=== PATIENT | female | born 1960 | race Caucasian/White ===

== ENCOUNTER 2021-06-12 16:25 | Inpatient (IN) | payer BC, SELFPAY ==
[2021-06-12] VITALS (9 sets, daily range): BP systolic 134–226; BP diastolic 99–148; PULSE 78–143; RESP 15–23; TEMP 36.1–37; O2SAT 95–98; BMI 38.7; BMI 35.1
--- NOTE | 2021-06-12 17:12 | CT_ITS ---
We are attempting to reach an attending provider to discuss findings. An addendum with communication details will be sent when the communication is complete. EXAM: CT HEAD WITHOUT INTRAVENOUS CONTRAST CLINICAL INDICATION: Neuro deficit, acute, stroke suspected TECHNIQUE: Multiple axial images were obtained of the head without intravenous contrast. This CT exam was performed using one or more of the following dose reduction techniques: automated exposure control, adjustment of the mA and/or kV according to patient size, and/or use of iterative reconstruction technique. This report was created using [employer] technology. COMPARISON: None. FINDINGS: BRAIN AND EXTRA-AXIAL SPACES: Old right basal ganglia infarct. Old right frontal parietal lobe infarct. No intra- or extra-axial hemorrhage. No intracranial mass or mass effect. Posterior fossa structures are unremarkable. Ventricles are appropriate for age. No hydrocephalus. Basal cisterns are patent. BONES/JOINTS: Unremarkable. No discrete lytic or blastic abnormalities. SINUSES: Sinus disease. MASTOID AIR CELLS: Unremarkable. Clear. ORBITS: Visualized globes, extraocular muscles, optic nerves and retrobulbar fat appear unremarkable. CT/STROKE Brain/Head without Cont IMPRESSION: No acute findings in the head/brain. Electronically Signed: Harjeet Benítez MD at 18:13 EDT ,
--- NOTE | 2021-06-12 17:12 | EKG12_ITS ---
Test Reason : DYSRHYTHMIA Blood Pressure : / mmHG Vent. Rate : 093 BPM Atrial Rate : 093 BPM P-R Int : 144 ms QRS Dur : 078 ms QT Int : 370 ms P-R-T Axes : 054 070 059 degrees QTc Int : 460 ms Normal sinus rhythm Normal ECG Confirmed by SHERYL CHIRINOS, SHANTI ([id number]), associate entertainment editor SEBASTIÁN DE LEON ([id number]) on 06/14/2021 10:54:18 AM Referred By: ALLYSON Confirmed By:SHANTI SAUCEDO MD
--- NOTE | 2021-06-12 17:13 | ED.VIS.STROK ---
HPI History of Present Illness Chief Complaint: General Illness Informant: patient Onset/Context/Timing Onset: Weeks (1) Context: - (Cannot remember onset) Timing: Continuous Quality and Location: Positive for Right Face Paresthesia, Right Arm Parasthesia, Right Arm Weakness and Slurred Speech; Negative for Difficulty with Ambulation Current Severity: Moderate Maximum Severity: Moderate Worsened by: Nothing Relieved by: Nothing Associated Symptoms Associated Symptoms: Positive for Headache (Off-and-on not present now) and Nausea (Off-and-on not present now); Negative for Vomiting and Chest Pain Narrative Narrative: Patient does not see a doctor, cannot remember the last time she did. She presents with concern for stroke since she is having trouble speaking, numbness in her right face, numbness weakness in her right arm. She states she has history of chronic neuropathy in her right lower extremity that is unchanged and she has been able to walk okay. She is feeling malaise, has occasional headaches, occasional nausea, no chest pain or shortness of breath. No recent injuries or falls. She is having some mild vague changes in her vision but does not sound like any focal or bruce loss of visual field. She has noticed some facial flushing off and on but is not present right now. PFSH PFSH Medical History no medical history no medical history Allergy/AdvReac Type Severity Reaction Status Date / Time No Known Allergies Allergy Verified 06/12/21 16:26 Family History (Updated 06/12/21 @ 19:06 by Tawana Pierson NP-C) Mother Hypertension Son Hypertension Surgical History (Updated 06/12/21 @ 19:06 by DELFINO Mederos) Hx of tonsillectomy Social History (Updated 06/12/21 @ 19:06 by Tawana Pierson NP-C) Smoking Status: Current every day smoker tobacco type: cigarettes alcohol intake: never substance use type: does not use ROS ROS ED Constitutional Constitutional ED: Reports fatigue; Denies chills or fever(s) Eyes Eyes: Reports change in vision bilateral (not as sharp); Denies diplopia ENT ENT ED: Denies rhinorrhea or sore throat Cardiovascular Cardiovascular: Denies chest pain or palpitations Respiratory/Chest Respiratory/Chest: Denies cough or dyspnea Gastrointestinal Gastrointestinal: Reports nausea; Denies abdominal pain, diarrhea or vomiting Genitourinary Genitourinary ED: Denies dysuria or hematuria Musculoskeletal Musculoskeletal: Denies back pain or neck pain Integumentary Denies abscess or rash Neurologic Neurologic: Reports as per HPI, headache(s), paresthesias and weakness Psychiatric Psychiatric: Denies anxiety or suicidal thoughts EXAM Physical Exam Const Vital Signs: 06/12/21 16:26 06/12/21 16:45 06/12/21 17:36 Temperature 96.9 F L Temperature Source Temporal Pulse Rate 143 H 114 H Respiratory Rate 15 23 H Respiratory Effort Normal Respiratory Pattern Normal Blood Pressure 196/148 H Blood Pressure Mean 164 Pulse Ox 98 Oxygen Delivery Method Room Air Room Air 06/12/21 17:50 06/12/21 18:43 06/12/21 18:54 Temperature 98.4 F Temperature Source Temporal Pulse Rate 113 H 92 99 Respiratory Rate 20 H 18 21 H Respiratory Effort Respiratory Pattern Blood Pressure 226/117 H 205/118 H 194/116 H Blood Pressure Mean 153 147 142 Pulse Ox Oxygen Delivery Method Room Air Positive well nourished and well developed General Appearance ED: well developed and NAD HEENT Reports moist mucous membranes normocephalic and atraumatic Eyes PERRL and EOMs intact bilaterally Neck full ROM and supple Resp normal respiratory effort and clear to auscultation bilaterally Cardio regular rate, regular rhythm and no murmurs GI non-tender and non-distended Auscultation: normoactive bowel sounds Palpation: soft Back/Spine no CVA tenderness General Back: other FROM Extremity normal to inspection General Extremety ED: Negative for edema, pulses abnormal or tenderness General Extremity: Negative for edema or pulses abnormal Neuro oriented x3 Sensorium / Orientation: awake and alert Skin no rashes or lesions noted and no wounds STROKE Vital Signs/Narrative: Vital Signs Temp Pulse Resp BP Pulse Ox 06/12/21 18:54 98.4 F 99 21 H 194/116 H 06/12/21 18:43 92 18 205/118 H 06/12/21 17:50 113 H 20 H 226/117 H 06/12/21 17:36 114 H 23 H 06/12/21 16:26 96.9 F L 143 H 15 196/148 H 98 NIHSS Initial: 1a Level of Consciousness: 0 1b LOC Questions (Score 2 if aphasic/stupor): 0 1c LOC Commands (Only score 1st attempt): 0 2 Best Gaze (If aphasic, use reflexive mvmts.): 0 3 Visual: 0 4 Facial Palsy: 0 5 Motor Arm Right (UN = amputation/fusion): 1 5 Motor Arm Left: 0 6 Motor Leg Right: 1 6 Motor Leg Left: 0 7 Limb ataxia (Only + if out of proportion): 0 8 Sensory (Aphasia/stupor=0 or 1, coma=2): 1 9 Best Language: 1 10 Dysarthria (mute, coma=2, intubated=UN): 0 11 Extinction and Inattention (only scored if +): 0 Total Score: 4 MDM MDM MDM Narrative Medical decision making narrative: Patient has a negative plain head CT, strokelike symptoms and a very high blood pressure. She received labetalol when the pressure went up to 226/117. At this time the rest of her work-up is unremarkable except for having a high hemoglobin at 18.5. Plan will be for admission for further work-up. After the labetalol, her blood pressure is still 205/118, so after discussing with hospitalist will order her Catapres and aspirin and request that nurses perform a swallow eval at the bedside prior to giving. Lab Data Attestation: I reviewed the patient's lab results. Labs: Laboratory Results - last 24 hr 06/12/21 06/12/21 06/12/21 17:40 17:40 17:40 WBC 11.9 H RBC 5.95 H Hgb 18.5 H* Hct 51.8 H MCV 87.1 MCH 31.1 MCHC 35.7 RDW Std Deviation 38.8 RDW Coeff of Erin 12.1 Plt Count 379 MPV 9.0 Immature Gran % (Auto) 0.400 Neut % (Auto) 68.2 Lymph % (Auto) 20.5 [place] % (Auto) 7.8 Eos % (Auto) 2.2 Baso % (Auto) 0.9 Absolute Neuts (auto) 8.1 H Absolute Lymphs (auto) 2.44 Nucleated RBC % 0 Differential Comment SCANNED Diff Path Review June foll PT 12.5 INR 1.0 APTT 27.7 Sodium 139 Potassium 3.6 Chloride 107 Carbon Dioxide 25.0 Anion Gap 7 BUN 9 Creatinine 0.96 Estim Creat Clear Calc 49.90 Est GFR (MDRD) Af Amer 77 Est GFR (MDRD) Non-Af 63 BUN/Creatinine Ratio 9.4 L Glucose 89 Calcium 9.4 Troponin I High Sens 10 POC Glucose 06/12/21 18:49 WBC RBC Hgb Hct MCV MCH MCHC RDW Std Deviation RDW Coeff of Erin Plt Count MPV Immature Gran % (Auto) Neut % (Auto) Lymph % (Auto) [place] % (Auto) Eos % (Auto) Baso % (Auto) Absolute Neuts (auto) Absolute Lymphs (auto) Nucleated RBC % Differential Comment Diff Path Review PT INR APTT Sodium Potassium Chloride Carbon Dioxide Anion Gap BUN Creatinine Estim Creat Clear Calc Est GFR (MDRD) Af Amer Est GFR (MDRD) Non-Af BUN/Creatinine Ratio Glucose Calcium Troponin I High Sens POC Glucose 113 H Radiography Diagnostic Testing: Clinical Impression(s) from Imaging Studies Brain CT 06/12/21 17:12 IMPRESSION: No acute findings in the head/brain. Electronically Signed: Harjeet Benítez MD at 18:13 EDT , ADDENDUM: 06/12/21 1823 IMPRESSION: No acute findings in the head/brain. N.B. : The above Results were Read Back by Harjeet Benítez MD to Abhijit Guido MD, and understanding confirmed on 06/12/2021 18:16:05 (ET). Electronically Signed: Harjeet Benítez MD at 18:13 EDT , Chest X-Ray 06/12/21 18:00 IMPRESSION: There are no acute findings. Electronically Signed: Harjeet Benítez MD at 18:13 EDT , Rhythm Strip Rhythm Strip: Sinus Rhythm Rate: 90 Ectopy: None EKG Initial EKG: Attestation: I personally reviewed and interpreted this EKG as follows: Interpretation: Sinus Rhythm (93) and No Acute Injury Pattern Comments: Normal EKG Stroke Documentation Questions Stroke Team Activated: No (Due to timing) Was Patient considered for Endovascular Intervention?: No-CTA not indicated IV Alteplase (t-PA) Administered: No (Due to timing) Discharge Plan Dx/Rx/DC Orders Clinical Impression: Acute ischemic stroke, Hypertensive emergency Disposition Disposition: Acute Care Hospital [facility]
[2021-06-12 17:51] LABS: Absolute Lymphocyte Count 2.44 X10^3/uL (0.83-4.51); Absolute Neutrophil Count 8.1 X10^3/uL (2.0-7.7); Basophil# 0.11 X10^3/uL; Basophil% 0.9 % (0-1); Eosinophil# 0.26 X10^3/uL; Eosinophils% 2.2 % (0-5); Hematocrit 51.8 % (37-47); Lymphocyte # 2.44 X10^3/ul (0.83-4.51); Lymphocyte % 20.5 % (19-41); Mean Corp Hgb Conc 35.7 g/dL (32-36); Mean Corpuscular Hgb 31.1 pg (27.0-32.0); Mean Corpuscular Volume 87.1 fL (81-99); Monocyte# 0.93 X10^3/uL; Monocyte% 7.8 % (0-10); NRBC Flagged by Analyzer 0 % (0-5); Neutrophil # 8.14 X10^3/uL (2.7-7.7); Neutrophil % 68.2 % (47-70); Platelet Count 379 K/mm3 (150-450); RBC Distribution Width CV 12.1 % (11.6-14.6); RBC Distribution Width SD 38.8 fl (35.1-43.9); Red Blood Count 5.95 M/mm3 (4.2-5.4); White Blood Count 11.9 K/mm3 (4.4-11.0)
[2021-06-12] MEDS: Labetalol (Prefilled) 20 MG/4 ML IV (17:55)
--- NOTE | 2021-06-12 18:00 | RAD_ITS ---
STUDY: X-RAY CHEST REASON FOR EXAM: Female, 61 years old. CHEST PAIN Neuro deficit, acute, stroke suspected TECHNIQUE: XR Chest 1 View COMPARISON: None FINDINGS: There is no demonstrated pleural abnormality. Normal size heart. Normal mediastinum and luisa. Normal visualized pulmonary arteries. Normal visualized aortic arch and descending thoracic aorta. Normal visualized thoracic spine. Normal visualized ribs, clavicles, and shoulders. There is no demonstrated abnormality of the visualized soft tissue structures of the upper abdomen. RAD/Chest 1 View IMPRESSION: There are no acute findings. Electronically Signed: Harjeet Benítez MD at 18:13 EDT ,
[2021-06-12 18:06] LABS: Prothrombin Time (Protime)PT. 12.5 SECONDS (11.7-14.9)
[2021-06-12 18:07] LABS: Partial Thromboplast Time 27.7 Seconds (24.1-36.2)
[2021-06-12 18:09] LABS: Anion Gap 7 (5-15); BUN 9 mg/dL (7-18); BUN/Creat Ratio 9.4 RATIO (10-20); Calcium,Total 9.4 mg/dL (8.5-10.1); Chloride 107 mmol/L (98-107); Creatinine, Serum 0.96 mg/dL (0.55-1.02); EST Glomerular Filtration Rate 63 mL/min (>60); Est Glom Filt Rate - Afr Amer 77 mL/min (>60); Glucose 89 mg/dL (74-106); Potassium 3.6 mmol/L (3.5-5.1); Sodium Level 139 mmol/L (136-145); Troponin-I HS 10 pg/mL (3.0-54.0)
[2021-06-12 18:16] LABS: Hemoglobin 18.5 g/dL (12.0-15.0)
[2021-06-12 18:17] LABS: Differential Indicated SCAN CRITERIA MET
[2021-06-12 18:45] LABS: Differential Comment SCANNED
[2021-06-12] MEDS: Aspirin 81 MG TAB.CHEW 324 MG PO (18:53)
[2021-06-12 18:56] LABS: Bedside Glucose 113 mg/dL (74-106)
--- NOTE | 2021-06-12 19:02 | ECHOD_ITS ---
Reason For Study: TIA/CVA Procedure This was a 2D Doppler, Color Flow transthoracic echocardiogram. The exam was of adequate technical quality. Exam performed in department. Left Ventricle Normal LV size. Left ventricular systolic function is normal. The estimated ejection fraction is 65 %. Diastolic function is indeterminate. No regional wall motion abnormalities noted. Right Ventricle Normal RV size. Normal systolic function. Atria Normal left atrium. Normal right atrium. No doppler evidence for ASD. Bubble contrast study negative for right to left interatrial shunt. Mitral Valve There is no mitral annular calcification. Normal mitral valve. Trivial mitral valve insufficiency. Tricuspid Valve Normal tricuspid valve. Trivial tricuspid valve insufficiency. Unable to estimate RV systolic pressure due to insufficient tricuspid regurgitant envelope. Aortic Valve Trisinus/trileaflet aortic valve. Normal aortic valve. Pulmonic Valve The pulmonic valve is not well visualized. Trivial pulmonic valve insufficiency. Great Vessels Normal sized aortic root. Pericardium/Pleural No pericardial effusion. Epicardial fat. Medication Performed a rapid injection of agitated mix of 9 cc saline and 1cc air to assess for atrial septal defect. MMode/2D Measurements & Calculations LVIDd: 3.7 cm IVSd: 1.1 cm Ao root diam: 2.6 cm LVIDs: 2.7 cm LVPWd: 0.78 cm RVDd: 3.1 cm FS: 26.9 % LAV(MOD-sp4): 54.1 ml LVAd ap4: 21.7 cm2 LVAd ap2: 18.2 cm2 LVLd ap4: 7.4 cm LVLd ap2: 5.6 cm EDV(MOD-sp4): 54.8 ml EDV(MOD-sp2): 49.1 ml EDV(sp4-el): 53.8 ml EDV(sp2-el): 50.4 ml LVAs ap4: 12.5 cm2 LVLs ap4: 6.0 cm ESV(MOD-sp4): 23.7 ml ESV(sp4-el): 21.8 ml EF(MOD-sp4): 56.8 % EF(sp4-el): 59.4 % SV(MOD-sp4): 31.2 ml SV(sp4-el): 32.0 ml LA A4 area: 19.2 cm2 LA dimension(2D): 3.5 cm RA A4 area: 14.8 cm2 Doppler Measurements & Calculations MV E max lm: 50.8 cm/sec Lat Peak E' Lm: 6.1 cm/sec Med Peak E' Lm: 5.1 cm/sec MV A max lm: 71.8 cm/sec E/E' lat: 8.4 E/E' med: 10.0 MV E/A: 0.71 Ao V2 max: 114.6 cm/sec LV V1 max: 105.1 cm/sec PA V2 max: 98.0 cm/sec Ao max P.3 mmHg LV V1 max P.4 mmHg ECHO/Echo Complete Interpretation Summary Left ventricular systolic function is normal. The estimated ejection fraction is 65 %. Trivial mitral valve insufficiency. Trivial tricuspid valve insufficiency. Trivial pulmonic valve insufficiency. Epicardial fat. Unable to estimate RV systolic pressure due to insufficient tricuspid regurgita nt envelope. Diastolic function is indeterminate. Bubble contrast study negative for right to left interatrial shunt. Ordering Physician: Tawana Pierson Referring Physician: NO PCP NOTED Performed By: Vidhya Kim RCS
--- NOTE | 2021-06-12 19:04 | HP.PCM_ITS ---
Documented by User: DELFINO Mederos 06/12/21 19:14 HPI - General General Date of Admission: 06/12/21 Date of Service: 06/12/21 Chief Complaint: Numbness and tingling HPI Narrative JERMAIN RHODES, is a 61 F who presents with complaints of right facial and arm paresthesias and right arm weakness along with slurred speech which began today.. Patient states that she has not been to see a physician and probably decades. Upon initial evaluation patient is significantly hypertensive at 227/119. Patient states that she has no known medical history however as stated before she has not seen a physician in some time. Patient received clonidine and labetalol in the ER along with aspirin. Patient states that her only surgical history is a tonsillectomy when she was a child. PFS Medical History no medical history Allergy/AdvReac Type Severity Reaction Status Date / Time No Known Allergies Allergy Verified 06/12/21 16:26 Family History (Updated 06/12/21 @ 19:06 by DELFINO Mederos) Mother Hypertension Son Hypertension Surgical History (Updated 06/12/21 @ 19:06 by DELFINO Mederos) Hx of tonsillectomy Social History (Updated 06/12/21 @ 19:06 by DELFINO Mederos) Smoking Status: Current every day smoker tobacco type: cigarettes alcohol intake: never substance use type: does not use ROS Constitutional Constitutional: Denies anorexia, chills, fatigue, fever(s) or weakness Cardiovascular Cardiovascular: Denies chest pain, edema, palpitations or syncope Respiratory/Chest Respiratory/Chest: Denies cough, shortness of breath at rest, shortness of breath with exertion or wheezing Gastrointestinal Gastrointestinal: Denies abdominal pain, constipation, diarrhea, nausea or vomiting Genitourinary Genitourinary: Denies dysuria Musculoskeletal Musculoskeletal: Denies back pain, extremity pain, joint pain, joint stiffness or joint swelling Integumentary Integumentary: Denies dry skin Neurologic Neurologic: Reports abnormal speech, focal weakness, numbness and tingling; Denies abnormal gait, confusion or dizziness Psychiatric Psychiatric: Denies anxiety or depression Endocrine Endocrinology: Denies change in body appearance Hematologic/Lymphatic Hematologic/Lymphatic: Denies anemia Vital Signs Vital Signs Vital Signs: 06/12/21 16:26 06/12/21 16:45 06/12/21 17:36 Temperature 96.9 F L Temperature Source Temporal Pulse Rate 143 H 114 H Respiratory Rate 15 23 H Respiratory Effort Normal Respiratory Pattern Normal Blood Pressure 196/148 H Blood Pressure Mean 164 Pulse Ox 98 Oxygen Delivery Method Room Air Room Air 06/12/21 17:50 06/12/21 18:43 06/12/21 18:54 Temperature 98.4 F Temperature Source Temporal Pulse Rate 113 H 92 99 Respiratory Rate 20 H 18 21 H Respiratory Effort Respiratory Pattern Blood Pressure 226/117 H 205/118 H 194/116 H Blood Pressure Mean 153 147 142 Pulse Ox Oxygen Delivery Method Room Air Weight Weight: 211 lb 10.3 oz Body Mass Index (BMI) 38.7 Physical Exam Const alert, oriented x3 and no apparent distress General Appearance: cooperative HEENT normocephalic and head/scalp atraumatic Eyes conjunctivae normal and no scleral icterus Neck supple General: trachea midline Lymph Lymphatic: no lymphadenopathy noted Resp normal respiratory effort, normal air movement and clear to auscultation bilaterally Cardio regular rate, regular rhythm, S1 normal heart sound, S2 normal heart sound and peripheral pulses 2+ throughout GI normal to inspection, nondistended, normoactive bowel sounds, soft to palpation and non-tender Extremity normal capillary refill and no clubbing, cyanosis or edema General Extremity: no tenderness to palpation of joints or extremities Skin General Skin Exam: no breakdown and turgor normal Lesions: no lesions Rashes: no rashes Neuro oriented x3 and moves all extremities Speech: speech abnormal Details: Positive for slurred Sensory Exam: extremities light-touch: decreased (Right arm and right side face) Psych thought process normal, cooperative and affect normal Appearance: appropriate Results Lab / Micro Data Result Diagrams: 06/12/21 17:40 06/12/21 17:40 Labs: Laboratory Results - last 24 hr 06/12/21 17:40: WBC 11.9 H, RBC 5.95 H, Hgb 18.5 H*, Hct 51.8 H, MCV 87.1, MCH 31.1, MCHC 35.7, RDW Std Deviation 38.8, RDW Coeff of Erin 12.1, Plt Count 379, MPV 9.0, Immature Gran % (Auto) 0.400, Neut % (Auto) 68.2, Lymph % (Auto) 20.5, [place] % (Auto) 7.8, Eos % (Auto) 2.2, Baso % (Auto) 0.9, Absolute Neuts (auto) 8.1 H, Absolute Lymphs (auto) 2.44, Nucleated RBC % 0, Differential Comment SCANNED, Diff Path Review June06/12/21 17:40: PT 12.5, INR 1.0, APTT 27.7 06/12/21 17:40: Sodium 139, Potassium 3.6, Chloride 107, Carbon Dioxide 25.0, Anion Gap 7, BUN 9, Creatinine 0.96, Estim Creat Clear Calc 49.90, Est GFR (MDRD) Af Amer 77, Est GFR (MDRD) Non-Af 63, BUN/Creatinine Ratio 9.4 L, Glucose 89, Calcium 9.4, Troponin I High Sens 10 06/12/21 18:49: POC Glucose 113 H Rhythm Strip Rhythm Strip: Sinus Rhythm Rate: 90 Ectopy: None Radiology Impression Brain CT 06/12/21 17:12 IMPRESSION: No acute findings in the head/brain. Electronically Signed: Harjeet Benítez MD at 18:13 EDT , ADDENDUM: 06/12/21 1823 IMPRESSION: No acute findings in the head/brain. N.B. : The above Results were Read Back by Harjeet Benítez MD to Abhijit Guido MD, and understanding confirmed on 06/12/2021 18:16:05 (ET). Electronically Signed: Harjeet Benítez MD at 18:13 EDT , Chest X-Ray 06/12/21 18:00 IMPRESSION: There are no acute findings. Electronically Signed: Harjeet Benítez MD at 18:13 EDT , Assessment & Plan Assessment/Plan (1) Acute ischemic stroke: (2) Hypertensive emergency: PLAN: 1. Hypertensive emergency with suspicion for acute ischemic stroke -Admit to PCU -PT OT and ST to eval and treat -Patient received labetalol and clonidine x1 in ER, as needed labetalol and hydralazine ordered per protocol -Trend cardiac enzymes -Echocardiogram ordered for a.m. -N.p.o. pending dysphagia screening, if patient passes then cardiac diet ordered -NIH and vital sign monitoring per protocol -CBC, BMP, lipid profile ordered for a.m. -Brain MRI and head and neck MRA ordered -CT brain negative for acute findings however of note patient has a old right basal ganglia infarct and an old right frontal parietal lobe infarct. 2. Tobacco abuse -Inpatient smoking cessation ordered -Patient reports she smokes about three quarters of a pack of cigarettes per day 3. Elevated hemoglobin -Likely secondary to smoking as patient has no her entire adult life -Daily CBC ordered 4. Elevated white blood cell count -Likely reactive as patient has no signs or symptoms of infection -CBC ordered daily -Chest x-ray demonstrated no acute findings DVT prophylaxis-subcu Lovenox This patient was seen by DELFINO Mederos under the supervision of Dr. Amado. 29 minutes spent in clinical coordination of patient's plan of care. Documented by User: Dr. Brian Amado DO 06/12/21 19:31 HPI - General General Date of Admission: 06/12/21 PFSH Medical History no medical history Allergy/AdvReac Type Severity Reaction Status Date / Time No Known Allergies Allergy Verified 06/12/21 16:26 Family History (Updated 06/12/21 @ 19:06 by Tawana Pierson NP-Cata) Mother Hypertension Son Hypertension Surgical History (Updated 06/12/21 @ 19:06 by DELFINO Mederos) Hx of tonsillectomy Social History (Updated 06/12/21 @ 19:06 by Tawana Pierson NP-C) Smoking Status: Current every day smoker tobacco type: cigarettes alcohol intake: never substance use type: does not use Results Lab / Micro Data Result Diagrams: 06/12/21 17:40 06/12/21 17:40 Charges/Coding Addendum Addendum: Patient was seen and examined today independently of Christi Pierson, she came to the ER today from work with complaints of tingling in her right hand and fingers and some tingling on the right side of her mouth. Patient has not seen a physician in many years-she states that in the past she was told she had borderline hypertension but was told that she did not need to be placed on medication at that time and that it could be controlled with lifestyle changes. Patient takes no medications at the present time. On examination she appeared in good health and spirits, she does not appear to be in any distress. Vital signs as documented. Skin warm and dry and without overt rashes. Neck without JVD, thyroid appears normal, trachea is midline, neck is supple. Lungs clear, normal air movement was noted. Heart exam notable for regular rhythm, normal sounds and absence of murmurs, rubs or gallops. Abdomen unremarkable and without evidence of organomegaly, masses, or abdominal aortic enlargement, bowel sounds are present in all 4 quadrants, no abdominal tender ness was noted. Extremities nonedematous, no cyanosis was noted, no clubbing was noted. Neuro: Cranial nerves II through XII are grossly intact, no focal motor deficits were noted, sensation to light touch and pinprick is intact, motor exam 5/5 throughout. Psych: Patient is alert and oriented x3, she does not appear anxious or depressed, she does not appear agitated. Patient's NIH stroke score was 4, she had a highly elevated blood pressure in the emergency room-as high as 226/117-she was given IV labetalol in the emergency room. Patient's speech was appropriate during the time of my visit, her stated that she had slurred speech at one time but this was not in evidence during the time of my examination. Work-up in the emergency room included a CT of the head which showed no acute findings, there was however noted to be an old right basal ganglia infarct and an old right frontal parietal lobe infarct. Patient's lab was remarkable for hemoglobin of 18.5, white blood cell count was slightly elevated at 11.9, and patient's chemistry profile was unremarkable. Impression #1 hypertensive emergency-patient will be admitted to PCU, additional medications may be needed to lower the patient's blood pressure acutely, patient will be started on program medication for control of her high blood pressure, she will need to follow-up as an outpatient regarding her blood pressure. #2 paresthesias of the right hand and right facial area-etiology unclear, possibly secondary to undiagnosed acute CVA-patient will be monitored on PCU, PT and OT will see the patient, she will undergo an MRI to exclude an acute stroke. Patient will also undergo an MRA of the head and neck. Patient will be placed on 81 mg aspirin daily #3 reactive polycythemia-patient smokes approximately 15 cigarettes daily, she will be placed on a nicotine patch. I have reviewed Christi Pierson's history and physical including her medical assessment and plan of care and with the above additions endorse it. Total clinical time spent by myself addressing the patient's issues, reviewing the patient's medical record, and coordinating care the patient's care team: 45 minutes
[2021-06-12] MEDS: cloNIDine HCl 0.2 MG Tablet PO (19:08)
[2021-06-12 20:57] LABS: Troponin-I HS 14 pg/mL (3.0-54.0)
[2021-06-12 23:56] LABS: Troponin-I HS 14 pg/mL (3.0-54.0)
[2021-06-13] VITALS (11 sets, daily range): BP systolic 127–149; BP diastolic 91–111; PULSE 72–91; RESP 18; TEMP 36.3–36.6; O2SAT 94–99; BMI 35.1
[2021-06-13 06:00] LABS: Absolute Neutrophil Count 5.4 X10^3/uL (2.0-7.7); Basophil# 0.11 X10^3/uL; Basophil% 1.1 % (0-1); Eosinophil# 0.43 X10^3/uL; Eosinophils% 4.2 % (0-5); Hematocrit 46.8 % (37-47); Hemoglobin 15.9 g/dL (12.0-15.0); Mean Corpuscular Hgb 30.2 pg (27.0-32.0); Monocyte# 0.91 X10^3/uL; Monocyte% 8.8 % (0-10); NRBC Flagged by Analyzer 0 % (0-5); Neutrophil % 52.5 % (47-70); Platelet Count 343 K/mm3 (150-450); RBC Distribution Width CV 12.5 % (11.6-14.6); RBC Distribution Width SD 40.8 fl (35.1-43.9); Red Blood Count 5.26 M/mm3 (4.2-5.4); White Blood Count 10.3 K/mm3 (4.4-11.0)
[2021-06-13 06:47] LABS: Anion Gap 8 (5-15); BUN 9 mg/dL (7-18); BUN/Creat Ratio 9.7 RATIO (10-20); Calcium,Total 8.2 mg/dL (8.5-10.1); Chloride 104 mmol/L (98-107); Cholesterol 211 mg/dL (200); Creatinine, Serum 0.93 mg/dL (0.55-1.02); EST Glomerular Filtration Rate 66 mL/min (>60); Est Glom Filt Rate - Afr Amer 79 mL/min (>60); Estimated Creatinine Clearance 51.51 ml/min; Glucose 102 mg/dL (74-106); High Density Lipoprotein 37 mg/dL; Potassium 3.6 mmol/L (3.5-5.1); Sodium Level 138 mmol/L (136-145); Triglycerides 141 mg/dL; Very Low Density Lipoprotein 28 mg/dL (5-40)
--- NOTE | 2021-06-13 08:10 | MRI_ITS ---
EXAM: MR ANGIOGRAPHY HEAD WITHOUT INTRAVENOUS CONTRAST CLINICAL INDICATION: STROKE TECHNIQUE: Routine [place]/brain 3D time of flight MR angiogram protocol was performed without intravenous contrast. This report was created using [employer] report [employer] technology. COMPARISON: None. FINDINGS: RIGHT INTERNAL CAROTID ARTERY: Cavernous and supraclinoid portion of the right internal carotid artery appears stenotic. No aneurysm. RIGHT ANTERIOR CEREBRAL ARTERY: Bilateral A1 segments are patent. Anterior communicating artery is patent. No significant stenosis at the visualized segments. No aneurysm. RIGHT MIDDLE CEREBRAL ARTERY: There is absence of the right middle cerebral artery and branches. No significant stenosis at the visualized segments. No aneurysm. RIGHT POSTERIOR CEREBRAL ARTERY: Unremarkable. No significant stenosis at the visualized segments. No aneurysm. RIGHT VERTEBRAL ARTERY: Unremarkable as visualized. No significant stenosis at the intradural/visualized segments. No aneurysm. LEFT INTERNAL CAROTID ARTERY: No acute findings. No significant stenosis at the intracranial/visualized segments. No aneurysm. LEFT ANTERIOR CEREBRAL ARTERY: Left anterior cerebral artery is larger in size than right. LEFT MIDDLE CEREBRAL ARTERY: M1 segment of the left MCA is diffusely narrowed. No aneurysm. LEFT POSTERIOR CEREBRAL ARTERY: Left P-comm arteries present. No significant stenosis at the visualized segments. No aneurysm. LEFT VERTEBRAL ARTERY: Unremarkable as visualized. No significant stenosis at the intradural/visualized segments. No aneurysm. BASILAR ARTERY: Unremarkable. No significant stenosis. No aneurysm. OTHER VASCULATURE: See below. BRAIN AND EXTRA-AXIAL SPACES: Both cerebral arteries are patent. MRI/MRA Head ONLY without Contrast IMPRESSION: 1. Stenosis of the right internal carotid artery. 2. Occlusion of the right MCA. 3. Diffuse stenosis of the left MCA. Electronically Signed: Krunal Townsend MD at 11:22 EDT ,
--- NOTE | 2021-06-13 09:00 | MRI_ITS ---
We are attempting to reach an attending provider to discuss findings. An addendum with communication details will be sent when the communication is complete. EXAM: MR HEAD WITHOUT INTRAVENOUS CONTRAST CLINICAL INDICATION: stroke TECHNIQUE: Multiplanar and multisequence MR images of the brain were obtained without intravenous contrast. This report was created using [employer] report generation technology. COMPARISON: CT brain June 12, 2021 FINDINGS: BRAIN AND EXTRA-AXIAL SPACES: A 16 mm focus of restricted diffusion noted along the left frontoparietal junction consistent with acute ischemia. Old lacunar infarct noted within the right basal ganglia as well as old subcortical posterior right frontal infarct. No intra- or extra-axial hemorrhage. No intracranial mass or mass effect. Posterior fossa structures are unremarkable. Ventricles are appropriate for age. No hydrocephalus. Basal cisterns are patent. SELLA: Unremarkable. Normal sella turcica, pituitary gland, infundibular stalk, optic chiasm and hypothalamus. AUDITORY SYSTEM: Unremarkable. The internal auditory canals are patent. BONES/JOINTS: Unremarkable. No discrete lytic or blastic abnormalities. SINUSES: Unremarkable as visualized. Clear. MASTOID AIR CELLS: Unremarkable as visualized. Clear. ORBITS: Unremarkable as visualized. Both globes, extraocular muscles, optic nerves and retrobulbar fat appear unremarkable. VASCULATURE: Unremarkable as visualized. Normal flow voids in the major intracranial circulation. MRI/Brain without Contrast IMPRESSION: 1. Small focus of acute ischemia involving the left frontoparietal junction. 2. Chronic ischemic changes on the right. Electronically Signed: Krunal Townsend MD at 11:50 EDT ,
--- NOTE | 2021-06-13 09:00 | MRI_ITS ---
EXAM: MR ANGIOGRAPHY NECK WITHOUT INTRAVENOUS CONTRAST CLINICAL INDICATION: stroke TECHNIQUE: Routine carotid MR angiogram protocol was performed without intravenous contrast. 3D reconstructions were reviewed. Nascet criteria using the distal ICAs for comparison were used for evaluation of stenoses. This report was created using [employer] report [employer] technology. COMPARISON: MRA brain June 13, 2021 FINDINGS: ARTIFACTS: Motion artifacts degrade the overall quality of the exam. RIGHT COMMON CAROTID ARTERY: Unremarkable. No occlusion or significant stenosis. No dissection. RIGHT INTERNAL CAROTID ARTERY: There appears to be long segment stenosis of the proximal 2 to 3 cm of the right internal carotid artery. No dissection. RIGHT EXTERNAL CAROTID ARTERY: Unremarkable. No occlusion. RIGHT VERTEBRAL ARTERY: Both vertebral arteries are patent with the right vertebral artery the dominant vessel. No occlusion or significant stenosis. No dissection. LEFT COMMON CAROTID ARTERY: Unremarkable. No occlusion or significant stenosis. No dissection. LEFT INTERNAL CAROTID ARTERY: Unremarkable. Extracranial segment is patent with no occlusion or significant stenosis. No dissection. LEFT EXTERNAL CAROTID ARTERY: Unremarkable. No occlusion. LEFT VERTEBRAL ARTERY: Unremarkable. No occlusion or significant stenosis. No dissection. GREAT VESSELS OF AORTIC ARCH: Unremarkable. No significant stenosis. CAROTID STENOSIS REFERENCE USING NASCET CRITERIA: % ICA stenosis = (1 - narrowest ICA diameter/diameter of distal cervical ICA) x 100. Mild - <50% stenosis. Moderate - 50-69% stenosis. Severe - 70-94% stenosis. Near occlusion - 95-99% stenosis. Occluded - 100% stenosis. MRI/MRA Neck without Contrast IMPRESSION: 1. Motion degraded exam. 2. Suspect significant stenosis of the proximal right internal carotid artery. 3. CTA of head and neck may be of further value. Electronically Signed: Krunal Townsend MD at 11:28 EDT ,
[2021-06-13] MEDS: Enoxaparin 40 MG/0.4 ML Syringe SC (11:53)
--- NOTE | 2021-06-13 12:00 | CASEMGMT ---
BARBER MONSIVAIS assessment: Face to Face with patient for initial transition planning/care coordination assessment. BARBER MONSIVAIS introduced self and role at [facility], pt voices understanding and consents to assessment. Pt's and son are at bedside during assessment. Pt is sitting up in bed in no distress on room air. Pt is A/Ox4 and answers all questions appropriately. Care providers, pharmacy, and demographics verified. Presentation: Pt arrives to ED w/ intermittent numbness/tingling right arm and feeling unwell. Admitting dx: Hypertensive emergency, Stroke-like sx's PCP: Pt states no PCP but list provided Specialists: None [facility]erred [facility]acy: [facility] Insurance: [place] Prescription Benefit: [place] Living Will/HPOA: Pt states no LW/HPOA and declines AD info. LNOK: Ramy Weiner, Living Arrangements: Pt lives with in 1 story home and states no concerns at home. Pt is independent with ADL's. Transportation: Pt drives self and states no transportation concerns. DME/HHC: Pt states has a cane and states no need for any further DME. Pt states no hx of HHC or SNF. Pt states no concerns with going home at time of discharge. Pt works part time receptionist. Pt states smokes 15 cigarettes daily and does not drink ETOH. Pt states no further concerns/needs. CM to follow for any further discharge planning/needs. Advised pt to ask for CM if any further questions/concerns/needs arise, voices understanding. Pt Goal: Home Plan: Home, pending neuro c/s and therapy evals. SStquique BLANDON CM
--- NOTE | 2021-06-13 12:04 | TELEMED_ITS ---
[facility] Telemed has confirmed receipt of a request for visit. This document confirms receipt of the order initiating the consult. To find the results of the consultation, please view the patient's reports for the scanned Telemed Consult.
--- NOTE | 2021-06-13 12:07 | CASEMGMT ---
According to the [place] website, the following are in-network tertiary facilities: [facility], [facility], [facility], [facility], [facility], [facility], [facility], and . eNlia BLANDON CM
--- NOTE | 2021-06-13 13:07 | CT_ITS ---
EXAM: CT ANGIOGRAPHY HEAD AND NECK WITH INTRAVENOUS CONTRAST CLINICAL INDICATION: carotid stenosis TECHNIQUE: [place] [facility] [place]/head and neck CT angiography protocol performed with intravenous contrast. This CT exam was performed using one or more of the following dose reduction techniques: automated exposure control, adjustment of the mA and/or kV according to patient size, and/or use of iterative reconstruction technique. This report was created using [employer] report generation technology. MIP reconstructed images were created and reviewed. CONTRAST: IV 100mL [id number] COMPARISON: MRA head and neck June 13, 2021 FINDINGS: HEAD: RIGHT ANTERIOR CEREBRAL ARTERY: Unremarkable. No significant stenosis at the visualized segments. Anterior communicating artery is present. No aneurysm. RIGHT MIDDLE CEREBRAL ARTERY: M1 segment of the right MCA is occluded. Right M2 and M3 branches fill via collateral vessels. No aneurysm. RIGHT POSTERIOR CEREBRAL ARTERY: Unremarkable. No occlusion or significant stenosis. No aneurysm. RIGHT INTRACRANIAL INTERNAL CAROTID ARTERY: Diffuse smooth stenosis of the proximal 2.5 cm of the right internal carotid artery with lumen narrowed to approximately 70% or greater. More distal portion of the right internal carotid artery appears to be attenuated in caliber. The cavernous and supraclinoid portion of the right internal carotid artery is reduced in size. RIGHT INTRACRANIAL VERTEBRAL ARTERY: Unremarkable. No significant stenosis. No dissection or occlusion. LEFT ANTERIOR CEREBRAL ARTERY: Left anterior cerebral artery is larger in size in the right. No significant stenosis at the visualized segments. No aneurysm. LEFT MIDDLE CEREBRAL ARTERY: On the moderate diffuse narrowing and irregularity of the M1 segment of the left MCA. No aneurysm. LEFT POSTERIOR CEREBRAL ARTERY: Left posterior cerebral artery fills via the left P-comm. No occlusion or significant stenosis. No aneurysm. LEFT INTRACRANIAL INTERNAL CAROTID ARTERY: Unremarkable. No significant stenosis. No dissection or occlusion. LEFT INTRACRANIAL VERTEBRAL ARTERY: Unremarkable. No significant stenosis. No dissection or occlusion. BASILAR ARTERY: Unremarkable. No significant stenosis. No aneurysm. GREAT VESSELS OF AORTIC ARCH: Unremarkable. Normal anatomy, patent. OTHER VASCULATURE: See above. NECK: RIGHT COMMON CAROTID ARTERY: Unremarkable. No significant stenosis. No dissection or occlusion. RIGHT EXTRACRANIAL INTERNAL CAROTID ARTERY: See above. RIGHT EXTERNAL CAROTID ARTERY: Unremarkable. No occlusion. RIGHT EXTRACRANIAL VERTEBRAL ARTERY: Unremarkable. No significant stenosis. No dissection or occlusion. LEFT COMMON CAROTID ARTERY: Unremarkable. No significant stenosis. No dissection or occlusion. LEFT EXTRACRANIAL INTERNAL CAROTID ARTERY: Unremarkable. No significant stenosis. No dissection or occlusion. LEFT EXTERNAL CAROTID ARTERY: Unremarkable. No occlusion. LEFT EXTRACRANIAL VERTEBRAL ARTERY: Unremarkable. No significant stenosis. No dissection or occlusion. LUNG APICES: Unremarkable as visualized. HEAD and NECK: BONES/JOINTS: Unremarkable. No discrete lytic or blastic abnormalities. SOFT TISSUES: Unremarkable. CAROTID STENOSIS REFERENCE USING NASCET CRITERIA: % ICA stenosis = (1 - narrowest ICA diameter/diameter of distal cervical ICA) x 100. Mild - <50% stenosis. Moderate - 50-69% stenosis. Severe - 70-94% stenosis. Near occlusion - 95-99% stenosis. Occluded - 100% stenosis. CT/CTA Head AND Neck W/ Contrast IMPRESSION: 1. Significant narrowing of the proximal cervical portion of the right internal carotid artery suggesting vasculitis. 2. Occlusion of the M1 segment of the right MCA. 3. Narrowing and irregularity of the M1 segment of the left MCA. Electronically Signed: Krunal Townsend MD at 14:19 EDT ,
--- NOTE | 2021-06-13 13:30 | PN.HOSP_ITS ---
Subjective Subjective Patient seen and examined. She had no active complaints and felt well. She was admitted with a complaint of right-sided weakness which she says was lingering a bit but had improved. Review of systems otherwise negative. Objective Data Objective Data Vital Signs: Vital Signs Temp Pulse Resp BP Pulse Ox 97.4 F L 91 18 148/100 H 98 06/13/21 09:25 06/13/21 11:00 06/13/21 09:25 06/13/21 09:25 06/13/21 09:25 Oxygen Delivery Method Room Air Weight: 196 lb 10.437 oz Body Mass Index (BMI) 35.1 Intake & Output: Intake and Output for Last 24 Hours 06/11/21 06/12/21 06/13/21 23:59 23:59 23:59 Intake Total 880 / 880 Balance 880 / 880 Lab / Micro Data Result Diagrams: 06/13/21 05:35 06/13/21 05:35 Labs: Laboratory Results - last 24 hr 06/12/21 17:40: WBC 11.9 H, RBC 5.95 H, Hgb 18.5 H*, Hct 51.8 H, MCV 87.1, MCH 31.1, MCHC 35.7, RDW Std Deviation 38.8, RDW Coeff of Erin 12.1, Plt Count 379, MPV 9.0, Immature Gran % (Auto) 0.400, Neut % (Auto) 68.2, Lymph % (Auto) 20.5, Calvert % (Auto) 7.8, Eos % (Auto) 2.2, Baso % (Auto) 0.9, Absolute Neuts (auto) 8.1 H, Absolute Lymphs (auto) 2.44, Nucleated RBC % 0, Differential Comment SCANNED, Diff Path Review June foll 06/12/21 17:40: PT 12.5, INR 1.0, APTT 27.7 06/12/21 17:40: Sodium 139, Potassium 3.6, Chloride 107, Carbon Dioxide 25.0, Anion Gap 7, BUN 9, Creatinine 0.96, Estim Creat Clear Calc 49.90, Est GFR (MDRD) Af Amer 77, Est GFR (MDRD) Non-Af 63, BUN/Creatinine Ratio 9.4 L, Glucose 89, Calcium 9.4, Troponin I High Sens 10 06/12/21 18:49: POC Glucose 113 H 06/12/21 20:12: Troponin I High Sens 14 06/12/21 23:20: Troponin I High Sens 14 06/13/21 05:35: WBC 10.3, RBC 5.26, Hgb 15.9 H, Hct 46.8, MCV 89.0, MCH 30.2, MCHC 34.0, RDW Std Deviation 40.8, RDW Coeff of Erin 12.5, Plt Count 343, MPV 9.0, Immature Gran % (Auto) 0.400, Neut % (Auto) 52.5, Lymph % (Auto) 33.0, Calvert % (Auto) 8.8, Eos % (Auto) 4.2, Baso % (Auto) 1.1 H, Absolute Neuts (auto) 5.4, Absolute Lymphs (auto) 3.40, Nucleated RBC % 0 06/13/21 05:35: Sodium 138, Potassium 3.6, Chloride 104, Carbon Dioxide 26.0, Anion Gap 8, BUN 9, Creatinine 0.93, Estim Creat Clear Calc 51.51, Est GFR (MDRD) Af Amer 79, Est GFR (MDRD) Non-Af 66, BUN/Creatinine Ratio 9.7 L, Glucose 102, Calcium 8.2 L, Triglycerides 141, Cholesterol 211 H, LDL Cholesterol 146 H, VLDL Cholesterol 28, HDL Cholesterol 37 L Radiography Diagnostic Testing: Radiology Impression Brain CT 06/12/21 17:12 IMPRESSION: No acute findings in the head/brain. Electronically Signed: Harjeet Benítez MD at 18:13 EDT , ADDENDUM: 06/12/21 1823 IMPRESSION: No acute findings in the head/brain. N.B. : The above Results were Read Back by Harjeet Benítez MD to Abhijit Guido MD, and understanding confirmed on 06/12/2021 18:16:05 (ET). Electronically Signed: Harjeet Benítez MD at 18:13 EDT , Chest X-Ray 06/12/21 18:00 IMPRESSION: There are no acute findings. Electronically Signed: Harjeet Benítez MD at 18:13 EDT , Head MRA 06/13/21 08:10 IMPRESSION: 1. Stenosis of the right internal carotid artery. 2. Occlusion of the right MCA. 3. Diffuse stenosis of the left MCA. Electronically Signed: Krunal Townsend MD at 11:22 EDT , Brain MRI 06/13/21 09:00 IMPRESSION: 1. Small focus of acute ischemia involving the left frontoparietal junction. 2. Chronic ischemic changes on the right. Electronically Signed: Krunal Townsend MD at 11:50 EDT , ADDENDUM: 06/13/21 1213 IMPRESSION: 1. Small focus of acute ischemia involving the left frontoparietal junction. 2. Chronic ischemic changes on the right. N.B. : The above Results were Read Back by Krunal Townsend MD to Dr. Kyle MD, and understanding confirmed on 06/13/2021 12:06:12 (ET). Electronically Signed: Krunal Twonsend MD at 11:50 EDT , Neck MRA 06/13/21 09:00 IMPRESSION: 1. Motion degraded exam. 2. Suspect significant stenosis of the proximal right internal carotid artery. 3. CTA of head and neck may be of further value. Electronically Signed: Krunal Townsend MD at 11:28 EDT , Rhythm Strip Rhythm Strip: Sinus Rhythm Rate: 90 Ectopy: None Physical Exam Const alert, oriented x3 and no apparent distress Exam Limitations: no limitations HEENT head/scalp atraumatic and moist oral mucous membranes Head and Scalp: normocephalic Eyes PERRL, EOMs intact bilaterally and conjunctivae normal Neck no lymphadenopathy Resp normal respiratory effort, no retractions, no use of accessory muscles and clear to auscultation bilaterally Cardio regular rate, regular rhythm, S1 normal heart sound, S2 normal heart sound and no murmurs GI normal to inspection, nondistended, normoactive bowel sounds, soft to palpation, non-tender and non-distended Extremity normal to inspection and full ROM Peripheral Pulses: Yes pulses 2+ throughout Skin no rashes or lesions noted Neuro oriented x3, CN's II-XII intact bilaterally and moves all extremities Sensorium / Orientation: awake and alert Psych affect normal Assessment & Plan Assessment/Plan (1) Acute ischemic stroke: (2) Hypertensive emergency: PLAN: #Acute CVA * admitted with right sided numbness and tingling. BP was markedly elevated, so there was concern for hypertensive urgency * MRI of brain showed a small focus of acute ischemia involving the left frotoparietal junction, and chronic ischemic changes on right side * start aspirin 81mg daily. Received a loading dose of aspirin 324 mg x 1 ye * start high intensity statin. 2D echo ordered and is pending * PT/OT on board. Fall precautions * Neurology reviewed patient. Will need event monitor on discharge. 2D echo pending and per neurology, if aortic arch, atrial appendage and atrial size cannot be evaluated on the 2D echo, would recommend TTE. Await 2D echo reading. * A1c pending. Lipid panel showed elevated LDL. Started on high intensity statin as above * Counseled to quit smoking. * MRA of the head and neck showed a motion degraded exam and suspected significant stenosis of the proximal right internal carotid artery. CT of the head and neck ordered for further evaluation. * per discussion with neurology, there is concern for previous embolic strokes from MRI. To get event monitor to assess for atrial fibrillation. * #Hypertensive emergency * Resolved. Noted known hypertensive. Blood pressure is now 148/100. * Will start on p.o. metoprolol 25 mg twice daily starting from tomorrow. This is to allow for permissive hypertension in light of patient having a stroke. * IV hydralazine prn * #Elevated hemoglobin * hb is down from 18.5 to 15.9 * likely related to her history of smoking and possible secondary polycythemia from smoking. Will continue monitoring * #Hyperlipidemia: total cholesterol is 211 with LDL of 146. HDL is 37. Started on high intensity statin #History of nicotine dependence: Counseled to quit. DVT prophylaxis: lovenox Charges/Coding Visit Charges Inpatient E&M: 52003 Subs Hosp L2
[2021-06-13 13:48] LABS: Hemoglobin A1c 5.5 % (3.8-5.6)
[2021-06-13 13:51] LABS: Pathologist Review Reviewed
--- NOTE | 2021-06-13 14:10 | CASEMGMT ---
Addendum entered by Lynda Conti 06/13/21 14:32: SW gave patient a list of counselors from her insurance website. Lynda COOK Original Note: SW completed a PHQ 9 with patient as she had a Stroke. Patient scored a 6 which indicates mild depression. Patient did become tearful during the assessment. SW provided emotional support. SW spoke with patient about [facility] Stroke support group and the mailing list. Patient was open to both. SW provided patient with a pamphlet on the Stroke Support group. SW also gave patient a PCP list. SW asked patient if she would like SW to print out a list of counselors that take her insurance. SW said she would like a list. SW will work on this. Lynda COOK
[2021-06-13] MEDS: Atorvastatin Calcium 40 MG Tablet PO (14:41)
[2021-06-13] MEDS: Aspirin 81 MG TAB.CHEW PO (14:41)
[2021-06-14] VITALS (12 sets, daily range): BP systolic 124–195; BP diastolic 78–108; PULSE 70–110; RESP 18; TEMP 36.5–36.9; O2SAT 95–99; BMI 35.1
[2021-06-14 06:10] LABS: Absolute Lymphocyte Count 2.82 X10^3/uL (0.83-4.51); Absolute Neutrophil Count 4.5 X10^3/uL (2.0-7.7); Basophil# 0.11 X10^3/uL; Basophil% 1.2 % (0-1); Eosinophil# 0.46 X10^3/uL; Eosinophils% 5.2 % (0-5); Hematocrit 48.5 % (37-47); Hemoglobin 16.2 g/dL (12.0-15.0); Lymphocyte # 2.82 X10^3/ul (0.83-4.51); Mean Corp Hgb Conc 33.4 g/dL (32-36); Mean Corpuscular Hgb 30.6 pg (27.0-32.0); Mean Corpuscular Volume 91.5 fL (81-99); Mean Platelet Vol. 9.3 fl (6.2-12.0); Monocyte# 0.93 X10^3/uL; Monocyte% 10.5 % (0-10); NRBC Flagged by Analyzer 0 % (0-5); Neutrophil # 4.47 X10^3/uL (2.7-7.7); Neutrophil % 50.8 % (47-70); Platelet Count 321 K/mm3 (150-450); RBC Distribution Width CV 12.3 % (11.6-14.6); RBC Distribution Width SD 41.5 fl (35.1-43.9); White Blood Count 8.8 K/mm3 (4.4-11.0)
[2021-06-14 06:36] LABS: Anion Gap 4 (5-15); BUN 12 mg/dL (7-18); BUN/Creat Ratio 13.5 RATIO (10-20); Calcium,Total 8.1 mg/dL (8.5-10.1); Chloride 107 mmol/L (98-107); Creatinine, Serum 0.89 mg/dL (0.55-1.02); EST Glomerular Filtration Rate 69 mL/min (>60); Est Glom Filt Rate - Afr Amer 83 mL/min (>60); Estimated Creatinine Clearance 53.83 ml/min; Glucose 108 mg/dL (74-106); Sodium Level 138 mmol/L (136-145)
[2021-06-14] MEDS: Aspirin 81 MG TAB.CHEW PO (08:18)
[2021-06-14] MEDS: Enoxaparin 40 MG/0.4 ML Syringe SC (08:19)
--- NOTE | 2021-06-14 11:35 | PCM.DC.SUM ---
Providers Date of Admission: 06/12/21 Primary Care Physician: No Primary Care Phys Reason For Visit: HYPERTENSIVE EMERGENCY Diagnosis Discharge Diagnosis (1) Acute ischemic stroke: Status: Acute Code(s): I63.9 - Cerebral infarction, unspecified (2) Hypertensive emergency: Status: Acute Code(s): I16.1 - Hypertensive emergency Hospital Course Operations None Procedures 2-D Echocardiogram Summary of Care Provided Minutes Spent on Discharge: 45 Hospital Course: Patient is a 61-year-old female with a PMH as outlined who was admitted with a complaint of numbness and tingling of her right face, right arm and slurred speech. Patient had not seen a physician in a very long time. On admission her blood pressure was markedly elevated at 227/119. She was admitted and managed for hypertensive emergency. She was given clonidine and labetalol in the ER and also given aspirin. CT of the brain was negative for any evidence of a stroke and MRI done of the brain did show a small focus of acute ischemia involving the left frontoparietal junction and chronic ischemic changes on the right side. She was therefore managed for CVA. She was started on aspirin and high intensity statin. Neurology reviewed patient and was concerned about possible embolic strokes. Lipid panel also showed elevated cholesterol levels. 2D echo done showed normal left ventricular systolic function with EF of 65% and unable to estimate RVSP. Bubble contrast study was negative for egorc-hg-ebov shunt. Neurology thought patient will benefit from a LUCILLE. Of note CT of the head and neck also show significant narrowing of the proximal cervical portion of the right internal carotid artery suggestive of vasculitis with occlusion of the M1 segment of the right MCA and narrowing and irregularity of the M1 segment of the left MCA. She was started on p.o. amlodipine and p.o. lisinopril. She had LUCILLE which was negative for any evidence of afib or left atrial appendage clot. She remained stable and was discharged home on 06/15/2021/ She was discharged with a 48 hour holter monitor, and a 30 day event monitor was also ordered. She is to follow up with her PCP and cardiology as well as neurology. SHe was also counseled to quit smoking. Patient was seen and examined prior to discharge. He had no active complaints and felt well. Review of systems otherwise negative. Labs and vitals reviewed. Home medication reviewed and reconciled. Physical Exam Const alert, oriented x3 and no apparent distress General Appearance: cooperative, comfortable and well kempt Exam Limitations: no limitations HEENT normocephalic, head/scalp atraumatic and moist oral mucous membranes Eyes PERRL, EOMs intact bilaterally, conjunctivae normal and no scleral icterus Neck no lymphadenopathy and supple General: trachea midline Lymph Lymphatic: no lymphadenopathy noted Resp normal respiratory effort, normal air movement, no retractions, no use of accessory muscles and clear to auscultation bilaterally Cardio regular rate, regular rhythm, S1 normal heart sound, S2 normal heart sound, no murmurs and peripheral pulses 2+ throughout GI normal to inspection, nondistended, normoactive bowel sounds, soft to palpation, non-tender and non-distended Extremity normal to inspection, full ROM, normal capillary refill and no clubbing, cyanosis or edema General Extremity: no tenderness to palpation of joints or extremities Skin no rashes or lesions noted General Skin Exam: no breakdown and turgor normal Lesions: no lesions Rashes: no rashes Neuro oriented x3, CN's II-XII intact bilaterally and moves all extremities Sensorium / Orientation: awake and alert Speech: speech abnormal Details: Positive for slurred Sensory Exam: extremities light-touch: decreased (Right arm and right side face) Psych thought process normal, cooperative and affect normal Appearance: appropriate Weight / BMI Weight Weight: 204 lb 2.369 oz Body Mass Index (BMI) 35.1 ABG / Lab / Microbiology Data Result Diagrams: 06/14/21 05:30 06/14/21 05:30 Laboratory: Laboratory Results - last 24 hr 06/12/21 17:40: Diff Path Review Reviewed 06/13/21 05:35: Hemoglobin A1c 5.5 06/14/21 05:30: WBC 8.8, RBC 5.30, Hgb 16.2 H, Hct 48.5 H, MCV 91.5, MCH 30.6, MCHC 33.4, RDW Std Deviation 41.5, RDW Coeff of [place] 12.3, Plt Count 321, MPV 9.3, Immature Gran % (Auto) 0.300, Neut % (Auto) 50.8, Lymph % (Auto) 32.0, [place] % (Auto) 10.5 H, Eos % (Auto) 5.2 H, Baso % (Auto) 1.2 H, Absolute Neuts (auto) 4.5, Absolute Lymphs (auto) 2.82, Nucleated RBC % 0 06/14/21 05:30: Sodium 138, Potassium 4.0, Chloride 107, Carbon Dioxide 27.0, Anion Gap 4 L, BUN 12, Creatinine 0.89, Estim Creat Clear Calc 53.83, Est GFR (MDRD) Af Amer 83, Est GFR (MDRD) Non-Af 69, BUN/Creatinine Ratio 13.5, Glucose 108 H, Calcium 8.1 L Radiography Diagnostic Testing: Radiology Impression Echocardiogram 06/12/21 19:02 Interpretation Summary Left ventricular systolic function is normal. The estimated ejection fraction is 65 %. Trivial mitral valve insufficiency. Trivial tricuspid valve insufficiency. Trivial pulmonic valve insufficiency. Epicardial fat. Unable to estimate RV systolic pressure due to insufficient tricuspid regurgitant envelope. Diastolic function is indeterminate. Bubble contrast study negative for right to left interatrial shunt. Ordering Physician: Tawana Pierson Referring Physician: NO PCP NOTED Performed By: Vidhya Kim RCS Brain MRI 06/13/21 09:00 IMPRESSION: 1. Small focus of acute ischemia involving the left frontoparietal junction. 2. Chronic ischemic changes on the right. Electronically Signed: Krunal Townsend MD at 11:50 EDT , ADDENDUM: 06/13/21 1210 IMPRESSION: 1. Small focus of acute ischemia involving the left frontoparietal junction. 2. Chronic ischemic changes on the right. N.B. : The above Results were Read Back by Krunal Townsend MD to Dr. Kyle MD, and understanding confirmed on 06/13/2021 12:06:12 (ET). Electronically Signed: Krunal Townsend MD at 11:50 EDT , Head/Neck CTA 06/13/21 13:07 IMPRESSION: 1. Significant narrowing of the proximal cervical portion of the right internal carotid artery suggesting vasculitis. 2. Occlusion of the M1 segment of the right MCA. 3. Narrowing and irregularity of the M1 segment of the left MCA. Electronically Signed: Krunal Townsend MD at 14:19 EDT , D/C Instructions Discharge Diet: Low fat / Low cholesterol Discharge Activity: Return to Normal Activity Weight Bearing Status: Weight bearing as tolerated Call your doctor if you observe: Shortness of breath, Dizziness, Swelling in the ankles, Chest pain and Increased palpitations (irregular heartbeat) Meaningful Use Info Meaningful Use Diagnoses (Choose all that apply): Ischemic CVA CVA Therapy Assessed for PT,OT and/or ST?: Yes Ischemic Stroke Antithrombotic order at d/c?: Yes Dx of Atrial fib/flutter?: No Anticoagulant at discharge?: No Reason anticoagulant not ordered: Treatment not Indicated Statins at discharge?: Yes Primary Dx Acute Ischemic CVA?: Yes IV tPA ordered during stay?: No Reason IV t-PA not ordered: Procedure not Indicated Discharge Plan Admission Admit Date/Time: 06/12/21 18:54 Primary Reason for Your Visit: CVA Attending Provider: Teodora Perez Primary Care Provider: Care Physician,No Primary Instructions Patient Instructions: Carotid Artery Problems: Stroke, Carotid Artery Disease, Booklet - Understanding Stroke Discharge Orders/Prescriptions Other Ambulatory Orders: 30-Day Event Recorder (Routine) Location: None Selected Ordered By: Dr. Teodora Perez Referrals / Follow Up: Sharan Lux MD [STAFF PHYSICIAN] - See Referral Note (Please call to make appointment) Rosemary Mehta MD [STAFF PHYSICIAN] - Within 1 Month (to establish PCP care) Tristin Eden MD [STAFF PHYSICIAN] - Within 2 Weeks (follow up for stroke) Care Physician,No Primary [Primary Care Provider] - Disposition Disposition (needs filled in before D/C Order can be placed): Home, Self Care Charges/Coding Visit Charges Inpatient E&M: 97622 Disch Hosp
[2021-06-14] MEDS: Lisinopril 20 MG Tablet PO (12:06)
[2021-06-14] MEDS: cloNIDine HCl 0.2 MG Tablet PO (12:06)
[2021-06-14] MEDS: amLODIPine 10 MG Tablet PO (12:06)
--- NOTE | 2021-06-14 12:52 | CASEMGMT ---
This RN CM to room and pt/ state no concerns with pt going home at time of discharge. Pt is up ad jamie in room. Pt/ voice no further questions/concerns/needs. SStaten BARBER CM
--- NOTE | 2021-06-14 14:20 | PN.HOSP_ITS ---
Subjective Subjective Patient seen and examined. She felt well and had no active complaints. Review of systems was otherwise negative. Objective Data Objective Data Vital Signs: Vital Signs Temp Pulse Resp BP Pulse Ox 98.2 F 92 18 143/85 H 96 06/14/21 13:05 06/14/21 13:05 06/14/21 13:05 06/14/21 13:05 06/14/21 13:05 Oxygen Delivery Method Room Air Weight: 204 lb 2.369 oz Body Mass Index (BMI) 35.1 Intake & Output: Intake and Output for Last 24 Hours 06/12/21 06/13/21 06/14/21 23:59 23:59 23:59 Intake Total 1120 / 1520 640 / 640 Balance 1120 / 1520 640 / 640 Lab / Micro Data Result Diagrams: 06/14/21 05:30 06/14/21 05:30 Labs: Laboratory Results - last 24 hr 06/14/21 05:30: WBC 8.8, RBC 5.30, Hgb 16.2 H, Hct 48.5 H, MCV 91.5, MCH 30.6, MCHC 33.4, RDW Std Deviation 41.5, RDW Coeff of [place] 12.3, Plt Count 321, MPV 9.3, Immature Gran % (Auto) 0.300, Neut % (Auto) 50.8, Lymph % (Auto) 32.0, [place] % (Auto) 10.5 H, Eos % (Auto) 5.2 H, Baso % (Auto) 1.2 H, Absolute Neuts (auto) 4.5, Absolute Lymphs (auto) 2.82, Nucleated RBC % 0 06/14/21 05:30: Sodium 138, Potassium 4.0, Chloride 107, Carbon Dioxide 27.0, Anion Gap 4 L, BUN 12, Creatinine 0.89, Estim Creat Clear Calc 53.83, Est GFR (MDRD) Af Amer 83, Est GFR (MDRD) Non-Af 69, BUN/Creatinine Ratio 13.5, Glucose 108 H, Calcium 8.1 L Radiography Diagnostic Testing: Radiology Impression Echocardiogram 06/12/21 19:02 Interpretation Summary Left ventricular systolic function is normal. The estimated ejection fraction is 65 %. Trivial mitral valve insufficiency. Trivial tricuspid valve insufficiency. Trivial pulmonic valve insufficiency. Epicardial fat. Unable to estimate RV systolic pressure due to insufficient tricuspid regurgitant envelope. Diastolic function is indeterminate. Bubble contrast study negative for right to left interatrial shunt. Ordering Physician: Tawana Pierson Referring Physician: NO PCP NOTED Performed By: Vidhya Kim RCS Head/Neck CTA 06/13/21 13:07 IMPRESSION: 1. Significant narrowing of the proximal cervical portion of the right internal carotid artery suggesting vasculitis. 2. Occlusion of the M1 segment of the right MCA. 3. Narrowing and irregularity of the M1 segment of the left MCA. Electronically Signed: Krunal Townsend MD at 14:19 EDT , Rhythm Strip Rhythm Strip: Sinus Rhythm Rate: 90 Ectopy: None Physical Exam Const alert, oriented x3 and no apparent distress General Appearance: cooperative Exam Limitations: no limitations HEENT normocephalic, head/scalp atraumatic and moist oral mucous membranes Eyes PERRL, EOMs intact bilaterally, conjunctivae normal and no scleral icterus Neck no lymphadenopathy and supple General: trachea midline Lymph Lymphatic: no lymphadenopathy noted Resp normal respiratory effort, normal air movement, no retractions, no use of accessory muscles and clear to auscultation bilaterally Cardio regular rate, regular rhythm, S1 normal heart sound, S2 normal heart sound, no murmurs and peripheral pulses 2+ throughout GI normal to inspection, nondistended, normoactive bowel sounds, soft to palpation, non-tender and non-distended Extremity normal to inspection, full ROM, normal capillary refill and no clubbing, cyanosis or edema General Extremity: no tenderness to palpation of joints or extremities Skin no rashes or lesions noted General Skin Exam: no breakdown and turgor normal Lesions: no lesions Rashes: no rashes Neuro oriented x3, CN's II-XII intact bilaterally and moves all extremities Sensorium / Orientation: awake and alert Speech: speech abnormal Details: Positive for slurred Sensory Exam: extremities light-touch: decreased (Right arm and right side face) Psych thought process normal, cooperative and affect normal Appearance: appropriate Assessment & Plan Assessment/Plan (1) Acute ischemic stroke: (2) Hypertensive emergency: PLAN: #Acute CVA * admitted with right sided numbness and tingling. BP was markedly elevated, so there was concern for hypertensive urgency * MRI of brain showed a small focus of acute ischemia involving the left frotopa rietal junction, and chronic ischemic changes on right side * start aspirin 81mg daily. * on high intensity statin * PT/OT on board. Fall precautions * A1C as 5.5. * Counseled to quit smoking. * MRA of the head and neck showed a motion degraded exam and suspected significant stenosis of the proximal right internal carotid artery. * CTA of the brain showed significant narrowing of the proximal cervical portion of the right internal carotid artery suggesting vasculitis, occlusion of the M1 segment of the right MCA and narrowing and irregularity of the M1 segment of the left MCA. * 2D echo showed normal left ventricular systolic function with EF of 65% and unable to estimate RVSP due to insufficient tricuspid regurgitant envelope and indeterminate diastolic function. Bubble contrast study negative for tmpop-ri-enta interatrial shunt. * Discussed LUCILLE with cardiology; per cardiology this is an appropriate indication for LUCILLE and so patient have LUCILLE tomorrow. * check ESR and CRP due to concern for vasculitis per CTA * #Hypertensive emergency * Resolved. Noted known hypertensive. Blood pressure is now 148/100. * started on PO amlodipine 10mg daily and PO lisinopril 20mg daily * IV hydralazine prn * #Elevated hemoglobin * hb is down from 18.5 to 15.9 * likely related to her history of smoking and possible secondary polycythemia from smoking. Will continue monitoring * #Hyperlipidemia: total cholesterol is 211 with LDL of 146. HDL is 37. Started on high intensity statin #History of nicotine dependence: Counseled to quit. DVT prophylaxis: lovenox Disposition: to [place] home likely tomorrow Charges/Coding Visit Charges Inpatient E&M: 20480 Subs Hosp L2
[2021-06-14 14:56] LABS: Erythrocyte Sedimentation Rate 7 mm/hr (0-30)
[2021-06-14 14:58] LABS: CRP 4.19 mg/L (0.0-3.0)
[2021-06-14] MEDS: Atorvastatin Calcium 40 MG Tablet PO (21:28)
[2021-06-15] VITALS (8 sets, daily range): BP systolic 119–146; BP diastolic 83–85; PULSE 69–87; RESP 14–19; TEMP 36.4–36.9; O2SAT 95–97; BMI 35.1
[2021-06-15] MEDS: Lisinopril 20 MG Tablet PO ×2 (12:04→12:05)
[2021-06-15] MEDS: amLODIPine 10 MG Tablet PO (12:04)
[2021-06-15] MEDS: Aspirin 81 MG TAB.CHEW PO (12:04)
--- NOTE | 2021-06-15 13:51 | CASEMGMT ---
LOI Zuniga with [employer] notified this RN CM that she is available to assist with DC needs if identified. She can be reached at [phone]. Jayy Cline RN CM
== END 2021-06-15 17:07 | disposition home or self-care (01) | DRG 65 ==
LOC: ED 18:31 → PCU 19:38
PROVIDERS: Nurse Practitioner Family; Admitting Provider Internal Medicine; Emergency Provider Emergency Medicine; Visit Provider Student in an Organized Health Care Education/Training Program
DX: I63.511 Cerebral infarction due to unspecified occlusion or stenosis of right middle cerebral artery (principal); I16.1 Hypertensive emergency; I67.7 Cerebral arteritis, not elsewhere classified; D75.1 Secondary polycythemia; F17.210 Nicotine dependence, cigarettes, uncomplicated; G62.9 Polyneuropathy, unspecified; I10 Essential (primary) hypertension; E78.5 Hyperlipidemia, unspecified; R29.704 NIHSS score 4; Z71.6 Tobacco abuse counseling
CPT/HCPCS: 36415; 70450; 70496; 70498; 70544; 70547; 70551; 71045; 80048; 80061; 82962; 83036; 84484; 85025; 85610; 85652; 85730; 86140; 87426; 92610; 93005; 93306; 93312; 93320; 93325; 94762; 97161; 97166; 97802; 99285; 99406; J7040; Q9967; A4216

== ENCOUNTER → 2021-06-15 | Outpatient (CLI) | payer BC, SELFPAY | END | disposition home or self-care (01) | LOC: CVS 16:34 | PROVIDERS: Referring Provider Student in an Organized Health Care Education/Training Program; Visit Provider Student in an Organized Health Care Education/Training Program ==

== ENCOUNTER → 2021-06-15 | Outpatient (CLI) | payer BC, SELFPAY | END | disposition home or self-care (01) | LOC: PSN 16:32 | PROVIDERS: Visit Provider Student in an Organized Health Care Education/Training Program | DX: I16.1 Hypertensive emergency (principal) | CPT/HCPCS: 93225; 93226 ==

== ENCOUNTER 2021-08-22 16:00 | Outpatient (RCR) | payer BC, SELFPAY ==
--- NOTE | 2021-07-30 17:18 | HP.PTEVAL_ITS ---
Patient's Visit Information JERMAIN RHODES is a 61 year old F referred to Physical Therapy by Dr. Jocelyne Augustin MD with a diagnosis of INTERVERTEBRAL DISC DISORDER WITH RADICULOPATHY ,LUMBAR REGION. Date of Evaluation: 07/30/21 Physical Therapist: Alexey Valladares, PT, Cert MDT, OCS - Visit Plan Frequency: 2x /Week Duration: 4 Weeks Plan: PT INTERVETIONS MCKENIZIE FOR LUMBAR,PROGRESS TO DLS ,POSTURAL EX'S ,LE FLEXABILITY AND MODALTIES - Subjective This 61 y/o female presents to physical therapy with lumbar radicular symptoms. Patient has had lumbar pain noticed June 12 from stroke (TIA) with weakness on right side. Patient has LS pain described ache and leg symptoms lateral leg feels like pulling. Patient had x-rays showed multiple level DDD. Aggravating factors walking/standing ,bending and lifting. Patient uses cane for gait due to leg gives way. Alleviating factors rest and sitting. C/O paresthesia/tingling right foot ,but had that prior to stroke and leg pain. Bowel/bladder -. Coughing sneezing -. Patient is off from work due to CVA. Patient symptoms affects QOL and function gait/standing. Patient was doing some stretches and had chiropractor treatment. SOCIAL: . VOCATION not working - Pain Bilateral Back Pain Intensity (Out of 10): 5 Pain Intensity Range: 10 Right Lower Extremity Pain Intensity (Out of 10): 6 Pain Intensity Range: 10 Comment: lateral leg - Objective POSTURE: mild forward posture. GAIT: reciprocal pattern slow ewa 2 point gait. NEURO: c/o paresthesia bottom of foot , reflexes L3-4,L4-5,L5-S-1 2/3. SYMMTRIES: align. PALPATION: unremarkable. MMT( peak force) : right quads 28.7,hamstrings 25,3,hip flexion 18.6 ankle DF 32.3. LUMBAR ROM: flexion mod loss, extension min loss, side glides min loss - Special Tests L/S Slump test left side: Negative L/S Slump test right side: Negative L/S Left Straight Leg Raise: Negative L/S Right Straight Leg Raise: Negative Lumbar Standing: Flexion - Mechanical Response: No effect Lumbar Standing: Flexion - Symptoms During Testing: Increases Lumbar Standing: Flexion - Symptoms After Testing: No worse Lumbar Standing: Extension - Mechanical Response: No effect Lumbar Standing: Extension - Symptoms During Testing: Increases Lumbar Standing: Extension - Symptoms After Testing: No worse Lumbar Standing: Right Side Glides - Mechanical Response: No effect Lumbar Standing: Right Side [place] - Symptoms During Testing: No effect Lumbar Standing: Right Side [place] - Symptoms After Testing: No effect Lumbar Standing: Left Side [place] - Mechanical Response: No effect Lumbar Standing: Left Side [place] - Symptoms During Testing: No effect Lumbar Standing: Left Side [place] - Symptoms After Testing: No effect Lumbar Lying: Flexion - Mechanical Response: No effect Lumbar Lying: Flexion - Symptoms During Testing: Increases Lumbar Lying: Flexion - Symptoms After Testing: Worse Lumbar Lying: Extension - Mechanical Response: No effect Lumbar Lying: Extension - Symptoms During Testing: Decreases Lumbar Lying: Extension - Symptoms After Testing: Better Comments:: leg and back - Balance/Special Test Scores Oswestry Low Back Score: 27 - Goals Goal 1:: Patient to be I with HEP for back Goal Time Frame: 4-6 Weeks Goal 2:: Patient to normalize gait with less pain Goal Time Frame: 4-6 Weeks Goal 3:: Patient to demonstrate 50% improvement with improved function with decrease pain Goal Time Frame: 4-6 Weeks Goal 4:: Patient to improve lumbar ROM for function of recovery to play with grandchildren Goal Time Frame: 4-6 Weeks Goal 5:: Patient to improve back oswestry score by 5 points to improve QOL Goal Time Frame: 4-6 Weeks Goal 6:: Patient to improve strength of quads/hams/hip by 5-10 peak force to improve gait - Rehabilitation Potential Physical Therapy Diagnosis: This patient has possible lumbar derangement with possible disc with radiculopathy with symptoms with symptoms worse with flexion better with extension along with stroke affecting symptosm and function Rehabilitation Potential: Good - Anticipated Interventions Patient/Client Instruction: Educate patient on: Condition, Plan of Care For the Purpose of:: To decrease pain, To increase ROM, To improve muscle performance and motor function, To increase tolerance to activity/condition/position, To improve ability of physical actions for home/community/work/leisure, To improve gait and locomotor functions, To improve health of tissue, To decrease soft tissue restriction, To increase flexibility/ROM, To reduce risk of recurrence, To prevent re-injury Therapeutic Exercise to Include: Strength training, Endurance training, Balance training, Postural training, Flexibilty training, Dynamic Lumbar Stabilization, Raman Exercises For the Purpose of:: To decrease pain, To increase ROM, To improve muscle performance and motor function, To improve ability to perform ADL's, To increase tolerance to activity/condition/position, To improve ability of physical actions for home/community/work/leisure, To improve health of tissue, To decrease soft tissue restriction, To increase flexibility/ROM, To prevent re-injury TENS: Yes IF ES: Yes Cryotherapy (ice pack, ice massage): Yes Thermo therapy (hot pack): Yes Ultrasound (thermal/non thermal): Yes For the Purpose of:: To decrease pain, To improve nutrient delivery to tissue, To increase oxygenation perfusion, To improve health of tissue, To decrease soft tissue restriction Thank you for the opportunity to evaluate your patient. For Medicare and Medicare HMO plans, please review the plan of care and approve it. It will need to be FAXED BACK to us at [phone] for Medicare purposes. For Medicare only, by signing this I certify the plan of care. Please let me know if there are questions or concerns regarding this plan of care. Physician Emmanuelle light: Date:
--- NOTE | 2022-01-30 08:55 | HP.PT.NRP ---
JERMAIN RHODES was seen in my office for initial evaluation on 07/30/21. The following Plan of Care was established for this patient: Initial Frequency: 2x /Week Initial Duration: 4 Weeks Patient/Client Instruction: Educate patient on: Condition, Plan of Care For the Purpose of:: To decrease pain, To increase ROM, To improve muscle performance and motor function, To increase tolerance to activity/condition/position, To improve ability of physical actions for home/community/work/leisure, To improve gait and locomotor functions, To improve health of tissue, To decrease soft tissue restriction, To increase flexibility/ROM, To reduce risk of recurrence, To prevent re-injury Therapeutic Exercise to Include: Strength training, Endurance training, Balance training, Postural training, Flexibilty training, Dynamic Lumbar Stabilization, Raman Exercises For the Purpose of:: To decrease pain, To increase ROM, To improve muscle performance and motor function, To improve ability to perform ADL's, To increase tolerance to activity/condition/position, To improve ability of physical actions for home/community/work/leisure, To improve health of tissue, To decrease soft tissue restriction, To increase flexibility/ROM, To prevent re-injury TENS: Yes IF ES: Yes Cryotherapy (ice pack, ice massage): Yes Thermo therapy (hot pack): Yes Ultrasound (thermal/non thermal): Yes For the Purpose of:: To decrease pain, To improve nutrient delivery to tissue, To increase oxygenation perfusion, To improve health of tissue, To decrease soft tissue restriction This patient was last seen in our office . Pertinent comments regarding their Physical therapy will appear below: Patient seen for PT for lumbar pain with Raman ex's a ,modalities and progression of DLS At this point I will be discontinuing this patient from physical therapy. I would be happy to see this patient again in the future if found appropriate by the physician. Thank you! Alexey Valladares, PT, Cert MDT, OCS Balance/Gait/Functional tests - Balance/Special Test Scores Oswestry Low Back Score: 27
== END 2021-08-22 19:00 | disposition home or self-care (01) ==
LOC: PT 16:00
PROVIDERS: PCP Internal Medicine; Visit Provider Internal Medicine
DX: M51.16 Intervertebral disc disorders with radiculopathy, lumbar region (principal)
CPT/HCPCS: 97110; 97162

== ENCOUNTER 2021-09-19 16:21 | Inpatient (IN) | payer BC, SELFPAY ==
[2021-09-19] VITALS (11 sets, daily range): BP systolic 78–127; BP diastolic 53–94; PULSE 94–165; RESP 16–22; TEMP 36–37.9; O2SAT 97–100; BMI 35.1; BMI 36.9
--- NOTE | 2021-09-19 16:40 | EX.ED.DYSGE1 ---
HPI History of Present Illness Chief Complaint: General Illness Informant: patient and family Narrative Narrative: 61-year-old female history of stroke and hypertension presenting to the emergency room with vomiting and diarrhea. Patient states that on August 25 she started with nausea and vomiting. Then 3 days later she developed diarrhea. She states that this is been persistent since that time. She will note that she will have 3 or so days of diarrhea and then that will resolve followed by 3 or so days of nausea and vomiting back again. She notes some mild left lower quadrant pain. She never had a colonoscopy. Today she went to see her primary care physician Dr. Macdonald. She noted to be tachycardic in the 120s. She denies any black or bloody stools. She notes difficulty ambulating around the house. She notes some near syncopal episodes. She reports that after she had a stroke she wore a Holter monitor for 30 days and her no dysrhythmias present. She notes that she has had fever from 99-101. She reports that her urine is darker than normal. [facility] Medical History (Updated 09/19/21 @ 20:[address] Priti Grey MD) History of CVA (cerebrovascular accident) Hyperlipidemia Hypertension Lumbar disc disease with radiculopathy Home Medications aspirin 81 mg tablet,delayed release 81 mg PO DAILY #30 tabs 06/15/21 [Rx Last Taken Unknown] amlodipine 10 mg tablet 10 mg PO DAILY #90 tabs 09/13/21 [Rx Last Taken Unknown] atorvastatin 40 mg tablet 40 mg PO QHS #90 tabs 09/13/21 [Rx Last Taken Unknown] lisinopril 20 mg tablet 20 mg PO DAILY #90 tabs 09/13/21 [Rx Last Taken Unknown] Allergy/AdvReac Type Severity Reaction Status Date / Time No Known Allergies Allergy Verified 09/19/21 16:26 Family History Mother Hypertension Thyroid disorder Kidney disease Son Hypertension Sister Thyroid disorder Father CVA (cerebral vascular accident) Prostate cancer Skin cancer Other Rheumatoid arthritis Uterine cancer Surgical History Hx of tonsillectomy Social History (Updated 09/19/21 @ 20:[address] Priti Grey MD) household members: spouse Smoking Status: Former smoker alcohol intake: current alcohol intake frequency: holidays/special occasions only Alcohol type: wine substance use type: does not use what type of physical activity do you participate in: none ROS ROS ED Constitutional Constitutional ED: Reports fever(s); Denies chills or weight loss Eyes Eyes: Denies change in vision or diplopia ENT ENT ED: Denies ear pain, rhinorrhea or sore throat Cardiovascular Cardiovascular: Reports racing heartbeat; Denies chest pain, orthopnea or palpitations Respiratory/Chest Respiratory/Chest: Denies cough, dyspnea or orthopnea Gastrointestinal Gastrointestinal: Reports abdominal pain, diarrhea, nausea and vomiting; Denies melena Genitourinary Genitourinary ED: Denies dysuria, hematuria or urinary frequency Musculoskeletal Musculoskeletal: Denies arthralgias or myalgias Integumentary Denies abscess or rash Neurologic Neurologic: Denies headache(s) or weakness Psychiatric Psychiatric: Denies anxiety, depression, suicidal ideation or suicidal thoughts Endocrine Endocrinology: Denies polydipsia, polyphagia or polyuria Allergic/Immunologic Allergic/Immunologic ED: Denies mouth swelling, tongue swelling or urticaria EXAM Physical Exam Const Vital Signs: 09/19/21 16:22 09/19/21 16:46 09/19/21 17:02 Temperature 96.8 F L 96.8 F L Temperature Source Temporal Temporal Pulse Rate 165 H 134 H Pulse Rate [Lying] Pulse Rate [Sitting (for 1 minute prior to obtaining)] Pulse Rate [Standing (for 1 minute prior to obtaining)] Respiratory Rate 16 18 Respiratory Effort Normal Non-Labored Blood Pressure 78/53 L 99/54 L Blood Pressure [Lying] Blood Pressure [Sitting (for 1 minute prior to obtaining)] Blood Pressure [Standing (for 1 minute prior to obtaining)] Blood Pressure Mean 61 69 Blood Pressure Mean [Lying] Blood Pressure Mean [Sitting (for 1 minute prior to obtaining)] Blood Pressure Mean [Standing (for 1 minute prior to obtaining)] Pulse Ox 100 97 Oxygen Delivery Method Room Air Room Air 09/19/21 18:21 09/19/21 18:22 Temperature 98.2 F Temperature Source Temporal Pulse Rate 114 H Pulse Rate [Lying] 113 H Pulse Rate [Sitting (for 1 minute prior to obtaining)] 114 H Pulse Rate [Standing (for 1 minute prior to obtaining)] 120 H Respiratory Rate 22 H Respiratory Effort Blood Pressure 96/83 H Blood Pressure [Lying] 104/81 H Blood Pressure [Sitting (for 1 minute prior to obtaining)] 120/94 H Blood Pressure [Standing (for 1 minute prior to obtaining)] 127/87 H Blood Pressure Mean 87 Blood Pressure Mean [Lying] 88 Blood Pressure Mean [Sitting (for 1 minute prior to obtaining)] 102 Blood Pressure Mean [Standing (for 1 minute prior to obtaining)] 100 Pulse Ox 98 Oxygen Delivery Method Room Air Positive well nourished and well developed General Appearance ED: well developed HEENT Reports normocephalic, head/scalp atraumatic and moist mucous membranes Eyes PERRL and EOMs intact bilaterally Neck no lymphadenopathy, supple and no JVD Resp normal respiratory effort and clear to auscultation bilaterally Cardio regular rhythm and no murmurs Rate: tachycardic GI non-distended; Negative for hepatosplenomegaly Inspection: Negative for abdominal distention Auscultation: normoactive bowel sounds Palpation: soft and tender LLQ; Negative for guarding or rebound tenderness present Back/Spine no CVA tenderness and normal ROM Extremity normal to inspection General Extremety ED: Negative for edema General Extremity: Negative for edema Neuro oriented x3 and CN's II-XII intact bilaterally Sensorium / Orientation: alert Motor Exam: strength 5/5 throughout Psych mental status grossly normal Mood & Affect: Negative for depressed or tearful Skin no wounds Skin Narrative: Noted slight mottling of the bilateral thighs. MDM MDM MDM Narrative Medical decision making narrative: Patient's white count is elevated 15.2. Creatinine is 2.26. Lactic acid is elevated at 3.4. Urinalysis is grossly infected with greater than 100 white cells 4+ bacteria. Blood cultures and urine cultures were obtained. Patient received 2 L of IV fluids and her heart rate is down to 100 with a blood pressure 127/87. Mottling has been improved. Patient received Rocephin. My interpretation of the chest x-ray is no acute process. CT of the abdomen pelvis demonstrates a 6 mm distal stone with significant hydronephroureter. Case was discussed with Dr. Rivera from urology and Dr. Grey from medicine. Plan is admission and surgery. Lab Data Attestation: I reviewed the patient's lab results. Labs: Laboratory Results - last 24 hr 09/19/21 09/19/21 09/19/21 16:36 16:36 16:36 WBC 15.2 H RBC 4.68 Hgb 14.1 Hct 42.9 MCV 91.7 MCH 30.1 MCHC 32.9 RDW Std Deviation 43.3 RDW Coeff of Erin 12.9 Plt Count 663 H MPV 9.4 Immature Gran % (Auto) 0.400 Neut % (Auto) 69.2 Lymph % (Auto) 18.9 L [place] % (Auto) 9.7 Eos % (Auto) 1.1 Baso % (Auto) 0.7 Absolute Neuts (auto) 10.5 H Absolute Lymphs (auto) 2.87 Nucleated RBC % 0 PT 13.0 INR 1.0 APTT 33.6 Sodium 134 L Potassium 4.6 Chloride 101 Carbon Dioxide 22.0 Anion Gap 11 BUN 37 H Creatinine 2.26 H Estim Creat Clear Calc 21.20 Est GFR (MDRD) Af Amer 28 L Est GFR (MDRD) Non-Af 24 L BUN/Creatinine Ratio 16.4 Glucose 146 H Lactic Acid Calcium 9.5 Magnesium 2.3 Total Bilirubin 0.50 Direct Bilirubin 0.12 AST 13 L ALT 20 Alkaline Phosphatase 85 Troponin I High Sens 4 Total Protein 8.3 H Albumin 3.7 Globulin 4.6 H Lipase 166 Urine Color Urine Clarity Urine pH Ur Specific [place] Urine Protein Urine Glucose (UA) Urine Ketones Urine Occult Blood Urine Nitrite Urine Bilirubin Urine Urobilinogen Ur Leukocyte Esterase Urine RBC Urine WBC Ur Squamous Epith Cells Urine Bacteria Urine Mucus 09/19/21 09/19/21 16:36 18:30 WBC RBC Hgb Hct MCV MCH MCHC RDW Std Deviation RDW Coeff of Erin Plt Count MPV Immature Gran % (Auto) Neut % (Auto) Lymph % (Auto) [place] % (Auto) Eos % (Auto) Baso % (Auto) Absolute Neuts (auto) Absolute Lymphs (auto) Nucleated RBC % PT INR APTT Sodium Potassium Chloride Carbon Dioxide Anion Gap BUN Creatinine Estim Creat Clear Calc Est GFR (MDRD) Af Amer Est GFR (MDRD) Non-Af BUN/Creatinine Ratio Glucose Lactic Acid 3.2 H* Calcium Magnesium Total Bilirubin Direct Bilirubin AST ALT Alkaline Phosphatase Troponin I High Sens Total Protein Albumin Globulin Lipase Urine Color Yellow Urine Clarity Sl. Cloudy Urine pH 6.0 Ur Specific [place] 1.020 Urine Protein 500 H Urine Glucose (UA) Normal Urine Ketones Negative Urine Occult Blood 250 H Urine Nitrite Negative Urine Bilirubin Negative Urine Urobilinogen Normal Ur Leukocyte Esterase 500 H Urine RBC 25-50 SEEN Urine WBC >100 SEEN Ur Squamous Epith Cells 5-10 SEEN Urine Bacteria 4+ Urine Mucus 0 SEEN Radiography Diagnostic Testing: Clinical Impression(s) from Imaging Studies Chest X-Ray 09/19/21 16:50 IMPRESSION: No acute radiographic abnormalities. Electronically Signed: Von Sanchez MD at 18:04 EDT Reading Location ID and State: [id number] / [employer] Tel , Service support , Abdomen/Pelvis CT 09/19/21 18:10 IMPRESSION: Severe left hydroureteronephrosis with obstructing 6 cm stone in the distal left ureter. Gallbladder sludge. Electronically Signed: Von Sanchez MD at 19:33 EDT Reading Location ID and State: [id number] / [employer] Tel , Service support , EKG Initial EKG: Attestation: I personally reviewed and interpreted this EKG as follows: Comments: Sinus tachycardia with a ventricular rate of 137 bpm and associated frequent PVCs. Critical Care Time Critical Care Time: Yes Critical care time (excluding procedures): 30-74 minutes (32), Including time spent:, Discussing w/Patient &/or Family/Order Picker/Assembler, Discussing w/Consultants, Arranging Admission or Transfer and Performing Direct Patient Care at Bedside Discharge Plan Dx/Rx/DC Orders Clinical Impression: Ureterolithiasis, Sepsis, UTI (urinary tract infection), Nausea, vomiting, and diarrhea, Acute dehydration, Acute renal failure, Acute hypotension Disposition Disposition: Acute Care [facility]
--- NOTE | 2021-09-19 16:41 | EKG12_ITS ---
Test Reason : general illness Blood Pressure : / mmHG Vent. Rate : 137 BPM Atrial Rate : 137 BPM P-R Int : 134 ms QRS Dur : 072 ms QT Int : 282 ms P-R-T Axes : 045 068 037 degrees QTc Int : 425 ms Sinus tachycardia with frequent Premature ventricular complexes Otherwise normal ECG Confirmed by DON CHIRINOS, DWIGHT ([id number]), photographic editor SEBASTIÁN DE LEON ([id number]) on 09/24/2021 11:02:27 AM Referred By: Ryann Confirmed By:BAO OCHOA MD
[2021-09-19] MEDS: 0.9% Normal Saline 1,000 ML 1000 ML IV ×2 (16:49→17:53)
--- NOTE | 2021-09-19 16:50 | RAD_ITS ---
INDICATION: hypertension EXAMINATION/TECHNIQUE: X-RAY - XR Chest 1 View COMPARISON: 06/12/2021. FINDINGS: The lungs are clear. The cardiomediastinal silhouette is unremarkable. No pleural effusion or pneumothorax. No acute osseous abnormalities. RAD/Chest 1 View (Portable) IMPRESSION: No acute radiographic abnormalities. Electronically Signed: Von Sanchez MD at 18:04 EDT ,
[2021-09-19 16:51] LABS: Absolute Lymphocyte Count 2.87 X10^3/uL (0.83-4.51); Absolute Neutrophil Count 10.5 X10^3/uL (2.0-7.7); Basophil# 0.11 X10^3/uL; Basophil% 0.7 % (0-1); Eosinophil# 0.17 X10^3/uL; Eosinophils% 1.1 % (0-5); Hematocrit 42.9 % (37-47); Hemoglobin 14.1 g/dL (12.0-15.0); Lymphocyte # 2.87 X10^3/ul (0.83-4.51); Lymphocyte % 18.9 % (19-41); Mean Corp Hgb Conc 32.9 g/dL (32-36); Mean Corpuscular Hgb 30.1 pg (27.0-32.0); Mean Corpuscular Volume 91.7 fL (81-99); Mean Platelet Vol. 9.4 fl (6.2-12.0); Monocyte# 1.47 X10^3/uL; Monocyte% 9.7 % (0-10); NRBC Flagged by Analyzer 0 % (0-5); Neutrophil # 10.51 X10^3/uL (2.7-7.7); Neutrophil % 69.2 % (47-70); Platelet Count 663 K/mm3 (150-450); RBC Distribution Width CV 12.9 % (11.6-14.6); RBC Distribution Width SD 43.3 fl (35.1-43.9); Red Blood Count 4.68 M/mm3 (4.2-5.4); White Blood Count 15.2 K/mm3 (4.4-11.0)
[2021-09-19 17:03] LABS: Partial Thromboplast Time 33.6 Seconds (24.1-36.2)
[2021-09-19 17:14] LABS: AST(SGOT) 13 U/L (15-37); Alanine Aminotransfer ALT/SGPT 20 U/L (13-56); Albumin, Serum 3.7 g/dL (3.2-5.0); Alkaline Phosphatase 85 U/L (45-117); Anion Gap 11 (5-15); BUN 37 mg/dL (7-18); BUN/Creat Ratio 16.4 RATIO (10-20); Bilirubin, Direct 0.12 mg/dL (0.00-0.30); Calcium,Total 9.5 mg/dL (8.5-10.1); Chloride 101 mmol/L (98-107); Creatinine, Serum 2.26 mg/dL (0.55-1.02); EST Glomerular Filtration Rate 24 mL/min (>60); Est Glom Filt Rate - Afr Amer 28 mL/min (>60); Globulin 4.6 g/dL (2.2-4.2); Glucose 146 mg/dL (74-106); Lipase 166 U/L (73-393); Magnesium 2.3 mg/dL (1.6-2.6); Potassium 4.6 mmol/L (3.5-5.1); Protein, Total 8.3 g/dL (6.4-8.2); Sodium Level 134 mmol/L (136-145); Troponin-I HS 4 pg/mL (3.0-54.0)
--- NOTE | 2021-09-19 17:20 | ED.RN ---
dr conroy notified of lactic 3.2
[2021-09-19 17:21] LABS: Lactic Acid 3.2 mmol/L (0.4-1.9)
--- NOTE | 2021-09-19 18:10 | CT_ITS ---
INDICATION: abdominal pain EXAMINATION: CT Abdomen And Pelvis W/O Contrast Injection TECHNIQUE: Helically acquired images were obtained of the abdomen and pelvis without the use of IV contrast. A radiation dose optimization technique was used for this scan. Oral contrast: None. COMPARISON: None FINDINGS: Evaluation of the solid organs and vascular structures is limited without intravenous contrast. Visualized lung bases: Unremarkable Liver: Unremarkable Gallbladder: There is sludge within the gallbladder. Spleen: Unremarkable Pancreas: Unremarkable Adrenal Glands: Severe left hydroureteronephrosis with obstructing 6 cm stone in the distal left ureter. Kidneys: Unremarkable Vasculature: Unremarkable GI Tract: Scattered diverticula throughout the colon without evidence of inflammation. Lymphadenopathy: None Peritoneum: No ascites. Bladder: Unremarkable Reproductive organs: Unremarkable Bones/Soft tissues: No suspicious osseous or soft tissue lesions CT/Abdomen/Pelvis without Cont IMPRESSION: Severe left hydroureteronephrosis with obstructing 6 cm stone in the distal left ureter. Gallbladder sludge. Electronically Signed: Von Sanchez MD at 19:33 EDT ,
[2021-09-19 18:41] LABS: Mucous, Urine 0 SEEN /hpf (<or=2+)
[2021-09-19 18:42] LABS: Color, Urine Yellow (Yellow); Glucose, Dipstick Normal (Normal); Ketone-Dipstick Negative (Negative); Leukocyte Esterase-Dipstick 500 /ul (Negative); Nitrite-Dipstick Negative (Negative); Occult Blood-Urine 250 /ul (Negative); Protein-Dipstick 500 mg/dl (Negative); Urine Bilirubin Dipstick Negative (Negative); Urine Clarity Sl. Cloudy (Clear); Urine Urobilinogen Normal (Normal)
[2021-09-19 18:50] LABS: Bacteria 4+ /hpf (None Seen); Red Blood Cells-Urine 25-50 SEEN /hpf (0-5); Squamous Epithelial Cells - UA 5-10 SEEN /hpf (5-10); White Blood Cells >100 SEEN /hpf (0-5)
[2021-09-19] MEDS: Ceftriaxone 1 GM/50 ML BAG IV (19:08)
--- NOTE | 2021-09-19 20:07 | PCM.HP.STD ---
HPI - General General Date of Admission: 09/19/21 Date of Service: 09/19/21 Chief Complaint: Tachycardia, low BP, N/V/D since 08/25/21 intermittently, Dizziness, Lightheadedness, Weakness. HPI Narrative The patient is a 61 y/o F w/ PMHx: Obesity, HTN, HLD, Hx CVA, Former tobacco use who presents to the [facility] ED on 09/19/21 with history of onset persistent ongoing intermittent nausea, emesis and loose stool starting 08/25/2021 as well as now onset mild left lower quadrant discomfort with evaluation on day of presentation by her primary care physician with evaluation at that time notable for significant tachycardia as well as low blood pressure with significant reported fatigue, malaise, near syncopal episodes while in her home with concurrent reported fever ranging from T 99-101 and reported urine darker than normal prompting ED evaluation referral by PCP office. Patient reports left-sided flank discomfort as well as left upper and lower quadrant discomfort but primarily with palpitation, dull aching and sharp, with palpation 4-5 out of 10 in severity. Work-up in the ED included T98.3, heart rate 125, BP 142/80, respiratory rate 18, and a percent on room air T96.8, heart rate up to 165, BP initially 142/80 however decreased transiently to 78/53 with most recent 104/81, respiratory rate 18, 95% on room air, positive orthostatic vital signs, CBC with WC 15.2, hemoglobin 14.1, platelets 663 with left shift, unremarkable coags, CMP with sodium 134, BUN/creat 37/2.26, glucose 146, lactate 3.2, unremarkable hepatic profile, magnesium 2.3, troponin 4, lipase 166, urinalysis with elevated specific IV 1.020, protein 500, occult blood 250, negative nitrite, leukocyte esterase 500, urine RBC 25-50, urine WBCs greater than 100, 4+ urine bacteria, urine culture pending per ED, blood culture x2 pending per ED, chest x-ray with no acute cardiopulmonary findings, CT abdomen and pelvis with severe left hydroureteronephrosis with an obstructing 6 mm stone in the distal left ureter in addition to gallbladder sludge. In the ED patient ministered Rocephin therapy and 2L NS. [facility] Medical History History of CVA (cerebrovascular accident) Hyperlipidemia Hypertension Lumbar disc disease with radiculopathy Home Medications aspirin 81 mg tablet,delayed release 81 mg PO DAILY #30 tabs 06/15/21 [Rx Last Taken Unknown] amlodipine 10 mg tablet 10 mg PO DAILY #90 tabs 09/13/21 [Rx Last Taken Unknown] atorvastatin 40 mg tablet 40 mg PO QHS #90 tabs 09/13/21 [Rx Last Taken Unknown] lisinopril 20 mg tablet 20 mg PO DAILY #90 tabs 09/13/21 [Rx Last Taken Unknown] Allergy/AdvReac Type Severity Reaction Status Date / Time No Known Allergies Allergy Verified 09/19/21 16:26 Family History Mother Hypertension Thyroid disorder Kidney disease Son Hypertension Sister Thyroid disorder Father CVA (cerebral vascular accident) Prostate cancer Skin cancer Other Rheumatoid arthritis Uterine cancer Surgical History Hx of tonsillectomy Social History household members: spouse Smoking Status: Former smoker alcohol intake: current alcohol intake frequency: holidays/special occasions only Alcohol type: wine substance use type: does not use what type of physical activity do you participate in: none ROS ROS Narrative Admission Review of Systems: CONSTITUTIONAL: No weight loss, + fever, chills, weakness or fatigue. HEENT: Eyes: No visual loss, blurred vision, double vision or yellow sclerae. Ears, Nose, Throat: No hearing loss, sneezing, congestion, runny nose or sore throat. SKIN: No rash or itching, lesions, wounds. CARDIOVASCULAR: + LH/dizziness, No chest pain, chest pressure or chest discomfort, palpitations, edema, orthopnea. RESPIRATORY: No shortness of breath, cough or sputum, wheezing, hemoptysis. GASTROINTESTINAL: + anorexia, nausea, vomiting, diarrhea, abdominal pain, No melena, BRBPR. GENITOURINARY: + Flank pain, frequency, strong smelling/dark appearing urine. NEUROLOGICAL: + LH/Dizziness, No paralysis, ataxia, numbness or tingling in the extremities, focal weakness, change in bowel or bladder control, seizure. MUSCULOSKELETAL: + muscle, back pain, joint pain or stiffness. HEMATOLOGIC: No anemia, bleeding or bruising. LYMPHATICS: No enlarged nodes. No history of splenectomy. PSYCHIATRIC: No history of depression or anxiety. ENDOCRINOLOGIC: + reports of sweating, cold or heat intolerance. No polyuria or polydipsia. ALLERGIES: No history of asthma, hives, eczema or rhinitis. Vital Signs Vital Signs Vital Signs: 09/19/21 16:22 09/19/21 16:46 09/19/21 17:02 Temperature 96.8 F L 96.8 F L Temperature Source Temporal Temporal Pulse Rate 165 H 134 H Pulse Rate [Lying] Pulse Rate [Sitting (for 1 minute prior to obtaining)] Pulse Rate [Standing (for 1 minute prior to obtaining)] Respiratory Rate 16 18 Respiratory Effort Normal Non-Labored Blood Pressure 78/53 L 99/54 L Blood Pressure [Lying] Blood Pressure [Sitting (for 1 minute prior to obtaining)] Blood Pressure [Standing (for 1 minute prior to obtaining)] Blood Pressure Mean 61 69 Blood Pressure Mean [Lying] Blood Pressure Mean [Sitting (for 1 minute prior to obtaining)] Blood Pressure Mean [Standing (for 1 minute prior to obtaining)] Pulse Ox 100 97 Oxygen Delivery Method Room Air Room Air 09/19/21 18:21 09/19/21 18:22 Temperature 98.2 F Temperature Source Temporal Pulse Rate 114 H Pulse Rate [Lying] 113 H Pulse Rate [Sitting (for 1 minute prior to obtaining)] 114 H Pulse Rate [Standing (for 1 minute prior to obtaining)] 120 H Respiratory Rate 22 H Respiratory Effort Blood Pressure 96/83 H Blood Pressure [Lying] 104/81 H Blood Pressure [Sitting (for 1 minute prior to obtaining)] 120/94 H Blood Pressure [Standing (for 1 minute prior to obtaining)] 127/87 H Blood Pressure Mean 87 Blood Pressure Mean [Lying] 88 Blood Pressure Mean [Sitting (for 1 minute prior to obtaining)] 102 Blood Pressure Mean [Standing (for 1 minute prior to obtaining)] 100 Pulse Ox 98 Oxygen Delivery Method Room Air Weight Weight: 192 lb Body Mass Index (BMI) 35.1 Physical Exam Narrative Physical Examination: General: Awake, alert, oriented x 3 and cooperative, seated upright in the ED bed, fatigued, ill-appearing, less tachycardic than previously. Skin: Normal color, normal turgor, no icterus, no cyanosis. HEENT: AT/NC, EOMI, PERRLA, dry MM, no carotid bruits or JVD noted. Lungs: Diminished, greater bases, appropriate effort, no rales, ronchi or wheezing. Heart: Tachycardic with regular rhythm; no gallop, rub audible. Abdomen: Soft, discomfort to palpation left upper and lower quadrant as well as with flank palpation, ND, distant mildly hyperactive BS, no HSM. Extremities: No cyanosis, clubbing, or edema. Neurological: Patient awake, alert, oriented as noted, cognitive function intact; pupils equally reactive to light and accommodation, cranial nerves II-XII grossly normal, moving all 4 extremities, no focal deficits, strength moderately to severely global decrease secondary to acute presentation. Psychiatric: Affect appears fatigued, ill-appearing, anxious. Results Lab / Micro Data Result Diagrams: 09/19/21 16:36 09/19/21 16:36 Labs: Laboratory Results - last 24 hr 09/19/21 16:36: WBC 15.2 H, RBC 4.68, Hgb 14.1, Hct 42.9, MCV 91.7, MCH 30.1, MCHC 32.9, RDW Std Deviation 43.3, RDW Coeff of Erin 12.9, Plt Count 663 H, MPV 9.4, Immature Gran % (Auto) 0.400, Neut % (Auto) 69.2, Lymph % (Auto) 18.9 L, [place] % (Auto) 9.7, Eos % (Auto) 1.1, Baso % (Auto) 0.7, Absolute Neuts (auto) 10.5 H, Absolute Lymphs (auto) 2.87, Nucleated RBC % 0 09/19/21 16:36: PT 13.0, INR 1.0, APTT 33.6 09/19/21 16:36: Sodium 134 L, Potassium 4.6, Chloride 101, Carbon Dioxide 22.0, Anion Gap 11, BUN 37 H, Creatinine 2.26 H, Estim Creat Clear Calc 21.20, Est GFR (MDRD) Af Amer 28 L, Est GFR (MDRD) Non-Af 24 L, BUN/Creatinine Ratio 16.4, Glucose 146 H, Calcium 9.5, Magnesium 2.3, Total Bilirubin 0.50, Direct Bilirubin 0.12, AST 13 L, ALT 20, Alkaline Phosphatase 85, Troponin I High Sens 4, Total Protein 8.3 H, Albumin 3.7, Globulin 4.6 H, Lipase 166 09/19/21 16:36: Lactic Acid 3.2 H* 09/19/21 18:30: Urine Color Yellow, Urine Clarity Sl. Cloudy, Urine pH 6.0, Ur Specific [place] 1.020, Urine Protein 500 H, Urine Glucose (UA) Normal, Urine Ketones Negative, Urine Occult Blood 250 H, Urine Nitrite Negative, Urine Bilirubin Negative, Urine Urobilinogen Normal, Ur Leukocyte Esterase 500 H, Urine RBC 25-50 SEEN, Urine WBC >100 SEEN, Ur Squamous Epith Cells 5-10 SEEN, Urine Bacteria 4+, Urine Mucus 0 SEEN Radiology Impression Chest X-Ray 09/19/21 16:50 IMPRESSION: No acute radiographic abnormalities. Electronically Signed: Von Sanchez MD at 18:04 EDT Reading Location ID and State: [facility] / [place] Tel , Service support , Abdomen/Pelvis CT 09/19/21 18:10 IMPRESSION: Severe left hydroureteronephrosis with obstructing 6 cm stone in the distal left ureter. Gallbladder sludge. Electronically Signed: Von Sanchez MD at 19:33 EDT Reading Location ID and State: [id number] / ANT Tel , Service support , Assessment & Plan Assessment/Plan (1) Sepsis: PLAN: Plan The patient is a 61 y/o F w/ PMHx: Obesity, HTN, HLD, Hx CVA, Former tobacco use who presents to the [facility] ED on 09/19/21 with history of onset persistent ongoing intermittent nausea, emesis and loose stool starting 08/25/2021 as well as now onset mild left lower quadrant discomfort with evaluation on day of presentation by her primary care physician with evaluation at that time notable for significant tachycardia as well as low blood pressure with significant reported fatigue, malaise, near syncopal episodes while in her home with concurrent reported fever ranging from T 99-101 and reported urine darker than normal prompting ED evaluation referral by PCP office. #1. Acute Sepsis secondary to Acute Complicated Urinary Tract Infection complicated by severe left hydroureteronephrosis with an obstructing 6 mm stone in the distal left ureter (febrile, tachycardic, hypotensive, elevated lactic acid with organ dysfunction with acute kidney injury): Will admit to PCU, UA upon ED evaluation remarkable, pending UCx, continue IVFs, monitor I/Os, continue IV Rocephin w/ transition as able pending sensitivities and speciation. Bld cx x 2 obtained in the ED. Maintain on fall precautions. Urology consulted and pending. N.p.o. after midnight for operative intervention considerations. #2. Acute kidney injury: Secondary to acute presentation #1. Admission BUN/Cr 37/2.26, prior baseline creatinine noted to be 0.8-0.9. Will hydrate, hold nephrotoxic medications and repeat chemistry in AM. If no improvement would plan FeNa assessment. Given obstructing stone suspect likely will necessitate intervention prior to significant improvement of renal function to normal levels. #3. Hypertension: Given presentation with hypotension with #1, holding oral regimen, resume once appropriate. #4. Hyperlipidemia: Continue home statin regimen. #5. History CVA: Given planned intervention with stents we will temporarily hold aspirin, resume once cleared per urology, holding hypertensive regimen given AMBREEN and hypotension, add back once appropriate, continue statin therapy. #6. Obesity: Weight loss and lifestyle changes encouraged. #7. Former tobacco use: Encourage continued tobacco cessation. #8. DVT prophylaxis: SCDs, hold chemoprophylaxis for planned intervention as noted. Charges/Coding Visit Charges Inpatient E&M: 41696 Init Hosp L3
--- NOTE | 2021-09-19 20:31 | CON.PCM.UR_ITS ---
Assessment & Plan Assessment/Plan (1) Ureterolithiasis: PLAN: Plan for cystoscopy stent placement tonight and emergency basis for obstruction and elevated white blood count lactic acid also elevated she came in tachycardic with fevers and low blood pressure blood pressures been improved now with hydration and will plan for intervention she will be transferred to progressive care unit for close monitoring afterwards. We will plan to treat the stone later once her infection is cleared. (2) Sepsis: (3) UTI (urinary tract infection): (4) Nausea, vomiting, and diarrhea: HPI Consult Data Date of Consult: 09/19/21 HPI Narrative Reason for Consultation: Infected kidney stone left side HPI Narrative: JERMAIN RHODES, is a 61 F who presents to the emergency room with fevers chills elevated white blood count has an of large obstructing stone in the distal left ureter she denied fevers and chills not feeling well she is brought into the hospital today plan to just place a stent to relieve the obstruction and then hospitalist service will assist with resuscitation of the patient and then when she is clinically stable we will have to treat the stone at a separate setting. [facility]LY [facility] Medical History History of CVA (cerebrovascular accident) Hyperlipidemia Hypertension Lumbar disc disease with radiculopathy Home Medications aspirin 81 mg tablet,delayed release 81 mg PO DAILY #30 tabs 06/15/21 [Rx Last Taken Unknown] amlodipine 10 mg tablet 10 mg PO DAILY #90 tabs 09/13/21 [Rx Last Taken Unknown] atorvastatin 40 mg tablet 40 mg PO QHS #90 tabs 09/13/21 [Rx Last Taken Unknown] lisinopril 20 mg tablet 20 mg PO DAILY #90 tabs 09/13/21 [Rx Last Taken Unknown] Allergy/AdvReac Type Severity Reaction Status Date / Time No Known Allergies Allergy Verified 09/19/21 16:26 Family History Mother Hypertension Thyroid disorder Kidney disease Son Hypertension Sister Thyroid disorder Father CVA (cerebral vascular accident) Prostate cancer Skin cancer Other Rheumatoid arthritis Uterine cancer Surgical History Hx of tonsillectomy Social History household members: spouse Smoking Status: Former smoker alcohol intake: current alcohol intake frequency: holidays/special occasions only Alcohol type: wine substance use type: does not use what type of physical activity do you participate in: none ROS Constitutional Constitutional: Denies anorexia, chills, fatigue, fever(s) or weakness Cardiovascular Cardiovascular: Denies chest pain, edema, palpitations or syncope Respiratory/Chest Respiratory/Chest: Denies cough, shortness of breath at rest, shortness of breath with exertion or wheezing Gastrointestinal Gastrointestinal: Denies abdominal pain, constipation, diarrhea, nausea or vomiting Genitourinary Genitourinary: Denies dysuria Musculoskeletal Musculoskeletal: Denies back pain, extremity pain, joint pain, joint stiffness or joint swelling Integumentary Integumentary: Denies dry skin Neurologic Neurologic: Reports abnormal speech, focal weakness, numbness and tingling; Denies abnormal gait, confusion or dizziness Psychiatric Psychiatric: Denies anxiety or depression Endocrine Endocrinology: Denies change in body appearance Hematologic/Lymphatic Hematologic/Lymphatic: Denies anemia Physical Exam Const alert and oriented x3 General Appearance: cooperative HEENT normocephalic and head/scalp atraumatic Eyes PERRL and EOMs intact bilaterally Neck supple, no JVD and no carotid bruits Resp normal respiratory effort, normal air movement and clear to auscultation bilaterally Cardio regular rate and no murmurs GI normal to inspection, nondistended, normoactive bowel sounds and soft to palpation Extremity normal capillary refill General Extremity: no tenderness to palpation of joints or extremities; Negative for edema Skin no rashes or lesions noted and no wounds General Skin Exam: no breakdown Neuro CN's II-XII intact bilaterally Psych affect normal Appearance: appropriate Lab / Micro Data Result Diagrams: 09/19/21 16:36 09/19/21 16:36 Labs: Laboratory Results - last 24 hr 09/19/21 16:36: WBC 15.2 H, RBC 4.68, Hgb 14.1, Hct 42.9, MCV 91.7, MCH 30.1, MCHC 32.9, RDW Std Deviation 43.3, RDW Coeff of Erin 12.9, Plt Count 663 H, MPV 9.4, Immature Gran % (Auto) 0.400, Neut % (Auto) 69.2, Lymph % (Auto) 18.9 L, [place] % (Auto) 9.7, Eos % (Auto) 1.1, Baso % (Auto) 0.7, Absolute Neuts (auto) 10.5 H, Absolute Lymphs (auto) 2.87, Nucleated RBC % 0 09/19/21 16:36: PT 13.0, INR 1.0, APTT 33.6 09/19/21 16:36: Sodium 134 L, Potassium 4.6, Chloride 101, Carbon Dioxide 22.0, Anion Gap 11, BUN 37 H, Creatinine 2.26 H, Estim Creat Clear Calc 21.20, Est GFR (MDRD) Af Amer 28 L, Est GFR (MDRD) Non-Af 24 L, BUN/Creatinine Ratio 16.4, Glucose 146 H, Calcium 9.5, Magnesium 2.3, Total Bilirubin 0.50, Direct Bilirubin 0.12, AST 13 L, ALT 20, Alkaline Phosphatase 85, Troponin I High Sens 4, Total Protein 8.3 H, Albumin 3.7, Globulin 4.6 H, Lipase 166 09/19/21 16:36: Lactic Acid 3.2 H* 09/19/21 18:30: Urine Color Yellow, Urine Clarity Sl. Cloudy, Urine pH 6.0, Ur Specific [place] 1.020, Urine Protein 500 H, Urine Glucose (UA) Normal, Urine Ketones Negative, Urine Occult Blood 250 H, Urine Nitrite Negative, Urine Bilirubin Negative, Urine Urobilinogen Normal, Ur Leukocyte Esterase 500 H, Urine RBC 25-50 SEEN, Urine WBC >100 SEEN, Ur Squamous Epith Cells 5-10 SEEN, Urine Bacteria 4+, Urine Mucus 0 SEEN Radiology Impression Chest X-Ray 09/19/21 16:50 IMPRESSION: No acute radiographic abnormalities. Electronically Signed: Von Sanchez MD at 18:04 EDT , Abdomen/Pelvis CT 09/19/21 18:10 IMPRESSION: Severe left hydroureteronephrosis with obstructing 6 cm stone in the distal left ureter. Gallbladder sludge. Electronically Signed: Von Sanchez MD at 19:33 EDT ,
[2021-09-19 20:47] LABS: Reflex Lactate? Y
[2021-09-19] MEDS: 0.9% Normal Saline 1,000 ML 200 ML IV (21:00)
[2021-09-19] MEDS: Lidocaine Jelly 2% 20 ML Syringe (URO-JET) 1 APPLIC (21:08)
--- NOTE | 2021-09-19 21:17 | OP.PCM_ITS ---
Report of Operation Date of Procedure: 09/19/21 Pre-Operative Diagnosis: Infected left kidney stone Post-Operative Diagnosis: Same Surgery/Procedure Performed:: Cystoscopy left retrograde pyelogram left stent placement Description of Surgical Findings:: Patient was taken back to the operating room after induction of general anesthesia, the patient was placed in dorsolithotomy position. The urethra and genitals were prepped and draped in usual sterile fashion. Using a 21 Gren[place] rigid cystourethroscope the entire length of the urethra was normal then went into the bladder. Identified the trigone the left and right ureteral orifice. I then cannulated the Left orifice and advanced a wire up into the kidney. I then backloaded a 5 [place]adian open ended catheter over the wire and injected contrast to delineate the anatomy. After the retrograde was performed I then used fluoroscopic images and guidance to advanced a wire up into the kidney and over the 0.038 glidewire I advanced a 6 Grenadian by 26 cm double pigtail stent. I then pulled the 0.038 Glidewire off and the stent coiled in the kidney bladder good position. The bladder was then drained. We confirmed the position of the stent by fluoroscopy. Patient anesthetic was reversed and was taken back to the PACU in good condition. Surgeon: Reginald Rivera Type of Anesthesia: General Drains: stent
--- NOTE | 2021-09-19 21:20 | ED.RN ---
per OR, was okay to send patient with being prepped for surgery.
[2021-09-19] MEDS: 0.9% Normal Saline 1,000 ML 999 ML IV (22:05)
[2021-09-19 22:13] LABS: Lactic Acid 1.1 mmol/L (0.4-1.9)
[2021-09-19] MEDS: Atorvastatin Calcium 40 MG Tablet PO (22:14)
[2021-09-19] MEDS: 0.9% Normal Saline 1,000 ML 150 ML IV (22:47)
[2021-09-20] VITALS (12 sets, daily range): BP systolic 95–122; BP diastolic 71–86; PULSE 82–101; RESP 16–20; TEMP 36.3–37; O2SAT 95–99
[2021-09-20] MEDS: 0.9% Normal Saline 1,000 ML 150 ML IV ×4 (04:52→23:43)
[2021-09-20 05:44] LABS: Absolute Lymphocyte Count 2.24 X10^3/uL (0.83-4.51); Absolute Neutrophil Count 4.5 X10^3/uL (2.0-7.7); Basophil# 0.07 X10^3/uL; Basophil% 0.9 % (0-1); Eosinophils% 1.3 % (0-5); Hematocrit 33.7 % (37-47); Hemoglobin 10.7 g/dL (12.0-15.0); Lymphocyte # 2.24 X10^3/ul (0.83-4.51); Lymphocyte % 29.1 % (19-41); Mean Corp Hgb Conc 31.8 g/dL (32-36); Mean Corpuscular Hgb 30.1 pg (27.0-32.0); Mean Corpuscular Volume 94.9 fL (81-99); Mean Platelet Vol. 9.4 fl (6.2-12.0); Monocyte% 10.4 % (0-10); NRBC Flagged by Analyzer 0 % (0-5); Neutrophil # 4.47 X10^3/uL (2.7-7.7); Platelet Count 455 K/mm3 (150-450); RBC Distribution Width CV 12.9 % (11.6-14.6); RBC Distribution Width SD 45.1 fl (35.1-43.9); Red Blood Count 3.55 M/mm3 (4.2-5.4); White Blood Count 7.7 K/mm3 (4.4-11.0)
[2021-09-20 06:11] LABS: ALB/GLOB Ratio 0.8 RATIO (0.9-2.4); AST(SGOT) 12 U/L (15-37); Alanine Aminotransfer ALT/SGPT 14 U/L (13-56); Albumin, Serum 2.7 g/dL (3.2-5.0); Alkaline Phosphatase 63 U/L (45-117); Anion Gap 6 (5-15); BUN 24 mg/dL (7-18); BUN/Creat Ratio 15.9 RATIO (10-20); Calcium,Total 8.3 mg/dL (8.5-10.1); Chloride 110 mmol/L (98-107); Creatinine, Serum 1.51 mg/dL (0.55-1.02); EST Glomerular Filtration Rate 37 mL/min (>60); Est Glom Filt Rate - Afr Amer 45 mL/min (>60); Estimated Creatinine Clearance 31.73 ml/min; Globulin 3.6 g/dL (2.2-4.2); Glucose 104 mg/dL (74-106); Potassium 4.4 mmol/L (3.5-5.1); Protein, Total 6.3 g/dL (6.4-8.2); Sodium Level 139 mmol/L (136-145)
--- NOTE | 2021-09-20 07:35 | PCM.CONS.B ---
Consult Date of Consult: 09/20/21 Reason for Consult 61-year-old female presented with obstructing stone in the distal left ureter with fevers and chills signs of sepsis elevated lactic acid, she underwent a cystoscopy and stent placement emergency only last evening she is feeling better this morning less pain no nausea or vomiting she developed high-grade fever last night with a fever this morning is normal white counts were resolved back to normal. Creatinine is improving. Her hemodynamically she stable. On exam she is alert orient x3 no acute distress abdomen soft and benign back is normal extremities normal no clubbing cyanosis or edema Assessment and plan obstructing stone in the distal left ureter with infection sepsis Urine cultures pending blood cultures pending Clinically the patient is improving I think when she is stable she can go home with antibiotics and she can follow-up next week in my office for a checkup we will set her up for surgery to go up and laser the stone once her infection is cleared.
--- NOTE | 2021-09-20 11:00 | CASEMGMT ---
RN CM Face to Face with patient for initial transition planning/care coordination assessment. RN CM introduced self and role at [facility]. Patient lying in bed, alert and oriented. Patient willing to participate in assessment and is able to answer all questions appropriately. Care providers, pharmacy, and demographics verified. Patient wishes to discharge home, denies need for home health at this time. Patient states she has no further needs or concerns at this time. CM to follow for discharge planning needs that may arise. PCP: Demetria Specialists: none Preferred Pharmacy: [facility] Insurance: [place] Prescription Benefit: yes Living Will/HPOA: none LNOK: , son Living Arrangements: Patient lives with in a single story home with 2 steps to enter the home. Patient states she is independent at home. Transportation: , son DME/HHC: Patient states she has cane and grab bars at home. Patient denies previous HHC or SNF. Disposition Plan: Patient to discharge home with family support and follow-up plans in place. Berna VARGAS, RN, CM
--- NOTE | 2021-09-20 18:47 | PCM.PN.HOSP ---
Subjective Subjective Patient was seen and examined today, she underwent a left retrograde pyelogram yesterday with left stent placement, I talked briefly with urology today and they stated that the patient would not undergo a lithotripsy until she had recovered from her urinary tract infection. Patient's white blood cell count today is normal, patient is afebrile. Objective Data Objective Data Vital Signs: Vital Signs Temp Pulse Resp BP Pulse Ox O2 Del Method 98.6 F 89 20 H 114/85 H 99 Room Air 09/20/21 15:15 09/20/21 15:15 09/20/21 15:15 09/20/21 17:03 09/20/21 15:15 09/20/21 15:15 Oxygen Delivery Method Room Air Weight: 91.7 kg Body Mass Index (BMI) 36.9 Intake & Output: Intake and Output for Last 24 Hours 09/18/21 09/19/21 09/20/21 23:59 23:59 23:59 Intake Total 3300 / 3300 3617.5 / 3617.5 Output Total 350 / 350 1720 / 1720 Balance 2950 / 2950 1897.5 / 1897.5 Lab / Micro Data Result Diagrams: 09/20/21 04:57 09/20/21 04:57 Labs: Laboratory Results - last 24 hr 09/19/21 18:30: Urine RBC 25-50 SEEN, Urine WBC >100 SEEN, Ur Squamous Epith Cells 5-10 SEEN, Urine Bacteria 4+, Urine Mucus 0 SEEN 09/19/21 21:40: Lactic Acid 1.1 09/20/21 04:57: WBC 7.7, RBC 3.55 L, Hgb 10.7 L, Hct 33.7 L, MCV 94.9, MCH 30.1, MCHC 31.8 L, RDW Std Deviation 45.1 H, RDW Coeff of Erin 12.9, Plt Count 455 H, MPV 9.4, Immature Gran % (Auto) 0.300, Neut % (Auto) 58.0, Lymph % (Auto) 29.1, [place] % (Auto) 10.4 H, Eos % (Auto) 1.3, Baso % (Auto) 0.9, Absolute Neuts (auto) 4.5, Absolute Lymphs (auto) 2.24, Nucleated RBC % 0 09/20/21 04:57: Sodium 139, Potassium 4.4, Chloride 110 H, Carbon Dioxide 23.0, Anion Gap 6, BUN 24 H, Creatinine 1.51 H, Estim Creat Clear Calc 31.73, Est GFR (MDRD) Af Amer 45 L, Est GFR (MDRD) Non-Af 37 L, BUN/Creatinine Ratio 15.9, Glucose 104, Calcium 8.3 L, Total Bilirubin 0.60, AST 12 L, ALT 14, Alkaline Phosphatase 63, Total Protein 6.3 L, Albumin 2.7 L, Globulin 3.6, Albumin/Globulin Ratio 0.8 L Radiography Diagnostic Testing: Radiology Impression Abdomen/Pelvis CT 09/19/21 18:10 IMPRESSION: Severe left hydroureteronephrosis with obstructing 6 cm stone in the distal left ureter. Gallbladder sludge. Electronically Signed: Von Sanchez MD at 19:33 EDT , Physical Exam Const alert, oriented x3, no apparent distress, average body habitus and healthy appearing General Appearance: cooperative, well kempt and well developed Orientation / Consciousness: awake, oriented to person, oriented to place and oriented to time HEENT normocephalic and moist oral mucous membranes Eyes PERRL, EOMs intact bilaterally and conjunctivae normal Neck supple, no JVD, thyroid normal and no carotid bruits General: trachea midline Resp normal respiratory effort, no retractions, no use of accessory muscles and clear to auscultation bilaterally Auscultation: Negative for rales, rhonchi or wheezes Cardio regular rate, regular rhythm, no murmurs, no rub and no gallops GI normal to inspection, nondistended, normoactive bowel sounds, soft to palpation, non-tender and non-distended Extremity no clubbing, cyanosis or edema Skin no rashes or lesions noted General Skin Exam: no breakdown Neuro oriented x3, CN's II-XII intact bilaterally, no focal motor deficits and no sensory deficits noted Sensorium / Orientation: awake and alert Speech: speech normal Psych affect normal Assessment & Plan Assessment/Plan (1) UTI (urinary tract infection): PLAN: Plan 1. Acute sepsis secondary to acute cystitis from an infected left kidney stone-continue Rocephin, monitor vital signs #2 infected left kidney stone-continue IV Rocephin #3 acute kidney injury-continue IV fluids, recheck BMP #4 hyperlipidemia-patient is on Lipitor #5 essential hypertension-patient's blood pressure medicine is being held at this time due to her low blood pressure on admission #6 cerebrovascular disease-patient will resume aspirin tomorrow Charges/Coding Visit Charges Inpatient E&M: 05261 Subs Hosp L2
[2021-09-20] MEDS: Atorvastatin Calcium 40 MG Tablet PO (22:15)
[2021-09-20] MEDS: Ceftriaxone 1 GM/50 ML BAG IV (22:19)
[2021-09-21 03:00] VITALS: BP 109/77; PULSE 78; RESP 18; TEMP 36.6; O2SAT 97
[2021-09-21] MEDS: 0.9% Normal Saline 1,000 ML 150 ML IV (06:24)
[2021-09-21 07:00] VITALS: PULSE 82
[2021-09-21 08:08] VITALS: O2SAT 95
--- NOTE | 2021-09-21 08:26 | DCINST_ITS ---
Discharge Instructions Diet Discharge Diet: No restrictions Activity Discharge Activity: Return to Normal Activity Weight Bearing Status: Full weight bearing Follow Up Care Test Results: Test results from this visit will be discussed in further detail at your follow- up appointment, if applicable. Discharge Plan Admission Admit Date/Time: 09/19/21 20:52 Primary Reason for Your Visit: sepsis, cystitis Attending Provider: Brian Amado Primary Care Provider: Jocelyne Augustin Consulting Providers: Reginald Rivera ; Priti Grey Discharge Orders/Prescriptions Prescriptions: New cefdinir 300 mg capsule 300 mg PO BID Qty: 14 0RF Rx Instructions: start 09/21/21 Continued aspirin 81 mg tablet,delayed release (DR/EC) 81 mg PO DAILY Qty: 30 2RF atorvastatin 40 mg tablet 40 mg PO QHS Qty: 90 1RF lisinopril 20 mg tablet 20 mg PO DAILY Qty: 90 1RF Held amlodipine 10 mg tablet 10 mg PO DAILY Qty: 90 1RF Hold Instructions: hold this medication and discuss resuming it with your primary care physician when you see him Referrals / Follow Up: Reginald Rivera MD [Med Staff - Active Staff] - See Referral Note (As directed) Jocelyne Augustin MD [Primary Care Provider] - In 1 Week Disposition Disposition (needs filled in before D/C Order can be placed): Home, Self Care
--- NOTE | 2021-09-21 08:35 | DS.PCM_ITS ---
Providers Date of Admission: 09/19/21 Date of Discharge: 09/21/21 Primary Care Physician: Dr. Jocelyne Augustin MD Consultations 09/19/21 21:55 Consult: Urology Routine Consulting Provider: Reginald Rivera Reason for Consult: Obstructive calculi EMERGENT Consult: Yes MD Notified: Yes Date Notified: 09/19/21 Time Notified: 21:25 Method of Notification: ED Physician Initiated Reason For Visit: SEPSIS, UTI, L HYDROURETERNEPHROSIS, OBSTRUCTING Diagnosis Discharge Diagnosis (1) UTI (urinary tract infection): Status: Acute Code(s): N39.0 - Urinary tract infection, site not specified Plan 1. Acute sepsis secondary to acute cystitis from an infected left kidney stone with E. coli-continue Rocephin, monitor vital signs #2 infected left kidney stone-with E. coli #3 acute kidney injury-continue IV fluids, recheck BMP #4 hyperlipidemia-patient is on Lipitor #5 essential hypertension-patient's blood pressure medicine is being held at this time due to her low blood pressure on admission #6 cerebrovascular disease-patient will resume aspirin tomorrow Medications at Discharge Home Medications aspirin 81 mg tablet,delayed release 81 mg PO DAILY #30 tabs 06/15/21 amlodipine 10 mg tablet 10 mg PO DAILY #90 tabs 09/13/21 atorvastatin 40 mg tablet 40 mg PO QHS #90 tabs 09/13/21 lisinopril 20 mg tablet 20 mg PO DAILY #90 tabs 09/13/21 cefdinir 300 mg capsule 300 mg PO BID #14 caps 09/21/21 Hospital Course Operations - (Cystoscopy with left retrograde pyelogram and left stent placement) Procedures None Summary of Care Provided Minutes Spent on Discharge: 31 Hospital Course: This 61-year-old white female was seen in the emergency room at [facility] with complaints of vomiting and diarrhea. She also complained of some mild left lower quadrant abdominal pain. Patient complained of generalized weakness and difficulty ambulating around her house. Lab obtained in the emergency room showed an elevated white count at 15.2, creatinine was 2.26, lactic acid was elevated at 3.4, urinalysis indicated a urinary tract infection with greater than 100 white cells and +4 bacteria. Patient was given 2 L fluid boluses in the emergency room, she received IV Rocephin, CT of the abdomen and pelvis demonstrated a 6 mm distal stone with significant hydronephroureter. Urology was contacted and patient was admitted to PCU, she was seen by urology and underwent a cystoscopy with left retrograde pyelogram and left stent placement that evening. Patient received IV fluids during her hospitalization and IV antibiotics, urine culture grew out E. coli. On 09/21/2021, patient was seen and examined: On examination she appeared in good health and spirits, she does not appear to be in any distress. Vital signs as documented. Skin warm and dry and without overt rashes. Neck without JVD, thyroid appears normal, trachea is midline, neck is supple. Lungs clear, normal air movement was noted. Heart exam notable for regular rhythm, normal sounds and absence of murmurs, rubs or gallops. Abdomen unremarkable and without evidence of organomegaly, masses, or abdominal aortic enlargement, bowel sounds are present in all 4 quadrants, no abdominal tenderness was noted. Extremities nonedematous, no cyanosis was noted, no clubbing was noted. Neuro: Cranial nerves II through XII are grossly intact, no focal motor deficits were noted, sensation to light touch and pinprick is intact, motor exam 5/5 throughout. Psych: Patient is alert and oriented x3, she does not appear anxious or depressed, she does not appear agitated. On 09/21/2021, patient was seen and examined and felt to be in stable condition f or discharge home. Weight / BMI Weight Weight: 91.5 kg Body Mass Index (BMI) 36.9 ABG / Lab / Microbiology Data Result Diagrams: 09/20/21 04:57 09/20/21 04:57 D/C Instructions Discharge Diet: No restrictions Weight Bearing Status: Full weight bearing Meaningful Use Info Meaningful Use Diagnoses (Choose all that apply): None applicable Discharge Plan Admission Admit Date/Time: 09/19/21 20:52 Primary Reason for Your Visit: sepsis, cystitis Attending Provider: Brian Amado Primary Care Provider: Jocelyne Augustin Consulting Providers: Reginald Rivera ; Priti Grey Discharge Orders/Prescriptions Prescriptions: New cefdinir 300 mg capsule 300 mg PO BID Qty: 14 0RF Rx Instructions: start 09/21/21 Continued aspirin 81 mg tablet,delayed release (DR/EC) 81 mg PO DAILY Qty: 30 2RF atorvastatin 40 mg tablet 40 mg PO QHS Qty: 90 1RF lisinopril 20 mg tablet 20 mg PO DAILY Qty: 90 1RF Held amlodipine 10 mg tablet 10 mg PO DAILY Qty: 90 1RF Hold Instructions: hold this medication and discuss resuming it with your primary care physician when you see him Referrals / Follow Up: Reginald Rivera MD [Med Staff - Active Staff] - See Referral Note (As directed) Jocelyne Augustin MD [Primary Care Provider] - In 1 Week Disposition Disposition (needs filled in before D/C Order can be placed): Home, Self Care Charges/Coding Visit Charges Inpatient E&M: 71825 Disch Hosp
[2021-09-21 09:00] VITALS: BP 119/91; PULSE 85; RESP 20; TEMP 36.3; O2SAT 98
--- NOTE | 2021-09-21 10:05 | PHA.DC.MC ---
Pharmacy Service has performed discharge medication reconciliation and counseling for this patient. 1. CEFDINIR 300MG PO BID X 7 DAYS The patient's discharge medication list was reviewed for discrepancies and discrepancies were resolved. Home Medications aspirin 81 mg tablet,delayed release 81 mg PO DAILY #30 tabs 06/15/21 amlodipine 10 mg tablet 10 mg PO DAILY #90 tabs 09/13/21 atorvastatin 40 mg tablet 40 mg PO QHS #90 tabs 09/13/21 lisinopril 20 mg tablet 20 mg PO DAILY #90 tabs 09/13/21 cefdinir 300 mg capsule 300 mg PO BID #14 caps 09/21/21 The patient was counseled on the following discharge medications and changes in medications for homegoing were reviewed. The Reason for Use, instructions for use, and potential side effects were reviewed for all new medications. The patient's questions regarding all of their medications were answered. The patient was able to verbally demonstrate an understanding of their discharge medications.
== END 2021-09-21 12:00 | disposition home or self-care (01) | DRG 854 ==
LOC: ED 20:33 → SDC 20:44 → AC 20:45 → SDC 20:53 → PCU 20:53
PROVIDERS: Urology; Admitting Provider Family Medicine; Emergency Provider Emergency Medicine; PCP Internal Medicine; Visit Provider Internal Medicine
PROC: 0T778DZ Dilation of Left Ureter with Intraluminal Device, Via Natural or Artificial Opening Endoscopic (ICD-10-PCS; principal; 2021-09-19 21:45)
DX: A41.51 Sepsis due to Escherichia coli [E. coli] (principal); N17.9 Acute kidney failure, unspecified; N13.6 Pyonephrosis; N30.00 Acute cystitis without hematuria; I95.9 Hypotension, unspecified; I10 Essential (primary) hypertension; E78.5 Hyperlipidemia, unspecified; E86.0 Dehydration; R19.7 Diarrhea, unspecified; E66.9 Obesity, unspecified; Z68.36 Body mass index [BMI] 36.0-36.9, adult; Z79.82 Long term (current) use of aspirin; Z79.899 Other long term (current) drug therapy; Z86.73 Personal history of transient ischemic attack (TIA), and cerebral infarction without residual deficits; Z87.891 Personal history of nicotine dependence
CPT/HCPCS: 36415; 71045; 74176; 76000; 80048; 80053; 80076; 81001; 83605; 83690; 83735; 84484; 85025; 85610; 85730; 87040; 87077; 87086; 87088; 87186; 93005; 99285; 99406; J7030; A4216; C1769; C2617; J2405

== ENCOUNTER → 2021-10-04 | Outpatient (CLI) | payer BC, SELFPAY ==
[2021-10-04 15:13] LABS: Anion Gap 8 (5-15); BUN 17 mg/dL (7-18); BUN/Creat Ratio 13.6 RATIO (10-20); Calcium,Total 9.4 mg/dL (8.5-10.1); Chloride 105 mmol/L (98-107); Creatinine, Serum 1.25 mg/dL (0.55-1.02); EST Glomerular Filtration Rate 47 mL/min (>60); Est Glom Filt Rate - Afr Amer 56 mL/min (>60); Glucose 102 mg/dL (74-106); Potassium 4.1 mmol/L (3.5-5.1); Sodium Level 137 mmol/L (136-145)
== END | disposition home or self-care (01) ==
LOC: MTLAB 12:54
PROVIDERS: PCP Internal Medicine; Referring Provider Internal Medicine; Visit Provider Internal Medicine
DX: N20.1 Calculus of ureter (principal); R00.0 Tachycardia, unspecified; I10 Essential (primary) hypertension
CPT/HCPCS: 36415; 80048

== ENCOUNTER 2021-11-03 18:16 | Emergency (ER) | payer BC, SELFPAY ==
[2021-11-03 18:17] VITALS: BP 151/99; PULSE 129; RESP 16; TEMP 36.6; O2SAT 96; BMI 38.2
--- NOTE | 2021-11-03 18:40 | CT_ITS ---
STUDY: CT BRAIN WITHOUT CONTRAST REASON FOR EXAM: Female, 61 years old. Sz RADIATION DOSAGE (If Supplied By Facility): CTDIvol = ( 44.99 ) mGy, DLP = ( 782.05 ) mGycm TECHNIQUE: Transaxial CT imaging of the brain was performed without administration of intravenous contrast material. Individualized dose optimization techniques were used for this CT. COMPARISON: MRI 06/13/2021 FINDINGS: Normal soft tissue structures. Normal calvarium. There is mild cerebral atrophy with widening of the extra-axial spaces and ventricular dilatation. Normal white matter tracts of the cerebral hemispheres. Chronic lacunar infarct of the right caudate nucleus. Normal brainstem. Normal cerebellum. There is no intracranial hemorrhage. Encephalomalacia within the right parietal lobe consistent with chronic infarcts. Normal visualized paranasal sinuses. CT/Brain/Head without Contrast IMPRESSION: Chronic involutional changes of the brain. Electronically Signed: Adair Long MD at 19:34 EDT ,
--- NOTE | 2021-11-03 18:40 | EKG12_ITS ---
Test Reason : DYSRYTHMIA Blood Pressure : / mmHG Vent. Rate : 120 BPM Atrial Rate : 120 BPM P-R Int : 138 ms QRS Dur : 078 ms QT Int : 324 ms P-R-T Axes : 060 075 033 degrees QTc Int : 457 ms Sinus tachycardia with occasional Premature ventricular complexes Otherwise normal ECG Confirmed by SEA CHIRINOS, NORA ([id number]), editor greeting card SEBASTIÁN DE LEON ([id number]) on 11/05/2021 11:17:18 AM Referred By: BARBARA Confirmed By:NORA OSEI MD
--- NOTE | 2021-11-03 18:41 | EX.ED.DYSGE1 ---
HPI History of Present Illness Chief Complaint: Seizure Informant: patient Narrative Narrative: Patient [place] Her is also here. But he was not there at the time. The report that she was told is that she started shaking. People evidently laid her on the ground and she did not fall. She had a seizure for unknown period of time. She then came out of it. She states she feels fine now. She does feel dehydrated. She states she had eaten at the fair and actually was just eating shortly before this. But she really had not been drinking much fluid at all. She had been feeling hot. She had been sweating a fair amount for the last hour or so. This was not acute diaphoresis around the event but this was sweating for a period of time. She felt as though she probably needs to drink fluids but then this happened. Patient has had strokes before but really no significant residual. Only anticoagulation is aspirin. She also has had seizures but they were when she was very young as a child. She has not had seizures in decades. She has no headache. No focal neurologic complaint. No drugs or alcohol. We discussed doing work-up. Patient was not really thrilled with this. She felt well. She thought this was just due to history of seizures and dehydration. I explained that she had not had one in decades. Doing blood work is appropriate. She is on lisinopril and evidently had some acute kidney injury recently with a kidney stone. She is not having any kidney stone symptoms. We also should do a CAT scan with recurrence of seizures that she has not had in decades. I had to explain why and she did finally agree to this. [facility] Medical History History of CVA (cerebrovascular accident) Hyperlipidemia Hypertension Kidney failure Kidney stones Lumbar disc disease with radiculopathy Sepsis secondary to UTI Home Medications aspirin 81 mg tablet,delayed release 81 mg PO DAILY #30 tabs 06/15/21 [Rx Last Taken Unknown] atorvastatin 40 mg tablet 40 mg PO QHS #90 tabs 09/13/21 [Rx Last Taken Unknown] lisinopril 20 mg tablet 20 mg PO DAILY #90 tabs 09/13/21 [Rx Last Taken Unknown] Allergy/AdvReac Type Severity Reaction Status Date / Time No Known Allergies Allergy Verified 10/01/21 13:44 Family History Mother Hypertension Thyroid disorder Kidney disease Son Hypertension Sister Thyroid disorder Father CVA (cerebral vascular accident) Prostate cancer Skin cancer Other Rheumatoid arthritis Uterine cancer Surgical History Hx of tonsillectomy Social History household members: spouse Smoking Status: Former smoker alcohol intake: current alcohol intake frequency: holidays/special occasions only Alcohol type: wine substance use type: does not use what type of physical activity do you participate in: none ROS ROS ED Constitutional Constitutional ED: Denies chills, fever(s) or subjective Eyes Eyes: Denies blurry vision or change in vision ENT ENT ED: Denies rhinorrhea or sore throat Cardiovascular Cardiovascular: Denies chest pain, palpitations or racing heartbeat Respiratory/Chest Respiratory/Chest: Denies cough Gastrointestinal Gastrointestinal: Denies abdominal pain, nausea or vomiting Genitourinary Genitourinary ED: Denies dysuria, hematuria or urinary frequency Musculoskeletal Musculoskeletal: Denies arthralgias, back pain or myalgias Integumentary Denies rash Neurologic Neurologic: Denies headache(s), paresthesias or weakness Psychiatric Psychiatric: Denies anxiety Endocrine Endocrinology: Denies polyuria Hematologic/Lymphatic Hematologic/Lymphatic: Denies easy bleeding or easy bruising Allergic/Immunologic Allergic/Immunologic ED: Denies urticaria EXAM Physical Exam Const Vital Signs: 11/03/21 18:17 Temperature 97.8 F Temperature Source Temporal Pulse Rate 129 H Respiratory Rate 16 Blood Pressure 151/99 H Blood Pressure Mean 116 Pulse Ox 96 Oxygen Delivery Method Room Air Positive well nourished and well developed General Appearance ED: well developed and NAD HEENT Reports dry mucous membranes HEENT Narrative: No intraoral or lingual contusions or abrasions or lacerations. Mouth ED: Yes dry mucous membranes Mouth: dry mucous membranes Eyes PERRL and EOMs intact bilaterally General Eye ED: Negative for scleral icterus Neck supple Resp normal respiratory effort and clear to auscultation bilaterally Auscultation: Negative for rales, rhonchi or wheezes Cardio regular rate and regular rhythm GI normal to inspection, nondistended, normoactive bowel sounds and non-tender Back/Spine no CVA tenderness Extremity normal to inspection Extremity Narrative: Full range of motion including shoulders General Extremety ED: Negative for edema or tenderness General Extremity: Negative for edema Neuro oriented x3 and no sensory deficits noted Sensorium / Orientation: alert; Negative for orientation impaired, lethargic or stuporous Motor Exam: strength 5/5 throughout; Negative for general weakness or strength abnormal Psych mental status grossly normal Skin no rashes or lesions noted and no wounds MDM MDM MDM Narrative Medical decision making narrative: CBC showed mild elevation of white count which is likely demargination considering the history. Electrolytes are overall normal. But her creatinine and BUN were elevated consistent with her history of decreased p.o. fluids and mild dehydration and out in the heat. Liver function test are normal. CT scan did not show any acute process. Patient was given IV fluids. She came in with a heart rate of 130. When I went in the room she was 111. She states she is pretty sure her heart rate is always a little bit elevated. When she was here about a month ago it was 110. Before that it ranged generally 80s and 90s. But she has no chest pain or palpitations. She does have some dehydration that could contribute to this. As well as some mild acidosis likely occurred after her seizure and this will take some time to resolve. She has no symptoms of PE or heart disease. She states she did not want to even come in. She does not want to stay and she would like to go home. She has an appointment prescheduled for routine follow-up with her physician on Friday. I explained that she needs to follow-up with them. They may want to do further outpatient work-up. She also has an appointment with her neurologist in November. It has been rescheduled from August. Lab Data Attestation: I reviewed the patient's lab results. Labs: Laboratory Results - last 24 hr 11/03/21 11/03/21 19:05 19:05 WBC 14.3 H RBC 4.68 Hgb 14.3 Hct 43.4 MCV 92.7 MCH 30.6 MCHC 32.9 RDW Std Deviation 45.5 H RDW Coeff of Erin 13.5 Plt Count 379 MPV 9.4 Immature Gran % (Auto) 0.700 Neut % (Auto) 64.1 Lymph % (Auto) 21.8 [place] % (Auto) 8.3 Eos % (Auto) 4.1 Baso % (Auto) 1.0 Absolute Neuts (auto) 9.2 H Absolute Lymphs (auto) 3.12 Nucleated RBC % 0 Sodium 142 Potassium 4.0 Chloride 109 H Carbon Dioxide 24.0 Anion Gap 9 BUN 29 H Creatinine 1.47 H Estim Creat Clear Calc 32.59 Est GFR (MDRD) Af Amer 47 L Est GFR (MDRD) Non-Af 39 L BUN/Creatinine Ratio 19.7 Glucose 127 H Calcium 8.9 Total Bilirubin 0.30 AST 22 ALT 37 Alkaline Phosphatase 91 Total Protein 7.4 Albumin 4.0 Globulin 3.4 Albumin/Globulin Ratio 1.2 Radiography Diagnostic Testing: Clinical Impression(s) from Imaging Studies Brain CT 11/03/21 18:40 IMPRESSION: Chronic involutional changes of the brain. Electronically Signed: Adair Long MD at 19:34 EDT , Discharge Plan Triage Chief Complaint: Seizure ED Provider: Hugo Ashford Dx/Rx/DC Orders Clinical Impression: Seizure, Dehydration Instructions: ED Seizure New Onset Unknown ... Prescriptions: No Action aspirin 81 mg tablet,delayed release (DR/EC) 81 mg PO DAILY Qty: 30 2RF atorvastatin 40 mg tablet 40 mg PO QHS Qty: 90 1RF lisinopril 20 mg tablet 20 mg PO DAILY Qty: 90 1RF Primary Care Provider: Jocelyne Augustin Referrals: Jocelyne Augustin MD [Primary Care Provider] - Keep [facility] appointment (Keep scheduled appointment on Friday.) Disposition Disposition: Home, Self Care
[2021-11-03] MEDS: 0.9% Normal Saline 1,000 ML 1000 ML IV (19:10)
[2021-11-03 19:24] LABS: Absolute Lymphocyte Count 3.12 X10^3/uL (0.83-4.51); Absolute Neutrophil Count 9.2 X10^3/uL (2.0-7.7); Basophil# 0.15 X10^3/uL; Eosinophil# 0.58 X10^3/uL; Eosinophils% 4.1 % (0-5); Hematocrit 43.4 % (37-47); Hemoglobin 14.3 g/dL (12.0-15.0); Lymphocyte # 3.12 X10^3/ul (0.83-4.51); Lymphocyte % 21.8 % (19-41); Mean Corp Hgb Conc 32.9 g/dL (32-36); Mean Corpuscular Hgb 30.6 pg (27.0-32.0); Mean Corpuscular Volume 92.7 fL (81-99); Mean Platelet Vol. 9.4 fl (6.2-12.0); Monocyte# 1.19 X10^3/uL; Monocyte% 8.3 % (0-10); NRBC Flagged by Analyzer 0 % (0-5); Neutrophil # 9.18 X10^3/uL (2.7-7.7); Neutrophil % 64.1 % (47-70); Platelet Count 379 K/mm3 (150-450); RBC Distribution Width CV 13.5 % (11.6-14.6); RBC Distribution Width SD 45.5 fl (35.1-43.9); Red Blood Count 4.68 M/mm3 (4.2-5.4); White Blood Count 14.3 K/mm3 (4.4-11.0)
[2021-11-03 19:32] LABS: ALB/GLOB Ratio 1.2 RATIO (0.9-2.4); AST(SGOT) 22 U/L (15-37); Alanine Aminotransfer ALT/SGPT 37 U/L (13-56); Alkaline Phosphatase 91 U/L (45-117); Anion Gap 9 (5-15); BUN 29 mg/dL (7-18); BUN/Creat Ratio 19.7 RATIO (10-20); Calcium,Total 8.9 mg/dL (8.5-10.1); Chloride 109 mmol/L (98-107); Creatinine, Serum 1.47 mg/dL (0.55-1.02); EST Glomerular Filtration Rate 39 mL/min (>60); Est Glom Filt Rate - Afr Amer 47 mL/min (>60); Estimated Creatinine Clearance 32.59 ml/min; Globulin 3.4 g/dL (2.2-4.2); Glucose 127 mg/dL (74-106); Protein, Total 7.4 g/dL (6.4-8.2); Sodium Level 142 mmol/L (136-145)
[2021-11-03 20:46] VITALS: BP 123/89; PULSE 117; RESP 16; O2SAT 98
[2021-11-03 20:48] VITALS: RESP 16
== END 2021-11-03 20:48 | disposition home or self-care (01) ==
PROVIDERS: Emergency Provider Emergency Medicine; PCP Internal Medicine; Visit Provider Emergency Medicine
DX: R56.9 Unspecified convulsions (principal); E86.0 Dehydration; E87.2 Acidosis; I10 Essential (primary) hypertension; E78.5 Hyperlipidemia, unspecified; Z87.891 Personal history of nicotine dependence; Z79.82 Long term (current) use of aspirin; Z79.899 Other long term (current) drug therapy
CPT/HCPCS: 70450; 80053; 85025; 93005; 96360; 96361; 99285; J7030

== ENCOUNTER → 2021-11-19 | Outpatient (CLI) | payer BC, SELFPAY ==
--- NOTE | 2021-11-19 07:55 | MRI_ITS ---
STUDY: MRI BRAIN WITH AND WITHOUT CONTRAST REASON FOR EXAM: Female, 61 years old. Seizure, ischemic stroke history TECHNIQUE: Standardized multiplanar fat and water weighted pulse sequences were obtained. IV Yes YES was administered for the contrast portion of the examination. COMPARISON: Head CT dated November 03, 2021. MRI of the brain dated JUNE 13, 2021 FINDINGS: Old infarct with cystic encephalomalacia of the right caudate nucleus/basal ganglia noted as well as postinfarct encephalomalacia and gliotic signal at the junction of the right frontal and parietal lobes. There is mild cerebral atrophy with widening of the extra-axial spaces and ventricular dilatation. There are a limited number of small white matter hyperintensities, distributed throughout the deep white matter tracts of the cerebral hemispheres, consistent with mild chronic white matter ischemic changes. There is no evidence for recent intracranial ischemia or other cause of cytotoxic edema on diffusion weighted imaging (DWI). Normal T2* images of the brain without demonstrated susceptibility artifact. There is no demonstrated hemosiderin stain. Normal thalami. There is no extra-axial fluid accumulation. Normal flow voids within the major intracranial circulation suggesting patency by spin echo criteria. Normal venous enhancement. There is no enhancing intra-axial or extra-axial abnormality. Normal sella turcica, pituitary gland, infundibular stalk, optic chiasm and hypothalamus. Normal tectal plate and pineal gland. Normal midbrain, shoshana and medulla. Normal cerebellum. Normal basal cisterns. Normal bilateral temporal bones. Normal bilateral internal auditory canals. No demonstrated orbital abnormality, within the constraints of a routine brain study. Normal visualized paranasal sinuses. Normal calvarium and skull base. Normal visualized soft tissue structures. Normal visualized upper cervical spine. MRI/Brain W/WO Contrast IMPRESSION: 1. Old infarct with cystic encephalomalacia of the right caudate nucleus/basal ganglia noted as well as postinfarct encephalomalacia and gliotic signal at the junction of the right frontal and parietal lobes. 2. No acute infarct or intracranial hemorrhage. Electronically Signed: Cesar Hernandez MD at 15:48 EDT ,
== END | disposition home or self-care (01) ==
LOC: MRI 07:55
PROVIDERS: PCP Internal Medicine; Referring Provider Internal Medicine; Visit Provider Internal Medicine
DX: I69.398 Other sequelae of cerebral infarction (principal); R56.9 Unspecified convulsions; G93.89 Other specified disorders of brain; I10 Essential (primary) hypertension
CPT/HCPCS: 70553; A9575

== ENCOUNTER → 2022-01-09 | Outpatient (CLI) | payer BC, SELFPAY ==
--- NOTE | 2022-01-09 09:43 | CDU_ITS ---
Reason For Study: Multiple cerebral infarcts, Rt ICA stenosis Rt. Velocities/BP Lt. Velocities/BP Prox CCA 68/6 cm/sec. Prox CCA 114/25 cm/sec. Mid CCA 71/13 cm/sec. Mid CCA 82/30 cm/sec. Dist CCA 54/10 cm/sec. Dist CCA 83/30 cm/sec. Prox ICA 43/8 cm/sec. Prox ICA 87/30 cm/sec. Mid ICA 293/109 cm/sec. Mid ICA 100/44 cm/sec. Dist ICA 91/23 cm/sec. Dist ICA 109/47 cm/sec. Rt. ICA/CCA = 4.2. Lt. ICA/CCA = 1.3. Prox ECA 183/12 cm/sec. Prox ECA 122/16 cm/sec. Rt. Vert. 133/43 cm/sec. Lt. Vert. 24 cm/sec. Right Extracranial There is intimal thickening but no significant atherosclerotic plaque noted in the right common carotid artery. There is homogeneous, irregular atherosclerotic plaque noted in the right internal carotid artery. There is homogeneous, irregular atherosclerotic plaque noted in the right external carotid artery. Antegrade flow is noted in the right vertebral artery. Left Extracranial There is intimal thickening but no significant atherosclerotic plaque noted in the left common carotid artery. There is no significant atherosclerotic plaque noted in the left internal carotid artery. There is no significant atherosclerotic plaque noted in the left external carotid artery. Bidirectional flow noted Lt Vert A. Procedure Carotid Duplex 55986. This is a Carotid Duplex examination using B-mode, color flow and specral Doppler. The study was technically difficult. Exam performed in department. VL/Carotid Duplex Ultrasound Interpretation Summary Severe (>70%) stenosis right extracranial internal carotid. Mild (<50%) stenosis left extracranial internal carotid. The Right vertebral is patent and antegrade. The Left vertebral flow is bidirectional. Ordering Physician: Tristin Eden Referring Physician: Jocelyne Whaley Performed By: Roof, Kristen, RDCS, RVT
== END | disposition home or self-care (01) ==
LOC: CVS 09:42
PROVIDERS: PCP Internal Medicine; Referring Provider Psychiatry & Neurology Neurology; Visit Provider Psychiatry & Neurology Neurology
DX: I63.231 Cerebral infarction due to unspecified occlusion or stenosis of right carotid arteries (principal)
CPT/HCPCS: 93880

== ENCOUNTER → 2022-01-14 | Outpatient (CLI) | payer BC, SELFPAY ==
[2022-01-14 13:32] LABS: Erythrocyte Sedimentation Rate 15 mm/hr (0-30)
[2022-01-15 15:50] LABS: ANTINUCLEAR ANTIBODIES DIRECT Negative (Negative)
[2022-01-21 12:08] LABS: Complement C3 164 mg/dL (82-167); Dilute Prothrombin Time (dPT) 36.1 sec (0.0-47.6); Dilute Russell Viper Venom 36.4 sec (0.0-47.0); PTT-LA 35.4 sec (0.0-51.9); Protein C Antigen 123 % (60-150); Protein S, Free 115 % (61-136); Thrombin Time 17.6 sec (0.0-23.0); dPT Confirm Ratio 1.15 Ratio (0.00-1.34)
[2022-01-21 12:25] LABS: Anti-Cardiolipin Ab, IgA, Qn < 9 APL U/mL (0-11); Anti-Cardiolipin Ab, IgG, Qn < 9 GPL U/mL (0-14); Anti-Cardiolipin Ab, IgM, Qn < 9 MPL U/mL (0-12); Anti-Thrombin 3 AG, Immunol 90 % (72-124); Antithrombin 3 Function 115 % (75-135); Complement CH50 > 60 U/mL (>41); Protein C, Functional 148 % (73-180); Protein S, Funtional 95 % (63-140); Protein S, Total 121 % (60-150)
[2022-01-21 12:26] LABS: Interpretation Comment: (.); Lamotrigine (Lamictal) Level 2.6 ug/mL (2.0-20.0)
== END | disposition home or self-care (01) ==
LOC: MTLAB 09:53
PROVIDERS: PCP Internal Medicine; Referring Provider Psychiatry & Neurology Neurology; Visit Provider Psychiatry & Neurology Neurology
DX: I63.9 Cerebral infarction, unspecified (principal); G40.909 Epilepsy, unspecified, not intractable, without status epilepticus
CPT/HCPCS: 36415; 81240; 81241; 82140; 82542; 85300; 85301; 85302; 85303; 85305; 85306; 85652; 86038; 86147; 86160; 86162; 86225; 86235

== ENCOUNTER → 2022-01-22 | Outpatient (CLI) | payer BC, SELFPAY | END | disposition home or self-care (01) | LOC: PSN 08:12 | PROVIDERS: PCP Internal Medicine; Referring Provider Psychiatry & Neurology Neurology; Visit Provider Psychiatry & Neurology Neurology | DX: G40.909 Epilepsy, unspecified, not intractable, without status epilepticus (principal); I63.9 Cerebral infarction, unspecified | CPT/HCPCS: 95819 ==

== ENCOUNTER 2022-02-20 05:16 | Inpatient (IN) | payer BC, SELFPAY ==
--- NOTE | 2022-02-12 09:05 | EKG12_ITS ---
Test Reason : PRE OP Blood Pressure : / mmHG Vent. Rate : 101 BPM Atrial Rate : 101 BPM P-R Int : 152 ms QRS Dur : 068 ms QT Int : 320 ms P-R-T Axes : 067 084 062 degrees QTc Int : 414 ms Sinus tachycardia Otherwise normal ECG Confirmed by SHERYL CHIRINOS, SHANTI ([id number]), newspaper copy editor SEBASTIÁN DE LEON ([id number]) on 02/13/2022 10:05:10 AM Referred By: NAKITA Confirmed By:SHANTI SAUCEDO MD
[2022-02-12 09:27] LABS: Hematocrit 44.5 % (37-47); Hemoglobin 14.5 g/dL (12.0-15.0); Mean Corp Hgb Conc 32.6 g/dL (32-36); Mean Corpuscular Hgb 29.7 pg (27.0-32.0); Mean Corpuscular Volume 91.2 fL (81-99); Mean Platelet Vol. 9.3 fl (6.2-12.0); Platelet Count 355 K/mm3 (150-450); RBC Distribution Width CV 12.8 % (11.6-14.6); RBC Distribution Width SD 42.6 fl (35.1-43.9); Red Blood Count 4.88 M/mm3 (4.2-5.4); White Blood Count 10.3 K/mm3 (4.4-11.0)
[2022-02-12 09:59] LABS: Anion Gap 7 (5-15); BUN 17 mg/dL (7-18); BUN/Creat Ratio 14.8 RATIO (10-20); Calcium,Total 8.9 mg/dL (8.5-10.1); Chloride 107 mmol/L (98-107); Creatinine, Serum 1.15 mg/dL (0.55-1.02); EST Glomerular Filtration Rate 51 mL/min (>60); Est Glom Filt Rate - Afr Amer 62 mL/min (>60); Glucose 115 mg/dL (74-106); Potassium 3.7 mmol/L (3.5-5.1); Sodium Level 140 mmol/L (136-145)
[2022-02-12 10:51] LABS: Partial Thromboplast Time 27.9 Seconds (24.1-36.2)
[2022-02-19 22:23] LABS: Lamotrigine (Lamictal) Level 2.5 ug/mL (2.0-20.0)
[2022-02-20] VITALS (20 sets, daily range): BP systolic 87–162; BP diastolic 61–98; PULSE 100–119; RESP 13–27; TEMP 36.2–37.1; O2SAT 92–100; BMI 39.9; BMI 40.6
[2022-02-20] MEDS: Lactated Ringers 1,000 ML 15 ML IV (05:56)
--- NOTE | 2022-02-20 07:17 | PCM.HP.BLA ---
History and Physical Intake Vital Signs ? 02/14/2213:19 BP 160/84 H Blood Pressure Location Lt brachial Position Sitting Pulse 105 H Pulse Oximetry (%) 97 Intake Visit Reasons:?Discuss CEA Chief Complaint: RCA stenosis Allergies No Known Allergies Allergy (Verified 02/06/22 08:16) Medications coenzyme [id number] E 100 mg-100 unit capsule 1 cap PO DAILY LEG CRAMPS 12/24/21 [History Confirmed 02/14/22] sertraline 25 mg tablet (Zoloft) 12.5 mg PO DAILY DEPRESSION 01/31/22 [History Confirmed 02/14/22] aspirin 81 mg tablet,delayed release 81 mg PO DAILY SUPPLEMENT 02/11/22 [History Confirmed 02/14/22] atorvastatin 40 mg tablet 40 mg PO QHS CHOLESTEROL 02/11/22 [History Confirmed 02/14/22] clopidogrel 75 mg tablet (Plavix) 75 mg PO DAILY HEART 02/11/22 [History Confirmed 02/14/22] lamotrigine 25 mg tablet 50 mg PO BID SEIZURES 02/11/22 [History Confirmed 02/14/22] lisinopril 20 mg tablet 20 mg PO DAILY HTN 02/11/22 [History Confirmed 02/14/22] PFSH Medical History?(Updated 02/11/22 @ 10:45 by Jyothi Rodas) Depression Former smoker H/O echocardiogram Heartburn Hemiparesis History of CVA (cerebrovascular accident) Hyperlipidemia Hypertension Kidney failure Kidney stones Lumbar disc disease with radiculopathy Seizures Sepsis secondary to UTI Stroke/cerebrovascular accident Urgency of urination Use of cane as ambulatory aid Wears glasses Surgical History?(Updated 02/11/22 @ 10:29 by Jyothi Rodas) History of lithotripsy History of urethral stent Hx of tonsillectomy Family History? Mother Hypertension Thyroid disorder Kidney diseaseSon HypertensionSister Thyroid disorderFather CVA (cerebral vascular accident) Prostate cancer Skin cancerOther Rheumatoid arthritis Uterine cancer Social History? household members:? spouse Smoking Status:? Former smoker Tobacco: How many years used:? 45 alcohol intake:? current alcohol intake frequency: holidays/special occasions only Alcohol type: wine substance use type:? does not use what type of physical activity do you participate in:? none darryl/roman catholic:? Denominational seatbelt use:? always HPI HPI HPI: JERMAIN RHODES, is a 61 F who presents to the office today regarding right ICA stenosis. Initially, planned for TCAR and that procedure was discussed; however, ultimately patient was determined not to be a good candidate for that procedure and will require CEA. She is here today to discuss carotid endarterectomy in more detail. In May 2021, patient was hospitalized for symptoms of stroke (dysarthria, right-sided weakness) and found to have acute left fronto-parietal lobe cortical cerebral infarct. At that time, old right basal ganglia and frontal lobe infarcts were identified along with significant stenosis of right carotid artery precipitating referral to this office. The residual effects from stroke resolved over a period of days. She has had some suspected seizure activity and follows with neurology and currently managed with lamotrigine. She takes no blood thinners other than ASA and the plavix which was started at last office visit in anticipation of TCAR. Patient reports to changes in medical history or medications in interim since last visit. She complains of some recent intermittent dizziness with no attributable trigger, has not led to any falls. Otherwise, she has no complaints. Denies constitutional symptoms, SOB, CP, monocular vision loss, unilateral weakness, slurred speech, SALINAS. She has not had any recurrence of symptoms associated with recent stroke. ROS General General: No weight change, appetite, fatigue, colon cancer, breast cancer or weakness HEENT HEENT: No difficulty swallowing, eye injury, eye surgery, swollen glands or hoarseness Endo Endocrine: No thyroid disease, diabetes mellitus, thyroid cancer, Hair loss, heat intolerance or cold intolerance Skin Skin: No rash or changing moles Musc Musculoskeletal: Yes back problems; No arthritis, rheumatoid arthritis, gout or joint pain Cardio Cardiovascular: Yes high blood pressure; No murmur, pacemaker, heart disease, atrial fibrillation, heart attack, heart stent, palpitations, shortness of breat with exertion or chest pain Psych Psychiatric: Yes depression and anxiety; No hearing voices Resp Respiratory: No shortness of breath, No sleep apnea, No cough, No COPD, No asthma, No emphysema and No wheezing Gastro Gastrointestinal: No abdominal pain, No nausea or vomiting, No diarrhea, No constipation, No blood in stool, Yes acid reflux, Yes hemorrhoids, No ulcers, No gallbladder problem and No black,tarry stools Adin Hematologic: No blood thinners, No blood disorders, No bleeding, No anemia and No blood clots Neuro Neurologic: No system reviewed and no additional complaints, except as documented, No as per HPI, No abnormal gait, No abnormal hearing, No abnormal movements, No abnormal speech, No behavioral changes, No burning sensations, No confusion, No convulsions, No disequilibrium, No dizziness, No localized weakness, No frequent falls, No headache(s), No lack of coordination, No loss of vision, No memory loss, Yes numbness, No other visual disturbances, No radicular pain, No restless legs, No sensory deficit, No syncope, Yes tingling, No tremor(s), No weakness and No other Exam Const General: cooperative, healthy appearing, comfortable, no acute distress and well developed [facility] Head: normal to inspection, normocephalic and atraumatic Ears: hearing grossly normal bilaterally Nose: external nose normal Eyes General: appearance normal, both eyes and all related structures EOM: EOM intact bilaterally Neck Neck: normal visual inspection, full ROM and trachea midline Neck mass: No Resp Effort & Inspection: normal respiratory effort, able to speak in complete sentences, symmetric chest movement, no audible wheezes, no cough, not labored, no stridor and no use of accessory muscles Auscultation: clear to auscultation bilaterally Cardio Rate: regular rate Rhythm: regular rhythm Skin General: no rashes or lesions noted Trauma: no lacerations or abrasions Wounds: no wounds Neuro General: patient alert, patient awake, patient oriented x3, moves all extremities and CN's II-XI intact bilaterally Speech: speech normal Gait: gait assisted (uses? cane) Extremities Pulses: Normal: Right Radial Pulse and Left Radial Pulse Psych Appearance: grossly normal Mental Status: mental status grossly normal Speech and Movement: speech and movement normal Attitude: cooperative Judgment: judgment good Coding Level of Care Code Off vis,est,level 1 Diagnoses Stenosis of right internal carotid artery? I65.21 Assessment and Plan Assessment and Plan (1) Stenosis of right internal carotid artery: ?Status:?Chronic -right CEA
--- NOTE | 2022-02-20 07:30 | PLAQ_PTH ---
PATIENT: JERMAIN RHODES LOC: [facility] U#:[id number] AGE/SX: 61/F ROOM: [facility]05 RE02/20/[address]: Dr. Fawad George MD : 1960 BED: 1 DIS: 02/21/2022 SPEC #: [id number] RECD: 02/20/22 12:00 STATUS: LINO RERonald #: [id number] ABBY: 02/20/22 07:[address]: Fawad George DEPT: SURGICAL PATHOLOGY RECD BY: Luz Maria Feliz ENTERED: 02/20/22 12:31 SP TYPE: PLAQUE OTHR DR: MD Dr. Jocelyne Ruano MD Tissues: PLAQUE Procedures: Surgery Specimen Level III HEADER OPERATION: Carotid endarterectomy PRE-OP DIAGNOSIS: Stenosis of right internal carotid artery TISSUE SUBMITTED: Right carotid plaque MICROSCOPIC DIAGNOSIS Right carotid plaque, endarterectomy: Atherosclerotic tissue (plaque). ADRIANA:silva 02/21/2022 GROSS DESCRIPTION Received is one container labeled with the patient's name and not further designated. The specimen consists of a previously opened tubular piece of dickens-yellow tissue measuring 1.5 in length and 0.6 cm in diameter. The specimen is serially sectioned and submitted entirely in one cassette. / ADRIANA:silva 02/20/2022 TC:5 CPT: 71035
[2022-02-20] MEDS: Cefazolin 2 GM in 0.9% Normal Saline 100 ML IV (07:33)
[2022-02-20] MEDS: Bupivacaine Mpf 0.5% 30 ML VIAL (10:57)
[2022-02-20] MEDS: KCL 20MEQ in D5.45NS 20 MEQ/1,000 ML IV.SOLN. 100 MEQ IV ×2 (13:49→23:53)
[2022-02-20] MEDS: Acetaminophen 500 MG Tablet 1000 MG PO ×2 (13:51→21:47)
--- NOTE | 2022-02-20 14:49 | PCM.PN.HOSP ---
Subjective Subjective Doing well, no issues after surgery. Still having some pain around her right neck after carotid endarterectomy. States that her last seizure was several months ago of which she has been stable on her home medications Objective Data Objective Data Vital Signs: Vital Signs Temp Pulse Resp BP Pulse Ox O2 Del Method O2 Flow Rate 97.2 F L 115 H 20 H 134/80 H 93 Room Air 8 02/20/22 11:50 02/20/22 13:00 02/20/22 13:00 02/20/22 13:00 02/20/22 13:00 02/20/22 13:00 02/20/22 11:50 Oxygen Flow Rate (L/min) 8 Oxygen Delivery Method Room Air Weight: 222 lb Body Mass Index (BMI) 40.6 Intake & Output: Intake and Output for Last 24 Hours 02/19/22 02/20/22 02/21/22 03:59 03:59 03:59 Intake Total 110 / 110 Balance 110 / 110 Lab / Micro Data Result Diagrams: 02/12/22 08:50 02/12/22 08:50 Labs: Laboratory Results - last 24 hr 02/12/22 08:49: Lamotrigine 2.5 Physical Exam Narrative General: Alert, Oriented x3, Cooperative, No apparent distress HEENT: Atraumatic, PERRLA, EOMI, Normocephalic, morbidly obese Oral: Moist Mucosa Neck: Supple, No JVD Lungs: Diminished, Normal air movement, No rhonchi, No wheeze, No rales Cardiovascular: Regular rate, Regular Rhythm, Normal S1, Normal S2, No murmurs Abdomen: Soft, Non Tender, Non-Distended, No Hepato-splenomegaly Extremities: No edema, Capillary Refill Less than 3 Seconds Skin: Incision on her left neck dressing intact Musculoskeletal: No Tenderness to Palpation of Joints or Extremities Neurological: Cranial nerves II-XII grossly intact, Motor Exam 5/5 strength throughout, Sensory exam intact to light touch and pain Psych/Mental Status: Normal Affect, Appropriate Assessment & Plan Assessment/Plan (1) Stenosis of right internal carotid artery: PLAN: Plan 1. Status post carotid endarterectomy/HTN/HLD/history of CVA ? Continue with her home Lipitor, aspirin, and Plavix ? Blood pressures are stable, can continue with her home lisinopril ? Pain management per primary 2. Seizure disorder ? Continue with her Lamictal 50 mg p.o. twice daily she has been fairly well controlled on this medication 3. Depression/anxiety ? Stable ? Continue with Zoloft DVT: Louis Discussed with vascular surgery, will follow peripherally Charges/Coding Visit Charges Inpatient E&M: 26172 Subs Hosp L2
[2022-02-20] MEDS: Cefazolin 1 GM/50 ML BAG IV ×2 (15:26→23:53)
[2022-02-20 16:40] LABS: ACT Activated Clotting Time 119 sec (74-137)
[2022-02-20 16:40] LABS: ACT Activated Clotting Time 305 sec (74-137)
[2022-02-20 16:41] LABS: ACT Activated Clotting Time 269 sec (74-137)
--- NOTE | 2022-02-20 16:56 | OP.PCM_ITS ---
Report of Operation Date of Procedure: 02/20/22 Pre-Operative Diagnosis: right ICA stenosis Post-Operative Diagnosis: same Surgery/Procedure Performed:: right carotid endarterectomy Description of Surgical Findings:: RODRIGUEZ to sima, CN intact Surgeon: Fawad George Type of Anesthesia: General Specimen's removed: plaque Drains: 10 mm flat CARLITOS Estimated Blood Loss (mL): 50 Description of Procedure: HPI: Patient is a 61-year-old female with the previously symptomatic right i nternal carotid artery high-grade stenosis. After optimization and risk stratification she is taken now for carotid endarterectomy. She been considered for transfer carotid artery stenting however tortuosity in her vessel made her a poor candidate for stenting. Her high anatomy and long lesion expected to make surgical procedure technically challenging but feasible. Description of procedure: Upon obtaining form consent and verification correct patient procedure site patient was taken the operating where she was placed under general anesthesia. She was then positioned prepped and draped in usual sterile fashion a timeout was performed. An oblique incision made along the anterior border the sternocleidomastoid and Bovie electrocautery was dissect down through subcutaneous tissue. The platysma was divided and self-retaining retractors put in position with further dissection carried down to the sternocleidomastoid. This is freed along its anterior border along posterior lateral retraction exposing the carotid sheath. Sharp dissection used to dissect free the jugular vein, with facial vein branches identified, ligated with silk ties and divided. The jugular vein then retracted laterally exposing the carotid vessels and sharp resection used to dissect down to the proximal common carotid artery. Care was taken to identify and protect the vagus nerve, and once the vessel was mobilized a right angle was used to place a vessel loop. We then carried the dissection distally with the hypoglossal nerve identified and protected. Given the long lesion a more distal dissection was warranted, and there was a significant mount of tortuosity and internal carotid artery which had visualization difficult due to overlying external carotid artery position. Ultimately were able to dissect free onto the internal carotid artery beyond the area of plaque and a right angle used to place a vessel loop. Patient was then heparinized allowed to circulate 3 minutes, while this was cir culating the external carotid artery dissected free and a right angle used to place a vessel loop. ACT was checked and subsequent heparin dosing based on results performed every 30 minutes. At this point the vessels were clamped, first the internal followed by the common and external carotid arteries. A longitudinal arteriotomy was created with 11 blade on the common carotid artery and extended with Shipman scissors onto the internal carotid artery beyond the area of plaque. An 8 [place] shunt was then placed first distally in the internal carotid artery, allowed to backbleed, and then placed in the common carotid artery. Shunt was interrogated and found to be patent with low resistance signal. Next we performed her endarterectomy with a freer elevator, with satisfactory endpoint distally on the internal carotid artery. There was no significant plaque in the common carotid artery or within the origin of the external carotid artery so no eversion of the external was required. Next the distal endpoint was tacked with 7-0 Prolene interrupted sutures, and a bovine pericardial patch was brought in the field and prepped for manufactures instructions. We then secured the patch in the position using a 6-0 Prolene in a running fashion, and prior to completing the suture line the shunt was removed and the vessels backbled. After completing the suture line the internal carotid artery allowed to backbleed and the bifurcation then reoccluded its origin, after which the external and common carotid arteries were released allowing 10 heartbeats of antegrade flow to flush into the external carotid artery before reestablishing antegrade flow in the internal carotid artery. After removing the clamps satisfactory stasis was noted and the vessels were interrogated with Doppler. The internal carotid artery was patent with low resistance signal in the external carotid artery patent with normal signal. This point the patient was reversed with protamine and the field inspected for hemostasis. A 10 mm flat channel CARLITOS was then placed via separate stab incision, and the vessels reevaluated with Doppler again with normal signals. The incision was then closed with 2-0 Vicryl 3-0 Vicryl for Monocryl and Dermabond for the skin. At the conclusion the case patient was awakened anesthesia moving all extremities to command with cranial nerves intact. She was then taken to intensive care unit for close hemodynamic and neurologic monitoring.
[2022-02-20] MEDS: Labetalol (Prefilled) 20 MG/4 ML 10 MG IV (17:22)
[2022-02-20] MEDS: oxyCODONE 5 MG Tablet PO (17:26)
[2022-02-20] MEDS: lamoTRIgine 25 MG Tablet 50 MG PO (18:20)
[2022-02-20] MEDS: hydrALAZINE 20 MG/ML Vial 10 MG IV (18:22)
--- NOTE | 2022-02-20 18:34 | NURSING ---
emergency documentation started 02/20 at 1200
[2022-02-20] MEDS: Atorvastatin Calcium 40 MG Tablet PO (21:47)
[2022-02-21] VITALS (15 sets, daily range): BP systolic 82–114; BP diastolic 71–95; PULSE 91–115; RESP 15–22; TEMP 36.4–36.7; O2SAT 92–97
[2022-02-21] MEDS: oxyCODONE 5 MG Tablet PO ×2 (02:30→11:35)
[2022-02-21 04:19] LABS: Absolute Lymphocyte Count 1.48 X10^3/uL (0.83-4.51); Basophil# 0.07 X10^3/uL; Basophil% 0.6 % (0-1); Eosinophil# 0.25 X10^3/uL; Hemoglobin 12.7 g/dL (12.0-15.0); Lymphocyte # 1.48 X10^3/ul (0.83-4.51); Lymphocyte % 11.9 % (19-41); Mean Corp Hgb Conc 33.4 g/dL (32-36); Mean Corpuscular Hgb 30.8 pg (27.0-32.0); Mean Platelet Vol. 9.1 fl (6.2-12.0); Monocyte# 1.59 X10^3/uL; Monocyte% 12.8 % (0-10); NRBC Flagged by Analyzer 0 % (0-5); Neutrophil # 8.97 X10^3/uL (2.7-7.7); Neutrophil % 72.4 % (47-70); POSITIVE DIFFERENTIAL YES; Platelet Count 319 K/mm3 (150-450); RBC Distribution Width CV 13.2 % (11.6-14.6); RBC Distribution Width SD 44.9 fl (35.1-43.9); Red Blood Count 4.13 M/mm3 (4.2-5.4); White Blood Count 12.4 K/mm3 (4.4-11.0)
[2022-02-21 04:32] LABS: Differential Indicated SCAN CRITERIA MET
[2022-02-21 04:52] LABS: Anion Gap 5 (5-15); BUN 13 mg/dL (7-18); BUN/Creat Ratio 12.5 RATIO (10-20); Calcium,Total 7.8 mg/dL (8.5-10.1); Chloride 107 mmol/L (98-107); Creatinine, Serum 1.04 mg/dL (0.55-1.02); EST Glomerular Filtration Rate 58 mL/min (>60); Est Glom Filt Rate - Afr Amer 70 mL/min (>60); Estimated Creatinine Clearance 46.07 ml/min; Glucose 140 mg/dL (74-106); Magnesium 1.7 mg/dL (1.6-2.6); Phosphorus 3.3 mg/dL (2.5-4.9); Potassium 3.9 mmol/L (3.5-5.1); Sodium Level 137 mmol/L (136-145)
[2022-02-21] MEDS: 0.9% Saline Lock 10 ML Syringe IV (06:14)
[2022-02-21] MEDS: Acetaminophen 500 MG Tablet 1000 MG PO (06:14)
--- NOTE | 2022-02-21 08:18 | PCM.PN.SRG ---
Subjective Subjective Doing well overnight. Some low BP after hydralazine, improved. Dull ache at incision, no neurologic deficits, no seizure concerns. Objective Data Objective Data Vital Signs: Vital Signs Temp Pulse Resp BP Pulse Ox O2 Del Method O2 Flow Rate 97.6 F L 98 19 H 111/77 95 Room Air 8 02/21/22 06:00 02/21/22 07:00 02/21/22 07:00 02/21/22 07:00 02/21/22 08:00 02/21/22 08:00 02/20/22 11:50 Oxygen Flow Rate (L/min) 8 Oxygen Delivery Method Room Air Weight: 222 lb Body Mass Index (BMI) 40.6 Intake & Output: Intake and Output for Last 24 Hours 02/19/22 02/20/22 02/21/22 23:59 23:59 23:59 Intake Total 2646 / 2646 250 / 250 Output Total 800 / 800 860 / 860 Balance 1846 / 1846 -610 / -610 Lab / Micro Data Result Diagrams: 02/21/22 04:10 02/21/22 04:10 Labs: Laboratory Results - last 24 hr 02/20/22 08:11: Activated Clotting Time 119 02/20/22 08:59: Activated Clotting Time 305 H 02/20/22 09:35: Activated Clotting Time 269 H 02/21/22 04:10: WBC 12.4 H, RBC 4.13 L, Hgb 12.7, Hct 38.0, MCV 92.0, MCH 30.8, MCHC 33.4, RDW Std Deviation 44.9 H, RDW Coeff of Erin 13.2, Plt Count 319, MPV 9.1, Immature Gran % (Auto) 0.300, Neut % (Auto) 72.4 H, Lymph % (Auto) 11.9 L, [place] % (Auto) 12.8 H, Eos % (Auto) 2.0, Baso % (Auto) 0.6, Absolute Neuts (auto) 9.0 H, Absolute Lymphs (auto) 1.48, Nucleated RBC % 0, Diff Path Review June02/21/22 04:10: Sodium 137, Potassium 3.9, Chloride 107, Carbon Dioxide 25.0, Anion Gap 5, BUN 13, Creatinine 1.04 H, Estim Creat Clear Calc 46.07, Est GFR (MDRD) Af Amer 70, Est GFR (MDRD) Non-Af 58 L, BUN/Creatinine Ratio 12.5, Glucose 140 H, Calcium 7.8 L, Phosphorus 3.3, Magnesium 1.7 Physical Exam Narrative A&O x 3, NAD Reg rhythm, tachycardic low 100 Resp non labored, no accessory muscle use CN intact, motor/sensory equal bilateral CARLITOS serous Assessment & Plan Assessment/Plan (1) Stenosis of right internal carotid artery: PLAN: POD # 1 right cea -BP satisfactory this AM -neuro intact -drain removed -progressive ambulation/diet -dc art line -plan home later today
[2022-02-21] MEDS: Lisinopril 20 MG Tablet PO (09:20)
[2022-02-21] MEDS: lamoTRIgine 25 MG Tablet 50 MG PO (09:20)
[2022-02-21] MEDS: Sertraline 50 MG Tablet 12.5 MG PO (09:20)
[2022-02-21] MEDS: Clopidogrel Bisulfate 75 MG Tablet PO (09:21)
[2022-02-21] MEDS: Enoxaparin 40 MG/0.4 ML Syringe SC (09:21)
[2022-02-21] MEDS: Aspirin E.C. 81 MG Tablet PO (09:21)
--- NOTE | 2022-02-21 11:41 | DS.PCM_ITS ---
Providers Date of Admission: 02/20/22 Primary Care Physician: Dr. Jocelyne Augustin MD Reason For Visit: RIGHT CAROTID STENOSIS Diagnosis Discharge Diagnosis (1) Stenosis of right internal carotid artery: Status: Chronic Code(s): I65.21 - Occlusion and stenosis of right carotid artery Plan: POD # 1 right cea -BP satisfactory this AM -neuro intact -drain removed -progressive ambulation/diet -dc art line -plan home later today Medications at Discharge Home Medications coenzyme [id number] E 100 mg-100 unit capsule 1 cap PO DAILY LEG CRAMPS 11/26 03/17 sertraline 25 mg tablet (Zoloft) 12.5 mg PO DAILY DEPRESSION 01/31/22 aspirin 81 mg tablet,delayed release 81 mg PO DAILY SUPPLEMENT 02/11/22 atorvastatin 40 mg tablet 40 mg PO QHS CHOLESTEROL 02/11/22 clopidogrel 75 mg tablet (Plavix) 75 mg PO DAILY HEART 02/11/22 lamotrigine 25 mg tablet 50 mg PO BID SEIZURES 02/11/22 lisinopril 20 mg tablet 20 mg PO DAILY HTN 02/11/22 oxycodone 5 mg tablet 5 mg PO Q6H PRN PRN Pain Score 4-10 5 days #20 tabs 02/21/22 Hospital Course Operations - (right carotid endarterectomy ) Weight / BMI Weight Weight: 222 lb 0.017 oz Body Mass Index (BMI) 40.6 ABG / Lab / Microbiology Data Result Diagrams: 02/21/22 04:10 02/21/22 04:10 Laboratory: Laboratory Results - last 24 hr 02/20/22 08:11: Activated Clotting Time 119 02/20/22 08:59: Activated Clotting Time 305 H 02/20/22 09:35: Activated Clotting Time 269 H 02/21/22 04:10: WBC 12.4 H, RBC 4.13 L, Hgb 12.7, Hct 38.0, MCV 92.0, MCH 30.8, MCHC 33.4, RDW Std Deviation 44.9 H, RDW Coeff of Erin 13.2, Plt Count 319, MPV 9.1, Immature Gran % (Auto) 0.300, Neut % (Auto) 72.4 H, Lymph % (Auto) 11.9 L, [place] % (Auto) 12.8 H, Eos % (Auto) 2.0, Baso % (Auto) 0.6, Absolute Neuts (auto) 9.0 H, Absolute Lymphs (auto) 1.48, Nucleated RBC % 0, Diff Path Review June02/21/22 04:10: Sodium 137, Potassium 3.9, Chloride 107, Carbon Dioxide 25.0, Anion Gap 5, BUN 13, Creatinine 1.04 H, Estim Creat Clear Calc 46.07, Est GFR (MDRD) Af Amer 70, Est GFR (MDRD) Non-Af 58 L, BUN/Creatinine Ratio 12.5, Glucose 140 H, Calcium 7.8 L, Phosphorus 3.3, Magnesium 1.7 D/C Instructions Discharge Diet: No restrictions May shower in (days): 2 Lifting Restricted to (Lbs): 20 Lifting Restrictions: for 3 weeks Call your doctor if your incision/area has: Sudden Increased Bleeding, Increased Redness and Foul Smelling Discharge Call your doctor if you observe: Fever of 101 or Higher and - (new numbness/weakness/vision loss/speech difficulty ) Remove Dressing in: 2 days Cleanse incision/area with: Soap & Water Meaningful Use Info Meaningful Use Diagnoses (Choose all that apply): None applicable Discharge Plan Admission Admit Date/Time: 02/20/22 05:16 Attending Provider: Fawad George Primary Care Provider: Jocelyne Augustin Consulting Providers: Vasu France Instructions Patient Instructions: Carotid Endarterectomy?Dc Discharge Orders/Prescriptions Prescriptions: New oxycodone 5 mg Tablet 5 mg PO Q6H PRN PRN (Reason: Pain Score 4-10) 5 Days Qty: 20 0RF Continued coenzyme [id number] E 100-100 mg-unit capsule 1 cap PO DAILY sertraline [Zoloft] 25 mg tablet 12.5 mg PO DAILY lamotrigine 25 mg tablet 50 mg PO BID Rx Instructions: Take 2 tablets twice a day atorvastatin 40 mg tablet 40 mg PO QHS lisinopril 20 mg tablet 20 mg PO DAILY clopidogrel [Plavix] 75 mg tablet 75 mg PO DAILY aspirin 81 mg tablet,delayed release (DR/EC) 81 mg PO DAILY Other Ambulatory Orders: 12 Lead EKG (Routine) Timeframe: [id number] Location: None Selected Ordered By: Dr. Vasu France Referrals / Follow Up: Jocelyne Augustin MD [Primary Care Provider] - Disposition Disposition (needs filled in before D/C Order can be placed): Home, Self Care
[2022-02-21 12:35] LABS: Pathologist Review Reviewed
--- NOTE | 2022-02-21 12:57 | CASEMGMT ---
RN CM Face to Face with patient for initial transition planning/care coordination assessment. RN CM introduced self and role at [facility]. Patient lying in bed, alert and oriented. Patient willing to participate in assessment and is able to answer all questions appropriately. Care providers, pharmacy, and demographics verified. Patient wishes to discharge home, denies need for home health at this time. Patient states he has no further needs or concerns at this time. CM to follow for discharge planning needs that may arise. PCP:Demetria Specialists: Karey neurologist; Kathie George [facility]erred [facility]acy: [facility] Insurance: [employer] Prescription Benefit: yes Living Will/HPOA: none LNOK: Living Arrangements: Patient lives with in single story home with 3 steps to enter. Patient states she is independent at home. Transportation: DME/HHC: Patient has cane and grab bars at home. No previous HHC or SNF Disposition Plan: Patient to discharge home with family support and follow-up plans in place. Berna VARGAS, RN, CM
== END 2022-02-21 13:25 | disposition home or self-care (01) | DRG 38 ==
LOC: ACINP 05:17 → ICU 12:07
PROVIDERS: Anesthesiology; Admitting Provider Surgery Trauma Surgery; PCP Internal Medicine; Referring Provider Surgery Trauma Surgery; Visit Provider Surgery Trauma Surgery
PROC: 03CK0ZZ Extirpation of Matter from Right Internal Carotid Artery, Open Approach (ICD-10-PCS; CPT 35301; principal; 2022-02-20 07:10)
DX: I65.21 Occlusion and stenosis of right carotid artery (principal); Z68.41 Body mass index [BMI] 40.0-44.9, adult; E66.3 Overweight; G40.909 Epilepsy, unspecified, not intractable, without status epilepticus; E78.5 Hyperlipidemia, unspecified; I10 Essential (primary) hypertension; F41.9 Anxiety disorder, unspecified; F32.A Depression, unspecified; Z79.02 Long term (current) use of antithrombotics/antiplatelets; Z79.82 Long term (current) use of aspirin; Z86.73 Personal history of transient ischemic attack (TIA), and cerebral infarction without residual deficits; Z79.899 Other long term (current) drug therapy; Z87.891 Personal history of nicotine dependence
CPT/HCPCS: 36415; 80048; 82542; 83735; 84100; 85025; 85027; 85347; 85730; 86850; 86900; 86901; 88304; 88311; 93005; 94762; 97802; 99251; J7040; J7120; A4216; G0463; J2405

== ENCOUNTER → 2022-03-07 | Outpatient (CLI) | payer BC, SELFPAY ==
--- NOTE | 2022-03-07 11:19 | RAD_ITS ---
STUDY: X-RAY CHEST REASON FOR EXAM: Female, 61 years old. Cough for a couple of weeks. TECHNIQUE: PA and lateral views of the chest. COMPARISON: September 19, 2021. FINDINGS: The lungs are clear and expanded. There is no demonstrated pleural abnormality. Normal size heart. Normal mediastinum and luisa. Normal visualized pulmonary arteries. Normal visualized aortic arch and descending thoracic aorta. Degenerative changes of the thoracic spine. Normal visualized ribs, clavicles, and shoulders. There is no demonstrated abnormality of the visualized soft tissue structures of the upper abdomen. RAD/Chest PA and Lateral IMPRESSION: Degenerative changes, as described above. No demonstrated acute cardiopulmonary process. Electronically Signed: Herminio Rodríguez DO at 23:22 [facility] ,
[2022-03-07 12:06] LABS: Absolute Neutrophil Count 5.3 X10^3/uL (2.0-7.7); Basophil# 0.12 X10^3/uL; Basophil% 1.3 % (0-1); Eosinophil# 0.49 X10^3/uL; Eosinophils% 5.5 % (0-5); Hematocrit 42.5 % (37-47); Hemoglobin 14.2 g/dL (12.0-15.0); Lymphocyte % 22.3 % (19-41); Mean Corp Hgb Conc 33.4 g/dL (32-36); Mean Corpuscular Hgb 30.6 pg (27.0-32.0); Mean Corpuscular Volume 91.6 fL (81-99); Mean Platelet Vol. 9.1 fl (6.2-12.0); Monocyte# 0.97 X10^3/uL; Monocyte% 10.8 % (0-10); NRBC Flagged by Analyzer 0 % (0-5); Neutrophil # 5.33 X10^3/uL (2.7-7.7); Neutrophil % 59.3 % (47-70); Platelet Count 478 K/mm3 (150-450); RBC Distribution Width CV 13.2 % (11.6-14.6); RBC Distribution Width SD 44.1 fl (35.1-43.9); Red Blood Count 4.64 M/mm3 (4.2-5.4)
== END | disposition home or self-care (01) ==
LOC: RAD 11:15
PROVIDERS: PCP Internal Medicine; Referring Provider Physician Assistant; Visit Provider Physician Assistant
DX: R05.9 Cough, unspecified (principal)
CPT/HCPCS: 36415; 71046; 85025

== ENCOUNTER → 2022-04-10 | Outpatient (CLI) | payer BC, SELFPAY ==
--- NOTE | 2022-04-10 10:57 | CDU_ITS ---
Reason For Study: Carotid Stenosis, RCEA Rt. Velocities/BP Lt. Velocities/BP Prox CCA 86/17 cm/sec. Prox CCA 113/23 cm/sec. Mid CCA 80/23 cm/sec. Mid CCA 101/29 cm/sec. Dist CCA 71/19 cm/sec. Dist CCA 125/14 cm/sec. Prox ICA 73/12 cm/sec. Prox ICA 71/26 cm/sec. Mid ICA 46/12 cm/sec. Mid ICA 103/38 cm/sec. Dist ICA 69/17 cm/sec. Dist ICA 108/43 cm/sec. Rt. ICA/CCA = 0.9. Lt. ICA/CCA = 1.1. Prox ECA 337/35 cm/sec. Prox ECA 149/19 cm/sec. Rt. Vert. 74/27 cm/sec. Lt. Vert. 37 cm/sec. Right Extracranial There is intimal thickening but no significant atherosclerotic plaque noted in the right common carotid artery. There is intimal thickening but no significant atherosclerotic plaque noted in the right internal carotid artery. There is homogeneous, smooth atherosclerotic plaque noted in the right external carotid artery. Antegrade flow is noted in the right vertebral artery. Left Extracranial There is intimal thickening but no significant atherosclerotic plaque noted in the left common carotid artery. There is intimal thickening but no significant atherosclerotic plaque noted in the left internal carotid artery. There is no significant atherosclerotic plaque noted in the left external carotid artery. Lt Vert A has bidirectional flow. Procedure Carotid Duplex 19374. This is a Carotid Duplex examination using B-mode, color flow and specral Doppler. Exam performed in department. VL/Carotid Duplex Ultrasound Interpretation Summary Normal right extracranial internal carotid. Normal left extracranial internal carotid. The Right vertebral is patent and antegrade. The Left vertebral flow is bidirectional. Ordering Physician: Fawad George Referring Physician: Jocelyne Augustin Performed By: Kristen Rodriguez, RDCS, RVT
== END | disposition home or self-care (01) ==
PROVIDERS: PCP Internal Medicine; Referring Provider Surgery Trauma Surgery; Visit Provider Surgery Trauma Surgery
DX: I65.23 Occlusion and stenosis of bilateral carotid arteries (principal)
CPT/HCPCS: 93880

== ENCOUNTER 2022-06-13 14:30 | Outpatient (RCR) | payer BC, SELFPAY ==
--- NOTE | 2022-05-16 16:47 | HP.PTEVAL ---
Patient's Visit Information JERMAIN RHODES is a 62 year old F referred to Physical Therapy by Dr. Tristin Eden MD with a diagnosis of cerbral infarct/LBP. Date of Evaluation: 05/16/22 Physical Therapist: Fawad Staples, DPT, OCS, CSCS - Visit Plan Frequency: 2x /Week Duration: 4-6 Weeks Plan: 2x/week for 4 weeks for. 1. NS education and focus in posture. teach psoas and HS and gastroc stretches for HEP. 2. mat based core strength to I HEP with pics. 3. General sink exercises for health to HEP - Subjective My back hurts. Has bone spurs OA and DDD. That was Dr. Augustin. Has had 3 strokes last year and olya sent for LBP. can;t stand long due to back. Cooking dinner is tough. Mostly central LBP. To 9/10 with standing and gone with sitting. Sleeping is ok. Getting out of water bed is tough. Not employed, works for [employer] but not since stroke and prison disability since May last year. Spends day watching TV and housework and puzzle. Reads. Kofi pitbull to let out but no walks. Use cane to get around for distances, not needed at home. No falls lately. No regular exercises. does laundry as they have steps. 3 steps to get into house with rail. - Pain LBP Pain Intensity (Out of 10): 1 Pain Intensity Range: 0, 9 - Objective Walks with cane L UE mod I. 5/10 pain LB after 300 feet walk mod I. Trasnfers with UE I. Steps with L only and needs rail, challenging but safe. LB AROM is painful with extnesion, but not flexion or SB. has large lordosis in lumbar area and kyphosis in thorac posture. reflex 2/3 patella and achilles. Sensation R foot diminished to gross light touch. strength R LE 3+ /5 and L is 4-. AROM WFL, tightness obvious in HS, psoas, quad and gastroc. - slump. 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 Goal Time Frame: 4-6 Weeks Goal 2:: I in NS posture and exercises to limit future pain Goal Time Frame: 4-6 Weeks Goal 3:: 14 on 30 second sit to stand Goal Time Frame: 4-6 Weeks Goal 4:: LEFS score 36 Goal Time Frame: 4-6 Weeks Goal 5:: FGA without increased LBP Goal Time Frame: 4-6 Weeks - Rehabilitation Potential Physical Therapy Diagnosis: LBP causing mobility deficits Rehabilitation Potential: Fair - Anticipated Interventions Patient/Client Instruction: Educate patient on: Condition, Plan of Care For the Purpose of:: To decrease pain, To increase ROM, To improve muscle performance and motor function, To increase tolerance to activity/condition/position, To improve ability of physical actions for home/community/work/leisure, To improve gait and locomotor functions Therapeutic Exercise to Include: Strength training, Agility training, Postural training, Flexibilty training, Passive ROM, Active ROM, Dynamic Lumbar Stabilization For the Purpose of:: To decrease pain, To increase ROM, To improve nutrient delivery to tissue, To improve muscle performance and motor function, To increase tolerance to activity/condition/position Thank you for the opportunity to evaluate your patient. For Medicare and Medicare HMO plans, please review the plan of care and approve it. It will need to be FAXED BACK to us at [phone] for Medicare purposes. For Medicare only, by signing this I certify the plan of care. Please let me know if there are questions or concerns regarding this plan of care. Physician Signature: Date:
--- NOTE | 2022-06-13 15:16 | HP.PTDCSUM ---
It has been my pleasure to treat JERMAIN RHODES referred by Dr. Tristin Eden MD, with the diagnosis of cerbral infarct/LBP for a total of 8 visit(s). Discharge Date: 06/13/22 Please see the following information for a summary of their discharge status. Subjective: More ex at home including ellpitical for almost 15 minutes. Getting stronger. Pain is unchanged. 70% betterand wants to get more standing time with her pain. To Dr. Eden in August. Wants to try it at home now. LBP Pain Intensity (Out of 10): 0 % Improvement: 70 Objective/Function: +2 on 30 sec test. +6 pn FGA. gettting around well safely without cane today. 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 Thank you for the referral of this patient. Sincerely, Fawad Staples, DPT, OCS, CSCS Balance/Gait/Functional tests - Balance/Special Test Scores Functional Gait Assessment Score: 27 % Disability: 10.0000 Lower Extremity Functional Score: 44 TUG Test Time Seconds: 14 Tug Test: <20 sec.=mostly independent 30 Second Chair Rise Test Seconds: 13
== END 2022-06-13 19:00 | disposition home or self-care (01) ==
LOC: PT 14:30
PROVIDERS: PCP Internal Medicine; Referring Provider Psychiatry & Neurology Neurology; Visit Provider Psychiatry & Neurology Neurology
DX: R26.9 Unspecified abnormalities of gait and mobility (principal); R29.898 Other symptoms and signs involving the musculoskeletal system; M54.50 Low back pain, unspecified; Z86.73 Personal history of transient ischemic attack (TIA), and cerebral infarction without residual deficits
CPT/HCPCS: 97110; 97162; 97164

== ENCOUNTER → 2022-11-20 | Outpatient (CLI) | payer SELFPAY ==
[2022-11-20 12:12] LABS: Absolute Lymphocyte Count 1.84 X10^3/uL (0.83-4.51); Absolute Neutrophil Count 6.5 X10^3/uL (2.0-7.7); Eosinophil# 0.69 X10^3/uL; Eosinophils% 6.8 % (0-5); Hematocrit 44.9 % (37-47); Hemoglobin 14.5 g/dL (12.0-15.0); Lymphocyte # 1.84 X10^3/ul (0.83-4.51); Lymphocyte % 18.2 % (19-41); Mean Corp Hgb Conc 32.3 g/dL (32-36); Mean Corpuscular Hgb 29.5 pg (27.0-32.0); Mean Corpuscular Volume 91.4 fL (81-99); Mean Platelet Vol. 9.4 fl (6.2-12.0); Monocyte# 0.94 X10^3/uL; Monocyte% 9.3 % (0-10); NRBC Flagged by Analyzer 0 % (0-5); Neutrophil # 6.47 X10^3/uL (2.7-7.7); Neutrophil % 63.8 % (47-70); Platelet Count 387 K/mm3 (150-450); RBC Distribution Width CV 12.7 % (11.6-14.6); RBC Distribution Width SD 42.6 fl (35.1-43.9); Red Blood Count 4.91 M/mm3 (4.2-5.4); White Blood Count 10.1 K/mm3 (4.4-11.0)
[2022-11-20 12:54] LABS: AST(SGOT) 21 U/L (15-37); Alanine Aminotransfer ALT/SGPT 36 U/L (13-56); Albumin, Serum 3.8 g/dL (3.2-5.0); Alkaline Phosphatase 85 U/L (45-117); Anion Gap 5 (5-15); BUN 19 mg/dL (7-18); BUN/Creat Ratio 15.2 RATIO (10-20); Calcium,Total 8.6 mg/dL (8.5-10.1); Chloride 104 mmol/L (98-107); Cholesterol 151 mg/dL (200); Creatinine, Serum 1.25 mg/dL (0.55-1.02); EST Glomerular Filtration Rate 46 mL/min (>60); Est Glom Filt Rate - Afr Amer 56 mL/min (>60); Glucose 106 mg/dL (74-106); High Density Lipoprotein 47 mg/dL; Magnesium 2.4 mg/dL (1.6-2.6); Potassium 4.3 mmol/L (3.5-5.1); Protein, Total 7.8 g/dL (6.4-8.2); Sodium Level 134 mmol/L (136-145); Thyroid Stim Hormone (TSH) 2.96 uIU/mL (0.358-3.74); Triglycerides 160 mg/dL; Very Low Density Lipoprotein 32 mg/dL (5-40)
[2022-11-20 12:58] LABS: Vitamin D,25 Hydroxy 22.1 ng/mL
[2022-11-22 17:07] LABS: Lamotrigine (Lamictal) Level 1.3 ug/mL (2.0-20.0)
== END | disposition home or self-care (01) ==
PROVIDERS: PCP Internal Medicine; Referring Provider Psychiatry & Neurology Neurology; Visit Provider Psychiatry & Neurology Neurology
DX: Z13.220 Encounter for screening for lipoid disorders (principal); I63.9 Cerebral infarction, unspecified; G40.909 Epilepsy, unspecified, not intractable, without status epilepticus; I10 Essential (primary) hypertension; N19 Unspecified kidney failure; Z98.890 Other specified postprocedural states; E55.9 Vitamin D deficiency, unspecified
CPT/HCPCS: 36415; 80053; 80061; 82306; 82542; 83735; 84443; 85025

== ENCOUNTER → 2023-01-28 | Outpatient (CLI) | payer OTHER, SELFPAY ==
[2023-01-28 14:19] LABS: Mucous, Urine 0 SEEN /hpf (<or=2+)
[2023-01-28 15:42] LABS: Color, Urine Yellow (Yellow); Glucose, Dipstick Normal (Normal); Ketone-Dipstick Negative (Negative); Leukocyte Esterase-Dipstick 500 /ul (Negative); Nitrite-Dipstick Positive (Negative); Occult Blood-Urine 150 /ul (Negative); Protein-Dipstick 100 mg/dl (Negative); Specific Gravity, Urine 1.015 (1.002-1.030); Urine Bilirubin Dipstick Negative (Negative); Urine Clarity Cloudy (Clear); Urine Urobilinogen Normal (Normal)
[2023-01-28 16:34] LABS: Bacteria 1+ /hpf (None Seen); Red Blood Cells-Urine 0-5 SEEN /hpf (0-5); Squamous Epithelial Cells - UA 0-5 SEEN /hpf (5-10); White Blood Cells 50-100 SEEN /hpf (0-5)
== END | disposition home or self-care (01) ==
LOC: LAB 14:15
PROVIDERS: PCP Internal Medicine; Referring Provider Internal Medicine; Visit Provider Internal Medicine
DX: N39.0 Urinary tract infection, site not specified (principal)
CPT/HCPCS: 81001; 87086; 87088; 87186

== ENCOUNTER → 2023-02-13 | Outpatient (CLI) | payer OTHER, SELFPAY ==
[2023-02-19 08:08] LABS: Lamotrigine (Lamictal) Level 1.7 ug/mL (2.0-20.0)
== END | disposition home or self-care (01) ==
LOC: MTLAB 11:37
PROVIDERS: PCP Internal Medicine; Referring Provider Psychiatry & Neurology Neurology; Visit Provider Psychiatry & Neurology Neurology
DX: G40.909 Epilepsy, unspecified, not intractable, without status epilepticus (principal)
CPT/HCPCS: 36415; 82140; 82542

== ENCOUNTER → 2023-04-02 | Outpatient (CLI) | payer BC, SELFPAY ==
--- NOTE | 2023-04-02 09:45 | CDU_ITS ---
Reason For Study: s/p RCEA, Lt Carotid Stenosis Rt. Velocities/BP Lt. Velocities/BP Prox CCA 83/11 cm/sec. Prox CCA 109/21 cm/sec. Mid CCA 68/13 cm/sec. Mid CCA 103/25 cm/sec. Dist CCA 67/12 cm/sec. Dist CCA 78/24 cm/sec. Prox ICA 113/19 cm/sec. Prox ICA 86/33 cm/sec. Mid ICA 69/23 cm/sec. Mid ICA 87/31 cm/sec. Dist ICA 80/25 cm/sec. Dist ICA 72/33 cm/sec. Rt. ICA/CCA = 1.7. Lt. ICA/CCA = 0.8. Prox ECA 336/42 cm/sec. Prox ECA 122/12 cm/sec. Rt. Vert. 73/27 cm/sec. Lt. Vert. 40/8 cm/sec. Right Extracranial There is heterogeneous, irregular atherosclerotic plaque noted in the right common carotid artery. There is heterogeneous, smooth atherosclerotic plaque noted in the right internal carotid artery. There is homogeneous, smooth atherosclerotic plaque noted in the right external carotid artery. Antegrade flow is noted in the right vertebral artery. Left Extracranial There is intimal thickening but no significant atherosclerotic plaque noted in the left common carotid artery. There is intimal thickening but no significant atherosclerotic plaque noted in the left internal carotid artery. There is no significant atherosclerotic plaque noted in the left external carotid artery. Pre-Steal waveform noted Lt Vertebral A. Procedure Carotid Duplex [id number]. This is a Carotid Duplex examination using B-mode, color flow and specral Doppler. Exam performed in department. VL/Carotid Duplex Ultrasound Interpretation Summary Mild (<50%) stenosis right extracranial internal carotid. Normal left extracranial internal carotid. The Right vertebral is patent and antegrade. The Left vertebral artery is patent with pre-steal waveform morphology Ordering Physician: Kasandra Gomez Referring Physician: Jocelyne Augustin Performed By: Kristen Rodriguez, MAURICE, RVT
== END | disposition home or self-care (01) ==
LOC: CVS 09:45
PROVIDERS: PCP Internal Medicine; Referring Provider Physician Assistant; Visit Provider Physician Assistant
DX: I65.23 Occlusion and stenosis of bilateral carotid arteries (principal); Z98.890 Other specified postprocedural states
CPT/HCPCS: 93880

== ENCOUNTER → 2023-07-23 | Outpatient (CLI) | payer BC, SELFPAY ==
[2023-07-23 15:36] LABS: Hemoglobin 14.6 g/dL (12.0-15.0); Mean Corp Hgb Conc 32.4 g/dL (32-36); Mean Corpuscular Volume 89.5 fL (81-99); Mean Platelet Vol. 9.5 fl (6.2-12.0); Platelet Count 381 K/mm3 (150-450); RBC Distribution Width CV 13.2 % (11.6-14.6); Red Blood Count 5.03 M/mm3 (4.2-5.4); White Blood Count 11.7 K/mm3 (4.4-11.0)
[2023-07-23 16:02] LABS: Vitamin B12 419 pg/mL (211-911)
[2023-07-23 16:11] LABS: AST(SGOT) 26 U/L (15-37); Alanine Aminotransfer ALT/SGPT 38 U/L (13-56); Albumin, Serum 3.9 g/dL (3.2-5.0); Alkaline Phosphatase 93 U/L (45-117); Anion Gap 10 (5-15); BUN 20 mg/dL (7-18); BUN/Creat Ratio 16.4 RATIO (10-20); Calcium,Total 9.8 mg/dL (8.5-10.1); Chloride 100 mmol/L (98-107); Creatinine, Serum 1.22 mg/dL (0.55-1.02); EST Glomerular Filtration Rate 48 mL/min (>60); Est Glom Filt Rate - Afr Amer 58 mL/min (>60); Globulin 3.9 g/dL (2.2-4.2); Glucose 108 mg/dL (74-106); Potassium 4.3 mmol/L (3.5-5.1); Protein, Total 7.8 g/dL (6.4-8.2); Sodium Level 134 mmol/L (136-145)
[2023-07-28 14:08] LABS: Vitamin D 1,25-Dihydroxy 14.5 pg/mL (24.8-81.5)
[2023-07-28 17:08] LABS: Lamotrigine (Lamictal) Level 1.3 ug/mL (2.0-20.0); Vitamin B1, Thiamine 127.9 nmol/L (66.5-200.0)
== END | disposition home or self-care (01) ==
LOC: MTLAB 11:30
PROVIDERS: PCP Internal Medicine; Referring Provider Psychiatry & Neurology Neurology; Visit Provider Psychiatry & Neurology Neurology
DX: G40.909 Epilepsy, unspecified, not intractable, without status epilepticus (principal); E55.9 Vitamin D deficiency, unspecified
CPT/HCPCS: 36415; 80053; 82140; 82542; 82607; 82652; 82746; 84425; 84443; 85027

== ENCOUNTER → 2024-01-21 | Outpatient (CLI) | payer MEDICARE, SELFPAY ==
[2024-01-21 12:26] LABS: Vitamin D,25 Hydroxy 71.7 ng/mL
[2024-01-21 12:39] LABS: AST(SGOT) 30 U/L (15-37); Alanine Aminotransfer ALT/SGPT 45 U/L (13-56); Albumin, Serum 3.9 g/dL (3.2-5.0); Alkaline Phosphatase 87 U/L (45-117); Anion Gap 8 (5-15); BUN 16 mg/dL (7-18); BUN/Creat Ratio 12.9 RATIO (10-20); Calcium,Total 9.3 mg/dL (8.5-10.1); Chloride 103 mmol/L (98-107); Cholesterol 145 mg/dL (200); Creatinine, Serum 1.24 mg/dL (0.55-1.02); EST Glomerular Filtration Rate 47 mL/min (>60); Est Glom Filt Rate - Afr Amer 56 mL/min (>60); Globulin 3.8 g/dL (2.2-4.2); Glucose 154 mg/dL (74-106); High Density Lipoprotein 48 mg/dL; Magnesium 1.8 mg/dL (1.6-2.6); Potassium 4.1 mmol/L (3.5-5.1); Protein, Total 7.7 g/dL (6.4-8.2); Sodium Level 137 mmol/L (136-145); Triglycerides 146 mg/dL; Very Low Density Lipoprotein 29 mg/dL (5-40)
== END | disposition home or self-care (01) ==
LOC: MTLAB 10:02
PROVIDERS: PCP Internal Medicine; Referring Provider Internal Medicine; Visit Provider Internal Medicine
DX: Z13.220 Encounter for screening for lipoid disorders (principal); I63.9 Cerebral infarction, unspecified; I65.23 Occlusion and stenosis of bilateral carotid arteries; E55.9 Vitamin D deficiency, unspecified; I10 Essential (primary) hypertension
CPT/HCPCS: 36415; 80053; 80061; 82306; 83735; 84443

== ENCOUNTER → 2024-01-28 | Outpatient (CLI) | payer MEDICARE, SELFPAY ==
--- NOTE | 2024-01-28 13:11 | BI_ITS ---
MAMMOGRAPHY - BILATERAL SCREENING REASON FOR EXAM: Female, 63 years old. Routine annual screening examination. PERTINENT HISTORY: Aunt with breast cancer. TECHNIQUE: Digital bilateral breast pawan (3D mammographic acquisition) in the CC and MLO projections. 2-D mediolateral oblique (MLO) and craniocaudad (CC) views of both breasts were obtained. CAD: Full Field Digital Mammography with Computer Added Detection was performed. COMPARISON: None. Baseline examination. FINDINGS: Breast Composition: There are scattered areas of fibroglandular density. There are no dominant masses or suspicious calcifications. Bilateral fat containing axillary lymph nodes. No other significant abnormalities are identified. BI/SCRN MAMM (CAD)W/PAWAN BILAT IMPRESSION: Negative screening mammogram. Yearly followup mammogram recommended. (A) ASSESSMENT CATEGORY: BIRADS Category 2: Benign. A letter regarding these results will be sent to the patient by the facility within 30 days. Approximately 10% of breast cancers are not detected by mammography. A normal mammogram should not delay biopsy of a clinically suspicious abnormality. [id number] Electronically Signed: Yrn Faustin MD at 14:25 EST ,
== END | disposition home or self-care (01) ==
LOC: OPBI 13:11
PROVIDERS: PCP Internal Medicine; Referring Provider Internal Medicine; Visit Provider Internal Medicine
DX: Z12.31 Encounter for screening mammogram for malignant neoplasm of breast (principal)
CPT/HCPCS: 77063; 77067

== ENCOUNTER → 2024-04-07 | Outpatient (CLI) | payer MEDICARE, SELFPAY ==
--- NOTE | 2024-04-07 08:51 | CDU_ITS ---
Reason For Study Reason For Study: HX RT ICA CEA Rt. Velocities/BP Lt. Velocities/BP Prox CCA 72.3/10.2 cm/sec. Prox CCA 97.7/25.3 cm/sec. Mid CCA 70.5/10.2 cm/sec. Mid CCA 95.3/30.2 cm/sec. Dist CCA 65.0/13.9 cm/sec. Dist CCA 67.0/20.4 cm/sec. Prox ICA 86.9/23.0 cm/sec. Prox ICA 86.9/27.7 cm/sec. Mid ICA 70.5/19.4 cm/sec. Mid ICA 99.3/32.6 cm/sec. Dist ICA 72.3/21.2 cm/sec. Dist ICA 74.4/32.5 cm/sec. Rt. ICA/CCA = 1.2. Lt. ICA/CCA = 1.0. Prox ECA 180.4/19.7 cm/sec. Prox ECA 130.8/14.5 cm/sec. Rt. Vert. 62.0/23.2 cm/sec. Abnormal Waveform noted in Lt Vertebral Artery. Right Extracranial There is intimal thickening but no significant atherosclerotic plaque noted in the right common carotid artery. There is heterogeneous, smooth atherosclerotic plaque noted in the right internal carotid artery. HX CEA. The distal right internal carotid artery is not well visualized. There is heterogeneous, smooth atherosclerotic plaque noted in the right external carotid artery. Antegrade flow is noted in the right vertebral artery. Left Extracranial There is intimal thickening but no significant atherosclerotic plaque noted in the left common carotid artery. There is intimal thickening but no significant atherosclerotic plaque noted in the left internal carotid artery. There is intimal thickening but no significant atherosclerotic plaque noted in the left external carotid artery. Abnormal Waveform noted in Lt Vertebral Artery. Procedure Carotid Duplex 36480. This is a Carotid Duplex examination using B-mode, color flow and specral Doppler. The study was technically difficult. Exam performed in department. VL/Carotid Duplex Ultrasound Interpretation Summary Mild (<50%) stenosis right extracranial internal carotid. Normal left extracranial internal carotid. The Right vertebral is patent and antegrade. The Left vertebral is patent with pre-steal morphology Ordering Physician: Tristin Eden Referring Physician: Jocelyne Augustin Performed By: Kash Zapata RVT
== END | disposition home or self-care (01) ==
LOC: CVS 08:50
PROVIDERS: PCP Internal Medicine; Referring Provider Psychiatry & Neurology Neurology; Visit Provider Psychiatry & Neurology Neurology
DX: I65.21 Occlusion and stenosis of right carotid artery (principal); G40.909 Epilepsy, unspecified, not intractable, without status epilepticus; Z86.73 Personal history of transient ischemic attack (TIA), and cerebral infarction without residual deficits
CPT/HCPCS: 93880

== ENCOUNTER → 2024-04-28 | Outpatient (CLI) | payer MEDICARE, SELFPAY ==
[2024-04-28 15:30] LABS: Ammonia 28.3 umol/L (11-51)
[2024-04-28 19:57] LABS: Hemoglobin A1c 7.6 % (<=5.6)
[2024-05-03 17:08] LABS: Lamotrigine (Lamictal) Level 2.8 ug/mL (2.0-20.0)
== END | disposition home or self-care (01) ==
LOC: MTLAB 11:27
PROVIDERS: PCP Internal Medicine; Referring Provider Psychiatry & Neurology Neurology; Visit Provider Psychiatry & Neurology Neurology
DX: G40.909 Epilepsy, unspecified, not intractable, without status epilepticus (principal); R73.9 Hyperglycemia, unspecified
CPT/HCPCS: 36415; 82140; 82542; 83036

== ENCOUNTER → 2024-05-25 | Outpatient (CLI) | payer MEDICARE, SELFPAY ==
[2024-05-25 17:33] LABS: Hemoglobin A1c 7.7 % (<=5.6)
[2024-05-25 17:55] LABS: Anion Gap 16 (5-15); BUN 17 mg/dL (4-19); BUN/Creat Ratio 14.6 RATIO (10-20); Calcium,Total 9.9 mg/dL (7.6-11.0); Carbon Dioxide 24.4 mmol/L (21.0-32.0); Chloride 97 mmol/L (98-108); Cholesterol 139 mg/dL (<=200); Creatinine, Serum 1.16 mg/dL (0.70-1.20); EST Glomerular Filtration Rate 53 (>60); Glucose 135 mg/dL (70-99); High Density Lipoprotein 48 mg/dL; Low Density Lipoprotein Calc. 63 mg/dL; Potassium 4.5 mmol/L (3.3-5.1); Sodium Level 137 mmol/L (133-145); Triglycerides 139 mg/dL; Very Low Density Lipoprotein 28 mg/dL (5-40); cholesterol:hdl ratio screen 2.88
[2024-05-27 03:07] LABS: Insulin Level 49.7 uIU/mL (2.6-24.9)
== END | disposition home or self-care (01) ==
LOC: MTLAB 12:38
PROVIDERS: PCP Internal Medicine; Referring Provider Internal Medicine; Visit Provider Internal Medicine
DX: I10 Essential (primary) hypertension (principal); E88.819 Insulin resistance, unspecified; R73.9 Hyperglycemia, unspecified; Z13.220 Encounter for screening for lipoid disorders
CPT/HCPCS: 36415; 80048; 80061; 83036; 83525

== ENCOUNTER 2024-06-18 16:27 | Emergency (ER) | payer MEDICARE, SELFPAY ==
[2024-06-18 16:28] VITALS: BP 157/121; PULSE 125; RESP 20; TEMP 36.1; O2SAT 96
--- NOTE | 2024-06-18 16:42 | ED.VIS.LOWEX ---
HPI History of Present Illness Chief Complaint: Lower Extremity Injury Narrative Narrative: 64-year-old female past medical history of previous stroke with chronic weakness of her right lower extremity states that she has been having right hip and buttocks pain for the last 4 days. This is status post fall. She states that her cat knocked over a plant from the [facility]. She is usually in a wheelchair or uses a cane and walker. However, she was squatting and bending over to clean up the broken plant worthy. When she went to stand up, she only made it part way and fell onto her right hip. She denies other injuries. No hitting of her head or loss of consciousness. She states she is having pain in her buttocks as well and feels pain radiating down to her ankle on the right side only. She takes an anti-inflammatory from Dr. Eden. She is having continued pain in her right buttocks and down her right leg, and also diffusely in her right hip. Denies other injury. [facility] Medical History Type 2 diabetes mellitus Insulin resistance Stenosis of right internal carotid artery Wears glasses Depression Hemiparesis Use of cane as ambulatory aid Urgency of urination Heartburn Former smoker H/O echocardiogram Seizures Stroke/cerebrovascular accident Kidney stones Kidney failure Sepsis secondary to UTI History of CVA (cerebrovascular accident) Lumbar disc disease with radiculopathy Hyperlipidemia Hypertension Home Medications ?Medication ?Instructions ?Recorded ?Last Taken ?Type coenzyme [id number] E 100 mg-100 1 cap PO DAILY LEG CRAMPS 12/24/21 Unknown History unit capsule aspirin 81 mg tablet,delayed 81 mg PO DAILY SUPPLEMENT 02/11/22 02/20/22 History release tumeric PO 11/20/22 Unknown History Disability placard #1 ea 07/17/23 Unknown Rx atorvastatin 40 mg tablet 40 mg PO QHS CHOLESTEROL #90 tabs 01/08/24 Unknown Rx sertraline 25 mg tablet (Zoloft) 12.5 mg (1/2 x 25 mg) PO DAILY 01/08/24 Unknown Rx DEPRESSION #90 tabs [place] collagen 1,000 mg PO DAILY 01/15/24 Unknown History cholecalciferol (vitamin D3) 1,250 1,250 mcg PO QWEEK #4 caps 03/11/24 Unknown Rx mcg (50,000 unit) capsule lisinopril 30 mg tablet 30 mg PO QDAY #30 tabs 03/11/24 Unknown Rx lamotrigine 100 mg tablet 100 mg PO BID #60 tabs 04/01/24 Unknown Rx Allergy/AdvReac Type Severity Reaction Status Date / Time No Known Allergies Allergy Verified 06/18/24 16:30 Family History Mother Hypertension Thyroid disorder Kidney disease Son Hypertension Sister Thyroid disorder Father CVA (cerebral vascular accident) Prostate cancer Skin cancer Other Rheumatoid arthritis Uterine cancer Surgical History History of urethral stent History of lithotripsy Hx of tonsillectomy Social History household members: spouse Smoking Status: Former smoker Tobacco: How many years used: 45 alcohol intake: current alcohol intake frequency: holidays/special occasions only Alcohol type: wine substance use type: does not use what type of physical activity do you participate in: none darryl/yazidi: [employer] seatbelt use: always ROS ROS ED ROS Narrative Review of systems positive for right hip pain, and right buttocks pain with radiation down the right leg. No back pain. No loss of bowel or bladder, pain worse with movement of right hip. No fevers or chills. No other injuries. EXAM Physical Exam Narrative Exam Narrative: Afebrile. Vital signs noted. Nontoxic-appearing. Cardiovascular examination reveals mild tachycardia. Lungs clear to auscultation bilaterally. Abdomen soft, nontender, without guarding or rebound. Positive bowel sounds. Musculoskeletal examination reveals pelvis to be stable. She has diffuse tenderness to palpation throughout her right hip mainly in the greater trochanteric area. Positive flexion and extension of right hip and right knee. Able to lift right leg off bed without difficulty. Palpable dorsalis pedis pulses bilaterally. No pain with logrolling of femur on the right. Positive tenderness to palpation right sciatic notch, right. Const Vital Signs: 06/18/24 16:28 Temperature 97 F L Temperature Source Temporal Pulse Rate 125 H Respiratory Rate 20 H Blood Pressure 157/121 H Blood Pressure Mean 133 Pulse Ox 96 Oxygen Delivery Method Room Air MDM MDM MDM Narrative Medical decision making narrative: Differential diagnosis includes but not limited to right hip contusion versus fracture versus pubic ramus fracture versus sciatica versus a combination of sciatica and right hip contusion. X-rays of the pelvis and right hip were obtained and interpreted by myself independently. I see no evidence of acute fracture. I reviewed the radiology report which confirms my independent interpretation. Upon repeat examination, she states that she is feeling improved. She was told that narcotic pain medication needs to come from her primary care provider. I do not feel that she requires CT of the hip currently. She feels well and would like to be discharged. She will continue to use her walker and cane and wheelchair as needed. Return instructions to the emergency department were reviewed. Disposition is discharged home in stable condition. History & Record Review Discussion w/independent historian: Patient Additional record(s) reviewed:: Prior outpatient record and Other (Prescription monitoring program) Radiography Diagnostic Testing: Clinical Impression(s) from Imaging Studies Hip/Pelvis X-Ray 06/18/24 16:45 IMPRESSION: NO ACUTE FRACTURE OR DISLOCATION. If acute hip fracture is suspected after a fall or minor trauma and initial radiographs are negative then MRI of the pelvis and affected hip without IV contrast or CT of the pelvis and hips without IV contrast is usually appropriate as the next imaging study. (ACR Appropriateness Criteria: Acute Hip Pain-Suspected Fracture 2018) Reading Location: [facility] Discharge Plan Triage Chief Complaint: Lower Extremity Injury ED Provider: Prince Collins Dx/Rx/DC Orders Clinical Impression: Fall, Contusion of right hip, Sciatica Instructions: ED Hip Contusion, ED Sciatica Prescriptions: No Action coenzyme [id number] E 100-100 mg-unit capsule 1 cap PO DAILY tumeric PO Rx Instructions: 1600mg daily otc supplement (DME) Disability placard See Rx Instructions .ROUTE .MEDSUPPLY Qty: 1 0RF Rx Instructions: Expiration: 07/16/2026 cholecalciferol (vitamin D3) 1,250 mcg (50,000 unit) capsule 1,250 mcg PO QWEEK Qty: 4 10RF lisinopril 30 mg tablet 30 mg PO QDAY Qty: 30 10RF lamotrigine 100 mg tablet 100 mg PO BID Qty: 60 7RF [place] collagen tablet 1,000 mg PO DAILY aspirin 81 mg tablet,delayed release (DR/EC) 81 mg PO DAILY atorvastatin 40 mg tablet 40 mg PO QHS Qty: 90 3RF sertraline [Zoloft] 25 mg tablet 12.5 mg PO DAILY Qty: 90 1RF Primary Care Provider: Jocelyne Augustin Referrals: Jocelyne Augustin MD [Primary Care Provider] - 3-5 Days if not improving Activity Restrictions/Additional Instructions: Follow-up with your primary care provider for further narcotic analgesia. Return with increased pain, new or worsening symptoms. Print Language: Swazi Disposition Disposition: Home, Self Care Discharge Date/Time: 06/18/24 18:02
--- NOTE | 2024-06-18 16:45 | RAD_ITS ---
PROCEDURE: HIP, UNI W/ PELVIS 2-3 VIEWS 06/18/2024 REASON FOR EXAM: PAIN, FALL TECHNIQUE: 3 view of the right hip FINDINGS: Bones: No acute fracture. Joints: Normal alignment. Soft tissues: Soft tissues are unremarkable. Other: RAD/HIP, UNI W/ Pelvis 2-3 Views IMPRESSION: NO ACUTE FRACTURE OR DISLOCATION. If acute hip fracture is suspected after a fa ll or minor trauma and initial radiographs are negative then MRI of the pelvis and affected hip without IV contrast or CT of t he pelvis and hips without IV contrast is usually appropriate as the next imaging study. (ACR Appropriateness Criteria: Acute Hip Pain-Suspected Fracture 2018) Reading Location: [id number]
[2024-06-18] MEDS: oxyCODONE 5 MG Tablet PO (17:14)
== END 2024-06-18 18:02 | disposition home or self-care (01) ==
PROVIDERS: Emergency Provider Emergency Medicine; PCP Internal Medicine; Visit Provider Emergency Medicine
DX: S70.01XA Contusion of right hip, initial encounter (principal); I69.341 Monoplegia of lower limb following cerebral infarction affecting right dominant side; E11.9 Type 2 diabetes mellitus without complications; M25.571 Pain in right ankle and joints of right foot; Z87.891 Personal history of nicotine dependence; I10 Essential (primary) hypertension; E78.5 Hyperlipidemia, unspecified; M54.30 Sciatica, unspecified side; W19.XXXA Unspecified fall, initial encounter
CPT/HCPCS: 73502; 99282

== ENCOUNTER → 2024-10-04 | Outpatient (CLI) | payer MEDICARE, SELFPAY ==
[2024-10-04 15:54] LABS: Ammonia 27.2 umol/L (11-51)
[2024-10-04 22:48] LABS: AST(SGOT) 31 U/L (<=31); Alanine Aminotransfer ALT/SGPT 39 U/L (<=34); Albumin, Serum 4.5 g/dL (3.4-4.8); Alkaline Phosphatase 85 U/L (35-104); Anion Gap 17 (5-15); BUN 18 mg/dL (4-19); BUN/Creat Ratio 14.1 RATIO (10-20); Calcium,Total 9.7 mg/dL (7.6-11.0); Carbon Dioxide 22.6 mmol/L (21.0-32.0); Chloride 100 mmol/L (98-108); Globulin 3.1 g/dL (2.2-4.2); Glucose 100 mg/dL (70-99); Potassium 4.5 mmol/L (3.3-5.1)
== END | disposition home or self-care (01) ==
LOC: MTLAB 12:39
PROVIDERS: Psychiatry & Neurology Neurology; PCP Internal Medicine; Referring Provider Internal Medicine; Visit Provider Internal Medicine
DX: E11.9 Type 2 diabetes mellitus without complications (principal); G40.909 Epilepsy, unspecified, not intractable, without status epilepticus
CPT/HCPCS: 36415; 80053; 82140; 82542; 83036

== ENCOUNTER → 2025-02-04 | Outpatient (CLI) | payer MEDICARE, SELFPAY ==
--- NOTE | 2025-02-04 12:30 | BI_ITS ---
EXAM: SCRN MAMM (CAD)W/PAWAN BILAT DATE: 02/04/2025 CLINICAL HISTORY: F, Age 64 y/o , BREAST CANCER SCREENING TECHNIQUE: Procedure Code: [id number] Modality: MG Procedure: SCRN MAMM (CAD)W/PAWAN BILAT COMPARISON: Prior exam(s) were compared FINDINGS: TISSUE DENSITY: There are scattered areas of fibroglandular density. Bilateral Breast Mammographic Findings: No significant masses, calcifications or other abnormalities are identified. BI/SCRN MAMM (CAD)W/PAWAN BILAT IMPRESSION: No mammographic evidence of malignancy. OVERALL FINAL ASSESSMENT BI-RADS 1: NEGATIVE. RECOMMENDATION: Routine annual follow-up in 1 Year Additional Recommendation none A letter with findings and recommendations will be mailed to the patient. Reading Location: [id number]
--- OUTSIDE RECORDS SUMMARY | 2025-02-04 12:35 | XMS RPT_ITS | CCD ---
Author Organization [facility] Care Team Providers Care Central Control Room Operator Name Role Phone Dr. Abhijit Guido Emergency Provider Care Physician, No Primary Primary Care Provider Unavailable Dr. Brian Amado Admit Provider Dr. Brian Amado Other Provider DELFINO Pierson Attending Provider Unavail able Dr. Brian Amado Attending Provider Dr. Alexx Culp Attending Provider Dr. Teodora Perez Attending Provider Dr. Teodora Perez Other Provider Dr. Irene Burnett Attending Provider Care Physician, No Primary Primary Care Provider Unavailable Dr. Alexx Culp Attending Provider Care Physician, No Primary Referring Provider Un available Dr. Jocelyne Augustin Attending Provider Dr. Sean Alonso Attending Provider Dr. Jocelyne Augustin Primary Care Provider Dr. Jocelyne Augustin Referring Provider [phone] MD Jocelyne Augustin Ref[facility] Dr. Priti Grey Admit Provider Dr. Priti Grey Other Provider Dr. Reginald Rivera Other Provider Dr. Jocelyne Augustin Primary Care Provider Dr. Jocelyne Augustin Attending Provider Dr. Joe Garzon Emergency Provider Dr. Priti Grey Admit Provider Dr. Priti Grey Other Provider Dr. Reginald Rivera Other Provider Dr. Brian Amado Attending Provider Dr. Brian Amado Other Provider Dr. Tristin Hayden Attending Provider Dr. Fawad George Attending Provider Dr. Jocelyne Augustin Primary Care Provider Dr. Jocelyne Augustin Attending Provider [phone] Dr. Jocelyne Augustin Primary Care Provider Dr. Jocelyne Augustin Primary Care Provider Dr. Jocelyne Augustin Attending Provider [phone] Dr. Tristin Hayden Referring Provider Dr. Jocelyne Augustin Referring Provider [phone] PAMELA Mark Attending Provider Dr. Fawad George Admit Provider Dr. Fawad George Referring Provider Dr. Fawad George Other Provider Dr. Vasu France Other Provider Dr. Jermaine Lincoln Attending Provider Dr. Jocelyne Augustin Primary Care Provider Dr. Jocelyne Augustin Attending Provider [phone] Dr. Alexx Culp Attending Provider Dr. Fawad George Referring Provider Dr. Jocelyne Augustin Primary Care Provider Dr. Fawad George Admit Provider Dr. Fawad George Attending Provider Dr. Fawad George Referring Provider Dr. Fawad George Other Provider Dr. Vasu France Other Provider Dr. Jermaine Lincoln Attending Provider Dr. Jocelyne Augustin Referring Provider PAMELA Mark Attending Provider Dr. Jocelyne Augustin Attending Provider Dr. Tristin Hayden Attending Provider Dr. Jocelyne Augustin Primary Care Provider Dr. Jocelyne Augustin Attending Provider Dr. Jocelyne Augustin Referring Provider Dr. Tristin Hayden Attending Provider Dr. Jocelyne Augustin Primary Care Provider Dr. Fawad George Attending Provider Demetria CHIRINOS, Dr. Casanova Primary Care Provider Demetria CHIRINOS, Dr. Casanova Attending Provider Demetria CHIRINOS, Dr. Casanova Referring Provider Dr. Tristin Hayden MD Attending Provider Dr. Tristin Hayden MD Referring Provider Doris CHIRINOS, Dr. Celestin Attending Provider Demetria CHIRINOS, Dr. Casanova Primary Care Provider Demetria CHIRINOS, Dr. Casanova Attending Provider Demetria CHIRINOS, Dr. Casanova Referring Provider Demetria CHIRINOS, Dr. Casanova Primary Care Provider Demetria CHIRINOS, Dr. Casanova Referring Provider Demetria CHIRINOS, Dr. Casanova Attending Provider Dennis CHIRINOS, Prince Emergency Provider Demetria CHIRINOS, Dr. Casanova Primary Care Provider Karey CHIRINOS, Dr. Crow Attending Provider Demetria CHIRINOS, Dr. Casanova Referring Provider Dennis CHIRINOS, Prince Attending Provider [phone] Demetria CHIRINOS, Dr. Casanova Primary Care Provider [phone] Demetria CHIRINOS, Dr. Casanova Attending Provider Demetria CHIRINOS, Dr. Casanova Referring Provider DemetriaJocelyne Attending Unavailable Demetria, Jocelyne Primary Care Unavailable Baddour, Tristin Referring Unavailable Fawad George Attending Unavailable Demetria, Jocelyne Primary Care Unavailable Demetria, Jocelyne Primary Care Unavailable Demetria, Jocelyne Attending Unavailable Berlindour, Tristin Referring Unavailable Baddour, Tristin Attending Unavailable Demetria, Jocelyne Primary Care Unavailable Demetria, Jocelyne Attending Unavailable Demetria, Jocelyne Referring Unavailable Demetria, Jocelyne Primary Care Unavailable Reodica Prince Attending Unavailable Demetria, Jocelyne Primary Care Unavailable Demetria, Jocelyne Attending Unavailable Demetria, Jocelyne Primary Care Unavailable Demetria, Jocelyne Referring Unavailable Demetria, Jocelyne Primary Care Unavailable Demetria, Jocelyne Attending Unavailable Demetria, Jocelyne Referring Unavailable Demetria, Jocelyne Attending Unavailable Demetria, Jocelyne Primary Care Unavailable Demetria, Jocelyne Primary Care Unavailable Tyra Moreno Attending Unavailable Demetria, Jocelyne Referring Unavailable Baddour, Tristin Attending Unavailable Demetria, Jocelyne Referring Unavailable Demetria, Jocelyne Primary Care Unavailable Demetria, Jocelyne Attending Unavailable Demetria, Jocelyne Primary Care Unavailable Demetria, Jocelyne Attending Unavailable Demetria, Jocelyne Referring Unavailable Demetria, Jocelyne Primary Care Unavailable Baddour, Tristin Referring Unavailable Baddour, Tristin Attending Unavailable Demetria, Jocelyne Primary Care Unavailable Demetria, Jocelyne Attending Unavailable Demetria, Jocelyne Primary Care Unavailable Demetria CHIRINOS, Dr. Casanova Primary Care Physician Demetria CHIRINOS, Dr. Casanova Attending Physician Tyra Lee Attending Physician Medications Current Medications Medication Drug Class(es) Dates Sig (Normalized) Sig (Original) aspirin 81 mg delayed release oral tablet (20 sources) Platelet Aggregation Inhibitor, Nonsteroidal Anti-inflammatory Drug Start: 06-15-2021 End: 02-11-2022 take 1 tablet by mouth once daily Aspirin 81 mg tablet,delayed release (DR/EC) Active 81 mg PO DAILY February 11, 2022 11:33am SUPPLEMENT Complies with drug therapy atorvastatin 40 mg oral tablet (20 sources) HMG-CoA Reductase Inhibitor Start: 06-15-2021 End: 11-10-2024 take 1 tablet by mouth at bedtime Atorvastatin 40 mg tablet Active 40 mg PO AT BEDTIME 90 3 November 10, 2024 9:22am CHOLESTEROL Complies with drug therapy cholecalciferol 1.25 mg oral capsule (20 sources) Vitamin D Start: 11-11-2024 take 1 capsule by mouth every week Cholecalciferol (Vitamin D3) 1,250 mcg (50,000 unit) capsule Active 1250 ug PO EVERY WEEK 4 7 November 11, 2024 11:53am Complies with drug therapy Start: 08-24-2023 End: 11-11-2024 take 1 capsule by mouth every week Cholecalciferol (Vitamin D3) 1,250 mcg (50,000 unit) capsule Discontinued 1250 ug PO EVERY WEEK 4 March 11, 2024 12:35pm November 11, 2024 11:55am Start: 04-17-2023 End: 01-15-2024 take 1 capsule by mouth once daily Cholecalciferol (Vitamin D3) 25 mcg (1,000 unit) capsule Discontinued 25 ug PO DAILY April 17, 2023 1:00am January 15, 2024 1:58pm Coenzyme H88-Rqdtczj E (11 sources) Start: 12-24-2021 take 1 capsule by mouth once daily Coenzyme Q08-Gmkyqjk E Active 1 CAP PO DAILY December 24, 2021 12:00am Start: 12-24-2021 take 1 capsule by [facility] once daily Coenzyme Q18-Uqzorpf E Active 1 CAP PO DAILY December 23, 2021 11:00pm Start: 12-24-2021 Coenzyme Q10-V itamin E Active CAP PO December 23, 2021 11:00pm Coenzyme M55-Kkgwfou E 100-1 00 mg-unit capsule (7 sources) Start: 12-24-2021 Coenzyme Q10-V itamin E 100-100 mg-unit capsule Active 1 NMA PO DAILY December 24, 2021 12:00am LEG CRAMPS Complies with drug therapy Start: 12-24-2021 Coenzyme Q10-V itamin E 100-100 mg-unit capsule Active 1 NMA PO DAILY December 24, 2021 12:00am LEG CRAMPS Start: 12-24-2021 Coenzyme Q10-V itamin E 100-100 mg-unit capsule Active 1 NMA PO DAILY December 24, 2021 12:00am Disability placard (7 sources) Start: 07-17-2023 Disability sushil card Active 0 .ROUTE .MEDSUPPLY 1 0 July 17, 2023 12:00am Expiration: 07/16/2026 Start: 07-17-2023 Disability sushil card Active 0 .ROUTE .MEDSUPPLY 1 July 17, 2023 12:00am Expiration: 07/16/2026 0.5 ml dulaglutide 3 mg/ml auto-injector (10 sources) GLP-1 Receptor Agonist Start: 10-07-2024 Dulaglutide 1.5 mg/0 .5 mL pen injector Active 1.5 mg SC EVERY WEEK 2 October 07, 2024 11:33am Type 2 diabetes mellitus Type 2 diabetes mellitus without complications Complies with drug therapy Start: 06-28-2024 End: 10-07-2024 Dulaglutide (Trulicity) 0.75 mg/0.5 mL pen injector Discontinued 0.75 mg SC EVERY WEEK 2 July 29, 2024 10:48am October 07, 2024 11:35am Type 2 diabetes mellitus Type 2 diabetes mellitus without complications lamoTRIgine 100 mg oral tablet (20 sources) Mood Stabilizer, Anti-epileptic Agent Start: 11-11-2024 take 1 tablet by mouth twice daily Lamotrigine 100 mg tablet Active 100 mg PO TWICE A DAY 60 November 11, 2024 11:52am Complies with drug therapy Start: 04-01-2024 End: 11-11-2024 take 1 tablet by mouth twice daily Lamotrigine 100 mg tablet Discontinued 100 mg PO TWICE A DAY 60 7 April 01, 2024 1:00am November 11, 2024 11:55am Start: 01-10-2022 End: 04-01-2024 take 2 tablets by mouth twice daily Lamotrigine 25 mg tablet Discontinued 50 mg PO TWICE A DAY 120 3 April 28, 2023 5:36pm July 17, 2023 11:35am Take 2 tablets twice a day Start: 01-10-2022 End: 11-25-2022 take 2 tablets by mouth twice daily Lamotrigine Discontinued 50 MG PO TWICE A DAY February 11, 2022 10:32am May 08, 2022 1:50pm Take 2 tablets twice a day Start: 12-29-2021 End: 01-10-2022 take 1 tablet by mouth twice daily, then take 2 tablets by mouth twice daily Lamotrigine 25 mg tablet Discontinued 25 mg .ROUTE .COMPLEX 120 4 January 10, 2022 6:06pm January 10, 2022 6:09pm Take 1 tablet PO BID for one week then 2 tablets BID thereafter lisinopril 30 mg oral tablet (20 sources) Angiotensin Converting Enzyme Inhibitor Start: 03-11-2024 End: 11-10-2024 take 1 tablet by mouth once daily Lisinopril 30 mg tablet Active 30 mg PO daily 30 November 10, 2024 10:38am Complies with drug therapy Start: 06-15-2021 End: 03-11-2024 take 1 tablet by mouth once daily Lisinopril 20 mg tablet Discontinued 20 mg PO DAILY 90 January 08, 2024 1:52pm March 11, 2024 12:46pm HTN Completed/Discontinued Medications Medication Drug Class(es) Dates Sig (Normalized) Sig (Original) amLODIPine 10 mg oral tablet (20 sources) Dihydropyridine Calcium Channel Nitin Start: 06-15-2021 End: 09-13-2021 take 1 tablet by mouth once daily Amlodipine 10 mg Tablet Discontinued 10 mg PO DAILY 30 June 15, 2021 12:00am September 13, 2021 11:43am baclofen 10 mg oral tablet (18 sources) gamma-Aminobutyric Acid-ergic Agonist Start: 07-29-2024 End: 11-11-2024 take 1 tablet by mouth three times daily as needed for muscle spasms Baclofen 10 mg tablet Discontinued 10 mg PO THREE TIMES A DAY as needed for muscle spasm 90 1 July 29, 2024 10:41am November 11, 2024 11:08am Start: 09-05-2022 End: 11-20-2022 take 1 tablet by mouth three times daily as needed for pain Baclofen 10 mg tablet Discontinued 10 mg PO THREE TIMES A DAY as needed for muscle spasm/pain 90 September 05, 2022 12:00am November 20, 2022 9:04am cefdinir 300 mg oral capsule (20 sources) Cephalosporin Antibacterial Start: 09-21-2021 End: 10-01-2021 take 1 capsule by mouth twice daily Cefdinir 300 mg capsule Discontinued 300 mg PO TWICE A DAY 14 September 21, 2021 12:00am October 01, 2021 1:45pm start 09/21/21 ciprofloxacin 250 mg oral tablet (10 sources) Quinolone Antimicrobial Start: 01-28-2023 End: 02-04-2023 take 1 tablet by mouth twice daily Ciprofloxacin Hcl (Cipro) 250 mg tablet Discontinued 250 mg PO TWICE A DAY 14 7 January 28, 2023 1:00am February 03, 2023 1:00am February 04, 2023 1:05am clopidogrel 75 mg oral tablet (20 sources) P2Y12 Platelet Inhibitor Start: 01-31-2022 End: 03-07-2022 take 1 tablet by mouth once daily Clopidogrel (Plavix) 75 mg tablet Discontinued 75 mg PO DAILY February 11, 2022 11:33am March 07, 2022 12:34pm HEART doxycycline hyclate 100 mg oral tablet (13 sources) Tetracycline-class Drug Start: 03-13-2022 End: 05-08-2022 take 1 tablet by mouth twice daily Doxycycline Hyclate 100 mg tablet Discontinued 100 mg PO TWICE A DAY 20 March 13, 2022 1:00am May 08, 2022 9:03am Start with empty stomach, take couple of crackers with medication and small glass of water. Do not take with dairy foods. Do not eat for 30 minutes after taking medication. flurbiprofen 100 mg oral tablet (14 sources) Nonsteroidal Anti-inflammatory Drug Start: 07-29-2024 End: 10-07-2024 take 1 tablet by mouth three times daily Flurbiprofen 100 mg tablet Discontinued 100 mg PO THREE TIMES A DAY July 29, 2024 12:00am October 07, 2024 11:01am Start: 09-05-2022 End: 11-20-2022 take 1 tablet by mouth three times daily as needed for pain Flurbiprofen 100 mg tablet Discontinued 100 mg PO THREE TIMES A DAY as needed for pain 90 September 05, 2022 12:00am November 20, 2022 9:05am oxyCODONE hydrochloride 5 mg oral tablet (14 sources) Opioid Agonist Start: 02-21-2022 End: 03-13-2022 take 1 tablet by mouth every six hours as needed for pain Oxycodone 5 mg Tablet Discontinued 5 mg PO EVERY 6 HOURS NEEDED as needed for Pain Score 4-10 20 5 0 February 21, 2022 March 13, 2022 10:03am Stenosis of right internal carotid artery Occlusion and stenosis of right carotid artery sertraline 25 mg oral tablet (20 sources) Serotonin Reuptake Inhibitor Start: 07-29-2024 End: 11-11-2024 Sertraline (Zoloft) 25 mg tablet Discontinued 12.5 mg PO every other day July 29, 2024 10:12am November 11, 2024 11:10am DEPRESSION Start: 01-31-2022 End: 07-29-2024 Sertraline (Zoloft) 25 mg ta blet Discontinued 12.5 mg PO DAILY 90 January 08, 2024 1:52pm July 29, 2024 10:12am DEPRESSION Start: 12-03-2021 End: 01-31-2022 take 1 tablet by mouth once daily Sertraline (Zoloft) 25 mg tablet Discontinued 25 mg PO DAILY 30 2 December 03, 2021 12:00am January 31, 2022 11:06am [place] collagen tablet (7 sources) Start: 01-15-2024 End: 10-07-2024 take 1 tablet by mouth once daily [place] collagen tablet Discontinued 1000 mg PO DAILY January 15, 2024 1:00am October 07, 2024 11:02am Start: 01-15-2024 take 1 tablet by mouth once da [place] collagen tablet Active 1000 mg PO DAILY January 15, 2024 1:00am tumeric (10 sources) Start: 11-20-2022 End: 10-07-2024 take 1600 mg by mouth once daily tumeric Discontinued PO November 20, 2022 12:00am October 07, 2024 11:02am 1600mg daily otc supplement Start: 11-20-2022 take 1600 mg by mout h once daily tumeric Active PO November 20, 2022 12:00am 1600mg daily otc supplement Start: 11-20-2022 take 1600 mg by mout h once daily tumeric Active PO November 19, 2022 11:00pm 1600mg daily otc supplement Problems Active Problems Problem Classification Problem Date Documented Date Episodic/Chronic Acute and unspecified renal failure (20 sources) Renal failure syndrome; Translations: [Unspecified kidney failure] Chronic Acute and unspecified renal failure (20 sources) Acute renal failure syndrome; Translations: [Acute kidney failure, unspecified] Episodic Acute cerebrovascular disease (20 sources) Ischemic stroke; Translations: [Cerebral infarction, unspecified] Onset: 03-11-2024 Chronic Administrative/social admission (3 sources) Persons encountering health services in other specified circumstances; Translations: [Other reasons for seeking consultation] Episodic Calculus of urinary tract (20 sources) Ureteric stone; Translations: [Calculus of ureter] Episodic Cardiac dysrhythmias (20 sources) Tachycardia; Translations: [Tachycardia, unspecified] Episodic Chronic obstructive pulmonary disease and bronchiectasis (16 sources) Bronchitis; Translations: [Bronchitis, not specified as acute or chronic] 03-13-2022 Episodic Diabetes mellitus without complication (19 sources) Type 2 diabetes mellitus; Translations: [Type 2 diabetes mellitus without complications] Onset: 10-08-2024 05-27-2024 Chronic Diabetes mellitus without complication (1 source) Hyperglycemia, unspecified; Translations: [Hyperglycemia, unspecified] Onset: 10-07-2024 Episodic Disorders of lipid metabolism (20 sources) Hyperlipidemia; Translations: [Hyperlipidemia, unspecified] 09-19-2021 Chronic E Codes: Fall (5 sources) Fall; Translations: [Unspecified fall, initial encounter] 06-18-2024 Episodic Epilepsy; convulsions (20 sources) Epilepsy; Translations: [Epilepsy, unspecified, not intractable, without status epilepticus] Onset: 05-11-2024 Chronic Epilepsy; convulsions (18 sources) Seizure; Translations: [Unspecified convulsions] 11-11-2021 Episodic Essential hypertension (20 sources) Hypertensive disorder; Translations: [Essential (primary) hypertension] Onset: 05-27-2024 Chronic Fluid and electrolyte disorders (20 sources) Dehydration; Translations: [Dehydration] Episodic Hypertension with complications and secondary hypertension (20 sources) Hypertensive emergency; Translations: [Hypertensive emergency] Chronic Nausea and vomiting (20 sources) Nausea, vomiting and diarrhea; Translations: [Nausea with vomiting, unspecified] Episodic Nutritional deficiencies (13 sources) Vitamin D deficiency; Translations: [Vitamin D deficiency, unspecified] Onset: 01-15-2024 03-12-2024 Chronic Occlusion or stenosis of precerebral arteries (20 sources) Internal carotid artery stenosis; Translations: [Occlusion and stenosis of right carotid artery] Onset: 04-22-2024 Chronic Other circulatory disease (20 sources) Low blood pressure; Translations: [Hypotension, unspecified] 09-27-2021 Episodic Other circulatory disease (5 sources) Hypotension, unspecified; Translations: [Hypotension, unspecified] Episodic Other connective tissue disease (10 sources) Muscle weakness of upper limb; Translations: [Other symptoms and signs involving the musculoskeletal system] 05-08-2022 Episodic Other connective tissue disease (2 sources) Other symptoms and signs involving the musculoskeletal system; Translations: [Other musculoskeletal symptoms referable to limbs] 05-22-2022 Episodic Other hereditary and degenerative nervous system conditions (12 sources) Impaired cognition; Translations: [Mild cognitive impairment, so stated] 08-24-2023 Chronic Other hereditary and degenerative nervous system conditions (1 source) Mild cognitive impairment, so stated; Translations: [Mild cognitive impairment of uncertain or unknown etiology] Onset: 01-15-2024 Chronic Other lower respiratory disease (16 sources) Cough; Translations: [Cough] 03-07-2022 Episodic Other nervous system disorders (11 sources) Abnormal gait; Translations: [Unspecified abnormalities of gait and mobility] 05-08-2022 Episodic Other nervous system disorders (1 source) Unspecified abnormalities of gait and mobility; Translations: [Abnormality of gait] 05-22-2022 Episodic Other nutritional; endocrine; and metabolic disorders (15 sources) Insulin resistance; Translations: [Insulin resistance] 05-14-2024 Chronic Other nutritional; endocrine; and metabolic disorders (20 sources) Overweight; Translations: [Overweight] 06-26-2021 Episodic Other nutritional; endocrine; and metabolic disorders (19 sources) Overweight; Translations: [Overweight] Episodic Residual codes; unclassified (6 sources) Other specified postprocedural states; Translations: [Other postprocedural status] 03-07-2022 Episodic Septicemia (except in labor) (20 sources) Sepsis; Translations: [Sepsis, unspecified organism] Episodic Spondylosis; intervertebral disc disorders; other back problems (20 sources) Lumbar disc prolapse with radiculopathy; Translations: [Intervertebral disc disorders with radiculopathy, lumbar region] 09-19-2021 Episodic Superficial injury; contusion (5 sources) Contusion of hip; Translations: [Contusion of right hip, initial encounter] 06-18-2024 Episodic Unclassified (1 source) Insulin resistance, unspecified; Translations: [Insulin resistance, unspecified] Onset: 10-07-2024 Urinary tract infections (20 sources) Urinary tract infectious disease; Translations: [Urinary tract infection, site not specified] Episodic Past or Other Problems Problem Classification Problem Date Documented Da te Episodic/Chronic Other injuries and conditions due to external causes (1 source) Encounter for examination and observation following other accident; Translations: [Encounter for examination and observation following other accident] Onset: 06-23-2024 Episodic Other screening for suspected conditions (not mental disorders or infectious disease) (2 sources) Encounter for screening mammogram for malignant neoplasm of breast; Translations: [Encounter for screening for lipoid disorders] Onset: 02-19-2024 Episodic Results Test Name Value Interpretation Reference Range Facility Neurology Visit Reporton Neurology Visit Report [facility] [address] [facility], [address] [place] [address] OFFICE VISIT Date of Service: 11/11/24 MR#: [id number] Acct: [id number] Name: JERMAIN RHODES Rep #: [id number] : 1960 Provider: DELFINO ashraf Age/Sex: 64/F Location: [facility]. Status: Signed HPI HPI Details: Interim History: Jermain returns for follow-up visit. She has a history of hypertension, hyperlipidemia, febrile seizures during infancy, renal calculi and stroke in May 2021. In May 2021, while walking, she had acute onset disorientation, dysarthria and right-sided numbness and weakness and was hospitalized. In the emergency room, she was noted to have marked hypertension with a blood pressure of 227/119. She was treated with labetalol and clonidine for hypertensive emergency. Currently, she is taking lisinopril. She also had an elevated hemoglobin and hematocrit. On evaluation, she was found to have an acute left frontal-parietal lobe cortical cerebral infarct. Laboratory studies revealed hyperlipidemia. She was started on aspirin 81 mg daily and atorvastatin. Her head MRI at that time also revealed old right basal ganglia and right frontal lobe infarcts; she is not aware of any deficits relating to strokes in these regions. She was found to have greater than 70% stenosis of the right internal carotid artery on neck CTA. Her neurological deficits from her stroke in May 2021 improved over the following days. She has continued to have some mild right upper extremity weakness and gait imbalance. In October 2021, while at a fair she had an episode of loss of consciousness. She did not have any preceding aura. She was reported to appear unresponsive then collapsed and apparently exhibited seizure-like shaking activity and had brief postictal confusion. She had an episode of vomiting. She did not have any tongue biting or urinary incontinence. She did not have any new lateralizing weakness or numbness. She was seen in the emergency room and discharged. In November 2021, while seated in the bathroom, she had an episode of loss of consciousness. She was found by her . She did not exhibit any tonic or clonic activity. When he found her, he attempted to help her to a standing position which she was able to do. She was momentarily dazed but did not exhibit any extended postictal confusion or lethargy. She did not seek medical attention. She did not have any new lateralizing numbness or weakness with the episode. She did not have any vision change. She had a transient dull occipital pressure type headache following the episode. She had a right carotid endarterectomy in December 2021. Her carotid ultrasound from March 2023 and March 2024 revealed mild (<50%) stenosis of the right internal carotid artery, normal left internal carotid artery, patent right vertebral artery, and patent left vertebral artery with pre-steal waveform morphology. She had multiple febrile seizures occurring before the age of 6 years. She did not have any seizures during later childhood or adulthood prior to the suspected seizure in October 2021. She has not had any any further seizures since initiation of lamotrigine in 2021. In 2021. She quit smoking in May 2021 following her stroke. She underwent a right carotid endarterectomy on 01/21/22 (by Fawad George M.D.).??? Lamotrigine was initiated in 2021 following her seizure in October 2021 and she has had no further seizures. She has not had any symptoms suggestive of recurrent stroke since her stroke in May 2021. She has chronic low back pain. She reported having numbness in the 3 lateral toes of the right foot. She has had right upper extremity weakness and gait imbalance as residual deficits from her stroke in May 2021. She has right knee pain. She is using turmeric. She completed physical therapy. She is not performing exercises on her own. Her laboratory evaluation for hypercoagulable state was unremarkable. Flurbiprofen caused gastrointestinal upset. She no longer uses baclofen. She has mild cognitive impairment. She feels that her memory has been overall unchanged within recent months. Mini-mental status exam score was 30/30 in June 2023. She reports that she has been compliant with her anticonvulsant therapy. Her blood pressure is noted to be elevated today. She has started a vitamin D supplement for vitamin D deficiency and a follow-up vitamin D level was normal. Laboratory studies reveal hyperglycemia and an elevated hemoglobin A1c. ROS: Per HPI Physical Exam: Neuro: The patient is awake and alert and responds appropriately; she is oriented to the year and day of the week; she is able to spell world backwards Neck: Right carotid bruit auscultated Heart: Tachycardic, regular rhythm Supplemental Info CBC, PT/PTT, BMP, troponin (06/12/2021): WBC 11.9 (high), hemoglobin 18.5 (high), hematocrit 51.8 (high), BU (more content not included)... Normal [facility] Lamotrigine (Lamictal) Level on 10-07-2024 LAMOTRIGINE 5.7 ug/mL Normal 2.0-20.0 [facility] Comment on above: Result Comment: Dete ction Limit = 1.0 Performed at: [facility] [address] [id number] Supervisor [employer]: Alba Nino MD, Phone: [phone] Performed By: #### L 260.2354, J309.6138, H980.9956, S6155.8058 #### [facility] [address] [place], [address] MR/BMS.IMBon 10-07-2024 MR/BMS.IMB [facility] [address] [place], [place] [address] OFFICE VISIT Date of Service: 10/07/24 MR#: [id number] Acct: [id number] Name: JERMAIN RHODES Rep #: [id number] : 1960 Provider: Dr. Jocelyne gasca MD Age/Sex: 64/F Location: [facility] Status: Signed Intake Vital Signs 07/29/24 10:13 10/07/24 11:04 Height 5 ft 2 in 5 ft 2 in Weight: 280 lb 6 oz 276 lb 6 oz BMI 51.2 50.5 BP 126/87 H 128/86 H Blood Pressure Location Lt brachial Lt brachial Position Sitting Sitting Respiration 16 16 Pulse 114 H 105 H Pulse Source Monitor Monitor Temp 98.6 F 98.4 F Temp Source Temporal Temporal Pulse Oximetry (%) 93 94 Oxygen Delivery Method room air room air Intake Visit Reasons: 2 M Stations Superintendent Required: No Accompanied by: Is patient in pain?: No Allergies No Known Allergies Allergy (Verified 10/07/24 10:52) Medications ???Medication ???Instructions ???Recorded ???Confirmed ???Type coenzyme F19-tlycmcf E 100 mg-100 1 cap PO DAILY LEG CRAMPS 2 10/07/24 History unit capsule aspirin 81 mg tablet,delayed 81 mg PO DAILY SUPPLEMENT 02/11/22 10/07/24 History release Disability placard #1 ea 07/17/23 10/07/24 Rx atorvastatin 40 mg tablet 40 mg PO QHS CHOLESTEROL #90 tabs 01/08/24 10/07/24 Rx cholecalciferol (vitamin D3) 1,250 1,250 mcg PO QWEEK #4 caps 03/1110/07/24 Rx mcg (50,000 unit) capsule lisinopril 30 mg tablet 30 mg PO QDAY #30 tabs 03/11/24 Rx lamotrigine 100 mg tablet 100 mg PO BID #60 tabs 04/01/24 Rx baclofen 10 mg tablet 10 mg PO TID PRN muscle spasm #90 07/29/24 10/07/24 Rx tabs sertraline 25 mg tablet (Zoloft) 12.5 mg PO Q OTHER DAY DEPRESSION 07/29/24 10/07/24 History dulaglutide 1.5 mg/0.5 mL 1.5 mg (0.5 mL) subcut QWEEK #2 mL 10/07/24 10/07/24 Rx subcutaneous pen injector [facility] Medical History (Updated 10/07/24 @ 11:03 by Gordon Wilson RN) Cataracts, bilateral Type 2 diabetes mellitus Insulin resistance Stenosis of right internal carotid artery Wears glasses Depression Hemiparesis Use of cane as ambulatory aid Urgency of urination Heartburn Former smoker H/O echocardiogram Seizures Stroke/cerebrovascular accident Kidney stones Kidney failure Sepsis secondary to UTI History of CVA (cerebrovascular accident) Lumbar disc disease with radiculopathy Hyperlipidemia Hypertension Surgical History History of urethral stent History of lithotripsy Hx of tonsillectomy Family History Mother Hypertension Thyroid disorder Kidney disease Son Hypertension Sister Thyroid disorder Father CVA (cerebral vascular accident) Prostate cancer Skin cancer Other Rheumatoid arthritis Uterine cancer Social History household members: spouse Smoking Status: Former smoker Tobacco: How many years used: 45 alcohol intake: current alcohol intake frequency: holidays/special occasions only Alcohol type: wine substance use type: does not use what type of physical activity do you participate in: none darryl/jewish: Restorationism seatbelt use: always HPI HPI Details: JERMAIN RHODES, is a 64 F who presents to the office today for 2-month follow-up. She has been on Trulicity, 0.75 mg weekly. I had seen her couple months ago. She had been on it at 1 month at that point and was doing quite well. Was losing weight at a very reasonable pace. Her A1c is now down to 6.4 from 7.7 earlier this year. She otherwise continues on lisinopril 30 mg daily, Lamictal, vitamin D, atorvastatin, aspirin for primary prevention as well as Zoloft low-dose. Overall once again is doing well on her current Trulicity dose. She has lost approximately 20 pounds since she had started on the medication. Since last visit approximately 4 pounds. She would like to have lost some more. We spent considerable time once again discussing dietary nutritional patterns in this context. She does feel that the medication has helped curb some appetite, and probably led to smaller meal size. She has been trying to incorporate more vegetables and fruits but clearly still eating a fair amount of processed foods, fast foods at times. She does not have any clear side effects from Trulicity at this point. Review of systems per chart. No chest pain, chest tightness, shortness of breath, wheeze, cough, congestion, fever, chills, nausea or vomiting reported. No change in bowel movements currently. Physical exam. Vital signs on chart. Neck is supple, no lymphadenopathy. Thyroid is not palpably enlarged or tender. Lungs are without wheeze rhonchi rales. Heart is regular. Not tachycardic. (more content not included)... Normal [facility] Hemoglobin A1con 10-05-2024 HbA1c (Bld) [Mass fraction] 6.4 % High <=5.6 [facility] Comment on above: Result Comment: Norm al < 5.7 % Prediabetic 5.7 - 6.4 % Diabetic >or= 6.5 % Please note range changes. Performed By: #### L 501.9985, L500.4050, L503.5510, L3300.4400 #### [facility] [address] [place], [place], [id number] Ammoniaon 10-04-2024 Ammonia (P) [Moles/Vol] 27.2 umol/L Normal [facility] Comment on above: Performed By: #### L 501.9985, L500.4050, L503.5510, L3300.4400 #### [facility] [address] [place], [address] Anion gap in Serum or Plasma Ordered By: Tristin Hayden on 10-04-2024 Anion gap [Moles/Vol] 17 mmol/L High 5-15 [facility] BUN/creatinine ratioOrdered By: Tristin Hayden on 10-04-2024 Urea nitrogen/Creatinine [Mass ratio] 14.1 mg/mg 10-20 [facility] Bilirubin, totalOrdered By: Tristin Hayden on 10-04-2024 Bilirubin [Mass/Vol] 0.56 mg/dL 0.00-1.30 [facility] Carbon dioxide, total [Moles /volume] in Central venous bloodOrdered By: Tristin Hayden on 10-04-2024 CO2 [Moles/Vol] 22.6 mmol/L 21.0-32.0 [facility] Chloride assayOrdered By: Ra cortez Hayden on 10-04-2024 Chloride [Moles/Vol] 100 mmol/L 98-108 [facility] Comprehensive Metabolic Prof ilon 10-04-2024 Albumin [Mass/Vol] 4.5 g/dL Normal 3.4-4.8 [facility] Comment on above: Performed By: #### L 501.9985, L500.4050, L503.5510, L3300.4400 #### [facility] [address] [place], [address] Albumin/Globulin [Mass ratio] 1.5 {ratio} Normal 0.9-2.4 [facility] Comment on above: Performed By: #### L 501.9985, L500.4050, L503.5510, L3300.4400 #### [facility] [address] [place], [address] ALK PHOS 85 U/L Normal 35-104 [facility] Comment on above: Performed By: #### L 501.9985, L500.4050, L503.5510, L3300.4400 #### [facility] [address] [place], [address] ALT [Catalytic activity/Vol] 39 U/L High <=34 [facility] Comment on above: Performed By: #### L 501.9985, L500.4050, L503.5510, L3300.4400 #### [facility] [address] [place], [address] AST [Catalytic activity/Vol] 31 U/L Normal <=31 [facility] Comment on above: Performed By: #### L 501.9985, L500.4050, L503.5510, L3300.4400 #### [facility] [address] [place], [address] Bilirubin [Mass/Vol] 0.56 mg/dL Normal 0.00-1.30 [facility] Comment on above: Performed By: #### L 501.9985, L500.4050, L503.5510, L3300.4400 #### [facility] [address] [place], [address] BUN/CRE 14.1 RATIO Normal 10-20 [facility] Comment on above: Performed By: #### L 501.9985, L500.4050, L503.5510, L3300.4400 #### [facility] [address] [place], [address] Calcium [Mass/Vol] 9.7 mg/dL Normal 7.6-11.0 [facility] Comment on above: Performed By: #### L 501.9985, L500.4050, L503.5510, L3300.4400 #### [facility] [address] [place], [address] Chloride [Moles/Vol] 100 mmol/L Normal 98-108 [facility] Comment on above: Performed By: #### L 501.9985, L500.4050, L503.5510, L3300.4400 #### [facility] [address] [place], [address] CO2 [Moles/Vol] 22.6 mmol/L Normal 21.0-32.0 [facility] Comment on above: Performed By: #### L 501.9985, L500.4050, L503.5510, L3300.4400 #### [facility] [address] [place], [address] Creatinine [Mass/Vol] 1.29 mg/dL High 0.70-1.20 [facility] Comment on above: Performed By: #### L 501.9985, L500.4050, L503.5510, L3300.4400 #### [facility] [address] [place], [address] GAP 17 High 5-15 [facility] Comment on above: Performed By: #### L 501.9985, L500.4050, L503.5510, L3300.4400 #### [facility] [address] [place], [address] GFR/1.73 sq M.predicted among non-blacks MDRD (S/P/Bld) [Vol rate/Area] 47 mL/min/{1.73_m2} Low >60 [facility] Comment on above: Result Comment: mL/m in/1.73m2 CKD-EPI Creatinine Equation (2020) Performed By: #### L 501.9985, L500.4050, L503.5510, L3300.4400 #### [facility] [address] [place], [address] Globulin (S) [Mass/Vol] 3.1 g/dL Normal 2.2-4.2 [facility] Comment on above: Performed By: #### L 501.9985, L500.4050, L503.5510, L3300.4400 #### [facility] [address] [place], [address] Glucose [Mass/Vol] 100 mg/dL High 70-99 [facility] Comment on above: Performed By: #### L 501.9985, L500.4050, L503.5510, L3300.4400 #### [facility] [address] [place], [address] Potassium [Moles/Vol] 4.5 mmol/L Normal 3.3-5.1 [facility] Comment on above: Performed By: #### L 501.9985, L500.4050, L503.5510, L3300.4400 #### [facility] [address] [place], [address] Sodium [Moles/Vol] 140 mmol/L Normal 133-145 [facility] Comment on above: Performed By: #### L 501.9985, L500.4050, L503.5510, L3300.4400 #### [facility] [address] [place], [address] T PROT 7.6 g/dL Normal 5.9-8.4 [facility] Comment on above: Performed By: #### L 501.9985, L500.4050, L503.5510, L3300.4400 #### [facility] [address] [place], [address] Urea nitrogen [Mass/Vol] 18 mg/dL Normal 4-19 [facility] Comment on above: Performed By: #### L 501.9985, L500.4050, L503.5510, L3300.4400 #### [facility] [address] [place], [address] ALB Normal 3.4-4.8 [facility] Comment on above: Result Comment: GARRETT Cuevas Performed By: #### L 500.4050 #### [facility] [address] [place], [address] ALK PHOS Normal 35-104 [facility] Comment on above: Result Comment: WRON G Performed By: #### L 500.4050 #### [facility] [address] [place], [address] ALT Normal <=34 [facility] Comment on above: Result Comment: WRON G Performed By: #### L 500.4050 #### [facility] [address] [place], [address] AST Normal <=31 [facility] Comment on above: Result Comment: WRON G Performed By: #### L 500.4050 #### [facility] [address] [place], [address] BUN Normal 4-19 [facility] Comment on above: Result Comment: WRON G Performed By: #### L 500.4050 #### [facility] [address] [place], [address] BUN/CRE Normal 10-20 [facility] Comment on above: Result Comment: WRON G Performed By: #### L 500.4050 #### [facility] [address] [place], [address] Calcium Normal 7.6-11.0 [facility] Comment on above: Result Comment: WRON G Performed By: #### L 500.4050 #### [facility] [address] [place], [address] CL Normal 98-108 [facility] Comment on above: Result Comment: WRON G Performed By: #### L 500.4050 #### [facility] [address] [place], [address] CO2 Normal 21.0-32.0 [facility] Comment on above: Result Comment: WRON G Performed By: #### L 500.4050 #### [facility] [address] [place], [address] CREAT,SERUM Normal 0.70-1.20 [facility] Comment on above: Result Comment: WRON G Performed By: #### L 500.4050 #### [facility] [address] [place], [address] eGFR Normal >60 [facility] Comment on above: Result Comment: WRON G Performed By: #### L 500.4050 #### [facility] [address] [place], [address] GAP Normal 5-15 [facility] Comment on above: Result Comment: WRON G Performed By: #### L 500.4050 #### [facility] [address] [place], [address] GLU Normal 70-99 [facility] Comment on above: Result Comment: WRON G Performed By: #### L 500.4050 #### [facility] [address] [place], [address] Potassium Normal 3.3-5.1 [facility] Comment on above: Result Comment: WRON G Performed By: #### L 500.4050 #### [facility] [address] [place], [address] T BILI Normal 0.00-1.30 [facility] Comment on above: Result Comment: WRON G Performed By: #### L 500.4050 #### [facility] [address] [place], [address] T PROT Normal 5.9-8.4 [facility] Comment on above: Result Comment: WRON G Performed By: #### L 500.4050 #### [facility] [address] [place], [address] Comprehensive Metabolic Profil Normal 133-145 [facility] Comment on above: Result Comment: WRON G Performed By: #### L 500.4050 #### [facility] [address] [place], [address] Glomerular filtration rate ( GFR) estimation/1.73 sq m using serum, plasma, or whole bOrdered By: Tristin Hayden on 10-04-2024 GFR/1.73 sq M.predicted among non-blacks MDRD (S/P/Bld) [Vol rate/Area] 47 mL/min/{1.73_m2} Low >60 [facility] Comment on above: mL/min/1.73m2 CKD-EP I Creatinine Equation (2020) Hemoglobin A1c percentageOrd ered By: Tristin Hayden on 10-04-2024 HbA1c (Bld) [Mass fraction] 6.4 % High <5.7 [facility] Comment on above: Normal < 5.7 % Predi abetic 5.7 - 6.4 % Diabetic >or= 6.5 % Please note range changes. Laboratory - Chemistry and C hemistry - challengeOrdered By: Tristin Hayden on 10-04-2024 AST [Catalytic activity/Vol] 31 U/L <32 [facility] Potassium measurement (mass/ volume)Ordered By: Tristin Hayden on 10-04-2024 Potassium (Unsp spec) [Mass/Vol] 4.5 mmol/L 3.3-5.1 [facility] Serum creatinine measurement (mass/volume)Ordered By: Tristin Hayden on 10-04-2024 Creatinine [Mass/Vol] 1.29 mg/dL High 0.70-1.20 [facility] Serum globulin measurementOr dered By: Tristin Hayden on 10-04-2024 Globulin (S) [Mass/Vol] 3.1 g/dL 2.2-4.2 [facility] Serum glucose measurement (m ass/volume)Ordered By: Tristin Hayden on 10-04-2024 Glucose [Mass/Vol] 100 mg/dL High 70-99 [facility] Serum or plasma alanine gilbert otransferase (ALT) measurementOrdered By: Tristin Hayden on 10-04-2024 ALT [Catalytic activity/Vol] 39 U/L High <35 [facility] Serum or plasma albumin laureen urement (mass/volume)Ordered By: Tristin Hayden on 10-04-2024 Albumin [Mass/Vol] 4.5 g/dL 3.4-4.8 [facility] Serum or plasma albumin/glob ulin mass ratioOrdered By: Tristin Hayden on 10-04-2024 Albumin/Globulin [Mass ratio] 1.5 {ratio} 0.9-2.4 [facility] Serum or plasma alkaline oxana sphatase measurementOrdered By: Tristin Hayden on 10-04-2024 ALP [Catalytic activity/Vol] 85 U/L 35-104 [facility] Serum or plasma calcium laureen urement (mass/volume)Ordered By: Tristin Hayden on 10-04-2024 Calcium [Mass/Vol] 9.7 mg/dL 7.6-11.0 [facility] Serum or plasma lamotrigine measurement (mass/volume)Ordered By: Tristin Hayden on 10-04-2024 lamoTRIgine [Mass/Vol] 5.7 ug/mL 2.0-20.0 [facility] Comment on above: Detection Limit = 1. 0Performed at: [facility] [id number] Director: Alba Nino MD, Phone: [phone] Serum or plasma urea nitroge n measurement (mass/volume)Ordered By: Tristin Hayden on 10-04-2024 Urea nitrogen [Mass/Vol] 18 mg/dL 4-19 [facility] Sodium levelOrdered By: Malcom Hayden on 10-04-2024 Sodium [Moles/Vol] 140 mmol/L 133-145 [facility] Total proteinOrdered By: Luis Hayden on 10-04-2024 Protein [Mass/Vol] 7.6 g/dL 5.9-8.4 [facility] Venous blood ammonia measure mentOrdered By: Tristin Hayden on 10-04-2024 Ammonia (P) [Moles/Vol] 27.2 umol/L 11-51 [facility] /Hien 07-29-2024 /DYAN [facility] [address] [place] [address] OFFICE VISIT Date of Service: 07/29/24 MR#: [id number] Acct: [id number] Name: JERMAIN RHODES Rep #: [id number] : 1960 Provider: Dr. Jocelyne gasca MD Age/Sex: 64/F Location: [facility] Status: Signed Intake Vital Signs 06/30/24 11:58 07/29/24 10:13 Height 5 ft 2 in 5 ft 2 in Weight: 280 lb 6 oz BMI 51.2 BP 126/87 H Blood Pressure Location Lt brachial Position Sitting Respiration 16 Pulse 114 H Pulse Source Monitor Temp 98.6 F Temp Source Temporal Pulse Oximetry (%) 93 Oxygen Delivery Method room air Intake Visit Reasons: 1 M FU Chief Complaint: 1 M FU Stations Superintendent Required: No Accompanied by: Is patient in pain?: No Allergies No Known Allergies Allergy (Verified 07/29/24 10:04) Medications ???Medication ???Instructions ???Recorded ???Confirmed ???Type coenzyme N79-sqxtycb E 100 mg-100 1 cap PO DAILY LEG CRAMPS 2 07/29/24 History unit capsule aspirin 81 mg tablet,delayed 81 mg PO DAILY SUPPLEMENT 02/11/22 07/29/24 History release tumeric PO 11/20/22 07/29/24 History Disability placard #1 ea 07/17/23 07/29/24 Rx atorvastatin 40 mg tablet 40 mg PO QHS CHOLESTEROL #90 tabs 01/08/24 07/29/24 Rx [place] collagen 1,000 mg PO DAILY 01/15/24 5 History cholecalciferol (vitamin D3) 1,250 1,250 mcg PO QWEEK #4 caps 03/1107/29/24 Rx mcg (50,000 unit) capsule lisinopril 30 mg tablet 30 mg PO QDAY #30 tabs 03/11/24 Rx lamotrigine 100 mg tablet 100 mg PO BID #60 tabs 04/01/24 Rx baclofen 10 mg tablet 10 mg PO TID PRN muscle spasm #90 07/29/24 07/29/24 Rx tabs dulaglutide 0.75 mg/0.5 mL 0.75 mg (0.5 mL) subcut QWEEK #2 m L 07/29/24 07/29/24 Rx subcutaneous pen injector (Trulicity) flurbiprofen 100 mg tablet 100 mg PO TID 07/29/24 07/29/24 [place] sertraline 25 mg tablet (Zoloft) 12.5 mg PO Q OTHER DAY DEPRESSION 07/29/24 History PFSH Medical History Type 2 diabetes mellitus Insulin resistance Stenosis of right internal carotid artery Wears glasses Depression Hemiparesis Use of cane as ambulatory aid Urgency of urination Heartburn Former smoker H/O echocardiogram Seizures Stroke/cerebrovascular accident Kidney stones Kidney failure Sepsis secondary to UTI History of CVA (cerebrovascular accident) Lumbar disc disease with radiculopathy Hyperlipidemia Hypertension Surgical History History of urethral stent History of lithotripsy Hx of tonsillectomy Family History Mother Hypertension Thyroid disorder Kidney disease Son Hypertension Sister Thyroid disorder Father CVA (cerebral vascular accident) Prostate cancer Skin cancer Other Rheumatoid arthritis Uterine cancer Social History household members: spouse Smoking Status: Former smoker Tobacco: How many years used: 45 alcohol intake: current alcohol intake frequency: holidays/special occasions only Alcohol type: wine substance use type: does not use what type of physical activity do you participate in: none darryl/jewish: Restorationism seatbelt use: always HPI HPI Chief Complaint: 1 M FU Details: JERMAIN RHODES, is a 64 F who presents to the office today for 1 month follow-up after starting Trulicity. She had just a little bit of colon disturbance, some constipation when she first started it but that quickly dissipated. She did use stool softener x 1 and has been eating some prunes and that has helped. She is lost about 6 pounds so far since starting. Again tolerating it well at the current dosage. She does note early satiety, smaller meals but she is also being more diligent about paying attention to things. Trying to limit carbohydrates, eating more vegetables, fruits which she had been before but doing better on it. Last A1c was 7.7 about a month ago. Review of systems per chart. Physical exam. Vital signs on chart. No cervical or supraclavicular lymph nodes enlarged or tender. No clear thyromegaly. Lungs are without wheeze rhonchi or rales. Heart is regular. Not t achycardic. No gallop or rub. Remainder of exam unremarkable. ROS Const Constitutional: No body ache, chills, excessive sweating, fatigue, fever(s), frequent falls, headache(s), snoring, weakness or change in appetite Eyes Eyes: No blurry vision, change in vision, eye pain or Light sensitivity ENT ENT: No abnormal hearing, ear or mastoid pain, tinnitus, nasal congestion, headache(s), neck pain or sore throat Resp Respiratory: No cough, shortness of eduardo (more content not included)... Normal [facility] Office Visit Reporton 2024 Office Visit Report [facility] [address] [place] [address] OFFICE VISIT Date of Service: 07/01/24 MR#: [id number] Acct: [id number] Patient: JERMAIN RHODES Rep #: [id number] : 1960 Provider: TEMITOPE NURSE Age/Sex: 64/F Location: [facility] Status: Signed Intake Vital Signs 06/18/24 16:28 06/30/24 11:58 Height 5 ft 2 in 5 ft 2 in Intake Visit Reasons: Trulicity Admin Education Chief Complaint: Lab Result FU Allergies No Known Allergies Allergy (Verified 06/18/24 16:30) Nursing Note Patient educated on Trulicity administration. Answered all questions that her and her had. Had her teach back administration and watched while patient administered Trulicity herself. Assessment and Plan Assessment and Plan (1) Type 2 diabetes mellitus: Status: Acute Plan Details Additional Comments: Nurse diabetes education for GLP 1 agonist administration. 07/01/24 1232 Date Jocelyne Augustin MD Cosigner Signature: Date (if applicable) CC: Normal [facility] Emergency Department Summary on 06-18-2024 Emergency Department Summary [facility] Medical Records Department [address] [place] [address] Emergency Department Summary 06/18/24 MR#: [id number] Acct: [id number] Name: JERMAIN RHODES Rep #: [id number] : 1960 64 From: Prince Collins MD PCP: Dr. Jocelyne Augustin MD Status:DEP ER Location: ED HPI History of Present Illness Chief Complaint: Lower Extremity Injury Narrative Narrative: 64-year-old female past medical history of previous stroke with chronic weakness of her right lower extremity states that she has been having right hip and buttocks pain for the last 4 days. This is status post fall. She states that her cat knocked over a plant from the [facility]. She is usually in a wheelchair or uses a cane and walker. However, she was squatting and bending over to clean up the broken plant worthy. When she went to stand up, she only made it part way and fell onto her right hip. She denies other injuries. No hitting of her head or loss of consciousness. She states she is having pain in her buttocks as well and feels pain radiating down to her ankle on the right side only. She takes an anti-inflammatory from Dr. Hayden. She is having continued pain in her right buttocks and down her right leg, and also diffusely in her right hip. Denies other injury. [facility] Medical History Type 2 diabetes mellitus Insulin resistance Stenosis of right internal carotid artery Wears glasses Depression Hemiparesis Use of cane as ambulatory aid Urgency of urination Heartburn Former smoker H/O echocardiogram Seizures Stroke/cerebrovascular accident Kidney stones Kidney failure Sepsis secondary to UTI History of CVA (cerebrovascular accident) Lumbar disc disease with radiculopathy Hyperlipidemia Hypertension Home Medications ???Medication ???Instructions ???Recorded ???Last Taken ???Type coenzyme B48-sbulwlg E 100 mg-100 1 cap PO DAILY LEG CRAMPS 2 Unknown History unit capsule aspirin 81 mg tablet,delayed 81 mg PO DAILY SUPPLEMENT 02/11/22 02/20/22 History release tumeric PO 11/20/22 Unknown History Disability placard #1 ea 07/17/23 Unknown Rx atorvastatin 40 mg tablet 40 mg PO QHS CHOLESTEROL #90 tabs 01/08/24 Unknown Rx sertraline 25 mg tablet (Zoloft) 12.5 mg (1/2 x 25 mg) PO DAILY Unknown Rx DEPRESSION #90 tabs ninole collagen 1,000 mg PO DAILY 01/15/24 Unknown History cholecalciferol (vitamin D3) 1,250 1,250 mcg PO QWEEK #4 caps 03/11 Unknown Rx mcg (50,000 unit) capsule lisinopril 30 mg tablet 30 mg PO QDAY #30 tabs 03/11/24 Un known Rx lamotrigine 100 mg tablet 100 mg PO BID #60 tabs 04/01/24 Un known Rx Allergy/AdvReac Type Severity Reaction Status Date / Time No Known Allergies Allergy Verified 06/18/24 16:30 Family History Mother Hypertension Thyroid disorder Kidney disease Son Hypertension Sister Thyroid disorder Father CVA (cerebral vascular accident) Prostate cancer Skin cancer Other Rheumatoid arthritis Uterine cancer Surgical History History of urethral stent History of lithotripsy Hx of tonsillectomy Social History household members: spouse Smoking Status: Former smoker Tobacco: How many years used: 45 alcohol intake: current alcohol intake frequency: holidays/special occasions only Alcohol type: wine substance use type: does not use what type of physical activity do you participate in: none darryl/jewish: Restorationism seatbelt use: always ROS ROS ED ROS Narrative Review of systems positive for right hip pain, and right buttocks pain with radiation down the right leg. No back pain. No loss of bowel or bladder, pain worse with movement of right hip. No fevers or chills. No other injuries. EXAM Physical Exam Narrative Exam Narrative: Afebrile. Vital signs noted. Nontoxic-appearing. Cardiovascular examination reveals mild tachycardia. Lungs clear to auscultation bilaterally. Abdomen soft, nontender, without guarding or rebound. Positive bowel sounds. Musculoskeletal examination reveals pelvis to be stable. She has diffuse tenderness to palpation throughout her right hip mainly in the greater trochanteric area. Positive flexion and extension of right hip and right knee. Able to lift right leg off bed without difficulty. Palpable dorsalis pedis pulses bilaterally. No pain with logrolling of femur on the right. Positive tenderness to palpation right sciatic notch, right. Const Vital Signs: 06/18/24 16:28 Temperature 97 F L Temperature Source Temporal Pulse Rate 125 H Respiratory Rate 20 H Blood Pressure 157/121 H Blood Pressure Me (more content not included)... Normal [facility] HIP, UNI W/ Pelvis 2-3 Views on 06-18-2024 HIP, UNI W/ Pelvis 2-3 Views [facility] Imaging Services [address] [place] [address] HIP, UNI W/ Pelvis 2-3 Views MR#: [id number] Acct: [id number] Name: JERMAIN RHODES Rep #: [id number] : 1960 F 64 From: Adair Long MD PCP: Dr. Jocelyne Augustin MD Status: REG ER Study: HIP, UNI W/ Pelvis 2-3 Views Date of Exam: Exam# [id number] Ordering Dr: Prince Collins MD PROCEDURE: HIP, UNI W/ PELVIS 2-3 VIEWS 06/18/2024 REASON FOR EXAM: PAIN, FALL TECHNIQUE: 3 view of the right hip FINDINGS: Bones: No acute fracture. Joints: Normal alignment. Soft tissues: Soft tissues are unremarkable. Other: RAD/HIP, UNI W/ Pelvis 2-3 Views IMPRESSION: NO ACUTE FRACTURE OR DISLOCATION. If acute hip fracture is suspected after a fall or minor trauma and initial radiographs are negative then MRI of the pelvis and affected hip without IV contrast or CT of the pelvis and hips without IV contrast is usually appropriate as the next imaging study. (ACR Appropriateness Criteria: Acute Hip Pain-Suspected Fracture 2018) Reading Location: [facility] CC: Dr. Prince Collins MD; Dr. Jocelyne Augustin MD [employer] Operator: Signed Normal [facility] Insulin Levelon 05-27-2024 INSULIN,FASTING 49.7 uIU/mL High 2.6-24.9 [facility] Comment on above: Result Comment: Perf ormed at: - [facility] [address] [id number] Supervisor [employer]: Eduard Bliss PhD, Phone: [phone] Performed By: #### L 141.3467, D690.5972, F473.7301, Z0333.5431 #### [facility] [address] [place], [address] MR/Hien 05-27-2024 MR/SAMANTA.[facility] [address] [facility] [place], [place] [address] OFFICE VISIT Date of Service: 05/27/24 MR#: [id number] Acct: [id number] Name: JERMAIN RHODES Rep #: [id number] : 1960 Provider: Dr. Jocelyne gasca MD Age/Sex: 64/F Location: [facility] Status: Signed Intake Vital Signs 03/11/24 10:54 05/14/24 16:11 05/27/24 10:56 Height 5 ft 2 in 5 ft 2 in 5 ft 2 in Weight: 286 lb 2 oz BMI 52.3 BP 136/95 H Blood Pressure Location Lt brachial Position Sitting Respiration 16 Pulse 105 H Pulse Source Monitor Temp 98.6 F Temp Source Temporal Pulse Oximetry (%) 94 Oxygen Delivery Method room air Intake Visit Reasons: Lab Result FU Chief Complaint: Lab Result FU Stations Superintendent Required: No Accompanied by: Is patient in pain?: No Allergies No Known Allergies Allergy (Verified 05/27/24 10:48) Medications ???Medication ???Instructions ???Recorded ???Confirmed ???Type coenzyme R77-yhdrman E 100 mg-100 1 cap PO DAILY LEG CRAMPS 2 05/27/24 History unit capsule aspirin 81 mg tablet,delayed 81 mg PO DAILY SUPPLEMENT 02/11/22 05/27/24 History release tumeric PO 11/20/22 05/27/24 History Disability placard #1 ea 07/17/23 05/27/24 Rx atorvastatin 40 mg tablet 40 mg PO QHS CHOLESTEROL #90 tabs 01/08/24 05/27/24 Rx sertraline 25 mg tablet (Zoloft) 12.5 mg (1/2 x 25 mg) PO DAILY 05/27/24 Rx DEPRESSION #90 tabs ninole collagen 1,000 mg PO DAILY 01/15/24 5 History cholecalciferol (vitamin D3) 1,250 1,250 mcg PO QWEEK #4 caps 03/1105/27/24 Rx mcg (50,000 unit) capsule lisinopril 30 mg tablet 30 mg PO QDAY #30 tabs 03/11/24 Rx lamotrigine 100 mg tablet 100 mg PO BID #60 tabs 04/01/24 Rx PFSH Medical History (Updated 05/27/24 @ 12:[address] Jocelyne Augustin MD) Type 2 diabetes mellitus Insulin resistance Stenosis of right internal carotid artery Wears glasses Depression Hemiparesis Use of cane as ambulatory aid Urgency of urination Heartburn Former smoker H/O echocardiogram Seizures Stroke/cerebrovascular accident Kidney stones Kidney failure Sepsis secondary to UTI History of CVA (cerebrovascular accident) Lumbar disc disease with radiculopathy Hyperlipidemia Hypertension Surgical History History of urethral stent History of lithotripsy Hx of tonsillectomy Family History Mother Hypertension Thyroid disorder Kidney disease Son Hypertension Sister Thyroid disorder Father CVA (cerebral vascular accident) Prostate cancer Skin cancer Other Rheumatoid arthritis Uterine cancer Social History household members: spouse Smoking Status: Former smoker Tobacco: How many years used: 45 alcohol intake: current alcohol intake frequency: holidays/special occasions only Alcohol type: wine substance use type: does not use what type of physical activity do you participate in: none darryl/jewish: Restorationism seatbelt use: always HPI HPI Chief Complaint: Lab Result FU Details: JERMAIN DILYARD, is a 64 F who presents to the office today for follow-up after recent labs. Asked her to come back in, to discuss these in more detail. Her insulin and glucose levels suggest high level Lindsey IR. Her A1c has gone up to 7.7. We have been working with her on a dietary pattern and she has made a lot of progress but her A1c a year or so ago was 5-1/2 then went up to 7.6. Today 7.7. Based on this it is time to start medication as we discussed. She is in agreement. We discussed extensively the options. She does have some sensitivity from a GI standpoint towards diarrheas. I would not recommend metformin for her. She has a history of UTIs in the past, and I would have some concern about Farxiga or Jardiance or SGLT2 inhibitors. Given her obesity, and diabetes, I think the best option is to look towards a GLP-1 agonist. She is in agreement after we discussed extensively. Otherwise she is feeling about the same, no chest pain, chest tightness, shortness of breath wheeze cough or congestion. No fever or chills. She does want to go off of Zoloft. She is down to 12-1/2 mg. She would go to every other day on the current dosing until she runs out which would probably be about a month. She can stop it from every other day 12.5. Vitamin D is low and we discussed that briefly. She is on vitamin D supplement, that needs adjusted. Also wondered about going on an allergy medication. I do not see any major reasons can use some Zyrtec or Karen. She should not use anything such as pseudoephedrine or those types of products. Review of systems per chart. Physic (more content not included)... Normal [facility] Anion gap in Serum or Plasma Ordered By: Jocelyne Augustin on 05-25-2024 Anion gap [Moles/Vol] 16 mmol/L High 5-15 [facility] BUN/creatinine ratioOrdered By: Jocelyne Augustin on 05-25-2024 Urea nitrogen/Creatinine [Mass ratio] 14.6 mg/mg - [facility] Basic Metabolic Profile (BMP )on 05-25-2024 BUN/CRE 14.6 RATIO Normal - [facility] Comment on above: Performed By: #### L 501.9985, L500.4050, L503.5510, L3300.4400 #### [facility] [address] [place], [address] Calcium [Mass/Vol] 9.9 mg/dL Normal 7.6-11.0 [facility] Comment on above: Performed By: #### L 501.9985, L500.4050, L503.5510, L3300.4400 #### [facility] [address] [place], [address] Chloride [Moles/Vol] 97 mmol/L Low 98-108 [facility] Comment on above: Performed By: #### L 501.9985, L500.4050, L503.5510, L3300.4400 #### [facility] [address] [place], [address] CO2 [Moles/Vol] 24.4 mmol/L Normal 21.0-32.0 [facility] Comment on above: Performed By: #### L 501.9985, L500.4050, L503.5510, L3300.4400 #### [facility] [address] [place], [address] Creatinine [Mass/Vol] 1.16 mg/dL Normal 0.70-1.20 [facility] Comment on above: Performed By: #### L 501.9985, L500.4050, L503.5510, L3300.4400 #### [facility] [address] [place], [address] GAP 16 High 5-15 [facility] Comment on above: Performed By: #### L 501.9985, L500.4050, L503.5510, L3300.4400 #### [facility] [address] [place], [address] GFR/1.73 sq M.predicted among non-blacks MDRD (S/P/Bld) [Vol rate/Area] 53 mL/min/{1.73_m2} Low >60 [facility] Comment on above: Result Comment: mL/m in/1.73m2 CKD-EPI Creatinine Equation (2020) Performed By: #### L 501.9985, L500.4050, L503.5510, L3300.4400 #### [facility] [address] [place], [address] Glucose [Mass/Vol] 135 mg/dL High 70-99 [facility] Comment on above: Performed By: #### L 501.9985, L500.4050, L503.5510, L3300.4400 #### [facility] [address] [place], [address] Potassium [Moles/Vol] 4.5 mmol/L Normal 3.3-5.1 [facility] Comment on above: Performed By: #### L 501.9985, L500.4050, L503.5510, L3300.4400 #### [facility] [address] [place], [address] Sodium [Moles/Vol] 137 mmol/L Normal 133-145 [facility] Comment on above: Performed By: #### L 501.9985, L500.4050, L503.5510, L3300.4400 #### [facility] [address] [place], [address] Urea nitrogen [Mass/Vol] 17 mg/dL Normal 4-19 [facility] Comment on above: Performed By: #### L 501.9985, L500.4050, L503.5510, L3300.4400 #### [facility] [address] [place], [address] Calculated very low density lipoprotein (VLDL) cholesterol measurementOrdered By: Jocelyne Augustin on 05-25-2024 Calculated very low density lipoprotein (VLDL) cholesterol measurement 28 mg/dL - [facility] VLDL Cholesterol 28 mg/dL 40 [facility] Carbon dioxide, total [Moles /volume] in Central venous bloodOrdered By: Jocelyne Augustin on 05-25-2024 CO2 [Moles/Vol] 24.4 mmol/L 21.0-32.0 [facility] Chloride assayOrdered By: Kaelyn Augustin on 05-25-2024 Chloride [Moles/Vol] 97 mmol/L Low 98-108 [facility] GFR/1.73 sq M.predicted thomas g non-blacks MDRD (S/P/Bld) [Vol rate/Area]Ordered By: Jocelyne Augustin on 05-25-2024 Estimated GFR (MDRD) Non-Af Amer 53 Low >60 [facility] Comment on above: mL/min/1.73m2 CKD-EP I Creatinine Equation (2020) Glomerular filtration rate ( GFR) estimation/1.73 sq m using serum, plasma, or whole bOrdered By: Jocelyne Augustin on 05-25-2024 GFR/1.73 sq M.predicted among non-blacks MDRD (S/P/Bld) [Vol rate/Area] 53 mL/min/{1.73_m2} Low >60 [facility] Comment on above: mL/min/1.73m2 CKD-EP I Creatinine Equation (2020) Hemoglobin A1con 05-25-2024 HbA1c (Bld) [Mass fraction] 7.7 % Normal <=5.6 [facility] Comment on above: Performed By: #### L 501.9985, L500.4050, L503.5510, L3300.4400 #### [facility] [address] [place] [address], [address] Hemoglobin A1c percentageOrd ered By: Jocelyne Augustin on 05-25-2024 HbA1c (Bld) [Mass fraction] 7.7 % >5.7 [facility] Insulin [Mass/Vol]Ordered By : Jocelyne Augustin on 05-25-2024 Insulin Level 49.7 uIU/mL High 2.6-24.9 [facility] Comment on above: Performed at: - [facility] [id number] [place], [place] [id number] Director: Eduard Bliss PhD, Phone: [phone] LDL calc ser/plasOrdered By: Jocelyne Augustin on 05-25-2024 Cholesterol in LDL [Mass/Vol] 63 mg/dL [facility] Comment on above: Koowbgddjh=728-632 m g/dL & Higher Cdbw=755 mg/dL or greater LDL Cholesterol, Calculated 63 mg/dL [facility] Comment on above: Ysfzburrmi=208-072 m g/dL & Higher Uleh=503 mg/dL or greater Lipid Profileon 05-25-2024 CHOL:HDL 2.88 Normal [facility] Comment on above: Performed By: #### L 501.9985, L500.4050, L503.5510, L3300.4400 #### [facility] [address] [place], [place], [id number] ([address]) Cholesterol [Mass/Vol] 139 mg/dL Normal <=200 [facility] Comment on above: Result Comment: Chol esterol level, Desirable <200 mg/dL Borderline high cholesterol 200-239 mg/dL High cholesterol >=240 mg/dL Recommendations of the NCEP Adult Treatment Panel for the following risk-cutoff thresholds for the [place] population. Performed By: #### L 501.9985, L500.4050, L503.5510, L3300.4400 #### [facility] [address] [place], [address] Cholesterol in HDL [Mass/Vol] 48 mg/dL Normal [facility] Comment on above: Result Comment: Laura onal Cholesterol Education Program (NCEP) guidelines: <40 mg/dL: Low HDL-cholesterol (major risk factor for CHD) >= 60 mg/dL: High HDL-cholesterol (negative risk factor for CHD) HDL-cholesterol is affected by a number of factors, e.g. smoking, exercise, hormones, sex and age. Performed By: #### L 501.9985, L500.4050, L503.5510, L3300.4400 #### [facility] [address] [place], [address] Cholesterol in LDL [Mass/Vol] 63 mg/dL Normal [facility] Comment on above: Result Comment: Bord azvovj=218-196 mg/dL Higher Gxsl=401 mg/dL or greater Performed By: #### L 501.9985, L500.4050, L503.5510, L3300.4400 #### [facility] [address] [place], [address] Cholesterol in VLDL [Mass/Vol] 28 mg/dL Normal 5-40 [facility] Comment on above: Performed By: #### L 501.9985, L500.4050, L503.5510, L3300.4400 #### [facility] [address] [place], [address] Triglyceride [Mass/Vol] 139 mg/dL Normal [facility] Comment on above: Result Comment: The drugs N-Acetylcysteine and Metamizole may falsely depress this assay. Normal range: <150 mg/dL Borderline High: 150-199 mg/dL High: 200-499 mg/dL Very High: >500 mg/dL Performed By: #### L 501.9985, L500.4050, L503.5510, L3300.4400 #### [facility] [address] [place], [address] Potassium (Unsp spec) [Mass/ Vol]Ordered By: Jocelyne Augustin on 05-25-2024 Potassium [Moles/Vol] 4.5 mmol/L 3.3-5.1 [facility] Potassium measurement (mass/ volume)Ordered By: Jocelyne Augustin on 05-25-2024 Potassium (Unsp spec) [Mass/Vol] 4.5 mmol/L 3.3-5.1 [facility] Screening total cholesterol/ high density lipoprotein (HDL) cholesterol ratioOrdered By: Jocelyne Augustin on 05-25-2024 Cholesterol.total/Chol esterol in HDL [Mass ratio] 2.88 {ratio} [facility] Serum creatinine measurement (mass/volume)Ordered By: Jocelyne Augustin on 05-25-2024 Creatinine [Mass/Vol] 1.16 mg/dL 0.70-1.20 [facility] Serum glucose measurement (m ass/volume)Ordered By: Jocelyne Augustin on 05-25-2024 Glucose [Mass/Vol] 135 mg/dL High 70-99 [facility] Serum or plasma calcium laureen urement (mass/volume)Ordered By: Jocelyne Augustin on 05-25-2024 Calcium [Mass/Vol] 9.9 mg/dL 7.6-11.0 [facility] Serum or plasma cholesterol in HDL measurement (mass/volume)Ordered By: Jocelyne Augustin on 05-25-2024 Cholesterol in HDL [Mass/Vol] 48 mg/dL >40 [facility] Comment on above: National Cholesterol Education Program (NCEP) guidelines:<40 mg/dL: Low HDL-cholesterol (major risk factor for CHD)>= 60 mg/dL: High HDL-cholesterol (negative risk factor for CHD)HDL-cholesterol is affected by a number of factors, e.g. smoking, exercise, hormones, sex and age. Serum or plasma cholesterol measurement (mass/volume)Ordered By: Jocelyne Augustin on 05-25-2024 Cholesterol [Mass/Vol] 139 mg/dL <201 [facility] Comment on above: Cholesterol level, D esirable <200 mg/dLBorderline high cholesterol 200-239 mg/dLHigh cholesterol >=240 mg/dLRecommendations of the NCEP Adult Treatment Panel for the following risk-cutoff thresholds for the [place] population. Serum or plasma insulin laureen urement (mass/volume)Ordered By: Jocelyne Augustin on 05-25-2024 Insulin [Mass/Vol] 49.7 uIU/mL High 2.6-24.9 [facility] Comment on above: Performed at: [address] [id number] Director: Eduard Bliss PhD, Phone: [phone] Serum or plasma urea nitroge n measurement (mass/volume)Ordered By: Jocelyne Augustin on 05-25-2024 Urea nitrogen [Mass/Vol] 17 mg/dL 4-19 [facility] Sodium levelOrdered By: Melissa Augustin on 05-25-2024 Sodium [Moles/Vol] 137 mmol/L 133-145 [facility] Triglycerides measurementOrd ered By: Jocelyne Augustin on 05-25-2024 Triglyceride [Mass/Vol] 139 mg/dL <199 [facility] Comment on above: The drugs N-Acetylcy steine and Metamizole may falsely depress this assay. Normal range: <150 mg/dLBorderline High: 150-199 mg/dLHigh: 200-499 mg/dLVery High: >500 mg/dL Lamotrigine (Lamictal) Level on 05-03-2024 LAMOTRIGINE 2.8 ug/mL Normal 2.0-20.0 [facility] Comment on above: Result Comment: Dete ction Limit = 1.0 Performed at: [facility] [id number] Supervisor [employer]: Alba Nino MD, Phone: [phone] Performed By: #### L 503.5510, L501.9985, L3300.4400 #### [facility] [address] [place], [address] Ammoniaon 04-28-2024 Ammonia (P) [Moles/Vol] 28.3 umol/L Normal 11-51 [facility] Comment on above: Performed By: #### L 503.5510, L501.9985, L3300.4400 #### [facility] [address] [place], [address] Hemoglobin A1con 04-28-2024 HbA1c (Bld) [Mass fraction] 7.6 % Normal <=5.6 [facility] Comment on above: Performed By: #### L 503.5510, L501.9985, L3300.4400 #### [facility] [address] [place], [address] Hemoglobin A1c percentageOrd ered By: Tristin Hayden on 04-28-2024 HbA1c (Bld) [Mass fraction] 7.6 % >5.7 [facility] Serum or plasma lamotrigine measurement (mass/volume)Ordered By: Tristin Hayden on 04-28-2024 lamoTRIgine [Mass/Vol] 2.8 ug/mL 2.0-20.0 [facility] Comment on above: Detection Limit = 1. 0Performed at: [facility] [id number] Director: Alba Nino MD, Phone: [phone] Venous blood ammonia measure mentOrdered By: Tristin Hayden on 04-28-2024 Ammonia (P) [Moles/Vol] 28.3 umol/L [facility] lamoTRIgine [Mass/Vol]Ordere d By: Trisitn Hayden on 04-28-2024 Lamotrigine (Lamictal) Level 2.8 ug/mL 2.0-20.0 [facility] Comment on above: Detection Limit = 1. 0Performed at: [facility] [id number] Director: Alba Nino MD, Phone: [phone] Carotid Duplex Ultrasoundon 04-07-2024 Carotid Duplex Ultrasound [facility] [address] [place] [address] Carotid Duplex Ultrasound 04/07/24 0909 MR#: [id number] Acct: [id number] Name: JERMAIN RHODES Rep #: [id number] : 1960 64 From: Fawad George MD Attending Dr: Dr. Tristin Hayden MD Status: R EG CLI Ordering Dr: Tristin Hayden MD Date: 04/07/24 Location: [facility] Sex: F C Admitted: Reason For Study Reason For Study: HX RT ICA CEA Rt. Velocities/BP Lt. Velocities/BP Prox CCA 72.3/10.2 cm/sec. Prox CCA 97.7/25.3 cm/sec. Mid CCA 70.5/10.2 cm/sec. Mid CCA 95.3/30.2 cm/sec. Dist CCA 65.0/13.9 cm/sec. Dist CCA 67.0/20.4 cm/sec. Prox ICA 86.9/23.0 cm/sec. Prox ICA 86.9/27.7 cm/sec. Mid ICA 70.5/19.4 cm/sec. Mid ICA 99.3/32.6 cm/sec. Dist ICA 72.3/21.2 cm/sec. Dist ICA 74.4/32.5 cm/sec. Rt. ICA/CCA = 1.2. Lt. ICA/CCA = 1.0. Prox ECA 180.4/19.7 cm/sec. Prox ECA 130.8/14.5 cm/sec. Rt. Vert. 62.0/23.2 cm/sec. Abnormal Waveform noted in Lt Vertebral Artery. Right Extracranial There is intimal thickening but no significant atherosclerotic plaque noted in the right common carotid artery. There is heterogeneous, smooth atherosclerotic plaque noted in the right internal carotid artery. HX CEA. The distal right internal carotid artery is not well visualized. There is heterogeneous, smooth atherosclerotic plaque noted in the right external carotid artery. Antegrade flow is noted in the right vertebral artery. Left Extracranial There is intimal thickening but no significant atherosclerotic plaque noted in the left common carotid artery. There is intimal thickening but no significant atherosclerotic plaque noted in the left internal carotid artery. There is intimal thickening but no significant atherosclerotic plaque noted in the left external carotid artery. Abnormal Waveform noted in Lt Vertebral Artery. Procedure Carotid Duplex 20414. This is a Carotid Duplex examination using B-mode, color flow and specral Doppler. The study was technically difficult. Exam performed in department. VL/Carotid Duplex Ultrasound Interpretation Summary Mild (<50%) stenosis right extracranial internal carotid. Normal left extracranial internal carotid. The Right vertebral is patent and antegrade. The Left vertebral is patent with pre-steal morphology Ordering Physician: Tristin Hayden Referring Physician: Jocelyne Augustin Performed By: Kash Zapata, RVT 04/07/24 1357 Date Fawad George MD CC: Dr. Jocelyne Augustin MD; Dr. Tristin Hayden MD Date Dictated: 04/07/2409 Date Transcribed: 04/07/24 135 [employer] Operator: Signed Normal [facility] Neurology Visit Reporton Neurology Visit Report [facility] [address], [address] [place] [address] OFFICE VISIT Date of Service: 03/11/24 MR#: [id number] Acct: [id number] Name: JERMAIN RHODES Rep #: [id number] : 1960 Provider: Dr. Tristin jenkins MD Age/Sex: 63/F Location: [facility] Status: Signed with Addenda ADDENDUM by Dr. Tristin Hayden MD on 05/14/24 at 1451 Addendum Addendum (05/14/24): Carotid ultrasound (04/07/24): Mild (<50%) stenosis right extracranial internal carotid. Normal left extracranial internal carotid. The Right vertebral is patent and antegrade. The Left vertebral is patent with pre-steal morphology Ammonia (04/28/24): normal Lamotrigine level (04/28/24): 2.8 (in therapeutic range) Hemoglobin A1c (04/28/24): 7.6 (high) The patient's hemoglobin A1c will be forwarded to Dr. Augustin for his assessment. 05/14/24 1451 Date Tristin Hayden MD cc: Dr. Jocelyne Augustin MD * Signed HPI HPI Chief Complaint: Details: Interim History: Jermain returns for follow-up visit. She has a history of hypertension, hyperlipidemia, febrile seizures during infancy, renal calculi and stroke in May 2021. In May 2021, while walking, she had acute onset disorientation, dysarthria and right-sided numbness and weakness and was hospitalized. In the emergency room, she was noted to have marked hypertension with a blood pressure of 227/119. She was treated with labetalol and clonidine for hypertensive emergency. Currently, she is taking lisinopril. She also had an elevated hemoglobin and hematocrit. On evaluation, she was found to have an acute left frontal-parietal lobe cortical cerebral infarct. Laboratory studies revealed hyperlipidemia. She was started on aspirin 81 mg daily and atorvastatin. Her head MRI at that time also revealed old right basal ganglia and right frontal lobe infarcts; she is not aware of any deficits relating to strokes in these regions. She was found to have greater than 70% stenosis of the right internal carotid artery on neck CTA. Her neurological deficits from her stroke in May 2021 improved over the following days. She has continued to have some mild right upper extremity weakness and gait imbalance. In October 2021, while at a fair she had an episode of loss of consciousness. She did not have any preceding aura. She was reported to appear unresponsive then collapsed and apparently exhibited seizure-like shaking activity and had brief postictal confusion. She had an episode of vomiting. She did not have any tongue biting or urinary incontinence. She did not have any new lateralizing weakness or numbness. She was seen in the emergency room and discharged. In November 2021, while seated in the bathroom, she had an episode of loss of consciousness. She was found by her . She did not exhibit any tonic or clonic activity. When he found her, he attempted to help her to a standing position which she was able to do. She was momentarily dazed but did not exhibit any extended postictal confusion or lethargy. She did not seek medical attention. She did not have any new lateralizing numbness or weakness with the episode. She did not have any vision change. She had a transient dull occipital pressure type headache following the episode. She had a right carotid endarterectomy in December 2021. Her carotid ultrasound from March 2023 revealed mild (<50%) stenosis of the right internal carotid artery, normal left internal carotid artery, patent right vertebral artery, and patent left vertebral artery with pre-steal waveform morphology. She had multiple febrile seizures occurring before the age of 6 years. She did not have any seizures during later childhood or adulthood prior to the suspected seizure in October 2021. She quit smoking in May 2021 following her stroke. She underwent a right carotid endarterectomy on 01/21/22 (by Fawad George M.D.).??? Lamotrigine was initiated in 2021 following her seizure in October 2021 and she has had no further seizures. She is not had any symptoms suggestive of recurrent stroke since her stroke in May 2021. She has chronic low back pain. She reported having numbness in the 3 lateral toes of the right foot. She has had right upper extremity weakness and gait imbalance as residual deficits from her stroke in May 2021. She has right knee pain. She is using turmeric. She completed physical therapy. She is not performing exercises on her own. Her laboratory evaluation for hypercoagulable state was unremarkable. Flurbiprofen caused gastrointestinal upset. She no longer uses baclofen. She has mild cognitive impairment. She feels that her memory has been overall unchanged within recent months. Mini-mental status exam score was 30/30 in June 2023. She reports that she has been compliant with her anticonvulsant therapy. Her blood (more content not included)... Normal [facility] SCRN MAMM (CAD)W/PAWAN BILATo n 01-28-2024 SCRN MAMM (CAD)W/PAWAN BILAT [facility] Imaging Services [address] [place] [address] SCRN MAMM (CAD)W/PAWAN BILAT MR#: [id number] Acct: [id number] Name: JERMAIN RHODES Rep #: [id number] : 1960 F 63 From: Yrn gautam MD PCP: Dr. Jocelyne Augustin MD Status: REG [facility] Study: SCRN MAMM (CAD)W/PAWAN BILAT Date of Exam: 06/17 Exam# [id number] Ordering Dr: Jocelyne Augustin MD [id number] MAMMOGRAPHY - BILATERAL SCREENING REASON FOR EXAM: Female, 63 years old. Routine annual screening examination. PERTINENT HISTORY: Aunt with breast cancer. TECHNIQUE: Digital bilateral breast pawan (3D mammographic acquisition) in the CC and MLO projections. 2-D mediolateral oblique (MLO) and craniocaudad (CC) views of both breasts were obtained. CAD: Full Field Digital Mammography with Computer Added Detection was performed. COMPARISON: None. Baseline examination. FINDINGS: Breast Composition: There are scattered areas of fibroglandular density. There are no dominant masses or suspicious calcifications. Bilateral fat containing axillary lymph nodes. No other significant abnormalities are identified. BI/SCRN MAMM (CAD)W/PAWAN BILAT IMPRESSION: Negative screening mammogram. Yearly followup mammogram recommended. (A) ASSESSMENT CATEGORY: BIRADS Category 2: Benign. A letter regarding these results will be sent to the patient by the facility within 30 days. Approximately 10% of breast cancers are not detected by mammography. A normal mammogram should not delay biopsy of a clinically suspicious abnormality. [id number] Electronically Signed: Yrn Faustin MD at 14:25 EST Reading Location ID and State: [facility] / [place] , Service support , CC: Dr. Jocelyne Augustin MD [employer] Operator: Signed Normal [facility] 32-DC-Rwxksas DOrdered By: Pratik Augustin on 01-21-2024 Vitamin D 25-Hydroxy 71.7 ng/mL [facility] Comment on above: Vitamin D 25(OH) Sta tus Range Deficiency <20 ng/mL (50nmol/L) Insufficiency 20 - 30 ng/mL (50 - 75 nmol/L) Sufficiency 30 - 100 ng/mL (75 - 250 nmol/L) Toxicity >100 ng/mL (>250 nmol/L) Albumin to globulin ratioOrd ered By: Jocelyne Augustin on 01-21-2024 Albumin/Globulin [Mass ratio] 1.0 {ratio} 0.9-2.4 [facility] Bilirubin, totalOrdered By: Jocelyne Augustin on 01-21-2024 Bilirubin [Mass/Vol] 0.50 mg/dL 0.20-1.00 [facility] Comment on above: For patients on eltr ombopag therapy, use of Dimension [place] TBIL is not recommended. Blood urea nitrogen (BUN)/cr eatinine ratioOrdered By: Jocelyne Augustin on 01-21-2024 Urea nitrogen/Creatinine [Mass ratio] 12.9 mg/mg 10-20 [facility] Carbon dioxide measurementOr dered By: Jocelyne Augustin on 01-21-2024 CO2 [Moles/Vol] 27.0 mmol/L 21.0-32.0 [facility] Chloride measurementOrdered By: Jocelyne Augustin on 01-21-2024 Chloride [Moles/Vol] 103 mmol/L 98-107 [facility] Comprehensive Metabolic Prof ilon 01-21-2024 Albumin [Mass/Vol] 3.9 g/dL Normal 3.2-5.0 [facility] Comment on above: Performed By: #### L 500.4100, L506.1000, L500.4050, L501.5200, L501.9520 #### [facility] [address] [place], [address] Albumin/Globulin [Mass ratio] 1.0 {ratio} Normal 0.9-2.4 [facility] Comment on above: Performed By: #### L 500.4100, L506.1000, L500.4050, L501.5200, L501.9520 #### [facility] [address] [place], [address] ALK P 87 U/L Normal 45-117 [facility] Comment on above: Performed By: #### L 500.4100, L506.1000, L500.4050, L501.5200, L501.9520 #### [facility] [address] [place], [address] ALT [Catalytic activity/Vol] 45 U/L Normal 13-56 [facility] Comment on above: Performed By: #### L 500.4100, L506.1000, L500.4050, L501.5200, L501.9520 #### [facility] [address] [place], [address] AST [Catalytic activity/Vol] 30 U/L Normal 15-37 [facility] Comment on above: Performed By: #### L 500.4100, L506.1000, L500.4050, L501.5200, L501.9520 #### [facility] [address] [place], [address] Bilirubin [Mass/Vol] 0.50 mg/dL Normal 0.20-1.00 [facility] Comment on above: Result Comment: For patients on eltrombopag therapy, use of Dimension [place] TBIL is not recommended. Performed By: #### L 500.4100, L506.1000, L500.4050, L501.5200, L501.9520 #### [facility] [address] [place], [address] BUN/CRE 12.9 RATIO Normal 10-20 [facility] Comment on above: Performed By: #### L 500.4100, L506.1000, L500.4050, L501.5200, L501.9520 #### [facility] [address] [place], [address] CA,Total 9.3 mg/dL Normal 8.5-10.1 [facility] Comment on above: Performed By: #### L 500.4100, L506.1000, L500.4050, L501.5200, L501.9520 #### [facility] [address] [place], [address] Chloride [Moles/Vol] 103 mmol/L Normal 98-107 [facility] Comment on above: Performed By: #### L 500.4100, L506.1000, L500.4050, L501.5200, L501.9520 #### [facility] [address] [place], [address] CO2 [Moles/Vol] 27.0 mmol/L Normal 21.0-32.0 [facility] Comment on above: Performed By: #### L 500.4100, L506.1000, L500.4050, L501.5200, L501.9520 #### [facility] [address] [place], [address] Creatinine [Mass/Vol] 1.24 mg/dL High 0.55-1.02 [facility] Comment on above: Result Comment: The validity of the calculated GFR GFRAA in patients over 70 years has not been determined. Clinical correlation is essential. Performed By: #### L 500.4100, L506.1000, L500.4050, L501.5200, L501.9520 #### [facility] [address] [place], [address] EST GFR - AA 56 mL/min Low >60 [facility] Comment on above: Result Comment: Afri can Cambodian GFR Calc Performed By: #### L 500.4100, L506.1000, L500.4050, L501.5200, L501.9520 #### [facility] [address] [place], [address] GAP 8 Normal 5-15 [facility] Comment on above: Performed By: #### L 500.4100, L506.1000, L500.4050, L501.5200, L501.9520 #### [facility] [address] [place], [address] GFR/1.73 sq M.predicted among non-blacks MDRD (S/P/Bld) [Vol rate/Area] 47 mL/min/{1.73_m2} Low >60 [facility] Comment on above: Result Comment: Non- GFR Calc Performed By: #### L 500.4100, L506.1000, L500.4050, L501.5200, L501.9520 #### [facility] [address] [place], [address] Globulin (S) [Mass/Vol] 3.8 g/dL Normal 2.2-4.2 [facility] Comment on above: Performed By: #### L 500.4100, L506.1000, L500.4050, L501.5200, L501.9520 #### [facility] [address] [place], [address] Glucose [Mass/Vol] 154 mg/dL High 74-106 [facility] Comment on above: Result Comment: Fast ing Glucose result greater than or equal to 126 mg/dL suggests DIABETES MELLITUS per A.D.A. criteria. Performed By: #### L 500.4100, L506.1000, L500.4050, L501.5200, L501.9520 #### [facility] [address] [place], [address] Potassium [Moles/Vol] 4.1 mmol/L Normal 3.5-5.1 [facility] Comment on above: Performed By: #### L 500.4100, L506.1000, L500.4050, L501.5200, L501.9520 #### [facility] [address] [place], [address] Sodium [Moles/Vol] 137 mmol/L Normal 136-145 [facility] Comment on above: Performed By: #### L 500.4100, L506.1000, L500.4050, L501.5200, L501.9520 #### [facility] [address] [place], [address] T PROT 7.7 g/dL Normal 6.4-8.2 [facility] Comment on above: Performed By: #### L 500.4100, L506.1000, L500.4050, L501.5200, L501.9520 #### [facility] [address] [place], [address] Urea nitrogen [Mass/Vol] 16 mg/dL Normal 7-18 [facility] Comment on above: Performed By: #### L 500.4100, L506.1000, L500.4050, L501.5200, L501.9520 #### [facility] [address] [place], [address] Estimated glomerular filtrat ion rate (GFR) AmericanOrdered By: Jocelyne Augustin on 01-21-2024 Estimated GFR (MDRD) Amer 56 mL/min Low >60 [facility] Comment on above: GFR Calc Glomerular filtration rate ( GFR) estimationOrdered By: Jocelyne Augustin on 01-21-2024 Estimated GFR (MDRD) Non-Af Amer 47 mL/min Low >60 [facility] Comment on above: Non- GFR Calc Glucose measurementOrdered B y: Jocelyne Augustin on 01-21-2024 Glucose [Mass/Vol] 154 mg/dL High 74-106 [facility] Comment on above: Fasting Glucose resu lt greater than or equal to 126 mg/dL suggests DIABETES MELLITUS per A.D.A. criteria. High density lipoprotein (HD L) measurementOrdered By: Jocelyne Augustin on 01-21-2024 Cholesterol in HDL [Mass/Vol] 48 mg/dL >40 [facility] Comment on above: The drugs N-Acetylcy steine and Metamizole may falsely depress this assay. Reference Range HDL <40 mg/dL Low HDL Cholesterol HDL >or= 60 mg/dL High HDL Cholesterol Laboratory - Chemistry and C hemistry - challengeOrdered By: Jocelyne Augustin on 01-21-2024 AST [Catalytic activity/Vol] 30 U/L 15-37 [facility] Lipid Profileon 01-21-2024 Cholesterol [Mass/Vol] 145 mg/dL Normal 200 [facility] Comment on above: Result Comment: <200 mg/dL Desirable 200-240 mg/dL Borderline >240 mg/dL High Risk Performed By: #### L 501.9985, L500.4050, L503.5510, L3300.4400 #### [facility] [address] [place], [address] Cholesterol in HDL [Mass/Vol] 48 mg/dL Normal [facility] Comment on above: Result Comment: The drugs N-Acetylcysteine and Metamizole may falsely depress this assay. Reference Range HDL <40 mg/dL Low HDL Cholesterol HDL >or= 60 mg/dL High HDL Cholesterol Performed By: #### L 501.9985, L500.4050, L503.5510, L3300.4400 #### [facility] [address] [place], [address] Cholesterol in LDL [Mass/Vol] 68 mg/dL Normal 0-130 [facility] Comment on above: Performed By: #### L 501.9985, L500.4050, L503.5510, L3300.4400 #### [facility] [address] [place], [address] Cholesterol in VLDL [Mass/Vol] 29 mg/dL Normal 5-40 [facility] Comment on above: Performed By: #### L 501.9985, L500.4050, L503.5510, L3300.4400 #### [facility] [address] [place], [address] Triglyceride [Mass/Vol] 146 mg/dL Normal [facility] Comment on above: Result Comment: The drugs N-Acetylcysteine and Metamizole may falsely depress this assay. Serum Triglycerides Reference Interval Normal <150 mg/dL Borderline high 150 - 199 mg/dL High 200 - 499 mg/dL Very High > or = 500 mg/dL Performed By: #### L 501.9985, L500.4050, L503.5510, L3300.4400 #### [facility] [address] [place], [place], [address] Low density lipoprotein (LDL ) cholesterol measurementOrdered By: Jocelyne Augustin on 01-21-2024 Cholesterol in LDL [Mass/Vol] 68 mg/dL 0-130 [facility] Magnesiumon 01-21-2024 Magnesium [Mass/Vol] 1.8 mg/dL Normal 1.6-2.6 [facility] Comment on above: Performed By: #### L 501.9985, L500.4050, L503.5510, L3577.5761 #### [facility] [address] [place], [place], [address] Magnesium measurementOrdered By: Jocelyne Augustin on 01-21-2024 Magnesium [Mass/Vol] 1.8 mg/dL 1.6-2.6 [facility] Potassium measurementOrdered By: Jocelyne Augustin on 01-21-2024 Potassium [Moles/Vol] 4.1 mmol/L 3.5-5.1 [facility] Serum anion gap measurementO rdered By: Jocelyne Augustin on 01-21-2024 Anion gap [Moles/Vol] 8 mmol/L 5-15 [facility] Serum globulin measurementOr dered By: Jocelyne Augustin on 01-21-2024 Globulin (S) [Mass/Vol] 3.8 g/dL 2.2-4.2 [facility] Serum or plasma alanine gilbert otransferase (ALT) measurementOrdered By: Jocelyne Augustin on 01-21-2024 ALT [Catalytic activity/Vol] 45 U/L 13-56 [facility] Serum or plasma albumin laureen urement (mass/volume)Ordered By: Jocelyne Augustin on 01-21-2024 Albumin [Mass/Vol] 3.9 g/dL 3.2-5.0 [facility] Serum or plasma alkaline oxana sphatase measurementOrdered By: Jocelyne Augustin on 01-21-2024 ALP [Catalytic activity/Vol] 87 U/L 45-117 [facility] Serum or plasma calcium laureen urement (mass/volume)Ordered By: Jocelyne Augustin on 01-21-2024 Calcium [Mass/Vol] 9.3 mg/dL 8.5-10.1 [facility] Serum or plasma cholesterol measurement (mass/volume)Ordered By: Jocelyne Augustin on 01-21-2024 Cholesterol [Mass/Vol] 145 mg/dL <200 [facility] Comment on above: <200 mg/dL Desirable 200-240 mg/dL Borderline >240 mg/dL High Risk Serum or plasma creatinine m easurement (mass/volume)Ordered By: Jocelyne Augustin on 01-21-2024 Creatinine [Mass/Vol] 1.24 mg/dL High 0.55-1.02 [facility] Comment on above: The validity of the calculated GFR & GFRAA in patients over 70 years has not been determined. Clinical correlation is essential. Serum or plasma urea nitroge n measurement (mass/volume)Ordered By: Jocelyne Augustin on 01-21-2024 Urea nitrogen [Mass/Vol] 16 mg/dL 7-18 [facility] Sodium levelOrdered By: Melissa Augustin on 01-21-2024 Sodium [Moles/Vol] 137 mmol/L 136-145 [facility] TSH QnOrdered By: Jocelyne Houser hner on 01-21-2024 Thyroid Stimulating Hormone (TSH) 2.200 uIU/mL 0.358-3.740 [facility] Thyroid Stim Hormone (TSH)on 01-21-2024 TSH 2.200 uIU/mL Normal 0.358-3.740 [facility] Comment on above: Performed By: #### L 501.9985, L500.4050, L503.5510, L3300.4400 #### [facility] [address] [place], [address] Total proteinOrdered By: Isabelle Augustin on 01-21-2024 Protein [Mass/Vol] 7.7 g/dL 6.4-8.2 [facility] Triglycerides measurementOrd ered By: Jocelyne Augustin on 01-21-2024 Triglyceride [Mass/Vol] 146 mg/dL <199 [facility] Comment on above: The drugs N-Acetylcy steine and Metamizole may falsely depress this assay.Serum Triglycerides Reference Interval Normal <150 mg/dL Borderline high 150 - 199 mg/dL High 200 - 499 mg/dL Very High > or = 500 mg/dL Very low density lipoprotein (VLDL) cholesterol measurementOrdered By: Jocelyne Augustin on 01-21-2024 VLDL Cholesterol 29 mg/dL 5-40 [facility] Vitamin D,25 Hydroxyon 01-20 Vitamin D 25-OH 71.7 ng/mL Normal [facility] Comment on above: Result Comment: Jyotsna min D 25(OH) Status Range Deficiency <20 ng/mL (50nmol/L) Insufficiency 20 - 30 ng/mL (50 - 75 nmol/L) Sufficiency 30 - 100 ng/mL (75 - 250 nmol/L) Toxicity >100 ng/mL (>250 nmol/L) Performed By: #### L 500.4100, L506.1000, L500.4050, L501.5200, L501.9520 #### [facility] [address] [place], [address] /[facility]AleksandarLouis 01-15-2024 /[facility] [address] [place] [address] OFFICE VISIT Date of Service: 01/15/24 MR#: [id number] Acct: [id number] Name: JERMAIN RHODES Rep #: [id number] : 1960 Provider: Dr. Jocelyne gasca MD Age/Sex: 63/F Location: [facility] Status: Signed Intake Vital Signs 07/17/23 11:02 01/08/24 10:02 01/15/24 13:02 Height 5 ft 2 in 5 ft 2 in 5 ft 2 in Weight: 284 lb 6 oz BMI 52.0 BP 138/90 H 115/76 Blood Pressure Location Lt brachial Lt brachial Position Sitting Sitting Respiration 17 16 Pulse 110 H 118 H Pulse Source Monitor Monitor Temp 98.2 F 98.2 F Temp Source Temporal Temporal Pulse Oximetry (%) 96 94 Oxygen Delivery Method room air room air Intake Visit Reasons: Annual/Physical Chief Complaint: annual/physical Stations Superintendent Required: No Accompanied by: Self Is patient in pain?: No Allergies No Known Allergies Allergy (Verified 01/15/24 12:55) Medications ???Medication ???Instructions ???Recorded ???Confirmed ???Type coenzyme [id number] 100 mg-100 1 cap PO DAILY LEG CRAMPS 12/24/21 01/15/24 History unit capsule aspirin 81 mg tablet,delayed 81 mg PO DAILY SUPPLEMENT 02/11/22 01/15/24 History release tumeric PO 11/20/22 01/15/24 History Disability placard #1 ea 07/17/23 01/15/24 Rx lamotrigine 25 mg tablet 50 mg (2 x 25 mg) PO BID #120 tabs 07/17/23 01/15/24 Rx cholecalciferol (vitamin D3) 1,250 1,250 mcg PO QWEEK #4 caps 08/24/23 01/15/24 Rx mcg (50,000 unit) capsule atorvastatin 40 mg tablet 40 mg PO QHS CHOLESTEROL #90 tabs 01/08/24 01/15/24 Rx lisinopril 20 mg tablet 20 mg PO DAILY HTN #90 tabs 01/08/24 01/15/24 Rx sertraline 25 mg tablet (Zoloft) 12.5 mg (1/2 x 25 mg) PO DAILY 01/08/24 01/15/24 Rx DEPRESSION #90 tabs ninole collagen 1,000 mg PO DAILY 01/15/24 History PFSH Medical History Wears glasses Depression Hemiparesis Use of cane as ambulatory aid Urgency of urination Heartburn Former smoker H/O echocardiogram Seizures Stroke/cerebrovascular accident Stenosis of right internal carotid artery Kidney stones Kidney failure Sepsis secondary to UTI History of CVA (cerebrovascular accident) Lumbar disc disease with radiculopathy Hyperlipidemia Hypertension Surgical History History of urethral stent History of lithotripsy Hx of tonsillectomy Family History Mother Hypertension Thyroid disorder Kidney disease Son Hypertension Sister Thyroid disorder Father CVA (cerebral vascular accident) Prostate cancer Skin cancer Other Rheumatoid arthritis Uterine cancer Social History household members: spouse Smoking Status: Former smoker Tobacco: How many years used: 45 alcohol intake: current alcohol intake frequency: holidays/special occasions only Alcohol type: wine substance use type: does not use what type of physical activity do you participate in: none darryl/jewish: Restorationism seatbelt use: always HPI HPI Chief Complaint: annual/physical Details: JERMAIN RHODES, is a 63 F who presents to the office today for yearly follow-up. 63-year-old female, who has a history of CVA, 2021. Small focus of acute ischemia involving the left frontoparietal junction. 2. Chronic ischemic changes on the right. History of seizures, on Lamictal. She has been stable on her current regimen. She is on atorvastatin 40 mg nightly, aspirin 81 mg daily, Zoloft, lisinopril for blood pressure control which has been doing well. She overall seems to be doing reasonably well although has actually gained considerable weight since the CVA. She started gaining weight she states when she went through menopause, and that also around that time she quit smoking which likely contributed as well. She does not do any significant walking or any regular regimented physical activity which makes that difficult as well. Review of systems per chart. Denies episodes of chest pain, chest tightness, shortness of breath wheeze cough or congestion. No fever or chills. No nausea or vomiting. Appetite has been stable. Eating 2 meals a day. States has been getting some vegetables and fruits, and self-admittedly probably too much cheese. Some meats. We discussed dietary nutritional patterns in significant detail and have done so at previous visits. Physical exam. Vital signs on chart. Patient seated in wheelchair. Wears corrective lenses. PERRLA. Sclera are clear. TMs are unremarkable with normal light reflexes. Canals are unremarkable. Posterior pharynx is unremarkable. No cervical or supraclavicular lymph nodes enlarged or tender. No clear (more content not included)... Normal [facility] Basophil percentageOrdered B y: Tristin Hayden on 02-13-2023 Ammonia (P) [Moles/Vol] 30.0 umol/L [facility] Serum or plasma lamotrigine measurement (mass/volume)Ordered By: Tristin Hayden on 02-13-2023 lamoTRIgine [Mass/Vol] 1.7 ug/mL 2.0-20.0 [facility] Comment on above: Detection Limit = 1. 0Performed at: [facility] [id number] [place], [place] [id number] Director: Alba Nino MD, Phone: [phone] Basophil percentageOrdered B y: Jocelyne Augustin on 01-28-2023 Basophil percentage 50-100 SEEN /hpf 0-5 [facility] Bilirubin Test strip Ql (U)O rdered By: Jocelyne Augustin on 01-28-2023 Bilirubin Ql (U) Negative Negative [facility] Culture, urineOrdered By: Kaelyn Augustin on 01-28-2023 Bacteria identified Cx Nom (U) Presumptive E. coli [facility] Ketones Test strip Ql (U)Ord ered By: Jocelyne Augustin on 01-28-2023 Ketones Ql (U) Negative Negative [facility] Mucus LM Ql (Urine sed)Order ed By: Jocelyne Augustin on 01-28-2023 Mucus Ql (Urine sed) 0 SEEN /hpf [facility] Nitrite Test strip Ql (U)Ord ered By: Jocelyne Augustin on 01-28-2023 Nitrite Ql (U) Positive Negative [facility] Protein Test strip Ql (U)Ord ered By: Jocelyne Augustin on 01-28-2023 Protein Ql (U) 100 mg/dl Negative [facility] Squamous epithelial cells de tection in urine sediment by light microscopyOrdered By: Jocelyne Augustin on 01-28-2023 Epithelial cells.squamous LM Ql (Urine sed) 0-5 SEEN /hpf 5-10 [facility] Urine blood detectionOrdered By: Jocelyne Augustin on 01-28-2023 RBC Ql (U) 150 /ul Negative [facility] RBC Ql (U) 0-5 SEEN /hpf 0-5 [facility] Urine clarityOrdered By: Isabelle Augustin on 01-28-2023 Clarity (U) Cloudy Clear [facility] Urine color determinationOrd ered By: Jocelyne Augustin on 01-28-2023 Color (U) Yellow Yellow [facility] Urine glucose detectionOrder ed By: Jocelyne Augustin on 01-28-2023 Glucose Ql (U) Normal mg/dl Normal [facility] Urine leukocyte esterase det ection by dipstickOrdered By: Jocelyne Augustin on 01-28-2023 Leukocyte esterase Test strip Ql (U) 500 /ul Negative [facility] Urine pHOrdered By: Jocelyne lemus on 01-28-2023 pH (U) 6.0 [pH] 5.0 - 8.0 [facility] Urine sediment bacteria coun t by microscopy (number/high power field)Ordered By: Jocelyne Augustin on 01-28-2023 Bacteria LM.HPF (Urine sed) [#/Area] 1 /[HPF] None Seen [facility] Urine specific gravity measu rementOrdered By: Jocelyne Augustin on 01-28-2023 Specific gravity (U) [Rel density] 1.015 1.002-1.030 [facility] Urobilinogen Auto test strip Ql (U)Ordered By: Jocelyne Augustin on 01-28-2023 Urobilinogen Ql (U) Normal mg/dl Normal [facility] Absolute lymphocyte countOrd ered By: Jocelyne Augustin on 11-20-2022 Lymphocytes Auto (Unsp spec) [#/Vol] 1.84 10*3/uL 0.83-4.51 [facility] Basophil percentageOrdered B y: Jocelyne Augustin on 11-20-2022 Basophils/100 WBC (Bld) 1.0 % 0-1 [facility] Bilirubin [Mass/Vol] 0.40 mg/dL 0.20-1.00 [facility] Comment on above: For patients on eltr ombopag therapy, use of Dimension [place] TBIL is not recommended. Chloride [Moles/Vol] 104 mmol/L 98-107 [facility] Cholesterol [Mass/Vol] 151 mg/dL <200 [facility] Comment on above: <200 mg/dL Desirable 200-240 mg/dL Borderline >240 mg/dL High Risk Eosinophils/100 WBC (Bld) 6.8 % 0-5 [facility] Glucose [Mass/Vol] 106 mg/dL 74-106 [facility] Comment on above: Fasting Glucose resu lt from 100 to 125 mg/dL suggests IMPAIRED HOMEOSTASIS per A.D.A. criteria. Neutrophils (Bld) [#/Vol] 6.5 10*3/uL 2.0-7.7 [facility] Neutrophils/100 WBC (Bld) 63.8 % 47-70 [facility] Potassium [Moles/Vol] 4.3 mmol/L 3.5-5.1 [facility] Protein [Mass/Vol] 7.8 g/dL 6.4-8.2 [facility] Sodium [Moles/Vol] 134 mmol/L 136-145 [facility] Triglyceride [Mass/Vol] 160 mg/dL <199 [facility] Comment on above: The drugs N-Acetylcy steine and Metamizole may falsely depress this assay.Serum Triglycerides Reference Interval Normal <150 mg/dL Borderline high 150 - 199 mg/dL High 200 - 499 mg/dL Very High > or = 500 mg/dL WBC (Bld) [#/Vol] 10.1 10*3/uL 4.4-11.0 [facility] Blood erythrocytes count (nu mber/volume)Ordered By: Jocelyne Augustin on 11-20-2022 RBC (Bld) [#/Vol] 4.91 10*6/uL 4.2-5.4 [facility] Blood hemoglobin measurement (mass/volume)Ordered By: Jocelyne Augustin on 11-20-2022 Hemoglobin (Bld) [Mass/Vol] 14.5 g/dL 12.0-15.0 [facility] Blood lymphocytes/100 leukoc ytesOrdered By: Jocelyne Augustin on 11-20-2022 Lymphocytes/100 WBC (Bld) 18.2 % 19-41 [facility] Blood monocytes/100 leukocyt esOrdered By: Jocelyne Augustin on 11-20-2022 Monocytes/100 WBC (Bld) 9.3 % 0-10 [facility] Blood platelet mean volumeOr dered By: Jocelyne Augustin on 11-20-2022 Platelet mean volume (Bld) [Entitic vol] 9.4 fL 6.2-12.0 [facility] Determination of erythrocyte mean corpuscular volume (MCV)Ordered By: Jocelyne Augustin on 11-20-2022 MCV (RBC) [Entitic vol] 91.4 fL 81-99 [facility] Hematocrit Auto (Bld) [Volum e fraction]Ordered By: Jocelyne Augustin on 11-20-2022 Hematocrit (Bld) [Volume fraction] 44.9 % 37-47 [facility] Laboratory - Chemistry and C hemistry - challengeOrdered By: Jocelyne Augustin on 11-20-2022 ALP [Catalytic activity/Vol] 85 U/L 45-117 [facility] ALT [Catalytic activity/Vol] 36 U/L 13-56 [facility] CO2 [Moles/Vol] 25.0 mmol/L 21.0-32.0 [facility] Globulin (S) [Mass/Vol] 4.0 g/dL 2.2-4.2 [facility] Magnesium [Mass/Vol] 2.4 mg/dL 1.6-2.6 [facility] Urea nitrogen/Creatinine [Mass ratio] 15.2 mg/mg 10-20 [facility] Laboratory - Hematology and Cell countsOrdered By: Jocelyne Augustin on 11-20-2022 Erythrocyte distribution width (RBC) [Entitic vol] 42.6 fL 35.1-43.9 [facility] Erythrocyte distribution width (RBC) [Ratio] 12.7 % 11.6-14.6 [facility] Immature granulocytes/100 WBC (Bld) 0.900 % 0.0-0.9 [facility] Comment on above: IG% - Immature Granu locytes (promyelocytes, myelocytes and metamyelocytes) > 1% indicates that a LEFT SHIFT is Present. MCH (RBC) [Entitic mass] 29.5 pg 27.0-32.0 [facility] Nucleated RBC/100 WBC (Bld) [Ratio] 0 % 0-5 [facility] MCHC Auto (RBC) [Mass/Vol]Or dered By: Jocelyne Augustin on 11-20-2022 MCHC (RBC) [Mass/Vol] 32.3 g/dL 32-36 [facility] No Panel InformationOrdered By: Jocelyne Augustin on 11-20-2022 Estimated GFR (MDRD) Amer 56 mL/min >60 [facility] Comment on above: GFR Calc Estimated GFR (MDRD) Non-Af Amer 46 mL/min >60 [facility] Comment on above: Non- GFR Calc Thyroid Stimulating Hormone (TSH) 2.96 uIU/mL 0.358-3.74 [facility] Vitamin D 25-Hydroxy 22.1 ng/mL [facility] Comment on above: Vitamin D 25(OH) Sta tus Range Deficiency <20 ng/mL (50nmol/L) Insufficiency 20 - 30 ng/mL (50 - 75 nmol/L) Sufficiency 30 - 100 ng/mL (75 - 250 nmol/L) Toxicity >100 ng/mL (>250 nmol/L) Platelets bldOrdered By: Isabelle Augustin on 11-20-2022 Platelets (Bld) [#/Vol] 387 10*3/uL 150-450 [facility] Serum or plasma albumin laureen urement (mass/volume)Ordered By: Jocelyne Augustin on 11-20-2022 Albumin [Mass/Vol] 3.8 g/dL 3.2-5.0 [facility] Serum or plasma albumin/glob ulin mass ratioOrdered By: Jocelyne Augustin on 11-20-2022 Albumin/Globulin [Mass ratio] 1.0 {ratio} 0.9-2.4 [facility] Serum or plasma calcium laureen urement (mass/volume)Ordered By: Jocelyne Augustin on 11-20-2022 Calcium [Mass/Vol] 8.6 mg/dL 8.5-10.1 [facility] Serum or plasma cholesterol in HDL measurement (mass/volume)Ordered By: Jocelyne Augustin on 11-20-2022 Cholesterol in HDL [Mass/Vol] 47 mg/dL >40 [facility] Comment on above: The drugs N-Acetylcy steine and Metamizole may falsely depress this assay. Reference Range HDL <40 mg/dL Low HDL Cholesterol HDL >or= 60 mg/dL High HDL Cholesterol Serum or plasma cholesterol in VLDL measurement (mass/volume)Ordered By: Jocelyne Augustin on 11-20-2022 Cholesterol in VLDL [Mass/Vol] 32 mg/dL 5-40 [facility] Serum or plasma creatinine m easurement (mass/volume)Ordered By: Jocelyne Augustin on 11-20-2022 Creatinine [Mass/Vol] 1.25 mg/dL 0.55-1.02 [facility] Comment on above: The validity of the calculated GFR & GFRAA in patients over 70 years has not been determined. Clinical correlation is essential. Serum or plasma lamotrigine measurement (mass/volume)Ordered By: Tristin Hayden on 11-20-2022 lamoTRIgine [Mass/Vol] 1.3 ug/mL 2.0-20.0 [facility] Comment on above: Detection Limit = 1. 0Performed at: [facility] [id number] Director: Alba Nino MD, Phone: [phone] Serum or plasma low density lipoprotein (LDL) cholesterol measurement (mass/volume)Ordered By: Jocelyne Augustin on 11-20-2022 Cholesterol in LDL [Mass/Vol] 72 mg/dL 0-130 [facility] Serum or plasma urea nitroge n measurement (mass/volume)Ordered By: Jocelyne Augustin on 11-20-2022 Urea nitrogen [Mass/Vol] 19 mg/dL 7-18 [facility] Thin prep Papanicolaou smear with manual screeningOrdered By: Jocelyne Augustin on 11-20-2022 Thin prep Papanicolaou smear with manual screening 21 U/L 15-37 [facility] Thin prep Papanicolaou smear with manual screening 5 5-15 [facility] Absolute lymphocyte countOrd ered By: Kasandra Bah on 03-07-2022 Lymphocytes Auto (Unsp spec) [#/Vol] 2.00 10*3/uL 0.83-4.51 [facility] Basophil percentageOrdered B y: Kasandra Bah on 03-07-2022 Basophils/100 WBC (Bld) 1.3 % 0-1 [facility] Eosinophils/100 WBC (Bld) 5.5 % 0-5 [facility] Neutrophils (Bld) [#/Vol] 5.3 10*3/uL 2.0-7.7 [facility] Neutrophils/100 WBC (Bld) 59.3 % 47-70 [facility] WBC (Bld) [#/Vol] 9.0 10*3/uL 4.4-11.0 [facility] Blood erythrocytes count (nu mber/volume)Ordered By: Kasandra Bah on 03-07-2022 RBC (Bld) [#/Vol] 4.64 10*6/uL 4.2-5.4 [facility] Blood hemoglobin measurement (mass/volume)Ordered By: [place] Olvin on 03-07-2022 Hemoglobin (Bld) [Mass/Vol] 14.2 g/dL 12.0-15.0 [facility] Blood lymphocytes/100 leukoc ytesOrdered By: [facility] 03-07-[facility]22 Lymphocytes/100 WBC (Bld) 22.3 % 19-41 [facility] Blood monocytes/100 leukocyt esOrdered By: [facility] on 03-07-2022 Monocytes/100 WBC (Bld) 10.8 % 0-10 [facility] Blood platelet mean volumeOr dered By: Kasandra [facility] on 03-07-2022 Platelet mean volume (Bld) [Entitic vol] 9.1 fL 6.2-12.0 [facility] Determination of erythrocyte mean corpuscular volume (MCV)Ordered By: [facility] on 03-07-2022 MCV (RBC) [Entitic vol] 91.6 fL 81-99 [facility] Hematocrit Auto (Bld) [Volum e fraction]Ordered By: [facility] on 03-07-2022 Hematocrit (Bld) [Volume fraction] 42.5 % 37-47 [facility] Laboratory - Hematology and Cell countsOrdered By: [facility] on 03-07-2022 Erythrocyte distribution width (RBC) [Entitic vol] 44.1 fL 35.1-43.9 [facility] Erythrocyte distribution width (RBC) [Ratio] 13.2 % 11.6-14.6 [facility] Immature granulocytes/100 WBC (Bld) 0.800 % 0.0-0.9 [facility] Comment on above: IG% - Immature Granu locytes (promyelocytes, myelocytes and metamyelocytes) > 1% indicates that a LEFT SHIFT is Present. MCH (RBC) [Entitic mass] 30.6 pg 27.0-32.0 [facility] Nucleated RBC/100 WBC (Bld) [Ratio] 0 % 0-5 [facility] MCHC Auto (RBC) [Mass/Vol]Or dered By: Kasandra Bah on 03-07-2022 MCHC (RBC) [Mass/Vol] 33.4 g/dL 32-36 [facility] Platelets bldOrdered By: Chandana Bah on 03-07-2022 Platelets (Bld) [#/Vol] 478 10*3/uL 150-450 [facility] Absolute lymphocyte countOrd ered By: Dr. George on 02-21-2022 Lymphocytes Auto (Unsp spec) [#/Vol] 1.48 10*3/uL 0.83-4.51 [facility] Basophil percentageOrdered B y: Dr. George on 02-21-2022 Basophil percentage 3.3 mg/dL 2.5-4.9 [facility] Basophils/100 WBC (Bld) 0.6 % 0-1 [facility] Chloride [Moles/Vol] 107 mmol/L 98-107 [facility] Eosinophils/100 WBC (Bld) 2.0 % 0-5 [facility] Glucose [Mass/Vol] 140 mg/dL 74-106 [facility] Comment on above: Fasting Glucose resu lt greater than or equal to 126 mg/dL suggests DIABETES MELLITUS per A.D.A. criteria. Neutrophils (Bld) [#/Vol] 9.0 10*3/uL 2.0-7.7 [facility] Neutrophils/100 WBC (Bld) 72.4 % 47-70 [facility] Potassium [Moles/Vol] 3.9 mmol/L 3.5-5.1 [facility] Sodium [Moles/Vol] 137 mmol/L 136-145 [facility] WBC (Bld) [#/Vol] 12.4 10*3/uL 4.4-11.0 [facility] Blood erythrocytes count (nu mber/volume)Ordered By: Dr. George on 02-21-2022 RBC (Bld) [#/Vol] 4.13 10*6/uL 4.2-5.4 [facility] Blood hemoglobin measurement (mass/volume)Ordered By: Dr. George on 02-21-2022 Hemoglobin (Bld) [Mass/Vol] 12.7 g/dL 12.0-15.0 [facility] Blood lymphocytes/100 leukoc ytesOrdered By: Dr. George on 02-21-2022 Lymphocytes/100 WBC (Bld) 11.9 % 19-41 [facility] Blood monocytes/100 leukocyt esOrdered By: Dr. George on 02-21-2022 Monocytes/100 WBC (Bld) 12.8 % 0-10 [facility] Blood platelet mean volumeOr dered By: Dr. George on 02-21-2022 Platelet mean volume (Bld) [Entitic vol] 9.1 fL 6.2-12.0 [facility] Determination of erythrocyte mean corpuscular volume (MCV)Ordered By: Dr. George on 02-21-2022 MCV (RBC) [Entitic vol] 92.0 fL 81-99 [facility] Hematocrit Auto (Bld) [Volum e fraction]Ordered By: Dr. George on 02-21-2022 Hematocrit (Bld) [Volume fraction] 38.0 % 37-47 [facility] Laboratory - Chemistry and C hemistry - challengeOrdered By: Dr. George on 02-21-2022 CO2 [Moles/Vol] 25.0 mmol/L 21.0-32.0 [facility] Magnesium [Mass/Vol] 1.7 mg/dL 1.6-2.6 [facility] Urea nitrogen/Creatinine [Mass ratio] 12.5 mg/mg 10-20 [facility] Laboratory - Hematology and Cell countsOrdered By: Dr. George on 02-21-2022 Erythrocyte distribution width (RBC) [Entitic vol] 44.9 fL 35.1-43.9 [facility] Erythrocyte distribution width (RBC) [Ratio] 13.2 % 11.6-14.6 [facility] Immature granulocytes/100 WBC (Bld) 0.300 % 0.0-0.9 [facility] Comment on above: IG% - Immature Granu locytes (promyelocytes, myelocytes and metamyelocytes) > 1% indicates that a LEFT SHIFT is Present. MCH (RBC) [Entitic mass] 30.8 pg 27.0-32.0 [facility] Nucleated RBC/100 WBC (Bld) [Ratio] 0 % 0-5 [facility] MCHC Auto (RBC) [Mass/Vol]Or dered By: Dr. George on 02-21-2022 MCHC (RBC) [Mass/Vol] 33.4 g/dL 32-36 [facility] No Panel InformationOrdered By: Dr. George on 02-21-2022 Estimated Creatinine Clearance Calc 46.07 ml/min [facility] Estimated GFR (MDRD) Amer 70 mL/min >60 [facility] Comment on above: GFR Calc Estimated GFR (MDRD) Non-Af Amer 58 mL/min >60 [facility] Comment on above: Non- GFR Calc Platelets bldOrdered By: Dr. George on 02-21-2022 Platelets (Bld) [#/Vol] 319 10*3/uL 150-450 [facility] Review by pathologistOrdered By: Dr. George on 02-21-2022 Pathologist review Miguel (Unsp spec) [Interp] Reviewed [facility] Comment on above: Previous reported re sult: Lauren neal Edited by: RGOAMI on 02/21/22:1235Neutrophilic leukocytosis.Clinical correlation necessary.Gamaliel Tomas M.D. 02/21/22 AMENDED REPORT 02/21/22 1235 PATH REV previously reported as: Lauren neal Serum or plasma calcium laureen urement (mass/volume)Ordered By: Dr. George on 02-21-2022 Calcium [Mass/Vol] 7.8 mg/dL 8.5-10.1 [facility] Serum or plasma creatinine m easurement (mass/volume)Ordered By: Dr. George on 02-21-2022 Creatinine [Mass/Vol] 1.04 mg/dL 0.55-1.02 [facility] Comment on above: The validity of the calculated GFR & GFRAA in patients over 70 years has not been determined. Clinical correlation is essential. Serum or plasma urea nitroge n measurement (mass/volume)Ordered By: Dr. George on 02-21-2022 Urea nitrogen [Mass/Vol] 13 mg/dL 7-18 [facility] Thin prep Papanicolaou smear with manual screeningOrdered By: Dr. George on 02-21-2022 Thin prep Papanicolaou smear with manual screening 5 5-15 [facility] No Panel InformationOrdered By: Dr. George on 02-20-2022 Activated Clotting Time 269 sec 74-137 [facility] Laboratory - CoagulationOrde red By: Dr. France on 02-12-2022 aPTT Coag (Bld) [Time] 27.9 s 24.1-36.2 [facility] Serum or plasma lamotrigine measurement (mass/volume)Ordered By: Dr. France on 02-12-2022 lamoTRIgine [Mass/Vol] 2.5 ug/mL 2.0-20.0 [facility] Comment on above: Detection Limit = 1. 0Performed at: [facility] [id number] Director: Alba Nino MD, Phone: [phone] Basophil percentageOrdered B y: Dr. Hayden on 01-14-2022 Ammonia (P) [Moles/Vol] 23.0 umol/L [facility] Basophil percentage Not Reportable [facility] Blood or tissue coagulation factor II targeted mutation analysis by molecular geneticOrdered By: Dr. Hayden on 01-14-2022 F2 gene targeted mutation analysis [employer] Nom (Bld/Tiss) Comment . [facility] Comment on above: Result: c.*97G>A - N ot DetectedThis result is not associated with an increased risk for venousthromboembolism. See Additional Clinical Information andComments.Additional Clinical Information:Venous thromboembolism is a multifactorial disease influenced bygenetic, environmental, and circumstantial risk factors. The c.*97G>Avariant in the F2 gene is a genetic risk factor for venousthromboembolism. Heterozygous carriers have a 2- to 4-fold increasedrisk for venous thromboembolism. Homozygotes for the c.*97G>A variantare rare. The annual risk of VTE in homozygotes has been reported oswald 1.1%/year. Individuals who carry both a c.*97G>A variant in theF2 gene and a c.1601G>A (p. [id number]) variant in the F5 gene(commonly referred to as Factor V Leiden) have an approximately 20-fold increased risk for venous thromboembolism. Risks are likely oswald even higher in more complex genotype combinations involving theF2 c.*97G>A variant and Factor V Leiden (PMID: [id number]). Additionalrisk factors include but are not limited to: deficiency of protein C,protein S, or antithrombin III, age, male sex, personal or familyhistory of deep vein thromboembolism, smoking, surgery, prolongedimmobilization, malignant neoplasm, tamoxifen treatment, raloxifenetreatment, oral contraceptive use, hormone replacement therapy, andpregnancy. Management of thrombotic risk and thrombotic events shouldfollow established guidelines and fit the clinical circumstance. Thisresult cannot predict the occurrence or recurrence of a thromboticevent.Comments:Genetic counseling is recommended to discuss the potential clinicalimplications of positive results, as well as recommendations fortesting family members.Genetic Coordinators are available for health care providers to discussresults at [phone] [phone]Test Details:Variant analyzed: c.*97G>A, previously referred to as [id number]/Limitations:DNA analysis of the F2 gene (NM_000506.5) was performed by PCRamplification followed by restriction enzyme analysis. The diagnosticsensitivity is >99%. Results must be combined with clinicalinformation for the most accurate interpretation. Molecular-basedtesting is highly accurate, but as in any laboratory test, diagnosticerrors may occur. False positive or false negative results may occurfor reasons that include genetic variants, blood transfusions, bonemarrow transplantation, somatic or tissue-specific mosaicism,mislabeled samples, or erroneous representation of familyrelationships.This test was developed and its performance characteristics determinedby [employer]. It has not been cleared or approved by the Food and DrugAdministration.References:Mohsen S, Juliana AK, Elijah R, Coral WW, Alan GIBSON; AC ProfessionalPractice and Guidelines Committee. Addendum: [employer] [employer] consensus statement on factor V Leiden mutationtesting. [employer]. 2020Apr 28. doi: 10.1038/[id number]-m.PMID: 40855271.Bipin PEREZ. Prothrombin Thrombophilia. 2005Sep 17[Updated 2020Mar 30]. In: Pop MP, Amelia HH, Paul RA, et al.,editors. Jarvis(Winnie) [Internet]. [place] ([place]): [facility]; 5511-4597. Available from:https://www.ncbi.nlm.nih.gov/books/QPX1037/Mt S, Juliana AK, Wright X, Jermaine B, Jardo EB, Ramya P, Shey CS;[facility] Laboratory [place] Winder Committee. Venous thromboembolismlaboratory testing (factor V Leiden and factor II c.*97G>A),2018 update: a technical standard of the [employer] [employer]Gen[employer] and Genomics (ACMG). [employer] Med. 2018 Jan;20(12):6567-4896.doi: 10.1038/[id number]-h. Epub 2017Nov 28. PMID: 79710569.Mary Ayala, PhD, Eddie Cota, PhDEnrrique Ohara, PhD, Daniel Zhao, PhD, ROXYAlbert Stone, PhD, [facility] Scarlett Acosta, PhD, [facility]PITALMeeta Watson, PhD, ROXYKelsey Hernandez, PhD, [facility] Dilute Rodolfo's viper venom timeOrdered By: Dr. Hayden on 01-14-2022 dRVVT Coag (PPP) [Time] 36.4 s 0.0-47.0 [facility] Erythrocyte sedimentation ra teOrdered By: Dr. Hayden on 01-14-2022 ESR (Bld) [Velocity] 15 mm/h 0-30 [facility] Functional protein C measure mentOrdered By: Dr. Hayden on 01-14-2022 Protein C actual/normal Chromogenic method (PPP) [Rel catalytic activity/Vol] 148 % 73-180 [facility] Comment on above: Performed at: [address] [id number] Director: Alba Nino MD, Phone: [phone] at: [facility] [address] [id number] Director: Eduard Bliss PhD, Phone: [phone] at: [facility] [id number] [place], [place] [id number] Director: Radha Lovett [facility], Phone: [phone] No Panel InformationOrdered By: Dr. Hayden on 01-14-2022 Anti-Cardiolipin IgM Antibody < 9 MPL U/mL 0-12 [facility] Comment on above: Negative: <13 Indete rminate: 13 - 20 Low-Med Positive: >20 - 80 High Positive: >80 Anti-Nuclear Antibody Screen Negative Negative [facility] Comment on above: Performed at: [employer] [facility] [id number] [place], [place] [id number] Director: Eduard Bliss PhD, Phone: [phone] [employer] B Antibody Not Reportable [facility] Factor V Leiden Mutation Comment . [facility] Comment on above: Result: c.1601G>A (p .[id number]) - Not DetectedThis result is not associated with an increased risk for venousthromboembolism. See Additional Clinical Information andComments.Additional Clinical Information:Venous thromboembolism is a multifactorial diseaseinfluenced by genetic, environmental, and circumstantialrisk factors. The c.1601G>A (p. [id number]) variant in theF5 gene, commonly referred to as Factor V Leiden, is agenetic risk factor for venous thromboembolism.Heterozygous carriers of this variant have a 6- to 8-foldincreased risk for venous thromboembolism. Individualshomozygous for this variant (ie, with a copy of the varianton each chromosome) have an approximately 80-fold increasedrisk for venous thromboembolism. Individuals who carry aparna c.*97G>A variant in the F2 gene and Factor V Leiden havean approximately 20-fold increased risk for venousthromboembolism. Risks are likely to be even higher in morecomplex genotype combinations involving the F2 c.*97G>Avariant and Factor V Leiden (PMID: 72349715). Additionalrisk factors include but are not limited to: deficiency ofprotein C, protein S, or antithrombin III, age, male sex,personal or family history of deep vein thromboembolism,smoking, surgery, prolonged immobilization, malignantneoplasm, tamoxifen treatment, raloxifene treatment, oralcontraceptive use, hormone replacement therapy, andpregnancy. Management of thrombotic risk and thromboticevents should follow established guidelines and fit theclinical circumstance. This result cannot predict theoccurrence or recurrence of a thrombotic event.Comment:Genetic counseling is recommended to discuss thepotential clinical implications of positive results, aswell as recommendations for testing family members.Genetic Coordinators are available for health careproviders to discuss results at [phone] ([phone]).Test Details:Variant Analyzed: c.1601G>A (p. See635Pah), referred toas Factor V LeidenMethods/Limitations:DNA analysis of the F5 gene (NM_000130.5) was performedby PCR amplification followed by restriction enzymeanalysis. The diagnostic sensitivity is >99%. Results mustbe combined with clinical information for the most accurateinterpretation. Molecular-based testing is highly accurate,but as in any laboratory test, diagnostic errors may occur.False positive or false negative results may occur forreasons that include genetic variants, blood transfusions,bone marrow transplantation, somatic or tissue-specificmosaicism, mislabeled samples, or erroneous representationof family relationships.This test was developed and its performance characteristicsdetermined by [employer] It has not been cleared orapproved by the Food and Drug Administration.References:Mohsen Gao, Juliana DE LOIVEIRA, Elijah R, Coral WW, Alan JH; ACMGProfessional Practice and Guidelines Committee. Addendum:[employer] consensus statement onfactor V Leiden mutation testing. [employer] Med. 2020Apr 28.doi: 10.1038/[id number]-f. PMID: 74621375.Bipin PEREZ. Factor V Leiden Thrombophilia. 1998July 07[Updated 2017Feb 27]. In: Pop MP, Amelia HH, Paul RA,et al., editors. Jarvis(R) [Internet]. [place] ([place]):[facility]; 3253-7394. Availablefrom: https://www.ncbi.nlm.nih.gov/books/RPW8565/Mt Gao, Juliana DE OLIVEIRA, Kyle X, Jermaine B, Jarod EB, Ramya P,Shey CS; [facility] Laboratory [place] W[employer] Committee.Venous thromboembolism laboratory testing (factor V Leidenand factor II c.*97G>A), 2018 update: a technical standardof the [place] [employer]etics and Genomics(ACMG). [employer] Med. 2018 Jan;20(12):8870-9884. doi:10.1038/[id number]-r. Epub 2017Nov 28. PMID: 97997697.Mary Ayala, PhD, Eddie Cota, PhDEnrrique Ohara, PhD, Daniel Zhao, PhD, Gio Stone, PhD, FACW Scarlett Acosta, PhD, Zoe Watson, PhD, Shay Hernandez, PhD, [facility] EVENT TECHNICIAN Antibody Not Reportable [facility] Total Complement (CH50) > 60 U/mL >41 [facility] Comment on above: Age Male Female 1 - 30 days Not Estab. Not Estab. 31 days - 6 months >32 >20 7 months - 17 years >39 >39 >17 years >41 >41 NOTE: The adult (>17 years) reference interval range is used to flag abnormals on this report. If the patient is 17 years old or younger, use the table above to determine out of range values. Platelet poor plasma antithr ombin actual/normal ratio by chromogenic method (relativeOrdered By: Dr. Hayden on 01-14-2022 Antithrombin actual/normal Chromogenic method (PPP) [Rel catalytic activity/Vol] 115 % 75-135 [facility] Comment on above: Direct Xa inhibitor anticoagulants such as rivaroxaban,apixaban and edoxaban will lead to spuriously elevatedantithrombin activity levels possibly masking a deficiency. Platelet poor plasma antithr ombin antigen detection by immunoassayOrdered By: Dr. Hayden on 01-14-2022 Antithrombin Ag IA Ql (PPP) 90 % 72-124 [facility] Comment on above: This test was develo ped and its performance characteristicsdetermined by [facility]. It has not been cleared orapproved by the Food and Drug Administration. Platelet poor plasma protein S actual/normal ratio (relative time)Ordered By: Dr. Hayden on 01-14-2022 Protein S actual/normal Coag (PPP) [Relative time] 95 % 63-140 [facility] Comment on above: Protein S activity m ay be falsely increased (masking anabnormal, low result) in patients receiving direct Xainhibitor (e.g., rivaroxaban, apixaban, edoxaban) or adirect thrombin inhibitor (e.g., dabigatran) anticoagulanttreatment due to assay interference by these drugs. Protein C antigen assayOrder ed By: Dr. Hayden on 01-14-2022 Protein C Ag actual/normal IA (PPP) [Relative mass conc] 123 % 60-150 [facility] Protein S measurement in sushil telet poor plasma by coagulation assay (units/volume)Ordered By: Dr. Hayden on 01-14-2022 Protein S Coag Qn (PPP) 121 % 60-150 [facility] Comment on above: This test was develo ped and its performance characteristicsdetermined by [employer] It has not been cleared orapproved by the Food and Drug Administration. Protein S, freeOrdered By: Bill Hayden on 01-14-2022 Protein S Free Ag IA Qn (PPP) 115 % 61-136 [facility] Serum DNA double strand anti body assay (units/volume)Ordered By: Dr. Hayden on 01-14-2022 DNA double strand Ab Qn (S) Not Reportable [facility] Serum Ava-1 antibody assay (u nits/volume)Ordered By: Dr. Hayden on 01-14-2022 Ava-1 extractable nuclear Ab Qn (S) Not Reportable [facility] Serum Scl-70 extractable nuc lear antibody assay (units/volume)Ordered By: Dr. Hayden on 01-14-2022 SCL-70 extractable nuclear Ab Qn (S) Not Reportable [facility] Serum Collins extractable nucl ear antibody detectionOrdered By: Dr. Hayden on 01-14-2022 Collins extractable nuclear Ab Ql (S) Not Reportable [facility] Serum cardiolipin IgG antibo dy assay by immunoassay (units/volume)Ordered By: Dr. Hayden on 01-14-2022 Cardiolipin IgG IA Qn (S) < 9 GPL U/mL 0-14 [facility] Comment on above: Negative: <15 Indete rminate: 15 - 20 Low-Med Positive: >20 - 80 High Positive: >80 Serum or plasma cardiolipin IgA antibody assay (units/volume)Ordered By: Dr. Hayden on 01-14-2022 Cardiolipin IgA Qn < 9 APL U/mL 0-11 [facility] Comment on above: Negative: <12 Indete rminate: 12 - 20 Low-Med Positive: >20 - 80 High Positive: >80 Serum or plasma complement C 3 measurement (mass/volume)Ordered By: Dr. Hayden on 01-14-2022 Complement C3 [Mass/Vol] 164 mg/dL 82-167 [facility] Serum or plasma complement C 4 measurement (mass/volume)Ordered By: Dr. Hayden on 01-14-2022 Complement C4 [Mass/Vol] 22 mg/dL 12-38 [facility] Serum or plasma lamotrigine measurement (mass/volume)Ordered By: Dr. Hayden on 01-14-2022 lamoTRIgine [Mass/Vol] 2.6 ug/mL 2.0-20.0 [facility] Comment on above: Detection Limit = 1. 0 Thin prep Papanicolaou smear with manual screeningOrdered By: Dr. Hayden on 01-14-2022 Thin prep Papanicolaou smear with manual screening 36.1 sec 0.0-47.6 [facility] Thin prep Papanicolaou smear with manual screening 1.15 Ratio 0.00-1.34 [facility] Thin prep Papanicolaou smear with manual screening 35.4 sec 0.0-51.9 [facility] Thin prep Papanicolaou smear with manual screening Comment: . [facility] Comment on above: No lupus anticoagula nt was detected. Thrombin time in platelet po or plasmaOrdered By: Dr. Hayden on 01-14-2022 Thrombin time Coag (PPP) [Time] 17.6 sec 0.0-23.0 [facility] Absolute lymphocyte counton 11-03-2021 Lymphocytes Auto (Unsp spec) [#/Vol] 3.12 10*3/uL 0.83-4.51 [facility] Work Phone: Basophil percentageon 2021 Basophils/100 WBC (Bld) 1.0 % 0-1 [facility] Work Phone: [phone] Bilirubin [Mass/Vol] 0.30 mg/dL 0.20-1.00 [facility] Work Phone: [phone] Comment on above: For patients on eltr ombopag therapy, use of Dimension [place] TBIL is not recommended. Chloride [Moles/Vol] 109 mmol/L 98-107 [facility] Work Phone: Eosinophils/100 WBC (Bld) 4.1 % 0-5 [facility] Work Phone: [phone] Glucose [Mass/Vol] 127 mg/dL 74-106 [facility] Work Phone: [phone] Comment on above: Fasting Glucose resu lt greater than or equal to 126 mg/dL suggests DIABETES MELLITUS per A.D.A. criteria. Neutrophils (Bld) [#/Vol] 9.2 10*3/uL 2.0-7.7 [facility] Work Phone: [phone] Neutrophils/100 WBC (Bld) 64.1 % 47-70 [facility] Work Phone: [phone] Potassium [Moles/Vol] 4.0 mmol/L 3.5-5.1 [facility] Work Phone: [phone] Protein [Mass/Vol] 7.4 g/dL 6.4-8.2 [facility] Work Phone: [phone] Sodium [Moles/Vol] 142 mmol/L 136-145 [facility] Work Phone: [phone] WBC (Bld) [#/Vol] 14.3 10*3/uL 4.4-11.0 [facility] Work Phone: Blood erythrocytes count (nu mber/volume)on 11-03-2021 RBC (Bld) [#/Vol] 4.68 10*6/uL 4.2-5.4 [facility] Work Phone: Blood hemoglobin measurement (mass/volume)on 11-03-2021 Hemoglobin (Bld) [Mass/Vol] 14.3 g/dL 12.0-15.0 [facility] Work Phone: Blood lymphocytes/100 leukoc yteson 11-03-2021 Lymphocytes/100 WBC (Bld) 21.8 % 19-41 [facility] Work Phone: Blood monocytes/100 leukocyt eson 11-03-2021 Monocytes/100 WBC (Bld) 8.3 % 0-10 [facility] Work Phone: Blood platelet mean volumeon 11-03-2021 Platelet mean volume (Bld) [Entitic vol] 9.4 fL 6.2-12.0 [facility] Work Phone: Determination of erythrocyte mean corpuscular volume (MCV)on 11-03-2021 MCV (RBC) [Entitic vol] 92.7 fL 81-99 [facility] Work Phone: Hematocrit Auto (Bld) [Volum e fraction]on 11-03-2021 Hematocrit (Bld) [Volume fraction] 43.4 % 37-47 [facility] Work Phone: [phone] Laboratory - Chemistry and C hemistry - challengeon 11-03-2021 ALP [Catalytic activity/Vol] 91 U/L 45-117 [facility] Work Phone: ALT [Catalytic activity/Vol] 37 U/L 13-56 [facility] Work Phone: CO2 [Moles/Vol] 24.0 mmol/L 21.0-32.0 [facility] Work Phone: Globulin (S) [Mass/Vol] 3.4 g/dL 2.2-4.2 [facility] Work Phone: Urea nitrogen/Creatinine [Mass ratio] 19.7 mg/mg 10-20 [facility] Work Phone: Laboratory - Hematology and Cell countson 11-03-2021 Erythrocyte distribution width (RBC) [Entitic vol] 45.5 fL 35.1-43.9 [facility] Work Phone: Erythrocyte distribution width (RBC) [Ratio] 13.5 % 11.6-14.6 [facility] Work Phone: Immature granulocytes/100 WBC (Bld) 0.700 % 0.0-0.9 [facility] Work Phone: Comment on above: IG% - Immature Granu locytes (promyelocytes, myelocytes and metamyelocytes) > 1% indicates that a LEFT SHIFT is Present. MCH (RBC) [Entitic mass] 30.6 pg 27.0-32.0 [facility] Work Phone: Nucleated RBC/100 WBC (Bld) [Ratio] 0 % 0-5 [facility] Work Phone: MCHC Auto (RBC) [Mass/Vol]on 11-03-2021 MCHC (RBC) [Mass/Vol] 32.9 g/dL 32-36 [facility] Work Phone: No Panel Informationon 11-03 Estimated Creatinine Clearance Calc 32.59 ml/min [facility] Work Phone: Estimated GFR (MDRD) Amer 47 mL/min >60 [facility] Work Phone: Comment on above: GFR Calc Estimated GFR (MDRD) Non-Af Amer 39 mL/min >60 [facility] Work Phone: Comment on above: Non- GFR Calc Platelets bldon 11-03-2021 Platelets (Bld) [#/Vol] 379 10*3/uL 150-450 [facility] Work Phone: Serum or plasma albumin laureen urement (mass/volume)on 11-03-2021 Albumin [Mass/Vol] 4.0 g/dL 3.2-5.0 [facility] Work Phone: Serum or plasma albumin/glob ulin mass ratioon 11-03-2021 Albumin/Globulin [Mass ratio] 1.2 {ratio} 0.9-2.4 [facility] Work Phone: Serum or plasma calcium laureen urement (mass/volume)on 11-03-2021 Calcium [Mass/Vol] 8.9 mg/dL 8.5-10.1 [facility] Work Phone: Serum or plasma creatinine m easurement (mass/volume)on 11-03-2021 Creatinine [Mass/Vol] 1.47 mg/dL 0.55-1.02 [facility] Work Phone: Comment on above: The validity of the calculated GFR & GFRAA in patients over 70 years has not been determined. Clinical correlation is essential. Serum or plasma urea nitroge n measurement (mass/volume)on 11-03-2021 Urea nitrogen [Mass/Vol] 29 mg/dL 7-18 [facility] Work Phone: Thin prep Papanicolaou smear with manual screeningon 11-03-2021 Thin prep Papanicolaou smear with manual screening 22 U/L 15-37 [facility] Work Phone: Thin prep Papanicolaou smear with manual screening 9 5-15 [facility] Work Phone: Basophil percentageon 2021 Chloride [Moles/Vol] 105 mmol/L 98-107 [facility] Work Phone: Glucose [Mass/Vol] 102 mg/dL 74-106 [facility] Work Phone: Comment on above: Fasting Glucose resu lt from 100 to 125 mg/dL suggests IMPAIRED HOMEOSTASIS per A.D.A. criteria. Potassium [Moles/Vol] 4.1 mmol/L 3.5-5.1 [facility] Work Phone: Sodium [Moles/Vol] 137 mmol/L 136-145 [facility] Work Phone: Laboratory - Chemistry and C hemistry - challengeon 10-04-2021 CO2 [Moles/Vol] 24.0 mmol/L 21.0-32.0 [facility] Work Phone: Urea nitrogen/Creatinine [Mass ratio] 13.6 mg/mg 10-20 [facility] Work Phone: No Panel Informationon 10-04 Estimated GFR (MDRD) Amer 56 mL/min >60 [facility] Work Phone: Comment on above: GFR Calc Estimated GFR (MDRD) Non-Af Amer 47 mL/min >60 [facility] Work Phone: Comment on above: Non- GFR Calc Serum or plasma calcium laureen urement (mass/volume)on 10-04-2021 Calcium [Mass/Vol] 9.4 mg/dL 8.5-10.1 [facility] Work Phone: Serum or plasma creatinine m easurement (mass/volume)on 10-04-2021 Creatinine [Mass/Vol] 1.25 mg/dL 0.55-1.02 [facility] Work Phone: Comment on above: The validity of the calculated GFR & GFRAA in patients over 70 years has not been determined. Clinical correlation is essential. Serum or plasma urea nitroge n measurement (mass/volume)on 10-04-2021 Urea nitrogen [Mass/Vol] 17 mg/dL 7-18 [facility] Work Phone: Thin prep Papanicolaou smear with manual screeningon 10-04-2021 Thin prep Papanicolaou smear with manual screening 8 5-15 [facility] Work Phone: Absolute lymphocyte counton 09-20-2021 Lymphocytes Auto (Unsp spec) [#/Vol] 2.24 10*3/uL 0.83-4.51 [facility] Work Phone: Basophil percentageon 2021 Basophils/100 WBC (Bld) 0.9 % 0-1 [facility] Work Phone: Bilirubin [Mass/Vol] 0.60 mg/dL 0.20-1.00 [facility] Work Phone: Comment on above: For patients on eltr ombopag therapy, use of Dim[place] TBIL is not recommended. Chloride [Moles/Vol] 110 mmol/L 98-107 [facility] Work Phone: Eosinophils/100 WBC (Bld) 1.3 % 0-5 [facility] Work Phone: Glucose [Mass/Vol] 104 mg/dL 74-106 [facility] Work Phone: Comment on above: Fasting Glucose resu lt from 100 to 125 mg/dL suggests IMPAIRED HOMEOSTASIS per A.D.A. criteria. Neutrophils (Bld) [#/Vol] 4.5 10*3/uL 2.0-7.7 [facility] Work Phone: Neutrophils/100 WBC (Bld) 58.0 % 47-70 [facility] Work Phone: Potassium [Moles/Vol] 4.4 mmol/L 3.5-5.1 [facility] Work Phone: Protein [Mass/Vol] 6.3 g/dL 6.4-8.2 [facility] Work Phone: Sodium [Moles/Vol] 139 mmol/L 136-145 [facility] Work Phone: WBC (Bld) [#/Vol] 7.7 10*3/uL 4.4-11.0 [facility] Work Phone: Blood erythrocytes count (nu mber/volume)on 09-20-2021 RBC (Bld) [#/Vol] 3.55 10*6/uL 4.2-5.4 [facility] Work Phone: Blood hemoglobin measurement (mass/volume)on 09-20-2021 Hemoglobin (Bld) [Mass/Vol] 10.7 g/dL 12.0-15.0 [facility] Work Phone: Blood lymphocytes/100 leukoc yteson 09-20-2021 Lymphocytes/100 WBC (Bld) 29.1 % 19-41 [facility] Work Phone: Blood monocytes/100 leukocyt eson 09-20-2021 Monocytes/100 WBC (Bld) 10.4 % 0-10 [facility] Work Phone: [phone] Blood platelet mean volumeon 09-20-2021 Platelet mean volume (Bld) [Entitic vol] 9.4 fL 6.2-12.0 [facility] Work Phone: [phone] Determination of erythrocyte mean corpuscular volume (MCV)on 09-20-2021 MCV (RBC) [Entitic vol] 94.9 fL 81-99 [facility] Work Phone: [phone] Hematocrit Auto (Bld) [Volum e fraction]on 09-20-2021 Hematocrit (Bld) [Volume fraction] 33.7 % 37-47 [facility] Work Phone: [phone] Laboratory - Chemistry and C hemistry - challengeon 09-20-2021 ALP [Catalytic activity/Vol] 63 U/L 45-117 [facility] Work Phone: [phone] ALT [Catalytic activity/Vol] 14 U/L 13-56 [facility] Work Phone: [phone] CO2 [Moles/Vol] 23.0 mmol/L 21.0-32.0 [facility] Work Phone: [phone] Globulin (S) [Mass/Vol] 3.6 g/dL 2.2-4.2 [facility] Work Phone: [phone] Urea nitrogen/Creatinine [Mass ratio] 15.9 mg/mg 10-20 [facility] Work Phone: [phone] Laboratory - Hematology and Cell countson 09-20-2021 Erythrocyte distribution width (RBC) [Entitic vol] 45.1 fL 35.1-43.9 [facility] Work Phone: [phone] Erythrocyte distribution width (RBC) [Ratio] 12.9 % 11.6-14.6 [facility] Work Phone: [phone] Immature granulocytes/100 WBC (Bld) 0.300 % 0.0-0.9 [facility] Work Phone: [phone] Comment on above: IG% - Immature Granu locytes (promyelocytes, myelocytes and metamyelocytes) > 1% indicates that a LEFT SHIFT is Present. MCH (RBC) [Entitic mass] 30.1 pg 27.0-32.0 [facility] Work Phone: Nucleated RBC/100 WBC (Bld) [Ratio] 0 % 0-5 [facility] Work Phone: MCHC Auto (RBC) [Mass/Vol]on 09-20-2021 MCHC (RBC) [Mass/Vol] 31.8 g/dL 32-36 [facility] Work Phone: No Panel Informationon 09-20 Estimated Creatinine Clearance Calc 31.73 ml/min [facility] Work Phone: Estimated GFR (MDRD) Amer 45 mL/min >60 [facility] Work Phone: Comment on above: GFR Calc Estimated GFR (MDRD) Non-Af Amer 37 mL/min >60 [facility] Work Phone: Comment on above: Non- GFR Calc Platelets bldon 09-20-2021 Platelets (Bld) [#/Vol] 455 10*3/uL 150-450 [facility] Work Phone: Serum or plasma albumin laureen urement (mass/volume)on 09-20-2021 Albumin [Mass/Vol] 2.7 g/dL 3.2-5.0 [facility] Work Phone: Serum or plasma albumin/glob ulin mass ratioon 09-20-2021 Albumin/Globulin [Mass ratio] 0.8 {ratio} 0.9-2.4 [facility] Work Phone: Serum or plasma calcium laureen urement (mass/volume)on 09-20-2021 Calcium [Mass/Vol] 8.3 mg/dL 8.5-10.1 [facility] Work Phone: Serum or plasma creatinine m easurement (mass/volume)on 09-20-2021 Creatinine [Mass/Vol] 1.51 mg/dL 0.55-1.02 [facility] Work Phone: Comment on above: The validity of the calculated GFR & GFRAA in patients over 70 years has not been determined. Clinical correlation is essential. Serum or plasma urea nitroge n measurement (mass/volume)on 09-20-2021 Urea nitrogen [Mass/Vol] 24 mg/dL 7-18 [facility] Work Phone: [phone] Thin prep Papanicolaou smear with manual screeningon 09-20-2021 Thin prep Papanicolaou smear with manual screening 12 U/L 15-37 [facility] Work Phone: Thin prep Papanicolaou smear with manual screening 6 5-15 [facility] Work Phone: [phone] Absolute lymphocyte counton 09-19-2021 Lymphocytes Auto (Unsp spec) [#/Vol] 2.87 10*3/uL 0.83-4.51 [facility] Work Phone: Basophil percentageon 2021 Lactate [Moles/Vol] 1.1 mmol/L 0.4-2.0 [facility] Work Phone: Basophil percentage >100 SEEN /hpf 0-5 [facility] Work Phone: Basophils/100 WBC (Bld) 0.7 % 0-1 [facility] Work Phone: [phone] Bilirubin [Mass/Vol] 0.50 mg/dL 0.20-1.00 [facility] Work Phone: [phone] Comment on above: For patients on eltr ombopag therapy, use of Dimension [place] TBIL is not recommended. Chloride [Moles/Vol] 101 mmol/L 98-107 [facility] Work Phone: Eosinophils/100 WBC (Bld) 1.1 % 0-5 [facility] Work Phone: Glucose [Mass/Vol] 146 mg/dL 74-106 [facility] Work Phone: [phone] Comment on above: Fasting Glucose resu lt greater than or equal to 126 mg/dL suggests DIABETES MELLITUS per A.D.A. criteria. Lactate [Moles/Vol] 3.2 mmol/L 0.4-2.0 [facility] Work Phone: Comment on above: Critical Result(s) C alled at: 17:25:57 09/19/2021 by: Vasu Ascencio to Anabelle Xie RN (ER). Results read back by same. Neutrophils (Bld) [#/Vol] 10.5 10*3/uL 2.0-7.7 [facility] Work Phone: [phone] Neutrophils/100 WBC (Bld) 69.2 % 47-70 [facility] Work Phone: [phone] Potassium [Moles/Vol] 4.6 mmol/L 3.5-5.1 [facility] Work Phone: [phone] Protein [Mass/Vol] 8.3 g/dL 6.4-8.2 [facility] Work Phone: [phone] Sodium [Moles/Vol] 134 mmol/L 136-145 [facility] Work Phone: [phone] WBC (Bld) [#/Vol] 15.2 10*3/uL 4.4-11.0 [facility] Work Phone: [phone] Bilirubin Test strip Ql (U)o n 09-19-2021 Bilirubin Ql (U) Negative Negative [facility] Work Phone: [phone] Blood erythrocytes count (nu mber/volume)on 09-19-2021 RBC (Bld) [#/Vol] 4.68 10*6/uL 4.2-5.4 [facility] Work Phone: [phone] Blood hemoglobin measurement (mass/volume)on 09-19-2021 Hemoglobin (Bld) [Mass/Vol] 14.1 g/dL 12.0-15.0 [facility] Work Phone: Blood lymphocytes/100 leukoc yteson 09-19-2021 Lymphocytes/100 WBC (Bld) 18.9 % 19-41 [facility] Work Phone: Blood monocytes/100 leukocyt eson 09-19-2021 Monocytes/100 WBC (Bld) 9.7 % 0-10 [facility] Work Phone: Blood platelet mean volumeon 09-19-2021 Platelet mean volume (Bld) [Entitic vol] 9.4 fL 6.2-12.0 [facility] Work Phone: Determination of erythrocyte mean corpuscular volume (MCV)on 09-19-2021 MCV (RBC) [Entitic vol] 91.7 fL 81-99 [facility] Work Phone: [phone] Direct bilirubinon Bilirubin.direct [Mass/Vol] 0.12 mg/dL 0.00-0.30 [facility] Work Phone: Hematocrit Auto (Bld) [Volum e fraction]on 09-19-2021 Hematocrit (Bld) [Volume fraction] 42.9 % 37-47 [facility] Work Phone: [phone] INR in Blood by Coagulation assayon 09-19-2021 INR Coag (Bld) [Relative time] 1.0 {INR} [facility] Work Phone: [phone] Ketones Test strip Ql (U)on 09-19-2021 Ketones Ql (U) Negative Negative [facility] Work Phone: [phone] Laboratory - Chemistry and C hemistry - challengeon 09-19-2021 ALP [Catalytic activity/Vol] 85 U/L 45-117 [facility] Work Phone: [phone] ALT [Catalytic activity/Vol] 20 U/L 13-56 [facility] Work Phone: [phone] CO2 [Moles/Vol] 22.0 mmol/L 21.0-32.0 [facility] Work Phone: [phone] Globulin (S) [Mass/Vol] 4.6 g/dL 2.2-4.2 [facility] Work Phone: [phone] Lipase [Catalytic activity/Vol] 166 U/L 73-393 [facility] Work Phone: [phone] Magnesium [Mass/Vol] 2.3 mg/dL 1.6-2.6 [facility] Work Phone: [phone] Urea nitrogen/Creatinine [Mass ratio] 16.4 mg/mg 10-20 [facility] Work Phone: Laboratory - Coagulationon 0 09-19-2021 aPTT Coag (Bld) [Time] 33.6 s 24.1-36.2 [facility] Work Phone: PT Coag (PPP) [Time] 13.0 s 11.7-14.[address] [facility] [address] [facility] Work Phone: Laboratory - Hematology and Cell countson 09-19-2021 Erythrocyte distribution width (RBC) [Entitic vol] 43.3 fL 35.1-43.9 [facility] Work Phone: Erythrocyte distribution width (RBC) [Ratio] 12.9 % 11.6-14.6 [facility] Work Phone: Immature granulocytes/100 WBC (Bld) 0.400 % 0.0-0.9 [facility] Work Phone: Comment on above: IG% - Immature Granu locytes (promyelocytes, myelocytes and metamyelocytes) > 1% indicates that a LEFT SHIFT is Present. MCH (RBC) [Entitic mass] 30.1 pg 27.0-32.0 [facility] Work Phone: Nucleated RBC/100 WBC (Bld) [Ratio] 0 % 0-5 [facility] Work Phone: MCHC Auto (RBC) [Mass/Vol]on 09-19-2021 MCHC (RBC) [Mass/Vol] 32.9 g/dL 32-36 [facility] Work Phone: Mucus LM Ql (Urine sed)on Mucus Ql (Urine sed) 0 SEEN /hpf [facility] Work Phone: Nitrite Test strip Ql (U)on 09-19-2021 Nitrite Ql (U) Negative Negative [facility] Work Phone: No Panel Informationon 09-19 Estimated Creatinine Clearance Calc 21.20 ml/min [facility] Work Phone: Estimated GFR (MDRD) Amer 28 mL/min >60 [facility] Work Phone: Comment on above: GFR Calc Estimated GFR (MDRD) Non-Af Amer 24 mL/min >60 [facility] Work Phone: Comment on above: Non- GFR Calc Troponin I High Sensitivity 4 pg/mL 3.0-54.0 [facility] Work Phone: Comment on above: Please Note: [place] t Units and Gender Specific Reference Ranges. For more information see Policy Stat Procedure [place] High Sensitivity Troponin (TNIH) and attachments. Platelets bldon 09-19-2021 Platelets (Bld) [#/Vol] 663 10*3/uL 150-450 [facility] Work Phone: Protein Test strip Ql (U)on 09-19-2021 Protein Ql (U) 500 mg/dl Negative [facility] Work Phone: Serum or plasma albumin laureen urement (mass/volume)on 09-19-2021 Albumin [Mass/Vol] 3.7 g/dL 3.2-5.0 [facility] Work Phone: Serum or plasma calcium laureen urement (mass/volume)on 09-19-2021 Calcium [Mass/Vol] 9.5 mg/dL 8.5-10.1 [facility] Work Phone: Serum or plasma creatinine m easurement (mass/volume)on 09-19-2021 Creatinine [Mass/Vol] 2.26 mg/dL 0.55-1.02 [facility] Work Phone: Comment on above: The validity of the calculated GFR & GFRAA in patients over 70 years has not been determined. Clinical correlation is essential. Serum or plasma urea nitroge n measurement (mass/volume)on 09-19-2021 Urea nitrogen [Mass/Vol] 37 mg/dL 7-18 [facility] Work Phone: Squamous epithelial cells de tection in urine sediment by light microscopyon 09-19-2021 Epithelial cells.squamous LM Ql (Urine sed) 5-10 SEEN /hpf 5-10 [facility] Work Phone: Thin prep Papanicolaou smear with manual screeningon 09-19-2021 Thin prep Papanicolaou smear with manual screening 13 U/L 15-37 [facility] Work Phone: Thin prep Papanicolaou smear with manual screening 11 5-15 [facility] Work Phone: Urine blood detectionon - RBC Ql (U) 250 /ul Negative [facility] Work Phone: RBC Ql (U) 25-50 SEEN /hpf 0-5 [facility] Work Phone: Urine clarityon 09-19-2021 Clarity (U) Sl. Cloudy Clear [facility] Work Phone: [phone] Urine color determinationon 09-19-2021 Color (U) Yellow Yellow [facility] Work Phone: [phone] Urine glucose detectionon Glucose Ql (U) Normal mg/dl Normal [facility] Work Phone: [phone] Urine leukocyte esterase det ection by dipstickon 09-19-2021 Leukocyte esterase Test strip Ql (U) 500 /ul Negative [facility] Work Phone: Urine pHon 09-19-2021 pH (U) 6.0 [pH] 5.0 - 8.0 [facility] Work Phone: [phone] Urine sediment bacteria coun t by microscopy (number/high power field)on 09-19-2021 Bacteria LM.HPF (Urine sed) [#/Area] 4 /[HPF] None Seen [facility] Work Phone: Urine specific gravity measu rementon 09-19-2021 Specific gravity (U) [Rel density] 1.020 1.002-1.030 [facility] Work Phone: [phone] Urobilinogen Auto test strip Ql (U)on 09-19-2021 Urobilinogen Ql (U) Normal mg/dl Normal [facility] Work Phone: [phone] Absolute lymphocyte counton 06-14-2021 Lymphocytes Auto (Unsp spec) [#/Vol] 2.82 10*3/uL 0.83-4.51 [facility] Work Phone: Basophil percentageon 2021 Basophils/100 WBC (Bld) 1.2 % 0-1 [facility] Work Phone: Chloride [Moles/Vol] 107 mmol/L 98-107 [facility] Work Phone: Eosinophils/100 WBC (Bld) 5.2 % 0-5 [facility] Work Phone: Glucose [Mass/Vol] 108 mg/dL 74-106 [facility] Work Phone: Comment on above: Fasting Glucose resu lt from 100 to 125 mg/dL suggests IMPAIRED HOMEOSTASIS per A.D.A. criteria. Neutrophils (Bld) [#/Vol] 4.5 10*3/uL 2.0-7.7 [facility] Work Phone: Neutrophils/100 WBC (Bld) 50.8 % 47-70 [facility] Work Phone: Potassium [Moles/Vol] 4.0 mmol/L 3.5-5.1 [facility] Work Phone: Sodium [Moles/Vol] 138 mmol/L 136-145 [facility] Work Phone: WBC (Bld) [#/Vol] 8.8 10*3/uL 4.4-11.0 [facility] Work Phone: Blood erythrocytes count (nu mber/volume)on 06-14-2021 RBC (Bld) [#/Vol] 5.30 10*6/uL 4.2-5.4 [facility] Work Phone: Blood hemoglobin measurement (mass/volume)on 06-14-2021 Hemoglobin (Bld) [Mass/Vol] 16.2 g/dL 12.0-15.0 [facility] Work Phone: Blood lymphocytes/100 leukoc yteson 06-14-2021 Lymphocytes/100 WBC (Bld) 32.0 % 19-41 [facility] Work Phone: Blood monocytes/100 leukocyt eson 06-14-2021 Monocytes/100 WBC (Bld) 10.5 % 0-10 [facility] Work Phone: Blood platelet mean volumeon 06-14-2021 Platelet mean volume (Bld) [Entitic vol] 9.3 fL 6.2-12.0 [facility] Work Phone: [phone] Determination of erythrocyte mean corpuscular volume (MCV)on 06-14-2021 MCV (RBC) [Entitic vol] 91.5 fL 81-99 [facility] Work Phone: [phone] Erythrocyte sedimentation ra marjorie 06-14-2021 ESR (Bld) [Velocity] 7 mm/h 0-30 [facility] Work Phone: [phone] Hematocrit Auto (Bld) [Volum e fraction]on 06-14-2021 Hematocrit (Bld) [Volume fraction] 48.5 % 37-47 [facility] Work Phone: [phone] Laboratory - Chemistry and C hemistry - challengeon 06-14-2021 CO2 [Moles/Vol] 27.0 mmol/L 21.0-32.0 [facility] Work Phone: [phone] Urea nitrogen/Creatinine [Mass ratio] 13.5 mg/mg 10-20 [facility] Work Phone: [phone] Laboratory - Hematology and Cell countson 06-14-2021 Erythrocyte distribution width (RBC) [Entitic vol] 41.5 fL 35.1-43.9 [facility] Work Phone: [phone] Erythrocyte distribution width (RBC) [Ratio] 12.3 % 11.6-14.6 [facility] Work Phone: [phone] Immature granulocytes/100 WBC (Bld) 0.300 % 0.0-0.9 [facility] Work Phone: [phone] Comment on above: IG% - Immature Granu locytes (promyelocytes, myelocytes and metamyelocytes) > 1% indicates that a LEFT SHIFT is Present. MCH (RBC) [Entitic mass] 30.6 pg 27.0-32.0 [facility] Work Phone: Nucleated RBC/100 WBC (Bld) [Ratio] 0 % 0-5 [facility] Work Phone: MCHC Auto (RBC) [Mass/Vol]on 06-14-2021 MCHC (RBC) [Mass/Vol] 33.4 g/dL 32-36 [facility] Work Phone: No Panel Informationon 06-14 Estimated Creatinine Clearance Calc 53.83 ml/min [facility] Work Phone: Estimated GFR (MDRD) Amer 83 mL/min >60 [facility] Work Phone: Comment on above: GFR Calc Estimated GFR (MDRD) Non-Af Amer 69 mL/min >60 [facility] Work Phone: Comment on above: Non- GFR Calc Platelets bldon 06-14-2021 Platelets (Bld) [#/Vol] 321 10*3/uL 150-450 [facility] Work Phone: Serum or plasma C reactive p rotein measurement (mass/volume)on 06-14-2021 CRP [Mass/Vol] 4.19 mg/L 0.0-3.0 [facility] Work Phone: Comment on above: C-Reactive Protein ( CRP) provides useful information for thediagnosis, therapy and monitoring of inflammatory processesand associated diseases. For the evaluation of Relative Riskfor Cardiovascular Disease, a High Sensitivity CRP (HSCRP)should be ordered. Serum or plasma calcium laureen urement (mass/volume)on 06-14-2021 Calcium [Mass/Vol] 8.1 mg/dL 8.5-10.1 [facility] Work Phone: Serum or plasma creatinine m easurement (mass/volume)on 06-14-2021 Creatinine [Mass/Vol] 0.89 mg/dL 0.55-1.02 [facility] Work Phone: Comment on above: The validity of the calculated GFR & GFRAA in patients over 70 years has not been determined. Clinical correlation is essential. Serum or plasma urea nitroge n measurement (mass/volume)on 06-14-2021 Urea nitrogen [Mass/Vol] 12 mg/dL 7-18 [facility] Work Phone: Thin prep Papanicolaou smear with manual screeningon 06-14-2021 Thin prep Papanicolaou smear with manual screening 4 5-15 [facility] Work Phone: Basophil percentageon 2021 Cholesterol [Mass/Vol] 211 mg/dL <200 [facility] Work Phone: Comment on above: <200 mg/dL Desirable 200-240 mg/dL Borderline >240 mg/dL High Risk Triglyceride [Mass/Vol] 141 mg/dL <199 [facility] Work Phone: Comment on above: The drugs N-Acetylcy steine and Metamizole may falsely depress this assay.Serum Triglycerides Reference Interval Normal <150 mg/dL Borderline high 150 - 199 mg/dL High 200 - 499 mg/dL Very High > or = 500 mg/dL Serum or plasma cholesterol in HDL measurement (mass/volume)on 06-13-2021 Cholesterol in HDL [Mass/Vol] 37 mg/dL >40 [facility] Work Phone: Comment on above: The drugs N-Acetylcy steine and Metamizole may falsely depress this assay. Reference Range HDL <40 mg/dL Low HDL Cholesterol HDL >or= 60 mg/dL High HDL Cholesterol Serum or plasma cholesterol in VLDL measurement (mass/volume)on 06-13-2021 Cholesterol in VLDL [Mass/Vol] 28 mg/dL 5-40 [facility] Work Phone: Serum or plasma low density lipoprotein (LDL) cholesterol measurement (mass/volume)on 06-13-2021 Cholesterol in LDL [Mass/Vol] 146 mg/dL 0-130 [facility] Work Phone: Whole blood hemoglobin A1c/t otal hemoglobin ratio (mass fraction)on 06-13-2021 HbA1c (Bld) [Mass fraction] 5.5 % 3.8-5.6 [facility] Work Phone: Comment on above: Normal < 5.7 % Predi abetic 5.7 - 6.4 % Diabetic >or= 6.5 % Please note range changes. Absolute lymphocyte counton 06-12-2021 Lymphocytes Auto (Unsp spec) [#/Vol] 2.44 10*3/uL 0.83-4.51 [facility] Work Phone: Basophil percentageon 2021 Basophils/100 WBC (Bld) 0.9 % 0-1 [facility] Work Phone: Chloride [Moles/Vol] 107 mmol/L 98-107 [facility] Work Phone: Eosinophils/100 WBC (Bld) 2.2 % 0-5 [facility] Work Phone: Glucose [Mass/Vol] 89 mg/dL 74-106 [facility] Work Phone: Neutrophils (Bld) [#/Vol] 8.1 10*3/uL 2.0-7.7 [facility] Work Phone: Neutrophils/100 WBC (Bld) 68.2 % 47-70 [facility] Work Phone: Potassium [Moles/Vol] 3.6 mmol/L 3.5-5.1 [facility] Work Phone: Sodium [Moles/Vol] 139 mmol/L 136-145 [facility] Work Phone: WBC (Bld) [#/Vol] 11.9 10*3/uL 4.4-11.0 [facility] Work Phone: Blood erythrocytes count (nu mber/volume)on 06-12-2021 RBC (Bld) [#/Vol] 5.95 10*6/uL 4.2-5.4 [facility] Work Phone: Blood hemoglobin measurement (mass/volume)on 06-12-2021 Hemoglobin (Bld) [Mass/Vol] 18.5 g/dL 12.0-15.0 [facility] Work Phone: Comment on above: CRITICAL VALUE VERIF IED. CALLED TO Minerva PAINTER06/12/211814 Ivy Serrano.RESULTS READ BACK BY SAME . Blood lymphocytes/100 leukoc yteson 06-12-2021 Lymphocytes/100 WBC (Bld) 20.5 % 19-41 [facility] Work Phone: Blood manual differential co mment interpretation (narrative result)on 06-12-2021 Manual differential comment Miguel (Bld) [Interp] SCANNED [facility] Work Phone: Blood monocytes/100 leukocyt eson 06-12-2021 Monocytes/100 WBC (Bld) 7.8 % 0-10 [facility] Work Phone: Blood platelet mean volumeon 06-12-2021 Platelet mean volume (Bld) [Entitic vol] 9.0 fL 6.2-12.0 [facility] Work Phone: Determination of erythrocyte mean corpuscular volume (MCV)on 06-12-2021 MCV (RBC) [Entitic vol] 87.1 fL 81-99 [facility] Work Phone: Glucose Glucometer (BldC) [M ass/Vol]on 06-12-2021 Glucose [Mass/Vol] 113 mg/dL 74-106 [facility] Work Phone: Comment on above: MANAGEMENT OF PATIEN T CARE PER NURSING PROTOCOL Hematocrit Auto (Bld) [Volum e fraction]on 06-12-2021 Hematocrit (Bld) [Volume fraction] 51.8 % 37-47 [facility] Work Phone: INR in Blood by Coagulation assayon 06-12-2021 INR Coag (Bld) [Relative time] 1.0 {INR} [facility] Work Phone: Laboratory - Chemistry and C hemistry - challengeon 06-12-2021 CO2 [Moles/Vol] 25.0 mmol/L 21.0-32.0 [facility] Work Phone: Urea nitrogen/Creatinine [Mass ratio] 9.4 mg/mg 10-20 [facility] Work Phone: Laboratory - Coagulationon 0 06-12-2021 aPTT Coag (Bld) [Time] 27.7 s 24.1-36.2 [facility] Work Phone: PT Coag (PPP) [Time] 12.5 s 11.7-[facility] Laboratory - Hematology and Cell countson 06-12-2021 Erythrocyte distribution width (RBC) [Entitic vol] 38.8 fL 35.1-43.9 [facility] Work Phone: Erythrocyte distribution width (RBC) [Ratio] 12.1 % 11.6-14.6 [facility] Work Phone: Immature granulocytes/100 WBC (Bld) 0.400 % 0.0-0.9 [facility] Work Phone: Comment on above: IG% - Immature Granu locytes (promyelocytes, myelocytes and metamyelocytes) > 1% indicates that a LEFT SHIFT is Present. MCH (RBC) [Entitic mass] 31.1 pg 27.0-32.0 [facility] Work Phone: Nucleated RBC/100 WBC (Bld) [Ratio] 0 % 0-5 [facility] Work Phone: MCHC Auto (RBC) [Mass/Vol]on 06-12-2021 MCHC (RBC) [Mass/Vol] 35.7 g/dL 32-36 [facility] Work Phone: No Panel Informationon 06-12 Troponin I High Sensitivity 14 pg/mL 3.0-54.0 [facility] Work Phone: Comment on above: Please Note: [place] t Units and Gender Specific Reference Ranges. For more information see Policy Stat Procedure [place] High Sensitivity Troponin (TNIH) and attachments. Estimated Creatinine Clearance Calc 49.90 ml/min [facility] Work Phone: Estimated GFR (MDRD) Amer 77 mL/min >60 [facility] Work Phone: Comment on above: GFR Calc Estimated GFR (MDRD) Non-Af Amer 63 mL/min >60 [facility] Work Phone: Comment on above: Non- GFR Calc Troponin I High Sensitivity 10 pg/mL 3.0-54.0 [facility] Work Phone: Comment on above: Please Note: [place] t Units and Gender Specific Reference Ranges. For more information see Policy Stat Procedure [place] High Sensitivity Troponin (TNIH) and attachments. Platelets bldon 06-12-2021 Platelets (Bld) [#/Vol] 379 10*3/uL 150-450 [facility] Work Phone: Review by pathologiston 05-25 Pathologist review Miguel (Unsp spec) [Interp] Lauren val [facility] Work Phone: Pathologist review Miguel (Unsp spec) [Interp] Reviewed [facility] Work Phone: Comment on above: Previous reported re sult: Lauren val Edited by: RGOOD on 06/13/21:1350Leukocytosis. PolycythemiaClinical correlation necessary.Gamaliel Tomas M.D. 06/13/21 AMENDED REPORT 06/13/21 1350 PATH REV previously reported as: Lauren neal Serum or plasma calcium laureen urement (mass/volume)on 06-12-2021 Calcium [Mass/Vol] 9.4 mg/dL 8.5-10.1 [facility] Work Phone: Serum or plasma creatinine m easurement (mass/volume)on 06-12-2021 Creatinine [Mass/Vol] 0.96 mg/dL 0.55-1.02 [facility] Work Phone: Comment on above: The validity of the calculated GFR & GFRAA in patients over 70 years has not been determined. Clinical correlation is essential. Serum or plasma urea nitroge n measurement (mass/volume)on 06-12-2021 Urea nitrogen [Mass/Vol] 9 mg/dL 7-18 [facility] Work Phone: Thin prep Papanicolaou smear with manual screeningon 06-12-2021 Thin prep Papanicolaou smear with manual screening 7 5-15 [facility] Work Phone: Culture, urine Bacteria identified Cx Nom (U) Escherichia coli [facility] Work Phone: Laboratory - Microbiology an d Antimicrobial susceptibility Bacteria identified Cx Nom (Bld) No growth in 5 days. [facility] Work Phone: Vital Signs Date Time Vital Sign Value Performing Clinician Faci lity 11-11-2024 11:04-0400 Body temperature 98.2 [degF] Dr. Jocelyne Augustin MD Work Phone: [facility] 11-11-2024 11:04-0400 Diastolic blood pressure 94 mm[Hg] Dr. Jocelyne Augustin MD Work Phone: [facility] 11-11-2024 11:04-0400 Heart rate 110 /min Dr. Jocelyne Augustin MD Work Phone: [facility] 11-11-2024 11:04-0400 Respiratory rate 16 /min Dr. Jocelyne Augustin MD Work Phone: [facility] 11-11-2024 11:04-0400 SaO2% (BldA) [Mass fraction] 96 % Dr. Jocelyne Augustin MD Work Phone: [facility] 11-11-2024 11:04-0400 Systolic blood pressure 138 mm[Hg] Dr. Jocelyne Augustin MD Work Phone: [facility] 10-07-2024 11:04-0400 Body height 157.[address] Jocelyne Augustin MD Work Phone: [facility] 10-07-2024 11:04-0400 Body mass index (BMI) [Ratio] 50.5 kg/m2 Dr. Jocelyne Augustin MD Work Phone: [facility] 10-07-2024 11:04-0400 Body temperature 98.4 [degF] Dr. Jocelyne Augustin MD Work Phone: [facility] 10-07-2024 11:04-0400 Body weight 125.[address] Jocelyne Augustin MD Work Phone: [facility] 10-07-2024 11:04-0400 Diastolic blood pressure 86 mm[Hg] Dr. Jocelyne Augustin MD Work Phone: [facility] 10-07-2024 11:04-0400 Heart rate 105 /min Dr. Jocelyne Augustin MD Work Phone: [facility] 10-07-2024 11:04-0400 Respiratory rate 16 /min Dr. Jocelyne Augustin MD Work Phone: [facility] 10-07-2024 11:04-0400 SaO2% (BldA) [Mass fraction] 94 % Dr. Jocelyne Augustin MD Work Phone: [facility] 10-07-2024 11:04-0400 Systolic blood pressure 128 mm[Hg] Dr. Jocelyne Augustin MD Work Phone: [facility] 07-29-2024 10:13-0400 Body height 157.[address] Jocelyne Augustin MD Work Phone: [facility] 07-29-2024 10:13-0400 Body mass index (BMI) [Ratio] 51.2 kg/m2 Dr. Jocelyne Augustin MD Work Phone: [facility] 07-29-2024 10:13-0400 Body temperature 98.6 [degF] Dr. Jocelyne Augustin MD Work Phone: [facility] 07-29-2024 10:13-0400 Body weight 127.[address] Jocelyne Augustin MD Work Phone: [facility] 07-29-2024 10:13-0400 Diastolic blood pressure 87 mm[Hg] Dr. Jocelyne Augustin MD Work Phone: [facility] 07-29-2024 10:13-0400 Heart rate 114 /min Dr. Jocelyne Augustin MD Work Phone: [facility] 07-29-2024 10:13-0400 Respiratory rate 16 /min Dr. Jocelyne Augustin MD Work Phone: [facility] 07-29-2024 10:13-0400 SaO2% (BldA) [Mass fraction] 93 % Dr. Jocelyne Augustin MD Work Phone: [facility] 07-29-2024 10:13-0400 Systolic blood pressure 126 mm[Hg] Dr. Jocelyne Augustin MD Work Phone: [facility] 06-18-2024 16:28-0400 Body height 157.[address] Jocelyne Augustin MD Work Phone: [facility] 06-18-2024 16:28-0400 Body temperature 97 [degF] Dr. Jocelyne Augustin MD Work Phone: [facility] 06-18-2024 16:28-0400 Diastolic blood pressure 121 mm[Hg] Dr. Jocelyne Augustin MD Work Phone: [facility] 06-18-2024 16:28-0400 Heart rate 125 /min Dr. Jocelyne Augustin MD Work Phone: [facility] 06-18-2024 16:28-0400 Respiratory rate 20 /min Dr. Jocelyne Augustin MD Work Phone: [facility] 06-18-2024 16:28-0400 SaO2% (BldA) [Mass fraction] 96 % Dr. Jocelyne Augustin MD Work Phone: [facility] 06-18-2024 16:28-0400 Systolic blood pressure 157 mm[Hg] Dr. Jocelyne Augustin MD Work Phone: [facility] 05-27-2024 10:56-0400 Body height 157.[address] Jocelyne Augustin MD Work Phone: [facility] 05-27-2024 10:56-0400 Body mass index (BMI) [Ratio] 52.3 kg/m2 Dr. Jocelyne Augustin MD Work Phone: [facility] 05-27-2024 10:56-0400 Body temperature 98.6 [degF] Dr. Jocelyne Augustin MD Work Phone: [facility] 05-27-2024 10:56-0400 Body weight 129.[address] Jocelyne Augustin MD Work Phone: [facility] 05-27-2024 10:56-0400 Diastolic blood pressure 95 mm[Hg] Dr. Jocelyne Augustin MD Work Phone: [facility] 05-27-2024 10:56-0400 Heart rate 105 /min Dr. Jocelyne Augustin MD Work Phone: [facility] 05-27-2024 10:56-0400 Respiratory rate 16 /min Dr. Jocelyne Augustin MD Work Phone: [facility] 05-27-2024 10:56-0400 SaO2% (BldA) [Mass fraction] 94 % Dr. Jocelyne Augustin MD Work Phone: [facility] 05-27-2024 10:56-0400 Systolic blood pressure 136 mm[Hg] Dr. Jocelyne Augustin MD Work Phone: [facility] 03-11-2024 10:54-0500 Body height 157.[address] Jocelyne Augustin MD Work Phone: [facility] 03-11-2024 10:54-0500 Body mass index (BMI) [Ratio] 52.1 kg/m2 Dr. Jocelyne Augustin MD Work Phone: [facility] 03-11-2024 10:54-0500 Body temperature 98.7 [degF] Dr. Jocelyne Augustin MD Work Phone: [facility] 03-11-2024 10:54-0500 Body weight 129.[address] Jocelyne Augustin MD Work Phone: [facility] 03-11-2024 10:54-0500 Diastolic blood pressure 94 mm[Hg] Dr. Jocelyne Augustin MD Work Phone: [facility] 03-11-2024 10:54-0500 Heart rate 115 /min Dr. Jocelyne Augustin MD Work Phone: [facility] 03-11-2024 10:54-0500 Respiratory rate 17 /min Dr. Jocelyne Augustin MD Work Phone: [facility] 03-11-2024 10:54-0500 SaO2% (BldA) [Mass fraction] 96 % Dr. Jocelyne Augustin MD Work Phone: [facility] 03-11-2024 10:54-0500 Systolic blood pressure 152 mm[Hg] Dr. Jocelyne Augustin MD Work Phone: [facility] 01-15-2024 13:02-0500 Body mass index (BMI) [Ratio] 52 kg/m2 Dr. Jocelyne Augustin MD Work Phone: [facility] 01-15-2024 13:02-0500 Body temperature 98.2 [degF] Dr. Jocelyne Augustin MD Work Phone: [facility] 01-15-2024 13:02-0500 Body weight 128.[address] Jocelyne Augustin MD Work Phone: [facility] 01-15-2024 13:02-0500 Diastolic blood pressure 76 mm[Hg] Dr. Jocelyne Augustin MD Work Phone: [facility] 01-15-2024 13:02-0500 Heart rate 118 /min Dr. Jocelyne Augustin MD Work Phone: [facility] 01-15-2024 13:02-0500 Respiratory rate 16 /min Dr. Jocelyne Augustin MD Work Phone: [facility] 01-15-2024 13:02-0500 SaO2% (BldA) [Mass fraction] 94 % Dr. Jocelyne Augustin MD Work Phone: [facility] 01-15-2024 13:02-0500 Systolic blood pressure 115 mm[Hg] Dr. Jocelyne Augustin MD Work Phone: [facility] 01-23-2023 11:08-0500 Body height 157.[address] Jocelyne Augustin Work Phone: [facility] 01-23-2023 11:08-0500 Body mass index (BMI) [Ratio] 46 kg/m2 Dr. Jocelyne Augustin Work Phone: [facility] 01-23-2023 11:08-0500 Body temperature 98.6 [degF] Dr. Jocelyne Augustin Work Phone: [facility] 01-23-2023 11:08-0500 Body weight 114.[address] Jocelyne Augustin Work Phone: [facility] 01-23-2023 11:08-0500 Diastolic blood pressure 96 mm[Hg] Dr. Jocelyne Augustin Work Phone: [facility] 01-23-2023 11:08-0500 Heart rate 118 /min Dr. Jocelyne Augustin Work Phone: [facility] 01-23-2023 11:08-0500 Respiratory rate 17 /min Dr. Jocelyne Augustin Work Phone: [facility] 01-23-2023 11:08-0500 SaO2% (BldA) [Mass fraction] 96 % Dr. Jocelyne Augustin Work Phone: [facility] 01-23-2023 11:08-0500 Systolic blood pressure 140 mm[Hg] Dr. Jocelyne Augustin Work Phone: [facility] 11-20-2022 09:02-0400 Body mass index (BMI) [Ratio] 44.6 kg/m2 Dr. Jocelyne Augustin Work Phone: [facility] 11-20-2022 09:02-0400 Body temperature 98.3 [degF] Dr. Jocelyne Augustin Work Phone: [facility] 11-20-2022 09:02-0400 Body weight 110.[address] Jocelyne Augustin Work Phone: [facility] 11-20-2022 09:02-0400 Diastolic blood pressure 77 mm[Hg] Dr. Jocelyne Augustin Work Phone: [facility] 11-20-2022 09:02-0400 Heart rate 110 /min Dr. Jocelyne Augustin Work Phone: [facility] 11-20-2022 09:02-0400 Respiratory rate 18 /min Dr. Jocelyne Augustin Work Phone: [facility] 11-20-2022 09:02-0400 SaO2% (BldA) [Mass fraction] 94 % Dr. Jocelyne Augustin Work Phone: [facility] 11-20-2022 09:02-0400 Systolic blood pressure 115 mm[Hg] Dr. Jocelyne Augustin Work Phone: [facility] 05-22-2022 08:57-0400 Body temperature 97.9 [degF] Dr. Jocelyne Augustin Work Phone: [facility] 05-22-2022 08:57-0400 Body weight 102.[address] Jocelyne Augustin Work Phone: [facility] 05-22-2022 08:57-0400 Diastolic blood pressure 82 mm[Hg] Dr. Jocelyne Augustin Work Phone: [facility] 05-22-2022 08:57-0400 Heart rate 110 /min Dr. Jocelyne Augustin Work Phone: [facility] 05-22-2022 08:57-0400 Respiratory rate 16 /min Dr. Jocelyne Augustin Work Phone: [facility] 05-22-2022 08:57-0400 SaO2% (BldA) [Mass fraction] 94 % Dr. Jocelyne Augustin Work Phone: [facility] 05-22-2022 08:57-0400 Systolic blood pressure 138 mm[Hg] Dr. Jocelyne Augustin Work Phone: [facility] 05-08-2022 09:02-0400 Body height 157.[address] Jocelyne Augustin Work Phone: [facility] 05-08-2022 09:02-0400 Body mass index (BMI) [Ratio] 41.7 kg/m2 Dr. Jocelyne Augustin Work Phone: [facility] 05-08-2022 09:02-0400 Body temperature 98 [degF] Dr. Jocelyne Augustin Work Phone: [facility] 05-08-2022 09:02-0400 Body weight 103.[address] Jocelyne Augustin Work Phone: [facility] 05-08-2022 09:02-0400 Diastolic blood pressure 78 mm[Hg] Dr. Jocelyne Augustin Work Phone: [facility] 05-08-2022 09:02-0400 Heart rate 109 /min Dr. Jocelyne Augustin Work Phone: [facility] 05-08-2022 09:02-0400 Respiratory rate 18 /min Dr. Jocelyne Augustin Work Phone: [facility] 05-08-2022 09:02-0400 SaO2% (BldA) [Mass fraction] 99 % Dr. Jocelyne Augustin Work Phone: [facility] 05-08-2022 09:02-0400 Systolic blood pressure 150 mm[Hg] Dr. Jocelyne Augustin Work Phone: [facility] 03-21-2022 09:42-0500 Body temperature 98.6 [degF] Dr. Jocelyne Augustin Work Phone: [facility] 03-21-2022 09:42-0500 Body weight 98.[address] Jocelyne Augustin Work Phone: [facility] 03-21-2022 09:42-0500 Diastolic blood pressure 92 mm[Hg] Dr. Jocelyne Augustin Work Phone: [facility] 03-21-2022 09:42-0500 Heart rate 114 /min Dr. Jocelyne Augustin Work Phone: [facility] 03-21-2022 09:42-0500 Respiratory rate 18 /min Dr. Jocelyne Augustin Work Phone: [facility] 03-21-2022 09:42-0500 SaO2% (BldA) [Mass fraction] 97 % Dr. Jocelyne Augustin Work Phone: [facility] 03-21-2022 09:42-0500 Systolic blood pressure 162 mm[Hg] Dr. Jocelyne Augustin Work Phone: [facility] 03-13-2022 09:01-0500 Body temperature 98.1 [degF] Dr. Jocelyne Augustin Work Phone: [facility] 03-13-2022 09:01-0500 Body weight 96.[address] Jocelyne Augustin Work Phone: [facility] 03-13-2022 09:01-0500 Diastolic blood pressure 92 mm[Hg] Dr. Jocelyne Augustin Work Phone: [facility] 03-13-2022 09:01-0500 Heart rate 102 /min Dr. Jocelyne Augustin Work Phone: [facility] 03-13-2022 09:01-0500 Respiratory rate 18 /min Dr. Jocelyne Augustin Work Phone: [facility] 03-13-2022 09:01-0500 SaO2% (BldA) [Mass fraction] 91 % Dr. Jocelyne Augustin Work Phone: [facility] 03-13-2022 09:01-0500 Systolic blood pressure 170 mm[Hg] Dr. Jocelyne Augustin Work Phone: [facility] 03-07-2022 10:23-0500 Body temperature 98 [degF] Dr. Jocelyne Augustin Work Phone: [facility] 03-07-2022 10:23-0500 Body weight 96.[address] Jocelyne Augustin Work Phone: [facility] 03-07-2022 10:23-0500 Heart rate 102 /min Dr. Jocelyne Augustin Work Phone: [facility] 03-07-2022 10:23-0500 Respiratory rate 18 /min Dr. Jocelyne Augustin Work Phone: [facility] 03-07-2022 10:23-0500 SaO2% (BldA) [Mass fraction] 96 % Dr. Jocelyne Augustin Work Phone: [facility] 02-21-2022 12:00-0500 Body temperature 97.9 [degF] Dr. Jocelyne Augustin Work Phone: [facility] 02-21-2022 12:00-0500 Diastolic blood pressure 85 mm[Hg] Dr. Jocelyne Augustin Work Phone: [facility] 02-21-2022 12:00-0500 Heart rate 100 /min Dr. Jocelyne Augustin Work Phone: [facility] 02-21-2022 12:00-0500 Respiratory rate 18 /min Dr. Jocelyne Augustin Work Phone: [facility] 02-21-2022 12:00-0500 SaO2% (BldA) [Mass fraction] 95 % Dr. Jocelyne Augustin Work Phone: [facility] 02-21-2022 12:00-0500 Systolic blood pressure 98 mm[Hg] Dr. Jocelyne Augustin Work Phone: [facility] 02-21-2022 09:35-0500 Body height 157.[address] Jocelyne Augustin Work Phone: [facility] 02-21-2022 09:35-0500 Body weight 100.[address] Jocelyne Augustin Work Phone: [facility] 02-20-2022 12:35-0500 Body mass index (BMI) [Ratio] 40.6 kg/m2 Dr. Jocelyne Augustin Work Phone: [facility] 02-20-2022 11:50-0500 Inhaled oxygen flow rate 8 L/min Dr. Jocelyne Augustin Work Phone: [facility] 02-14-2022 13:19-0500 Diastolic blood pressure 84 mm[Hg] Dr. Jocelyne Augustin Work Phone: [facility] 02-14-2022 13:19-0500 Heart rate 105 /min Dr. Jocelyne Augustin Work Phone: [facility] 02-14-2022 13:19-0500 SaO2% (BldA) [Mass fraction] 97 % Dr. Jocelyne Augustin Work Phone: [facility] 02-14-2022 13:19-0500 Systolic blood pressure 160 mm[Hg] Dr. Jocelyne Augustin Work Phone: [facility] 02-06-2022 08:15-0500 Body temperature 97.6 [degF] Dr. Jocelyne Augustin Work Phone: [facility] 02-06-2022 08:15-0500 Body weight 98.[address] Jocelyne Augustin Work Phone: [facility] 02-06-2022 08:15-0500 Diastolic blood pressure 88 mm[Hg] Dr. Jocelyne Augustin Work Phone: [facility] 02-06-2022 08:15-0500 Heart rate 117 /min Dr. Jocelyne Augustin Work Phone: [facility] 02-06-2022 08:15-0500 Respiratory rate 16 /min Dr. Jocelyne Augustin Work Phone: [facility] 02-06-2022 08:15-0500 SaO2% (BldA) [Mass fraction] 96 % Dr. Jocelyne Augustin Work Phone: [facility] 02-06-2022 08:15-0500 Systolic blood pressure 142 mm[Hg] Dr. Jocelyne Augustin Work Phone: [facility] 01-31-2022 09:59-0500 Body mass index (BMI) [Ratio] 39.6 kg/m2 Dr. Jocelyne Augustin Work Phone: [facility] 01-31-2022 09:59-0500 Body temperature 98.2 [degF] Dr. Jocelyne Augustin Work Phone: [facility] 01-31-2022 09:59-0500 Body weight 98.[address] Jocelyne Augustin Work Phone: [facility] 01-31-2022 09:59-0500 Diastolic blood pressure 90 mm[Hg] Dr. Jocelyne Augustin Work Phone: [facility] 01-31-2022 09:59-0500 Heart rate 103 /min Dr. Jocelyne Augustin Work Phone: [facility] 01-31-2022 09:59-0500 Respiratory rate 18 /min Dr. Jocelyne Augustin Work Phone: [facility] 01-31-2022 09:59-0500 SaO2% (BldA) [Mass fraction] 98 % Dr. Jocelyne Augustin Work Phone: [facility] 01-31-2022 09:59-0500 Systolic blood pressure 170 mm[Hg] Dr. Jocelyne Augustin Work Phone: [facility] 12-24-2021 10:48-0400 Body mass index (BMI) [Ratio] 38.1 kg/m2 Dr. Jocelyne Augustin Work Phone: [facility] 12-24-2021 10:48-0400 Diastolic blood pressure 56 mm[Hg] Dr. Jocelyne Augustin Work Phone: [facility] 12-24-2021 10:48-0400 Systolic blood pressure 126 mm[Hg] Dr. Jocelyne Augustin Work Phone: [facility] 12-24-2021 09:07-0400 Body height 157.[address] Jocelyne Augustin Work Phone: [facility] Work Phone: 12-24-2021 09:07-0400 Body temperature 98.6 [degF] Dr. Jocelyne Augustin Work Phone: [facility] 12-24-2021 09:07-0400 Body weight 94.[address] Jocelyne Augustin Work Phone: [facility] 12-24-2021 09:07-0400 Heart rate 105 /min Dr. Jocelyne Augustin Work Phone: [facility] 12-24-2021 09:07-0400 Respiratory rate 17 /min Dr. Jocelyne Augustin Work Phone: [facility] 12-24-2021 09:07-0400 SaO2% (BldA) [Mass fraction] 98 % Dr. Jocelyne Augustin Work Phone: [facility] 11-05-2021 14:31-0400 Body temperature 97.4 [degF] Dr. Jocelyne Augustin Work Phone: [facility] Work Phone: 11-05-2021 14:31-0400 Body weight 95.[address] Jocelyne Augustin Work Phone: [facility] Work Phone: 11-05-2021 14:31-0400 Diastolic blood pressure 88 mm[Hg] Dr. Jocelyne Augustin Work Phone: [facility] Work Phone: 11-05-2021 14:31-0400 Heart rate 90 /min Dr. Jocelyne Augustin Work Phone: [facility] Work Phone: 11-05-2021 14:31-0400 Respiratory rate 16 /min Dr. Jocelyne Augustin Work Phone: [facility] Work Phone: 11-05-2021 14:31-0400 SaO2% (BldA) [Mass fraction] 96 % Dr. Jocelyne Augustin Work Phone: [facility] Work Phone: 11-05-2021 14:31-0400 Systolic blood pressure 158 mm[Hg] Dr. Jocelyne Augustin Work Phone: [facility] Work Phone: 11-03-2021 20:48-0400 Respiratory rate 16 /min Dr. Jocelyne Augustin Work Phone: [facility] Work Phone: 11-03-2021 20:46-0400 Diastolic blood pressure 89 mm[Hg] Dr. Jocelyne Augustin Work Phone: [facility] Work Phone: 11-03-2021 20:46-0400 Heart rate 117 /min Dr. Jocelyne Augustin Work Phone: [facility] Work Phone: 11-03-2021 20:46-0400 SaO2% (BldA) [Mass fraction] 98 % Dr. Jocelyne Augustin Work Phone: [facility] Work Phone: 11-03-2021 20:46-0400 Systolic blood pressure 123 mm[Hg] Dr. Jocelyne Augustin Work Phone: [facility] Work Phone: 11-03-2021 18:17-0400 Body mass index (BMI) [Ratio] 38.2 kg/m2 Dr. Jocelyne Augustin Work Phone: [facility] Work Phone: 11-03-2021 18:17-0400 Body temperature 97.8 [degF] Dr. Jocelyne Augustin Work Phone: [facility] Work Phone: 11-03-2021 18:17-0400 Body weight 94.[address] Jocelyne Augustin Work Phone: [facility] Work Phone: 10-01-2021 13:49-0400 Body height 157.48 cm No Primary Care Physician [facility] Work Phone: 10-01-2021 13:49-0400 Body mass index (BMI) [Ratio] 36.8 kg/m2 No Primary Care Physician [facility] Work Phone: 10-01-2021 13:49-0400 Body temperature 97.9 [degF] No Primary Care Physician [facility] Work Phone: 10-01-2021 13:49-0400 Body weight 91.28 kg No Primary Care Physician [facility] Work Phone: 10-01-2021 13:49-0400 Diastolic blood pressure 62 mm[Hg] No Primary Care Physician [facility] Work Phone: 10-01-2021 13:49-0400 Heart rate 110 /min No Primary Care Physician [facility] Work Phone: 10-01-2021 13:49-0400 Respiratory rate 16 /min No Primary Care Physician [facility] Work Phone: 10-01-2021 13:49-0400 SaO2% (BldA) [Mass fraction] 98 % No Primary Care Physician [facility] Work Phone: 10-01-2021 13:49-0400 Systolic blood pressure 120 mm[Hg] No Primary Care Physician [facility] Work Phone: 09-21-2021 09:00-0400 Body temperature 97.3 [degF] No Primary Care Physician [facility] Work Phone: 09-21-2021 09:00-0400 Diastolic blood pressure 91 mm[Hg] No Primary Care Physician [facility] Work Phone: 09-21-2021 09:00-0400 Heart rate 85 /min No Primary Care Physician [facility] Work Phone: 09-21-2021 09:00-0400 Respiratory rate 20 /min No Primary Care Physician [facility] Work Phone: 09-21-2021 09:00-0400 SaO2% (BldA) [Mass fraction] 98 % No Primary Care Physician [facility] Work Phone: 09-21-2021 09:00-0400 Systolic blood pressure 119 mm[Hg] No Primary Care Physician [facility] Work Phone: 09-21-2021 06:00-0400 Body weight 91.5 kg No Primary Care Physician [facility] Work Phone: 09-20-2021 13:54-0400 Body height 157.48 cm No Primary Care Physician [facility] Work Phone: 09-19-2021 21:59-0400 Body mass index (BMI) [Ratio] 36.9 kg/m2 No Primary Care Physician [facility] Work Phone: 09-19-2021 21:21-0400 Body height 157.48 cm No Primary Care Physician [facility] Work Phone: 09-19-2021 21:21-0400 Body mass index (BMI) [Ratio] 35.1 kg/m2 No Primary Care Physician [facility] Work Phone: 09-19-2021 21:21-0400 Body weight 87.08 kg No Primary Care Physician [facility] Work Phone: 09-19-2021 21:19-0400 Body temperature 98.2 [degF] No Primary Care Physician [facility] Work Phone: 09-19-2021 21:19-0400 Diastolic blood pressure 83 mm[Hg] No Primary Care Physician [facility] Work Phone: 09-19-2021 21:19-0400 Heart rate 114 /min No Primary Care Physician [facility] Work Phone: 09-19-2021 21:19-0400 Respiratory rate 22 /min No Primary Care Physician [facility] Work Phone: 09-19-2021 21:19-0400 SaO2% (BldA) [Mass fraction] 98 % No Primary Care Physician [facility] Work Phone: 09-19-2021 21:19-0400 Systolic blood pressure 96 mm[Hg] No Primary Care Physician [facility] Work Phone: 09-19-2021 15:35-0400 Body mass index (BMI) [Ratio] 35.4 kg/m2 No Primary Care Physician [facility] Work Phone: 09-19-2021 15:35-0400 Body temperature 98.3 [degF] No Primary Care Physician [facility] Work Phone: 09-19-2021 15:35-0400 Body weight 87.99 kg No Primary Care Physician [facility] Work Phone: 09-19-2021 15:35-0400 Diastolic blood pressure 80 mm[Hg] No Primary Care Physician [facility] Work Phone: 09-19-2021 15:35-0400 Heart rate 125 /min No Primary Care Physician [facility] Work Phone: 09-19-2021 15:35-0400 Respiratory rate 18 /min No Primary Care Physician [facility] Work Phone: 09-19-2021 15:35-0400 SaO2% (BldA) [Mass fraction] 95 % No Primary Care Physician [facility] Work Phone: 09-19-2021 15:35-0400 Systolic blood pressure 142 mm[Hg] No Primary Care Physician [facility] Work Phone: 07-17-2021 11:28-0400 Body mass index (BMI) [Ratio] 38.4 kg/m2 No Primary Care Physician [facility] Work Phone: 07-17-2021 11:28-0400 Body temperature 98.2 [degF] No Primary Care Physician [facility] Work Phone: 07-17-2021 11:28-0400 Body weight 95.25 kg No Primary Care Physician [facility] Work Phone: 07-17-2021 11:28-0400 Diastolic blood pressure 82 mm[Hg] No Primary Care Physician [facility] Work Phone: 07-17-2021 11:28-0400 Heart rate 84 /min No Primary Care Physician [facility] Work Phone: 07-17-2021 11:28-0400 Respiratory rate 14 /min No Primary Care Physician [facility] Work Phone: 07-17-2021 11:28-0400 SaO2% (BldA) [Mass fraction] 99 % No Primary Care Physician [facility] Work Phone: 07-17-2021 11:28-0400 Systolic blood pressure 132 mm[Hg] No Primary Care Physician [facility] Work Phone: 06-26-2021 13:34-0400 Body mass index (BMI) [Ratio] 37.5 kg/m2 No Primary Care Physician [facility] Work Phone: 06-26-2021 13:34-0400 Body temperature 98.6 [degF] No Primary Care Physician [facility] Work Phone: 06-26-2021 13:34-0400 Body weight 92.98 kg No Primary Care Physician [facility] Work Phone: 06-26-2021 13:34-0400 Diastolic blood pressure 88 mm[Hg] No Primary Care Physician [facility] Work Phone: 06-26-2021 13:34-0400 Heart rate 92 /min No Primary Care Physician [facility] Work Phone: 06-26-2021 13:34-0400 Respiratory rate 14 /min No Primary Care Physician [facility] Work Phone: 06-26-2021 13:34-0400 SaO2% (BldA) [Mass fraction] 95 % No Primary Care Physician [facility] Work Phone: 06-26-2021 13:34-0400 Systolic blood pressure 138 mm[Hg] No Primary Care Physician [facility] Work Phone: 06-15-2021 16:28-0400 Body mass index (BMI) [Ratio] 35.1 kg/m2 Dr. Abhijit Guido Work Phone: [facility] Work Phone: 06-15-2021 15:26-0400 Heart rate 85 /min Dr. Abhijit Guido Work Phone: [facility] Work Phone: 06-15-2021 14:42-0400 Body temperature 98.5 [degF] Dr. Abhijit Guido Work Phone: [facility] Work Phone: 06-15-2021 14:42-0400 Diastolic blood pressure 85 mm[Hg] Dr. Abhijit Guido Work Phone: [facility] Work Phone: 06-15-2021 14:42-0400 Respiratory rate 14 /min Dr. Abhijit Guido Work Phone: [facility] Work Phone: 06-15-2021 14:42-0400 SaO2% (BldA) [Mass fraction] 97 % Dr. Abhijit Guido Work Phone: [facility] Work Phone: 06-15-2021 14:42-0400 Systolic blood pressure 131 mm[Hg] Dr. Abhijit Guido Work Phone: [facility] Work Phone: 06-15-2021 06:00-0400 Body weight 92.[address] Abhijit Guido Work Phone: [facility] Work Phone: 06-13-2021 11:15-0400 Body height 157.[address] Abhijit Guido Work Phone: [facility] Work Phone: 06-12-2021 19:04-0400 Diastolic blood pressure 137 mm[Hg] Dr. Abhijit Guido Work Phone: [facility] Work Phone: 06-12-2021 19:04-0400 Heart rate 92 /min Dr. Abhijit Guido Work Phone: [facility] Work Phone: 06-12-2021 19:04-0400 Respiratory rate 20 /min Dr. Abhijit Guido Work Phone: [facility] Work Phone: 06-12-2021 19:04-0400 Systolic blood pressure 192 mm[Hg] Dr. Abhijit Guido Work Phone: [facility] Work Phone: 06-12-2021 18:54-0400 Body temperature 98.4 [degF] Dr. Abhijit Guido Work Phone: [facility] Work Phone: 06-12-2021 16:26-0400 Body height 157.[address] Abhijit Guido Work Phone: [facility] Work Phone: 06-12-2021 16:26-0400 Body mass index (BMI) [Ratio] 38.7 kg/m2 Dr. Abhijit Guido Work Phone: [facility] Work Phone: 06-12-2021 16:26-04[address] Body weight [address] Abhijit Guido Work Phone: [facility] Work Phone: 06-12-2021 16:26-0400 SaO2% (BldA) [Mass fraction] 98 % Dr. Abhijit Guido Work Phone: [facility] Work Phone: Encounters Encounter Date Encounter Type Care Provider Facility Start: 11-11-2024 End: 11-11-2024 Patient encounter procedure Tyra SALEH -[facility] Work Phone: Start: 11-11-2024 End: 11-11-2024 ambulatory Jocelyne Demetria Facility:[facility] Start: 10-07-2024 End: 10-07-[address] Jocelyne Augustin MD -[facility] Work Phone: Start: 10-07-2024 End: 10-07-[address] Jocelyne Augustin MD Work Phone: -[facility] Start: 10-04-2024 End: 10-04-[address] Jocelyne Augustin MD Work Phone: -[facility] [place] Start: 10-04-2024 End: 10-04-[address] Jocelyne Augustin MD -[facility] [place] Work Phone: Start: 10-04-2024 End: 10-04-2024 ambulatory Jocelyne Augustin Facility:[facility] Start: 07-29-2024 End: 07-29-[address] Jocelyne Augustin MD -[facility] Work Phone: Start: 07-29-2024 End: 07-29-[address] Jocelyne Augustin MD Work Phone: [facility] Work Phone: Start: 07-01-2024 End: 07-01-[address] Jocelyne Augustin MD -[facility] Work Phone: Start: 07-01-2024 End: 07-01-2024 ambulatory Jocelyne Demetria Facility:[facility] Start: 06-18-2024 End: 06-18-2024 Emergency department patient visit Dr. Jocelyne Augustin MD Work Phone: -Emergency Department Work Phone: Start: 05-27-2024 End: 05-27-[address] Jocelyne Augustin MD -[facility] Work Phone: Start: 05-27-2024 End: 05-27-2024 ambulatory Jocelyne Augustin Facility:[facility] Start: 05-25-2024 End: 05-25-[address] Jocelyne Augustin MD Work Phone: [facility] Work Phone: Start: 05-25-2024 End: 05-25-[address] Jocelyne Augustin MD -[facility] Work Phone: Start: 05-25-2024 End: 05-25-2024 ambulatory Jocelyne Augustin Facility:[facility] Start: 04-28-2024 End: 04-28-[address] Jocelyne Augustin MD Work Phone: [facility] Work Phone: Start: 04-28-2024 End: 04-28-[address] Tristin Hayden MD -Laboratory, [place] Work Phone: Start: 04-28-2024 End: 04-28-20[facility] Start: 04-07-2024 ambulatory [facility] Facilit y:[facility] Start: 04-07-2024 Non-patient / Non-visit Dr. Fawad nielsen MD -[facility] Start: 04-07-2024 End: 04-07-[address] Tristin Hayden MD -Cardiovascular Services Work Phone: Start: 04-07-2024 End: 04-07-2024 ambulatory [facility] Facility:[facility] Start: 03-11-2024 End: 03-11-[address] Tristin Hayden MD -[facility] Work Phone: Start: 03-11-2024 End: 03-11-2024 ambulatory [facility] Facility:[facility] Start: 01-28-2024 End: 01-28-[address] Jocelyne Augustin MD -[facility] Work Phone: Start: 01-28-2024 End: 01-28-2024 ambulatory Jocelyne Demetria Facility:[facility] Start: 01-21-2024 End: 01-21-[address] [facility] Start: 01-21-2024 End: 01-21-2024 ambulatory Jocelyne Demetria Facility:[facility] Start: 01-15-2024 End: 01-15-[address] Jocelyne Augustin MD -[facility] Work Phone: Start: 01-15-2024 End: 01-15-2024 ambulatory Jocelyne Augustin Facility:[facility] Start: 04-02-2023 Non-patient / Non-visit Dr. Kaelyn Augustin Work Phone: [facility] Start: 04-02-2023 End: 04-02-[address] Jocelyne Augustin Work Phone: [facility] Work Phone: Start: 04-02-2023 End: 04-02-[address] Jocelyne Augustin Work Phone: [facility]-Cardiovascular Services Work Phone: Start: 02-13-2023 End: 02-13-[address] Jocelyne Augustin Work Phone: [facility] Work Phone: Start: 02-13-2023 End: 02-13-[address] Jocelyne Augustin Work Phone: [facility] Work Phone: Start: 01-28-2023 End: 01-28-[address] Jocelyne Augustin Work Phone: [facility] Work Phone: Start: 01-28-2023 End: 01-28-[address] [facility] Start: 01-23-2023 End: 01-23-[address] Jocelyne Augustin Work Phone: [facility] Work Phone: Start: 11-20-2022 End: 11-20-[address] Jocelyne Augustin Work Phone: [facility] Work Phone: Start: 11-20-2022 End: 11-20-[address] Jocelyne Augustin Work Phone: [facility] [place] Work Phone: Start: 06-13-2022 End: 06-13-[address] Jocelyne Augustin Work Phone: [facility] Work Phone: Start: 06-13-2022 End: 06-13-[address] Jocelyne Augustin Work Phone: [facility]-Physical Therapy Start: 05-22-2022 End: 05-22-[address] Jocelyne Augustin Work Phone: [facility] [place] Start: 05-08-2022 End: 05-08-[address] Jocelyne Augustin Work Phone: [facility] Neurology Start: 04-10-2022 Non-patient / Non-visit Dr. Kaelyn Augustin Work Phone: [facility] Start: 04-10-2022 End: 04-10-[address] Jocelyne Augustin Work Phone: [facility] Work Phone: Start: 04-10-2022 End: 04-10-[address] Jocelyne Augustin Work Phone: [facility]-Cardiovascular Services Start: 03-21-2022 End: 03-21-[address] Jocelyne Augustin Work Phone: [facility] Vascular Surgery Start: 03-13-2022 End: 03-13-[address] Jocelyne Augustin Work Phone: [facility] [place] Start: 03-07-2022 End: 03-07-[address] Jocelyne Augustin Work Phone: [facility] Work Phone: Start: 03-07-2022 End: 03-07-[address] Jocelyne Augustin Work Phone: [facility] Start: 03-07-2022 End: 03-07-[address] Jocelyne Augustin Work Phone: [facility] Vascular Surgery Start: 02-21-2022 Non-patient / Non-visit Dr. Kaelyn Augustin Work Phone: [facility] Start: 02-20-2022 Non-patient / Non-visit Dr. Kaelyn Augustin Work Phone: [facility] Start: 02-20-2022 Non-patient / Non-visit Dr. Kaelyn Augustin Work Phone: [facility] Start: 02-20-2022 End: 02-21-2022 Evaluation and management of inpatient Dr. Jocelyne Augustin Work Phone: [facility]-Intensive Care Unit Start: 02-14-2022 End: 02-14-[address] Jocelyne Augustin Work Phone: [facility] Vascular Surgery Start: 02-12-2022 End: 02-12-2022 Non-patient / Non-visit Dr. Jocelyne Augustin Work Phone: [facility] Start: 02-06-2022 End: 02-06-[address] Jocelyne Augustin Work Phone: [facility] Int Med at [facility] Start: 01-31-2022 End: 01-31-[address] Jocelyne Augustin Work Phone: [facility] Vascular Surgery Start: 01-22-2022 End: 01-22-[address] Jocelyne Augustin Work Phone: [facility] Work Phone: Start: 01-22-2022 End: 01-22-[address] Jocelyne Augustin Work Phone: [facility]-Pulmonary Services/Neurology Start: 01-14-2022 End: 01-14-[address] Jocelyne Augustin Work Phone: [facility] Work Phone: Start: 01-14-2022 End: 01-14-[address] Jocelyne Augustin Work Phone: [facility] Start: 01-09-2022 Non-patient / Non-visit Dr. Kaelyn Augustin Work Phone: [facility] Start: 01-09-2022 End: 01-09-[address] Jocelyne Augustin Work Phone: [facility] Work Phone: Start: 01-09-2022 End: 01-09-[address] Jocelyne Augustin Work Phone: [facility]-Cardiovascular Services Start: 12-24-2021 End: 12-24-[address] Jocelyne Augustin Work Phone: [facility] Neurology Start: 11-19-2021 End: 11-19-[address] Jocelyne Augustin Work Phone: [facility] Start: 11-05-2021 End: 11-05-[address] Jocelyne Augustin Work Phone: [facility] [place] Start: 11-03-2021 End: 11-03-2021 Emergency department patient visit Dr. Jocelyne Augustin Work Phone: [facility]-Emergency Department Start: 10-04-2021 End: 10-04-2021 Patient encounter procedure No Primary Care Physician [facility] Start: 10-01-2021 End: 10-01-2021 Patient encounter procedure No Primary Care Physician [facility] [place] Start: 09-21-2021 Non-patient / Non-visit No Leslie medeiros Care Physician [facility] Start: 09-20-2021 Non-patient / Non-visit No Leslie medeiros Care Physician [facility] Start: 09-19-2021 End: 09-21-2021 Evaluation and management of inpatient No Primary Care Physician [facility]-Progressive Care Unit Start: 09-19-2021 End: 09-19-2021 Patient encounter procedure No Primary Care Physician [facility] [place] Start: 08-22-2021 Registered Recurring No Primar y Care Physician [facility]-Physical Therapy Start: 07-30-2021 Non-patient / Non-visit No Leslie medeiros Care Physician [facility] Start: 07-17-2021 End: 07-17-2021 Patient encounter procedure No Primary Care Physician [facility] Radiology Start: 07-17-2021 End: 07-17-2021 Patient encounter procedure No Primary Care Physician [facility] Internal Medicine Start: 06-26-2021 End: 06-26-2021 Patient encounter procedure No Primary Care Physician [facility] Internal Medicine Start: 06-22-2021 Registered Referred No Primary Care Physician [facility]-Cardiovascular Services Start: 06-18-2021 Non-patient / Non-visit No Leslie medeiros Care Physician [facility] Start: 06-15-2021 Non-patient / Non-visit No Leslie medeiros Care Physician [facility] Start: 06-15-2021 End: 06-15-[address] Abhijit Guido Work Phone: [facility]-Pulmonary Services/Neurology Start: 06-15-2021 Non-patient / Non-visit Dr. Regla Guido Work Phone: [facility] Start: 06-14-2021 Non-patient / Non-visit Dr. Regla Guido Work Phone: [facility] Start: 06-13-2021 Non-patient / Non-visit Dr. Regla Guido Work Phone: [facility] Start: 06-13-2021 Non-patient / Non-visit Dr. Regla Guido Work Phone: [facility] Start: 06-12-2021 Non-patient / Non-visit Dr. Regla Gu[facility] Start: 06-12-2021 End: 06-15-2021 Evaluation and management of inpatient Dr. Abhijit Guido Work Phone: [facility]-Progressive Care Unit Start: 06-12-2021 Non-patient / Non-visit No [facility] Physician [facility] Procedures Date Procedure Procedure Detail Performing Clinician Start: 06-18-2024 Plain x-ray of pelvis and lower extremity Dr. Jocelyne Augustin MD Work Phone: Start: 01-28-[address] Jocelyne Augustin MD Work Phone: Start: 01-28-[address] Jocelyne Augustin Work Phone: Start: 03-07-2022 Plain chest X-ray Dr. Jocelyne Augustin Work Phone: Start: 02-20-[address] Jocelyne garcia Work Phone: Start: 11-19-2021 MRI of brain with contrast Dr. Jocelyne Augustin Work Phone: Start: 11-03-2021 CT of head without contrast Dr. Jocelyne Augustin Work Phone: Start: 09-19-2021 Introduction to urinary tract No Primary Care Physician Start: 09-19-2021 Fluoroscopic guidance No Primary Care Physician Start: 09-19-2021 CT of abdomen and pelvis without contrast No Primary Care Physician Start: 09-19-2021 Plain chest X-ray No Primary Care Physician Start: 07-17-2021 X-ray of lumbar spine, two or three views No Primary Care Physician Start: 06-14-2021 End: 06-14-[address] Abhijit Guido Work Phone: Start: 06-13-2021 CT angiography of head and neck Dr. Abhijit Guido Work Phone: Start: 06-13-2021 Magnetic resonance angiography of neck without contrast Dr. Abhijit Guido Work Phone: Start: 06-13-2021 MRI of brain without contrast Dr. Abhijit Guido Work Phone: Start: 06-13-2021 Magnetic resonance angiography of head without contrast Dr. Abhijit Guido Work Phone: Start: 06-12-2021 Plain chest X-ray Dr. Abhijit Guido Work Phone: Start: 06-12-2021 CT of head without contrast Dr. Abhijit Guido Work Phone: Bacteria identified in Blood by Culture No Primary Care Physician History of carotid endarterectomy History of right-sided carotid endarterectomy Dr. Jocelyne Augustin Work Phone: Urine culture No Primary Car e Physician Viral antigen assay No Prima ry Care Physician Plan of Treatment Date Care Activity Detail Author Start: 06-18-2024 [facility] Start: 05-08-2022 Patient referral [facility] Work Phone: Start: 02-21-2022 Patient discharge [facility] Start: 02-20-2022 Following clinical pathway protocol [facility] Start: 02-20-2022 Ambulation without limitation [facility] Start: 02-20-2022 Assessment of risk of venous thromboembolism [facility] Start: 02-20-2022 Catheterization of vein [facility] Start: 02-20-2022 Continuous pulse oximetry [facility] Start: 02-20-2022 Deep breathing and coughing exercises [facility] Start: 02-20-2022 Elevation of head of bed [facility] Start: 02-20-2022 Incentive spirometry [facility] Start: 02-20-2022 Insertion of catheter into peripheral vein [facility] Start: 02-20-2022 Measuring intake and output [facility] Start: 02-20-2022 Notification of physician [facility] Start: 02-20-2022 Oxygen therapy [facility] Start: 02-20-2022 Patient referral to dietitian [facility] Start: 02-20-2022 Providing care according to standard [facility] Start: 02-20-2022 Provision of activity privileges [facility] Start: 02-20-2022 Referral to occupational therapist [facility] Start: 02-20-2022 Referral to service [facility] Start: 02-20-2022 Vital signs measurements [facility] Start: 02-20-2022 [facility] Start: 02-20-2022 Verification routine [facility] Work Phone: Start: 02-20-2022 Admission procedure [facility] Start: 01-14-2022 Cardiolipin IgA and IgG and IgM panel - Serum [facility] Work Phone: Start: 01-14-2022 Complement C3 [Mass/volume] in Serum or Plasma [facility] Work Phone: Start: 01-14-2022 Complement C4 [Mass/volume] in Serum or Plasma [facility] Work Phone: Start: 01-14-2022 Complement total hemolytic CH50 [Units/volume] in Serum or Plasma [facility] Work Phone: Start: 01-14-2022 Factor V Leiden genotype [facility] Work Phone: Start: 01-14-2022 Lamotrigine measurement [facility] Work Phone: Start: 01-14-2022 Lupus anticoagulant assay [facility] Work Phone: Start: 01-14-2022 Protein C [Units/volume] in Platelet poor plasma by Coagulation assay [facility] Work Phone: Start: 01-14-2022 Protein C Ag actual/normal in Platelet poor plasma by Immunoassay [facility] Work Phone: Start: 01-14-2022 Protein S assay [facility] Work Phone: Start: 01-14-2022 Protein S function estimate [facility] Work Phone: Start: 01-14-2022 Targeted analysis for gene mutation [facility] Work Phone: Start: 01-14-2022 [facility] Work Phone: Start: 01-10-2022 Patient referral [facility] Work Phone: Start: 09-21-2021 Patient discharge [facility] Work Phone: Start: 09-19-2021 Following clinical pathway protocol [facility] Work Phone: Start: 09-19-2021 Application of intermittent pneumatic compression device [facility] Work Phone: Start: 09-19-2021 Ambulation without limitation [facility] Work Phone: Start: 09-19-2021 Assessment of risk of venous thromboembolism [facility] Work Phone: Start: 09-19-2021 Consultation [facility] Work Phone: Start: 09-19-2021 Documentation procedure [facility] Work Phone: Start: 09-19-2021 Insertion of catheter into peripheral vein [facility] Work Phone: Start: 09-19-2021 Introduction of urinary catheter [facility] Work Phone: Start: 09-19-2021 Measuring intake and output [facility] Work Phone: Start: 09-19-2021 Oxygen therapy [facility] Work Phone: Start: 09-19-2021 Providing care according to standard [facility] Work Phone: Start: 09-19-2021 Provision of activity privileges [facility] Work Phone: Start: 09-19-2021 Referral to service [facility] Work Phone: Start: 09-19-2021 End: 09-19-2021 [facility] Work Phone: Start: 09-19-2021 Fluoroscopic guidance O.R. Fluoro for C-Arm [facility] Work Phone: Start: 09-19-2021 Admission procedure [facility] Work Phone: Start: 09-19-2021 [facility] Work Phone: Start: 09-19-2021 End: 09-19-2021 Blood culture [facility] Work Phone: Start: 07-17-2021 Patient referral [facility] Work Phone: Start: 06-15-2021 Patient discharge [facility] Work Phone: Start: 06-15-2021 [facility] Work Phone: Start: 06-12-2021 Following clinical pathway protocol [facility] Work Phone: Start: 06-12-2021 Ambulation without limitation [facility] Work Phone: Start: 06-12-2021 Assessment of risk of venous thromboembolism [facility] Work Phone: Start: 06-12-2021 Cardiac monitoring [facility] Work Phone: Start: 06-12-2021 Catheterization of vein [facility] Work Phone: Start: 06-12-2021 Elevation of head of bed [facility] Work Phone: Start: 06-12-2021 Exercises [facility] Work Phone: Start: 06-12-2021 Implementation of planned interventions [facility] Work Phone: Start: 06-12-2021 Insertion of catheter into peripheral vein [facility] Work Phone: Start: 06-12-2021 Measuring intake and output [facility] Work Phone: Start: 06-12-2021 Notification of physician [facility] Work Phone: Start: 06-12-2021 Patient referral to dietitian [facility] Work Phone: Start: 06-12-2021 Providing care according to standard [facility] Work Phone: Start: 06-12-2021 Referral to occupational therapist [facility] Work Phone: Start: 06-12-2021 Referral to service [facility] Work Phone: Start: 06-12-2021 Speech therapy assessment [facility] Work Phone: Start: 06-12-2021 Tobacco use cessation education [facility] Work Phone: Start: 06-12-2021 [facility] Work Phone: Start: 06-12-2021 Magnetic resonance angiography of neck without contrast MRA Neck without Contrast [facility] Work Phone: Start: 06-12-2021 MRI of brain without contrast Brain without Contrast [facility] Work Phone: Start: 06-12-2021 Admission procedure [facility] Work Phone: Antithrombin III assay [facility] Work Phone: Antithrombin III ass ay, functional [facility] Work Phone: Bacteria identified in Blood by Culture Blood Culture [facility] Work Phone: Blood ammonia measurement [facility] Blood ammonia measurement [facility] Blood culture [facility] Work Phone: Cardiolipin IgA Ab [Units/volume] in Serum by Immunoassay [facility] Work Phone: Cardiolipin IgG Ab [Units/volume] in Serum or Plasma [facility] Work Phone: Cardiolipin IgM Ab [Units/volume] in Serum or Plasma [facility] Work Phone: Complement C3 [Mass/ volume] in Serum or Plasma [facility] Work Phone: Complement C4 [Mass/ volume] in Serum or Plasma [facility] Work Phone: Complement total hem olytic CH50 [Units/volume] in Serum or Plasma [facility] Work Phone: Comprehensive metabo lic 2000 panel - Serum or Plasma [facility] Comprehensive metabo lic 1999 panel - Serum or Plasma [facility] Electrocardiographic procedure [facility] Work Phone: Electrocardiographic procedure [facility] Electroencephalogram [facility] Work Phone: F5 gene mutations fo und [Identifier] in Blood or Tissue by Molecular genetics method Nominal [facility] Work Phone: Hemoglobin A1c/Hemog lobin.total in Blood [facility] Hemoglobin A1c/Hemog lobin.total in Blood [facility] Lactic acid measurement [facility] Work Phone: Lamotrigine measurement [facility] Work Phone: Lamotrigine measurement [facility] Lamotrigine measurement [facility] Lipid 1996 panel - S jazmine or Plasma [facility] Lupus anticoagulant neutralization platelet [Time] in Platelet poor plasma by Coagulation assay [facility] Work Phone: Partial thromboplast in time ratio [facility] Work Phone: Patient Education [facility] Work Phone: Patient referral [facility] Work Phone: Protein C [Units/vol ume] in Platelet poor plasma by Coagulation assay [facility] Work Phone: Protein C Ag actual/ normal in Platelet poor plasma by Immunoassay [facility] Work Phone: Protein S assay [facility] Work Phone: Protein S Free Ag ac tual/normal in Platelet poor plasma by Immunoassay [facility] Work Phone: Protein S, functional assay [facility] Work Phone: Targeted analysis fo r gene mutation [facility] Work Phone: Thrombin time [facility] Work Phone: Thyroid stimulating hormone measurement [facility] Urine culture Urine Culture [facility] Work Phone: US Carotid arteries [facility] US Carotid arteries [facility] Vitamin D, 1,25-dihy droxy measurement [facility] Payers Date Payer Category Payer Self-pay [id number] 2023 Medicare [id number] Unknown [id number] Unknown [id number] Unknown [facility] [employer] [phone] Unknown [id number] Unknown [facility] [employer] [id number] Unknown [id number] 2.16.8 [id number] Unknown [id number] 2.16.8 [id number] Unknown [id number] 2.16.8 [id number] Unknown [id number] 2.16.8 [id number] Unknown [id number] 2.16.8 40.1.025020.3.579.2.462 Unknown [id number] 2.16.8 40.1.491361.3.579.2.462 Unknown [id number] 2.16.8 40.1.928516.3.579.2.462 Unknown [id number] 2.16.8 [id number] Unknown [id number] 2.16.8 40.1.240527.3.579.2.462 Unknown [id number] 2.16.8 40.1.638324.3.579.2.462 Unknown [id number] 2.16.8 40.1.604087.3.579.2.462 Unknown [id number] 2.16.8 40.1.139879.3.579.2.462 Unknown [id number] 2.16.8 40.1.419351.3.579.2.462 Unknown [id number] 2.16.8 [id number] Unknown [id number] 2.16.8 [id number] Social History Date Type Detail Facility Start: 06-12-2021 End: 01-23-2023 Tobacco smoking status UTIS Unknown if ever smoked [facility] Start: 1960 Sex Assigned At Female [facility] Start: 06-15-2021 Cigarettes [facility] Start: 01-08-2024 End: 06-30-2024 Tobacco smoking status NHIS Ex-smoker (finding) [facility] Start: 05-11-2024 End: 06-18-2024 Sex Female (finding) [facility] Sex Female [facility] NEGATED: Highlighted row [facility] Medical Equipment Procedure Code Equipment Code Equipment Origin al Text Equipment Identifier Dates Endarterectomy, carotid ([id number]) Cardiovascular patch, animal-derived ()[id number] FDA Start: 02-20-2022 Endarterectomy, carotid Plant polysaccharide haemostatic agent, bioabsorbable ()[id number] FDA Start: 02-20-2022 Endarterectomy, carotid Ligation clip, metallic ()[id number] FDA Start: 02-20-2022 Endarterectomy, carotid Ligation clip, metallic ()[id number] FDA Start: 02-20-2022 Endarterectomy, carotid Ligation clip, metallic ()[id number] FDA Start: 02-20-2022 Endarterectomy, carotid Ligation clip, metallic ()[id number] FDA Start: 02-20-2022 Cystoscopic insertion of stent ([id number]) Polymeric ureteral stent ()[id number] FDA Start: 09-19-2021 Goals Date Patient Goal Desired Activity /State Functional Status Date Assessment Result Facility 02-21-2022 Functional status Chair [facility] Work Phone: 09-21-2021 Functional status Ambulates [facility] Work Phone: 06-15-2021 Functional status Activity Ability Indepe ndent [facility] Work Phone: 06-15-2021 Functional status Ambulates;Up ad jamie [facility] Work Phone: Mental Status Date Assessment Result Facility 02-21-2022 Cognitive function Voice/Name [facility] Work Phone: 11-03-2021 Cognitive function Voice/Name [facility] Work Phone: 09-21-2021 Cognitive function Voice/Name [facility] Work Phone: 09-19-2021 Cognitive function Level Of Cons ciousness Awake;Alert;Appropriate [facility] Work Phone: 06-15-2021 Cognitive function Voice/Name [facility] Work Phone: 06-12-2021 Cognitive function Level Of Cons ciousness Awake;Alert;Appropriate;Follow s Commands [facility] Work Phone: Clinical Notes 06-13-2022 to 11-11-2024 Note Date & Type Note Facility 11-11-2024 Progress note [facility] 07-29-2024 Evaluation note Diagnosis Onset Date Resolution Insulin resistance acute July 292024 10:04am Type 2 diabetes mellitus acute July 29, 2024 10:04am Acute ischemic stroke acute Sep us2024 10:51am Hypertension acute October 07, 2024 10:51am Insulin resistance acute October 07, 2024 10:51am Type 2 diabetes mellitus acute October 07 10:51am Carotid stenosis, bilateral chronic October 07 10:51am Hypertension acute November 112024 11:02am Mild cognitive impairment acute November 11, 2024 11:02am Stenosis of right internal carotid artery acute Septembe r 2024 11:02am Epilepsy chronic October 11:02am Cerebral infarction resolved Sept mber 2024 11:02am Vitamin d deficiency resolved Oct emb2024 11:02am [email or web address] Work Phone: 1(313) 339-517405-08-2025 Evaluation note* Diagnosis Onset Date Resolution Status Admit Date Type 2 diabetes mellitus acute July 01, 2024 10:01am Insulin resistance acute July 292024 10:04am Type 2 diabetes mellitus acute July 29, 2024 10:04am Acute ischemic stroke acute Sep 10:51am Hypertension acute October 07, 2024 10:51am Insulin resistance acute October 07, 2024 10:51am Type 2 diabetes mellitus acute October 07, 2024 10:51am Carotid stenosis, bilateral chronic October 07, 2024 10:51am [facility] Work Phone: 1(508) 480-842904-25-2025 Chief complaint+Reason for visit Narrative * Chief Complaint Admit Date hip June 18, 2024 4:2 7pm [employer] Education July 01, 2024 10:01am 1 M FU July 29, 2024 10:04 am EORDERS October 04, 2024 12 :38pm 2 M FU October 07, 2024 10 :51am Reason for Visit Admit Date Type 2 diabetes mellitus July 01, 2024 1 0:01am Insulin resistance July 29, 2024 10:04 am Type 2 diabetes mellitus July 29, 2024 10:04am Acute ischemic stroke October 07, 2024 10:51am Hypertension October 07, 2024 10 :51am Insulin resistance October 07, 2024 10 :51am Type 2 diabetes mellitus October 07 10:51am Carotid stenosis, bilateral October 07, 2024 10:51am [facility] Work Phone: 1(840) 991-857604-25-2025 Radiology Diagnostic study note [facility] Imaging Services [address] [place], [place] [address] HIP, UNI W/ Pelvis 2-3 Views MR#: [id number] Acct: [id number] Name: JERMAIN RHODES Rep #: [id number] : 1960 F 64 From: Sahil Long MD PCP: Dr. Jocelyne Augustin MD Status: REG ER Study:HIP, UNI W/ Pelvis 2-3 Views Date of Ex am: 06/18/24 Exam# [id number] Ordering Dr: Prince Collins MD PROCEDURE: HIP, UNI W/ PELVIS 2-3 VIEWS 06/18/2024 REASON FOR EXAM: PAIN, FALL TECHNIQUE: 3 view of the right hip FINDINGS: Bones: No acute fracture. Joints: Normal alignment. Soft tissues: Soft tissues are unremarkable. Other: RAD/HIP, UNI W/ Pelvis 2-3 Views IMPRESSION: NO ACUTE FRACTURE OR DISLOCATION. If acute hip fracture is suspected after a fall or minor trauma and initial radiographs are negative then MRI of the pelvis and affected hip without IV contrast or CT of the pelvis and hips without IV contrast is usually appropriate as the next imaging study. (ACR Appropriateness Criteria: Acute Hip Pain-Suspected Fracture 2018) Reading Location: [facility] CC: Dr. Prince Collins MD; Dr. Jocelyne Augustin MD ~ [employer] Operator: Signed [facility]04-03-2025 Evaluation note* Diagnosis Onset Date Resolution Status Admit Date Hypertension acute May 27, 2 025 10:44am Insulin resistance acute May 27, 2024 10:44am Overweight acute May 27 10:44am Type 2 diabetes mellitus acute May 27, 2024 10:44am Type 2 diabetes mellitus acute July 01, 2024 10:01am [facility] Work Phone: 1(326) 675-259801-16-2025 Evaluation note* Diagnosis Onset Date Resolution Status Admit Date Hypertension acute February 10:53am Mild cognitive impairment acute March 11, 2024 10:53am Stenosis of right internal carotid artery acute March 11 10:53am Epilepsy chronic March 11, 2024 10:53am Cerebral infarction resolved 2024 10:53am Vitamin d deficiency resolved 2024 10:53am Hypertension acute May 27, 2 025 10:44am Insulin resistance acute May 27, 2024 10:44am Overweight acute May 27 10:44am Type 2 diabetes mellitus acute May 27, 2024 10:44am [facility] Work Phone: 1(356) 962-990211-21-2024 Evaluation note* Diagnosis Onset Date Resolution Status Admit Date Acute ischemic stroke acute Dec 12:51pm Hypertension acute December 12:51pm Mild cognitive impairment acute January 15, 2024 12:51pm Carotid stenosis, bilateral chronic January 15, 2024 12:51pm Vitamin d deficiency resolved 2023 12:51pm Hypertension acute February 10:53am Mild cognitive impairment acute March 11, 2024 10:53am Stenosis of right internal carotid artery acute March 11 10:53am Epilepsy chronic March 11, 2024 10:53am Cerebral infarction resolved 2024 10:53am Vitamin d deficiency resolved 2024 10:53am [facility] Work Phone: 1(207) 523-379404-20-2023 Discharge summary Author Fawad Staples [facility] June 13, 2022 3:16pm Note Date/Time June 13, 2022 3:1 6pm [facility] Physical Therapy Health[address] [place] [address] / REHABILITATION SERVICES DISCHARGE SUMMARY MR#: [id number] Acct: [id number] Name: JERMAIN RHODES Rep #: [id number] : 1960 62 From: Fawad Staples DPT, OCS, CSCS Referring Dr.: Dr. Tristin Hayden MD Status: REG RCR Insurance: [facility] PACKAGE PLAN It has been my pleasure to treat JERMAIN RHODES referred by Dr. Tristin Hayden MD, with the diagnosis of cerbral infarct/LBP for a total of 8 visit(s). Discharge Date: 06/13/22 Please see the following information for a summary of their discharge status. Subjective: More ex at home including ellpitical for almost 15 minutes. Gettingstronger. Pain is unchanged. 70% betterand wants to get more standing time with her pain. To Dr. Hayden in August. Wants to try it at home now. LBP Pain Intensity (Out of 10): 0 % Improvement: 70 Objective/Function: +2 on 30 sec test. +6 pn FGA. gettting around well safely without cane today. 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 Thank you for the referral of thispatient. Sincerely, Fawad Staples, WILDA, OCS, CSCS Balance/Gait/Functional tests - Balance/Special Test Scores Functional Gait Assessment Score: 27 % Disability: 10.0000 Lower Extremity Functional Score: 44 TUG Test Time Seconds: 14 Tug Test: <20 sec.=mostly independent 30 Second Chair Rise Test Seconds: 13 <Electronically signed by Fawad Staples DPT, OCS, CSCS> 06/13/22 1516 CC: Dr. Jocelyne Augustin MD; Dr. Tristin Hayden MD ~ E[facility] Signed [facility] Work Phone: Evaluation note* Diagnosis Onset Date Resolution Status Acute ischemic stroke acute Hypertensive emergency acute [facility] Work Phone: Evaluation note* Diagnosis Onset Date Resolution Status Hypertensive emergency resol susy [facility] Work Phone: Evaluation note* Diagnosis Onset Date Resolution Status Acute ischemic stroke acute Hypertensive emergency resol susy Acute ischemic stroke acute Hypertension acute Overweight acute Encounter to establish care noneactive Acute ischemic stroke acute Hypertension acute Overweight acute Hypertension acute Nausea and vomiting acute Overweight acute Tachycardia acute Acute dehydration acute Acute hypotension acute Acute renal failure acute Nausea, vomiting, and diarrhea acute Sepsis acute Ureterolithiasis acute UTI (urinary tract infection) acute [facility] Work Phone: Evaluation note* Diagnosis Onset Date Resolution Status Acute ischemic stroke acute Hypertensive emergency resol susy Acute ischemic stroke acute Hypertension acute Overweight acute Encounter to establish care noneactive Acute ischemic stroke acute Hypertension acute Overweight acute Hypertension acute Nausea and vomiting acute Overweight acute Tachycardia acute Ureterolithiasis acute Acute dehydration resolved Acute hypotension resolved Acute renal failure resolved Nausea, vomiting, and diarrhea resolved Sepsis resolved UTI (urinary tract infection) resolved Acute ischemic stroke acute Hypertension acute Overweight acute Tachycardia acute Ureterolithiasis acute [facility] Work Phone: Evaluation note* Diagnosis Onset Date Resolution Status Hypertension acute Nausea and vomiting acute Overweight acute Tachycardia acute Ureterolithiasis acute Acute dehydration resolved Acute hypotension resolved Acute renal failure resolved Nausea, vomiting, and diarrhea resolved Sepsis resolved UTI (urinary tract infection) resolved Acute ischemic stroke acute Hypertension acute Overweight acute Tachycardia acute Ureterolithiasis acute Acute ischemic stroke acute Hypertension acute Overweight acute Epilepsy acute Cerebral infarction chronic Stenosis of right internal carotid artery [facility] Work Phone: Evaluation note* Diagnosis Onset Date Resolution Status Ureterolithiasis acute Acute dehydration resolved Acute hypotension resolved Acute renal failure resolved Nausea, vomiting, and diarrhea resolved Sepsis resolved UTI (urinary tract infection) resolved Acute ischemic stroke acute Hypertension acute Overweight acute Tachycardia acute Ureterolithiasis acute Acute ischemic stroke acute Hypertension acute Overweight acute Epilepsy acute Cerebral infarction chronic Stenosis of right internal carotid artery [facility] Work Phone: Evaluation note* Diagnosis Onset Date Resolution Status Acute ischemic stroke acute Hypertension acute Overweight acute Tachycardia acute Ureterolithiasis acute Acute ischemic stroke acute Hypertension acute Overweight acute Epilepsy acute Cerebral infarction chronic Stenosis of right internal carotid artery [facility] Work Phone: Evaluation note* Diagnosis Onset Date Resolution Status Acute ischemic stroke acute Hypertension acute Overweight acute Epilepsy acute Cerebral infarction chronic Stenosis of right internal carotid artery [facility] Work Phone: Evaluation note* Diagnosis Onset Date Resolution Status Acute ischemic stroke acute Hypertension acute Overweight acute Epilepsy acute Cerebral infarction chronic Stenosis of right internal carotid artery chronic Stenosis of right internal carotid artery chronic Acute ischemic stroke acute Hypertension acute Kidney failure acute Stenosis of right internal carotid artery chronic Stenosis of right internal carotid artery chronic Stenosis of right internal carotid artery chronic [facility] Work Phone: Evaluation note* Diagnosis Onset Date Resolution Status Epilepsy acute Cerebral infarction chronic Acute ischemic stroke acute Hypertension acute Kidney failure acute History of right-sided carotid endarterectomy acute Bronchitis acute Cough acute Hypertension acute [facility] Work Phone: Evaluation note* Diagnosis Onset Date Resolution Status Epilepsy acute Cerebral infarction chronic Acute ischemic stroke acute Hypertension acute Kidney failure acute History of right-sided carotid endarterectomy acute Bronchitis acute Cough acute Hypertension acute Carotid stenosis, bilateral chronic [facility] Work Phone: Evaluation note* Diagnosis Onset Date Resolution Status History of right-sided carotid endarterectomy acute Bronchitis acute Cough acute Hypertension acute Carotid stenosis, bilateral chronic Cerebral infarction chronic Epilepsy chronic Low back pain chronic Abnormality of gait and mobility acute Acute ischemic stroke acute History of right-sided carotid endarterectomy acute Hypertension acute Right arm weakness acute Cerebral infarction chronic Epilepsy chronic [facility] Work Phone: Evaluation note* Diagnosis Onset Date Resolution Status History of right-sided carotid endarterectomy acute Hypertension acute Kidney failure acute Carotid stenosis, bilateral chronic Cerebral infarction chronic Epilepsy chronic Epilepsy chronic [facility] Work Phone: Evaluation note* Diagnosis Onset Date Resolution Status Epilepsy [facility] Work [facility] Discharge instructions Additional Instructions Follow-up with your primary care provider for further narcotic analgesia. Return with increased pain, new or worsening symptoms.[facility] Work Phone: Progress note Author Tyra Moreno [facility] Note Date/Time November 11, 2024 11:49am [facility] [address] [place] [address], [address] [place] [address] OFFICE VISIT Date of Service: 11/11/24 MR#: [id number] Acct: [id number] Name: JERMAIN RHODES Rep #: [id number] : 1960 Provider: DELFINO Moreno Age/Sex: 64/F Location: [facility]. Status: Signed HPI HPI Details: Interim History: Jermain returns for follow-up visit. She has a history of hypertension, hyperlipidemia, febrile seizures during infancy, renal calculi and stroke in May 2021. In May 2021, while walking, she had acute onset disorientation, dysarthria and right- sided numbness and weakness and was hospitalized. In the emergency room, she was noted to have marked hypertension with a blood pressure of 227/119. She was treated with labetalol and clonidine for hypertensive emergency. Currently, she is taking lisinopril. She also had an elevated hemoglobin and hematocrit. On evaluation, she was found to have an acute left frontal-parietal lobe cortical cerebral infarct. Laboratory studies revealed hyperlipidemia. She was started on aspirin 81 mg daily and atorvastatin. Her head MRI at that time also revealed old right basal ganglia and right frontal lobe infarcts; she is not aware of any deficits relating to strokes in these regions. She was found to have greater than 70% stenosis of the right internal carotid artery on neck CTA. Her neurological deficits from her stroke in May 2021 improved over the following days. She has continued to have some mild right upper extremity weakness and gait imbalance. In October 2021, while at a fair she had an episode of loss of consciousness. She did not have any preceding aura. She was reported to appearunresponsive then collapsed and apparently exhibited seizure-like shaking activity and had brief postictal confusion. She had an episode of vomiting. She did not have any tongue biting or urinary incontinence. She did not have any new lateralizing weakness or numbness. She was seen in the emergency room and discharged. In November 2021, while seated in the bathroom, she had an episode of loss of consciousness. She was found by her . She did not exhibit any tonic or clonic activity. When he found her, he attempted to help her to a standing position which she was able to do. She was momentarily dazed but did not exhibit any extended postictal confusion or lethargy. She did not seek medical attention. She did not have any new lateralizing numbness or weakness with the episode. She did not have any vision change. She had a transient dull occipital pressure type headache following the episode. She had a right carotid endarterectomy in December 2021. Her carotid ultrasound from March 2023 and March 2024 revealed mild (<50%) stenosis ofthe right internal carotid artery, normal left internal carotid artery, patent right vertebral artery, and patent left vertebral artery with pre-steal waveformmorphology. She had multiple febrile seizures occurring before the age of 6 years. She did not have any seizures during later childhood or adulthood prior to the suspected seizure in October 2021. She has not had any any further seizures since initiation of lamotrigine in 2021. In 2021. She quit smoking in May 2021 following her stroke. She underwent a right carotid endarterectomy on 01/21/22 (by Fawad George M.D.).? Lamotrigine was initiated in 2021 following her seizure in October 2021 and she has had no further seizures. She has not had any symptoms suggestive of recurrent stroke since her stroke in May 2021. She has chronic low back pain. She reported having numbness in the 3 lateraltoes of the right foot. She has had right upper extremity weakness and gait imbalance as residual deficits from her stroke in May 2021. She has right knee pain. She is using turmeric. She completed physical therapy. She is not performing exercises on her own. Her laboratory evaluation for hypercoagulable state was unremarkable. Flurbiprofen caused gastrointestinal upset. She no longer uses baclofen. She has mild cognitive impairment. She feels that her memory has been overall unchanged within recent months. Mini-mental status exam score was 30/30in June 2023. She reports that she has been compliant with her anticonvulsant therapy. Herblood pressure is noted to be elevated today. She has started a vitamin D supplement for vitamin D deficiency and a follow-up vitamin D level was normal. Laboratory studies reveal hyperglycemia and an elevated hemoglobin A1c. ROS: Per HPI Physical Exam: Neuro: The patient is awake and alert and responds appropriately; she is oriented to the year and day of the week; she is able to spell world backwards Neck: Right carotid bruit auscultated Heart: Tachycardic, regular rhythm Supplemental Info CBC, PT/PTT, BMP, troponin (06/12/2021): WBC 11.9 (high), hemoglobin 18.5 (high),hematocrit 51.8 (high), BUN/creatinine ratio 9.4 (low) Head CT (06/12/2021): FINDINGS: BRAIN AND EXTRA-AXIAL SPACES: Old right basal ganglia infarct. Old right frontal parietal lobe infarct. No intra- or extra-axial hemorrhage. No intracranial mass or mass effect. Posterior fossa structures are unremarkable. Ventricles are appropriate for age. No hydrocephalus. Basal cisterns are patent. BONES/JOINTS: Unremarkable. No discrete lytic or blastic abnormalities. SINUSES: Sinus disease. MASTOID AIR CELLS: Unremarkable. Clear. ORBITS: Visualized globes, extraocular muscles, optic nerves and retrobulbar fat appear unremarkable. IMPRESSION: No acute findings in the head/brain. These images were reviewed on 12/24/2021. An old right caudate/basal ganglia infarct is noted. An old right frontal cortical infarct is noted. Mild diffusecerebral atrophy is noted. CBC, lipid profile, BMP (06/13/2021): Hemoglobin 15.9 (high), hematocrit 46.8 (normal) calcium 8.2 (low), BUN/creatinine 9.7 (low), cholesterol 211 (high), LDL 146 (high), triglycerides 141 (normal), VLDL 28 (normal), HDL 37 (low) Cardiac echo (06/12/2021): Left ventricular systolic function is normal. The estimated ejection fraction is 65 %. Trivial mitral valve insufficiency. Trivial tricuspid valve insufficiency. Trivial pulmonic valve insufficiency. Epicardial fat. Unable to estimate RV systolic pressure due to insufficient tricuspid regurgitant envelope. Diastolic function is indeterminate. Bubble contrast study negative for right to left interatrial shunt. EKG (06/12/2021): Normal sinus rhythm. Normal EKG. Head MRA (06/13/2021): FINDINGS: RIGHT INTERNAL CAROTID ARTERY: Cavernous and supraclinoid portion of the right internal carotid artery appears stenotic. No aneurysm. RIGHT ANTERIOR CEREBRAL ARTERY: Bilateral A1 segments are patent. Anterior communicating artery is patent. No significant stenosis at the visualized segments. No aneurysm. RIGHT MIDDLE CEREBRAL ARTERY: There is absence of the right middle cerebral artery and branches. No significant stenosis at the visualized segments. No aneurysm. RIGHT POSTERIOR CEREBRAL ARTERY: Unremarkable. No significant stenosis at the visualized segments. No aneurysm. RIGHT VERTEBRAL ARTERY: Unremarkable as visualized. No significant stenosis at the intradural/visualized segments. No aneurysm. LEFT INTERNAL CAROTID ARTERY: No acute findings. No significant stenosis at the intracranial/visualized segments. No aneurysm. LEFT ANTERIOR CEREBRAL ARTERY: Left anterior cerebral artery is larger in size than right. LEFT MIDDLE CEREBRAL ARTERY: M1 segment of the left MCA is diffusely narrowed. No aneurysm. LEFT POSTERIOR CEREBRAL ARTERY: Left P-comm arteries present. No significant stenosis at the visualized segments. No aneurysm. LEFT VERTEBRAL ARTERY: Unremarkable as visualized. No significant stenosis at the intradural/visualized segments. No aneurysm. BASILAR ARTERY: Unremarkable. No significant stenosis. No aneurysm. OTHER VASCULATURE: See below. BRAIN AND EXTRA-AXIAL SPACES: Both cerebral arteries are patent. IMPRESSION: 1. Stenosis of the right internal carotid artery. 2. Occlusion of the right MCA. 3. Diffuse stenosis of the left MCA. These images were reviewed on 12/24/2021. Head MRI (06/13/2021): FINDINGS: BRAIN AND EXTRA-AXIAL SPACES: A 16 mm focus of restricted diffusion noted along the left frontoparietal junction consistent with acute ischemia. Old lacunar infarct noted within the right basal ganglia as well as old subcortical posterior right frontal infarct. No intra- or extra-axial hemorrhage. No intracranial mass or mass effect. Posterior fossa structures are unremarkable. Ventricles are appropriate for age. No hydrocephalus. Basal cisterns are patent. SELLA: Unremarkable. Normal sella turcica, pituitary gland, infundibular stalk, optic chiasm and hypothalamus. AUDITORY SYSTEM: Unremarkable. The internal auditory canals are patent. BONES/JOINTS: Unremarkable. No discrete lytic or blastic abnormalities. SINUSES: Unremarkable as visualized. Clear. MASTOID AIR CELLS: Unremarkable as visualized. Clear. ORBITS: Unremarkable as visualized. Both globes, extraocular muscles, optic nerves and retrobulbar fat appear unremarkable. VASCULATURE: Unremarkable as visualized. Normal flow voids in the major intracranial circulation. IMPRESSION: 1. Small focus of acute ischemia involving the left frontoparietal junction. 2. Chronic ischemic changes on the right. These images were reviewed on 12/24/2021. An old right caudate/basal ganglia infarct is noted. An old right posterior frontal/parietal cortical infarct is noted. A small acute left posterior frontal/parietal cortical infarct is noted. Neck MRA (06/13/2021): FINDINGS: ARTIFACTS: Motion artifacts degrade the overall quality of the exam. RIGHT COMMON CAROTID ARTERY: Unremarkable. No occlusion or significant stenosis. No dissection. RIGHT INTERNAL CAROTID ARTERY: There appears to be long segment stenosis of the proximal 2 to 3 cm of the right internal carotid artery. No dissection. RIGHT EXTERNAL CAROTID ARTERY: Unremarkable. No occlusion. RIGHT VERTEBRAL ARTERY: Both vertebral arteries are patent with the right vertebral artery the dominant vessel. No occlusion or significant stenosis. No dissection. LEFT COMMON CAROTID ARTERY: Unremarkable. No occlusion or significant stenosis. No dissection. LEFT INTERNAL CAROTID ARTERY: Unremarkable. Extracranial segment is patent with no occlusion or significant stenosis. No dissection. LEFT EXTERNAL CAROTID ARTERY: Unremarkable. No occlusion. LEFT VERTEBRAL ARTERY: Unremarkable. No occlusion or significant stenosis. No dissection. GREAT VESSELS OF AORTIC ARCH: Unremarkable. No significant stenosis. CAROTID STENOSIS REFERENCE USING NASCET CRITERIA: % ICA stenosis = (1 - narrowest ICA diameter/diameter of distal cervical ICA) x 100. Mild - <50% stenosis. Moderate - 50-69% stenosis. Severe - 70-94% stenosis. Near occlusion - 95-99% stenosis. Occluded - 100% stenosis. IMPRESSION: 1. Motion degraded exam. 2. Suspect significant stenosis of the proximal right internal carotid artery. 3. CTA of head and neck may be of further value. These images were reviewed on 12/24/2021. Head/neck CTA (06/13/2021): FINDINGS: HEAD: RIGHT ANTERIOR CEREBRAL ARTERY: Unremarkable. No significant stenosis at the visualized segments. Anterior communicating artery is present. No aneurysm. RIGHT MIDDLE CEREBRAL ARTERY: M1 segment of the right MCA is occluded. Right M2 and M3 branches fill via collateral vessels. No aneurysm. RIGHT POSTERIOR CEREBRAL ARTERY: Unremarkable. No occlusion or significant stenosis. No aneurysm. RIGHT INTRACRANIAL INTERNAL CAROTID ARTERY: Diffuse smooth stenosis of the proximal 2.5 cm of the right internal carotid artery with lumen narrowed to approximately 70% or greater. More distal portion of the right internal carotid artery appears to be attenuated in caliber. The cavernous and supraclinoid portion of the right internal carotid artery is reduced in size. RIGHT INTRACRANIAL VERTEBRAL ARTERY: Unremarkable. No significant stenosis. No dissection or occlusion. LEFT ANTERIOR CEREBRAL ARTERY: Left anterior cerebral artery is larger in size in the right. No significant stenosis at the visualized segments. No aneurysm. LEFT MIDDLE CEREBRAL ARTERY: On the moderate diffuse narrowing and irregularity of the M1 segment of the left MCA. No aneurysm. LEFT POSTERIOR CEREBRAL ARTERY: Left posterior cerebral artery fills via the left P-comm. No occlusion or significant stenosis. No aneurysm. LEFT INTRACRANIAL INTERNAL CAROTID ARTERY: Unremarkable. No significant stenosis. No dissection or occlusion. LEFT INTRACRANIAL VERTEBRAL ARTERY: Unremarkable. No significant stenosis. No dissection or occlusion. BASILAR ARTERY: Unremarkable. No significant stenosis. No aneurysm. GREAT VESSELS OF AORTIC ARCH: Unremarkable. Normal anatomy, patent. OTHER VASCULATURE: See above. NECK: RIGHT COMMON CAROTID ARTERY: Unremarkable. No significant stenosis. No dissection or occlusion. RIGHT EXTRACRANIAL INTERNAL CAROTID ARTERY: See above. RIGHT EXTERNAL CAROTID ARTERY: Unremarkable. No occlusion. RIGHT EXTRACRANIAL VERTEBRAL ARTERY: Unremarkable. No significant stenosis. No dissection or occlusion. LEFT COMMON CAROTID ARTERY: Unremarkable. No significant stenosis. No dissection or occlusion. LEFT EXTRACRANIAL INTERNAL CAROTID ARTERY: Unremarkable. No significant stenosis. No dissection or occlusion. LEFT EXTERNAL CAROTID ARTERY: Unremarkable. No occlusion. LEFT EXTRACRANIAL VERTEBRAL ARTERY: Unremarkable. No significant stenosis. No dissection or occlusion. LUNG APICES: Unremarkable as visualized. HEAD and NECK: BONES/JOINTS: Unremarkable. No discrete lytic or blastic abnormalities. SOFT TISSUES: Unremarkable. CAROTID STENOSIS REFERENCE USING NASCET CRITERIA: % ICA stenosis = (1 - narrowest ICA diameter/diameter of distal cervical ICA) x 100. Mild - <50% stenosis. Moderate - 50-69% stenosis. Severe - 70-94% stenosis. Near occlusion - 95-99% stenosis. Occluded - 100% stenosis. IMPRESSION: 1. Significant narrowing of the proximal cervical portion of the right internal carotid artery suggesting vasculitis. 2. Occlusion of the M1 segment of the right MCA. 3. Narrowing and irregularity of the M1 segment of the left MCA. These images were reviewed on 12/24/2021. C-reactive protein, ESR (06/14/2021): C-reactive protein 4.19 (high), ESR 7 (normal) 48-hour Holter monitor (start date 06/15/2021): This is a 48-hour Holter monitor in normal sinus rhythm. The minimum heart ratewas 57 bpm and sinus bradycardia. The maximum heart rate was 141 bpm and sinus tachycardia. The average heart rate was noted to be 91 bpm. Rare premature atrial complexes. No runs noted. Frequent premature ventricular complexes. 9 beats of ventricular bigeminy. No runs noted. The longest R-R interval was 1.5 seconds. No activity or symptoms were recorded on the patient's diary. Lumbar x-rays (07/21/2021): FINDINGS: Normal lumbar lordosis.? There is no substantial scoliosis.? There is a normal alignment of the vertebrae. There is multilevel endplate spondylosis of the lumbar vertebrae.? Normal disc space heights. The soft tissue structures are unremarkable. IMPRESSION: There is multilevel endplate spondylosis of the lumbar vertebrae. These images were reviewed on 05/08/22. 30-day cardiac event monitor (06/22/2021-07/21/2021) Baseline sample showed sinus rhythm, sinus tachycardia with PVCs (1 and 1 minute)/artifact with a heart rate of 104.1 bpm. There were 0 critical, 0 serious and 4 stable events that occurred. The analysis of the critical, serious and stable and manually triggered events are listed below. Automatically detected events: 1 stable: Sinus rhythm, sinus tachycardia with PVCs (1 and 1 minute)/artifact Manually detected events: 1 stable: Sinus tachycardia with PVCs (6 and 1 minute)/artifact *None reported 1 stable: Sinus tachycardia with PVCs (9 and 1 minute)/artifact *None reported 1 stable: Sinus tachycardia with PVCs (4 and 1 minute)/artifact *None reported EKG (11/03/2021): Sinus tachycardia with occasional premature ventricular complexes; otherwise normal EKG. Head CT (11/03/2021): FINDINGS: Normal soft tissue structures. Normal calvarium. There is mild cerebral atrophy with widening of the extra-axial spaces and ventricular dilatation. Normal white matter tracts of the cerebral hemispheres. Chronic lacunar infarct of the right caudate nucleus. Normal brainstem. Normal cerebellum. There is no intracranial hemorrhage. Encephalomalacia within the right parietal lobe consistent with chronic infarcts. Normal visualized paranasal sinuses. IMPRESSION: Chronic involutional changes of the brain. These images were reviewed on 12/24/2021. Mild diffuse cerebral atrophy is noted. An old right frontal cortical infarct is noted. An old right caudate/basal ganglia infarct is noted. CBC, CMP (11/03/2021): WBC 14.3 (high) BUN 29 (high), creatinine 1.47 (high), EGFR 39 (low), glucose 127 (high) Head MRI (11/19/2021): FINDINGS: Old infarct with cystic encephalomalacia of the right caudate nucleus/basal ganglia noted as well as postinfarct encephalomalacia and gliotic signal at the junction of the right frontal and parietal lobes. There is mild cerebral atrophy with widening of the extra-axial spaces and ventricular dilatation. There are a limited number of small white matter hyperintensities, distributed throughout the deep white matter tracts of the cerebral hemispheres, consistent with mild chronic white matter ischemic changes. There is no evidence for recent intracranial ischemia or other cause of cytotoxic edema on diffusion weighted imaging (DWI). Normal T2* images of the brain without demonstrated susceptibility artifact. There is no demonstrated hemosiderin stain. Normal thalami. There is no extra-axial fluid accumulation. Normal flow voids within the major intracranial circulation suggesting patency by spin echo criteria. Normal venous enhancement. There is no enhancing intra-axial or extra-axial abnormality. Normal sella turcica, pituitary gland, infundibular stalk, optic chiasm and hypothalamus. Normal tectal plate and pineal gland. Normal midbrain, shoshana and medulla. Normal cerebellum. Normal basal cisterns. Normal bilateral temporal bones. Normal bilateral internal auditory canals. No demonstrated orbital abnormality, within the constraints of a routine brain study. Normal visualized paranasal sinuses. Normal calvarium and skull base. Normal visualized soft tissue structures. Normal visualized upper cervical spine. IMPRESSION: 1. Old infarct with cystic encephalomalacia of the right caudate nucleus/basal ganglia noted as well as postinfarct encephalomalacia and gliotic signal at the junction of the right frontal and parietal lobes. 2. No acute infarct or intracranial hemorrhage. These images were reviewed on 12/24/2021. Mild diffuse cerebral atrophy is noted. An old right caudate/basal ganglia is noted. An old right cortical posterior frontal/parietal infarcts are noted. A small left posterior frontal/parietal old infarct is noted. No acute intracranial pathology is noted. Carotid ultrasound (01/09/2022): Severe (>70%) stenosis right extracranial internal carotid. Mild (<50%) stenosis left extracranial internal carotid. The Right vertebral is patent and antegrade. The Left vertebral flow is bidirectional. ? ESR, AMANDA, protein C (antigen and functional), lupus anticoagulant, anticardiolipin antibodies, factor II DNA, C3, C4, CH50,Antithrombin III (immunol and functional), factor V leiden, protein S (total, free and functional), ammonia (01/14/22):?normal Lamotrigine level (01/14/22):?2.6 (in therapeutic range) EEG (01/22/22): EEG findings: normal. Summary: Normal EEG during waking and drowsiness.? There no no identified focal or epileptiform features.? A normal EEG does not rule out the possibility of underlying neurological disturbance or seizure tendency.? No seizures are identified during this routine study.? Hyperventilation and photic stimulation were not performed.? EKG (02/12/2022): Sinus tachycardia (ventricular rate 101 bpm). Otherwise normal EKG. BMP, magnesium, phosphorus (02/21/2022): Creatinine 1.04 (high), EGFR 58 (low), glucose 140 (high), calcium 7.8 (low) CBC (03/07/2022): Platelets of 478 (high) Carotid ultrasound (04/10/2022): Normal right extracranial internal carotid. Normal left extracranial internal carotid. The Right vertebral is patent and antegrade. The Left vertebral flow is bidirectional. CBC, vitamin D, TSH, lipid profile, CMP (11/20/2022): Sodium 134 (low), BUN 19 (high), creatinine 1.25 (high), EGFR 46 (low), triglycerides 160 (normal), cholesterol 151 (normal), LDL 72 (normal), VLDL 32 (normal), HDL 47 (normal), vitamin D 22.1 (insufficiency range) Lamotrigine level (11/20/2022): 1.3 (low) Lamotrigine level (02/13/23): 1.7 (low) Ammonia level (02/13/23): normal. Carotid ultrasound (04/02/23): Mild (<50%) stenosis right extracranial internal carotid. Normal left extracranial internal carotid. The Right vertebral is patent and antegrade. The Left vertebral artery is patent with pre-steal waveform morphology CBC, CMP, thiamine, B12, vitamin D, folate, TSH, ammonia (07/23/23): WBC 11.7 (high), sodium 134 (low), BUN 20 (high), creatinine 1.22 (high), eGFR 48 (low), glucose 108 (high), ammonia 37 (high), vitamin D 14.5 (low) Lamotrigine level (07/23/23): 1.3 (low) Vitamin D (01/21/24): 71.7 (normal) TSH, CMP, lipid profile (01/21/24): triglycerides 146 (normal), cholesterol 145 (normal), LDL 68 (normal), HDL 48 (normal), glucose 154 (high), eGFR 47 (low), creatinine 1.24 (high) Carotid ultrasound (04/07/24): Mild (<50%) stenosis right extracranial internal carotid. Normal left extracranial internal carotid. The Right vertebral is patent and antegrade. The Left vertebral is patent with pre-steal morphology Ammonia (04/28/24): normal Lamotrigine level (04/28/24): 2.8 (in therapeutic range) Hemoglobin A1c (04/28/24): 7.6 (high) Lipid profile (05/25/2024): triglycerides 139 (normal), cholesterol 139 (normal), LDL 63 (normal), HDL 48 (normal) Hemoglobin A1c (10/04/2024): 6.4 (high) CMP (10/04/2024): creatinine 1.29 (high), eGFR 47 (low) Lamotrigine level (10/04/2024): 5.7 (in therapeutic range) Ammonia (10/04/2024): normal Assessment and Plan Assessment and Plan (1) Epilepsy: Status: Chronic (2) Cerebral infarction: Status: Resolved (3) Vitamin d deficiency: Status: Resolved (4) Mild cognitive impairment: Status: Acute (5) Stenosis of right internal carotid artery: Status: Acute (6) Hypertension: Status: Acute Orders: Orders Carotid Duplex Ultrasound 04/10/25 I65.21 - Occlusion and stenosis of right carotid artery Vitamin D 1,25-Dihydroxy 2 Months E55.9 - Vitamin D deficiency, unspecified Medications: Refilled lamotrigine 100 mg PO BID 60 tabs 8RF cholecalciferol (vitamin D3) 1,250 mcg PO QWEEK 4 caps 7RF Plan Details Additional Comments: The patient had a left frontal-parietal cortical infarct in May 2021. At the time, of her initial hospital evaluation, she was found to have marked hypertension and she was treated for hypertensive emergency. She is now on lisinopril. Her blood pressure is elevated on exam today. She was started on aspirin 81 mg daily for stroke prophylaxis. Her evaluation with CTA also revealed greater than 70% stenosis of the right extracranial internal carotid artery and occlusion of the M1 segment for the right middle cerebral artery. Her brain imaging study revealed an old right caudate/basal ganglia infarct as well as an old right frontal parietal infarct (per her history she did not have symptoms which correlated with these prior ischemic events). She has not had further symptoms suggestive of recurrent cerebrovascular ischemia since May 2021. She has continued to have mild rightupper extremity weakness and gait imbalance as residual deficits from her strokein May 2021. She uses a cane. In October 2021, she had an episode of loss of consciousness with which sheexhibited shaking seizure-like activity and had brief postictal confusion. I suspect that this may have been an epileptic seizure. She has a history of febrile seizures that occurred prior to the age of 6 years but did not have any further seizures until the episode in October 2021. In November 2021, she had an episode of loss of consciousness while using the bathroom; I suspect that this was a vasodepressor or vasovagal event. She underwent a right carotid endarterectomy (performed by Dr. George) in December 2021. Her carotid ultrasound from March 2024 revealed mild (<50%) stenosis of the right internal carotid artery, normal left internal carotid artery, patent right vertebral artery, and patent left vertebral artery with pre-steal waveform morphology. This is unchanged from her March 2023 carotidultrasound. With her history of febrile seizures during infancy and the presence of cortical injury from her prior strokes, I feel that she is at risk for having further epileptic seizures and lamotrigine was initiated in 2021. She has had no further seizures. Her lamotrigine level was previously low and her dose was increased in March 2024. She is tolerating the increased dose and her lamotrigine level is now within the therapeutic range. - Lamotrigine 100 mg tablet twice daily will be continued. - Aspirin 81 mg daily will be continued. - Continuation of atorvastatin 40 mg nightly is recommended. - Lisinopril 30 mg daily will be continued for her hypertension. She will follow-up with her primary care physician, Dr. Augustin, for future management of hypertension. - A carotid ultrasound will be repeated in March 2025. She had hyperglycemia and was diagnosed with type 2 diabetes mellitus. Her hemoglobin A1c is now 6.4%, down from 7.7% earlier in 2024, after initiation of Trulicity. - Her diabetes is being managed by her primary care physician. She has chronic low back pain and lumbar x-rays from June 2021 reveal mild multilevel spondylosis. She has right knee pain. Flurbiprofen was not well-tolerated. She completed physical therapy. She is not performing exercises on her own. She had a fall in May 2024 resulting in right hip pain; she was evaluated in the ER and there was no evidence of acute fracture on x-ray. She was reinitiated on baclofen in July 2024 but she has since discontinued. - She uses tumeric. She has had vitamin D deficiency which has resolved with vitamin D supplementation. - Vitamin D 1.25mg weekly will be continued. - A vitamin D level will be checked. She reports having some memory difficulty. She may have mild cognitive impairment (MCI). Her mini-mental status exam score in June 2023 was 30/30. No recent change in her memory has been noted. She was previously on low-dose sertraline for depression but she is no longer taking this. - Her course will be followed. I will have her return for reassessment in [address] Hayden. Intake Vital Signs 03/11/24 10:54 10/07/24 11:04 11/11/24 11:04 Height 1.57 m 1.57 m BP 138/94 H Blood Pressure Location Lt brachial Position Sitting Respiration 16 Pulse 110 H Pulse Source Monitor Temp 98.2 F Temp Source Temporal Pulse Oximetry (%) 96 Oxygen Delivery Method room air Intake Visit Reasons: 8 mo fu Stations Superintendent Required: No Accompanied by: Allergies No Known Allergies Allergy (Verified 11/11/24 11:07) Medications ?Medication ?Instructions ?Recorded ?Confirmed ?Type coenzyme [id number] E 100 mg-100 1 cap PO DAILY LEG C RAMPS 12/24/21 11/11/24 History unit capsule aspirin 81 mg tablet,delayed 81 mg PO DAILY SUPPLEMENT 02/11/22 11/11/24 History release Disability placard #1 ea 07/17/23 10/07/24 Rx dulaglutide 1.5 mg/0.5 mL 1.5 mg (0.5 mL) subcut QWEEK #2 mL 10/07/24 11/11/24 Rx subcutaneous pen injector atorvastatin 40 mg tablet 40 mg PO QHS CHOLESTEROL #90 tabs 11/10/24 11/11/24 Rx lisinopril 30 mg tablet 30 mg PO QDAY #30 tabs 11/1011/11/24 Rx cholecalciferol (vitamin D3) 1,250 1,250 mcg PO QWEEK #4 caps 11/11/24 11/11/24 Rx mcg (50,000 unit) capsule lamotrigine 100 mg tablet 100 mg PO BID #60 tabs 11/1111/11/24 Rx PFSH Medical History Cataracts, bilateral Type 2 diabetes mellitus Insulin resistance Stenosis of right internal carotid artery Wears glasses Depression Hemiparesis Use of cane as ambulatory aid Urgency of urination Heartburn Former smoker H/O echocardiogram Seizures Stroke/cerebrovascular accident Kidney stones Kidney failure Sepsis secondary to UTI History of CVA (cerebrovascular accident) Lumbar disc disease with radiculopathy Hyperlipidemia Hypertension Surgical History History of urethral stent History of lithotripsy Hx of tonsillectomy Family History Mother Hypertension Thyroid disorder Kidney disease Son Hypertension Sister Thyroid disorder Father CVA (cerebral vascular accident) Prostate cancer Skin cancer Other Rheumatoid arthritis Uterine cancer Social History household members: spouse Smoking Status: Former smoker Tobacco: How many years used: 45 alcohol intake: current alcohol intake frequency: holidays/special occasions only Alcohol type: wine substance use type: does not use what type of physical activity do you participate in: none darryl/jewish: Restorationism seatbelt use: always Coding Level of Care Code Off vis,est,level 4 Diagnoses Epilepsy G40.909 Cerebral infarction I63.9 Vitamin d deficiency E55.9 Mild cognitive impairment G31.84 Stenosis of right internal carotid artery I65.21 Hypertension I10 11/11/24 1200 <Electronically signed by Tyra SALEH> Date _ Tyra BRUNNERC Cosigner Signature: Date (if applicable) CC: ~ [facility] Work Phone: Reason for referral (narrative)No reason for referral information [facility] Work Phone: Chief Complaint and Reason for Visit Chief Complaint HYPERTENSIVE EMERGEN CY ISCHEMIC STROKE, HYPERTENSIVE EMERGENCY Reason for Visit Acute ischemic strok e Hypertensive emergency Chief Complaint HYPERTENSIVE EMERGEN CY ISCHEMIC STROKE, HYPERTENSIVE EMERGENCY HYPERTENSIVE EMERGENCY HYPERTENSIVE EMERGENCY HYPERTENSIVE EMERGENCY Reason for Visit Acute ischemic strok e Hypertensive emergency Chief Complaint HYPERTENSIVE EMERGEN CY ISCHEMIC STROKE, HYPERTENSIVE EMERGENCY HYPERTENSIVE EMERGENCY HYPERTENSIVE EMERGENCY HYPERTENSIVE EMERGENCY Reason for Visit Hypertensive emergen cy Chief Complaint HYPERTENSIVE EMERGEN CY ISCHEMIC STROKE, HYPERTENSIVE EMERGENCY HYPERTENSIVE EMERGENCY HYPERTENSIVE EMERGENCY HYPERTENSIVE EMERGENCY HYPERTENSIVE EMERGENCY HOLTER MONITOR CVA, TO EVAL FOR ANY ARRYHTHMIA MATCH MAKER, EST. CARE, PT NEEDS MATCH MAKER, [facility] HOSP. FU 3 WK FU X-Rays LUMBAR DISC DISEASE. RX HERE LUMBAR DISC DISEASE. RX HERE [facility] FU, STROKE FU SEPSIS, UTI, L HYDROURETERNEPHROSIS, OBSTRUCTING Reason for Visit Acute ischemic strok e Hypertensive emergency Acute ischemic stroke Hypertension Overweight Encounter to establish care Acute ischemic stroke Hypertension Overweight Hypertension Nausea and vomiting Overweight Tachycardia Acute dehydration Acute hypotension Acute renal failure Nausea, vomiting, and diarrhea Sepsis Ureterolithiasis UTI (urinary tract infection) Chief Complaint HYPERTENSIVE EMERGEN CY ISCHEMIC STROKE, HYPERTENSIVE EMERGENCY HYPERTENSIVE EMERGENCY HYPERTENSIVE EMERGENCY HYPERTENSIVE EMERGENCY HYPERTENSIVE EMERGENCY HOLTER MONITOR CVA, TO EVAL FOR ANY ARRYHTHMIA MATCH MAKER, EST. CARE, PT NEEDS MATCH MAKER, [facility] HOSP. FU 3 WK FU X-Rays LUMBAR DISC DISEASE. RX HERE LUMBAR DISC DISEASE. RX HERE [facility] FU, STROKE FU SEPSIS, UTI, L HYDROURETERNEPHROSIS, OBSTRUCTING SEPSIS, UTI, L HYDROURETERNEPHROSIS, OBSTRUCTING Reason for Visit Acute ischemic strok e Hypertensive emergency Acute ischemic stroke Hypertension Overweight Encounter to establish care Acute ischemic stroke Hypertension Overweight Hypertension Nausea and vomiting Overweight Tachycardia Acute dehydration Acute hypotension Acute renal failure Nausea, vomiting, and diarrhea Sepsis Ureterolithiasis UTI (urinary tract infection) Chief Complaint HYPERTENSIVE EMERGEN CY ISCHEMIC STROKE, HYPERTENSIVE EMERGENCY HYPERTENSIVE EMERGENCY HYPERTENSIVE EMERGENCY HYPERTENSIVE EMERGENCY HYPERTENSIVE EMERGENCY HOLTER MONITOR CVA, TO EVAL FOR ANY ARRYHTHMIA MATCH MAKER, EST. CARE, PT NEEDS MATCH MAKER, [facility] HOSP. FU 3 WK FU X-Rays LUMBAR DISC DISEASE. RX HERE LUMBAR DISC DISEASE. RX HERE [facility] FU, STROKE FU SEPSIS, UTI, L HYDROURETERNEPHROSIS, OBSTRUCTING SEPSIS, UTI, L HYDROURETERNEPHROSIS, OBSTRUCTING SEPSIS, UTI, L HYDROURETERNEPHROSIS, OBSTRUCTING ER FU - KIKO EORDER Reason for Visit Acute ischemic strok e Hypertensive emergency Acute ischemic stroke Hypertension Overweight Encounter to establish care Acute ischemic stroke Hypertension Overweight Hypertension Nausea and vomiting Overweight Tachycardia Ureterolithiasis Acute dehydration Acute hypotension Acute renal failure Nausea, vomiting, and diarrhea Sepsis UTI (urinary tract infection) Acute ischemic stroke Hypertension Overweight Tachycardia Ureterolithiasis Chief Complaint [facility] FU, STROKE FU SEPSIS, UTI, L HYDROURETERNEPHROSIS, OBSTRUCTING SEPSIS, UTI, L HYDROURETERNEPHROSIS, OBSTRUCTING SEPSIS, UTI, L HYDROURETERNEPHROSIS, OBSTRUCTING ER FU - KIKO EORDER seizure 1 M FU SEIZURE STROKE/ER FU MULTIPLE CEREBRAL INFARCTS,RIGHT ICA STENOSIS EORDER Reason for Visit Hypertension Nausea and vomiting Overweight Tachycardia Ureterolithiasis Acute dehydration Acute hypotension Acute renal failure Nausea, vomiting, and diarrhea Sepsis UTI (urinary tract infection) Acute ischemic stroke Hypertension Overweight Tachycardia Ureterolithiasis Acute ischemic stroke Hypertension Overweight Epilepsy Cerebral infarction Stenosis of right internal carotid artery Chief Complaint SEPSIS, UTI, L HYDRO URETERNEPHROSIS, OBSTRUCTING SEPSIS, UTI, L HYDROURETERNEPHROSIS, OBSTRUCTING SEPSIS, UTI, L HYDROURETERNEPHROSIS, OBSTRUCTING ER FU - KIKO EORDER seizure 1 M FU SEIZURE STROKE/ER FU MULTIPLE CEREBRAL INFARCTS,RIGHT ICA STENOSIS EORDER Reason for Visit Ureterolithiasis Acute dehydration Acute hypotension Acute renal failure Nausea, vomiting, and diarrhea Sepsis UTI (urinary tract infection) Acute ischemic stroke Hypertension Overweight Tachycardia Ureterolithiasis Acute ischemic stroke Hypertension Overweight Epilepsy Cerebral infarction Stenosis of right internal carotid artery Chief Complaint ER FU - KIKO EORDER seizure 1 M FU SEIZURE STROKE/ER FU MULTIPLE CEREBRAL INFARCTS,RIGHT ICA STENOSIS EORDER EPILEPSY Reason for Visit Acute ischemic strok e Hypertension Overweight Tachycardia Ureterolithiasis Acute ischemic stroke Hypertension Overweight Epilepsy Cerebral infarction Stenosis of right internal carotid artery Chief Complaint EORDER seizure 1 M FU SEIZURE STROKE/ER FU MULTIPLE CEREBRAL INFARCTS,RIGHT ICA STENOSIS EORDER EPILEPSY Reason for Visit Acute ischemic strok e Hypertension Overweight Epilepsy Cerebral infarction Stenosis of right internal carotid artery Chief Complaint seizure 1 M FU SEIZURE STROKE/ER FU MULTIPLE CEREBRAL INFARCTS,RIGHT ICA STENOSIS EORDER EPILEPSY Carotid Stenosis 3 M FU Discuss CEA RIGHT CAROTID STENOSIS 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 post-op CXR Persistent Cough 2 week fu Occlusion and stenosis of right carotid artery 4 M FU 3 M FU CEREBRAL INFARCT,LBP, GAIT/RX HERE Reason for Visit History of right-russell ed carotid endarterectomy Bronchitis Cough Hypertension Carotid stenosis, bilateral Cerebral infarction Epilepsy Low back pain Abnormality of gait and mobility Acute ischemic stroke History of right-sided carotid endarterectomy Hypertension Right arm weakness Cerebral infarction Epilepsy Chief Complaint 6 M FU EORDERS FROM DR AUGUSTIN AND DR HAYDEN 4 M FU E ORDER Reason for Visit History of right-russell ed carotid endarterectomy Hypertension Kidney failure Carotid stenosis, bilateral Cerebral infarction Epilepsy Epilepsy Chief Complaint 6 M FU EORDERS FROM DR AUGUSTIN AND DR HAYDEN 4 M FU E ORDER EORDER Reason for Visit History of right-russell ed carotid endarterectomy Hypertension Kidney failure Carotid stenosis, bilateral Cerebral infarction Epilepsy Epilepsy Chief Complaint 4 M FU E ORDER EORDER S/P RCEA, LT CAROTID STENOSIS Reason for Visit Epilepsy Chief Complaint Admit Date Annual/Physical January 15, 2024 12:51pm EORDER January 21, 2024 10:00am SCREENING January 28, 2024 1 :10pm 8 mo fu March 11, 2024 1 0:53am HX CVA, MILD RT ICA STENOSIS April [id number] 8:49am EORDER April 28, 2024 11:2 6am Reason for Visit Admit Date Acute ischemic stroke January 14 12:51pm Hypertension January 15, 2024 12:51pm Mild cognitive impairment January 15, 2024 12:51pm Carotid stenosis, bilateral December 12:51pm Vitamin d deficiency January 15, 2024 12:51pm Hypertension March 11, 2024 1 0:53am Mild cognitive impairment March 11, 2024 10:53am Stenosis of right internal carotid arter y March 11, 2024 10:53am Epilepsy March 11, 2024 1 0:53am Cerebral infarction March 11, 2024 1 0:53am Vitamin d deficiency March 11, 2024 10:53am Chief Complaint Admit Date SCREENING January 28, 2024 1 :10pm 8 mo fu March 11, 2024 1 0:53am HX CVA, MILD RT ICA STENOSIS April [id number] 8:49am EORDER April 28, 2024 11:2 6am E-ORDER May 25, 2024 12:3 7pm Lab Result May 27, 2024 10:4 4am Reason for Visit Admit Date Hypertension March 11, 2024 1 0:53am Mild cognitive impairment March 11, 2024 10:53am Stenosis of right internal carotid arter y March 11, 2024 10:53am Epilepsy March 11, 2024 1 0:53am Cerebral infarction March 11, 2024 1 0:53am Vitamin d deficiency March 11, 2024 10:53am Hypertension May 27, 2024 10:4 4am Insulin resistance May 27, 2024 10:4 4am Overweight May 27, 2024 10:4 4am Type 2 diabetes mellitus May 27, 2024 10:44am Chief Complaint Admit Date 8 mo fu March 11, 2024 1 0:53am HX CVA, MILD RT ICA STENOSIS April [id number] 8:49am EORDER April 28, 2024 11:2 6am E-ORDER May 25, 2024 12:3 7pm Lab Result May 27, 2024 10:4 4am hip June 18, 2024 4:2 7pm Chief Complaint Admit Date HX CVA, MILD RT ICA STENOSIS April [id number] 8:49am EORDER April 28, 2024 11:2 6am E-ORDER May 25, 2024 12:3 7pm Lab Result May 27, 2024 10:4 4am hip June 18, 2024 4:2 7pm [facility] Admin Education July 01, 2024 10:01am 1 M FU July 29, 2024 10:04 am Reason for Visit Admit Date Hypertension May 27, 2024 10:4 4am Insulin resistance May 27, 2024 10:4 4am Overweight May 27, 2024 10:4 4am Type 2 diabetes mellitus May 27, 2024 10:44am Type 2 diabetes mellitus July 01, 2024 1 0:01am Chief Complaint Admit Date 1 M FU July 29, 2024 10:04 am EORDERS October 04, 2024 12 :38pm 2 M FU October 07, 2024 10 :51am 8 mo fu November 11, 2024 11:02am Reason for Visit Admit Date Insulin resistance July 29, 2024 10:04 am Type 2 diabetes mellitus July 29, 2024 10:04am Acute ischemic stroke October 07, 2024 10:51am Hypertension October 07, 2024 10 :51am Insulin resistance October 07, 2024 10 :51am Type 2 diabetes mellitus October 07 10:51am Carotid stenosis, bilateral October 07, 2024 10:51am Hypertension November 11, 2024 11:02am Mild cognitive impairment October 11:02am Stenosis of right internal carotid arter y November 11, 2024 11:02am Epilepsy November 11, 2024 11:02am Cerebral infarction November 11, 2024 11:02am Vitamin d deficiency November 11 11:02am Advance Directives Advance Directive Response Recorded Date/ Time Living Will No June 12, 2021 4:45pm Power of Washer Blanket No June 12 4:45pm Advance Directive Response Recorded Date/ Time Living Will No June 12, 2021 7:35pm Power of Washer Blanket No June 12 7:35pm Advance Directive Response Recorded Date/ Time Living Will No September 19, 2021 5:02pm Power of Washer Blanket No September 19 5:02pm Advance Directive Response Recorded Date/ Time Living Will No September 19, 2021 10:03pm Power of Washer Blanket No September 19 10:03pm Advance Directive Response Recorded Date/ Time Living Will No November 03, 2021 5:19pm Power of Washer Blanket No October 5:19pm Advance Directive Response Recorded Date/ Time Living Will No February 20, 022 12:35pm Power of Washer Blanket No February 20, 2022 12:35pm Advance Directive Response Recorded Date/ Time Living Will No February 20, 2 022 1:35pm Power of Washer Blanket No February 20, 2022 1:35pm Advance Directive Response Recorded Date/ Time Living Will No February 20, 2 022 1:35pm Do you have a Healthcare Power of Washer Blanket? No February 20, 2022 1:35pm Advance Directive Response Recorded Date/ Time Living Will No February 20, 2 022 1:35pm Do you have a Healthcare Power of Washer Blanket? No February 20, 2022 1:35pm Do you have a Healthcare Power of Washer Blanket? No June 18, 2024 5:11pm Advance Directive Response Recorded Date/ Time Do you have a Healthcare Power of Washer Blanket? No June 18, 2024 5:11pm Family History No Family History Records Found Relationship Condition Age at Onset Recorded Date/T jannette Not Specified Rheumatoid arthritis Unknown Malignant neoplasm of uterus Unknown mother Hypertension Unknown Disorder of thyroid Unknown Kidney disorder Unknown son Hypertension Unknown sister Disorder of thyroid Unknown father Cerebrovascular accident (CVA) Unknown Malignant neoplasm of prostate Unknown Malignant neoplasm of skin Unknown Summary Purpose Additional Source Comments Goals (unrecognized section and content) Goals may be documented in a n alternate sectionGoals may be documented in an alternate sectionGoals may be documented in an alternate sectionGoals may be documented in an alternate sectionGoals may be documented in an alternate sectionGoals may be documented in an alternate sectionGoals may be documented in an alternate sectionGoals may be documented in an alternate sectionGoals may be documented in an alternate sectionGoals may be documented in an alternate sectionGoals may be documented in an alternate sectionGoals may be documented in an alternate sectionGoals may be documented in an alternate sectionGoals may be documented in an alternate sectionGoals may be documented in an alternate sectionGoals may be documented in an alternate section Care Teams (unrecognized sec tion and content) Team Status: Active Member Role Status Dates Dr. Dominguez Joy III, MD Family Provider Active Dr. Jocelyne Augustin MD Primary Care Provider Active Team Status: Inactive Member Role Status Dates Dr. Tristin Hayden MD Attending Provider Active Dr. Jocelyne Augustin MD Primary Care Provider Active Team Status: Inactive Member Role Status Dates Dr. Jocelyne Augustin MD Primary Care Provider, Attendi ng Provider Active Team Status: Active Member Role Status Dates Dr. Jocelyne Augustin MD Primary Care Provider Active Dr. Fawad George MD Attending Provider Active Dr. Tristin Hayden MD Referring Provider Active Team Status: Inactive Member Role Status Dates Dr. Jocelyne Augustin MD Primary Care Provider, Referri ng Provider Active Dr. Fawad George MD Attending Provider Active Team Status: Inactive Member Role Status Dates Dr. Jocelyne Augustin MD Primary Care Provider, Referri ng Provider Active PAMELA Johnson Attending Provider Active Team Status: Active Member Role Status Dates Dr. Jocelyne Augustin MD Primary Care Provider Active Dr. Fawad George MD Admit Provider, Att ending Provider, Referring Provider, Other Provider Active Dr. Vasu France MD Other Provider Active Team Status: Active Member Role Status Dates Dr. Jocelyne Augustin MD Primary Care Provider Active Dr. Fawad George MD Admit Provider, Ref erring Provider, Other Provider Active Dr. Vasu France MD Other Provider Active Dr. Jermaine Lincoln MD Attending Provider Active Team Status: Inactive Member Role Status Dates Dr. Jocelyne Augustin MD Primary Care Pro vider, Attending Provider, Referring Provider Active Team Status: Inactive Member Role Status Dates Dr. Jocelyne Augustin MD Primary Care Provider Active Dr. Tristin Hayden MD Attending Provider, Referring Provider Active Team Status: Inactive Member Role Status Dates Dr. Jocelyne Augustin MD Primary Care Provider Active Dr. Fawad George MD Admit Provider, Att ending Provider, Referring Provider Active Dr. Vasu France MD Other Provider Active Team Status: Inactive Member Role Status Dates Dr. Jocelyne Augustin MD Primary Care Provider Active Kasandra SANTIAGO PA Attending Provider, Referrin g Provider Active Team Status: Active Member Role Status Dates Dr. Jocelyne Augustin MD Primary Care Provider Active Dr. Alexx Culp MD Attending Provider Active Dr. Fawad George MD Referring Provider Active Team Status: Active Member Role Status Dates Dr. Jocelyne Augustin MD Primary Care Provider Active Dr. Fawad George MD Attending Provider Active Team Status: Inactive Member Role Status Dates Dr. Jocelyne Augustin MD Primary Care Provider Active Kasandra SANTIAGO PA Other Provider Active Dr. Fawad George MD Attending Provider, Referring Pro vider Active Team Status: Active Member Role Status Dates Dr. Jocelyne Augustin MD Primary Care Provider Active Dr. Fawad George MD Attending Provider, Referring Pro vider Active Team Status: Inactive Member Role Status Dates Dr. Jocelyne Augustin MD Primary Care Provider, Referri ng Provider Active Dr. Tristin Hayden MD Attending Provider Active Team Status: Inactive Member Role Status Dates Dr. Jocelyne Augustin MD Primary Care Provider Active PAMELA Mckeon Attending Provider, Referring Provid er Active Team Status: Active Member Role Status Dates Dr. Jocelyne Augustin MD Primary Care Provider Active Team Status: Inactive Member Role Status Dates Dr. Jocelyne Augustin MD Primary Care Provider Active Start: January 15, 2024 End: January 15, 2024 Dr. Jocelyne Augustin MD Attending Provider Active Start: January 15, 2024 End: January 15, 2024 Team Status: Inactive Member Role Status Dates Dr. Jocelyne Augustin MD Primary Care Provider Active Start: January 21, 2024 End: January 21, 2024 Dr. Jocelyne Augustin MD Attending Provider Active Start: January 21, 2024 End: January 21, 2024 Dr. Jocelyne Augustin MD Referring Provider Active Start: January 21, 2024 End: January 21, 2024 Team Status: Inactive Member Role Status Dates Dr. Jocelyne Augustin MD Primary Care Provider Active Start: January 28, 2024 End: January 28, 2024 Dr. Jocelyne Augustin MD Attending Provider Active Start: January 28, 2024 End: January 28, 2024 Dr. Jocelyne Augustin MD Referring Provider Active Start: January 28, 2024 End: January 28, 2024 Team Status: Inactive Member Role Status Dates Dr. Jocelyne Augustin MD Primary Care Provider Active Start: March 11, 2024 End: March 11, 2024 Dr. Jocelyne Augustin MD Referring Provider Active Start: March 11, 2024 End: March 11, 2024 Dr. Tristin Hayden MD Attending Provider Active Start: March 11, 2024 End: March 11, 2024 Team Status: Inactive Member Role Status Dates Dr. Jocelyne Augustin MD Primary Care Provider Active Start: April 07, 2024 End: April 07, 2024 Dr. Tristin Hayden MD Attending Provider Active Start: April 07, 2024 End: April 07, 2024 Dr. Tristin Hayden MD Referring Provider Active Start: April 07, 2024 End: April 07, 2024 Team Status: Active Member Role Status Dates Dr. Jocelyne Augustin MD Primary Care Provider Active Start: April 07, 2024 Dr. Fawad George MD Attending Provider Active S tart: April 07, 2024 Dr. Tristin Hayden MD Referring Provider Active Start: April 07, 2024 Team Status: Inactive Member Role Status Dates Dr. Jocelyne Augustin MD Primary Care Provider Active Start: April 28, 2024 End: April 28, 2024 Dr. Tristin Hayden MD Attending Provider Active Start: April 28, 2024 End: April 28, 2024 Dr. Tristin Hayden MD Referring Provider Active Start: April 28, 2024 End: April 28, 2024 Team Status: Inactive Member Role Status Dates Dr. Jocelyne Augustin MD Primary Care Provider Active Start: May 25, 2024 End: May 25, 2024 Dr. Jocelyne Augustin MD Attending Provider Active Start: May 25, 2024 End: May 25, 2024 Dr. Jocelyne Augustin MD Referring Provider Active Start: May 25, 2024 End: May 25, 2024 Team Status: Inactive Member Role Status Dates Dr. Jocelyne Augustin MD Primary Care Provider Active Start: May 27, 2024 End: May 27, 2024 Dr. Jocelyne Augustni MD Attending Provider Active Start: May 27, 2024 End: May 27, 2024 Team Status: Inactive Member Role Status Dates Dr. Jocelyne Augustin MD Primary Care Provider Active Start: June 18, 2024 End: June 18, 2024 Prince Collins MD Emergency Provider Active Star t: June 18, 2024 End: June 18, 2024 Team Status: Inactive Member Role Status Dates Dr. Jocelyne Augustin MD Primary Care Provider Active Start: June 18, 2024 End: June 18, 2024 Prince Collins MD Attending Provider Active Star t: June 18, 2024 End: June 18, 2024 Prince Collins MD Emergency Provider Active Star t: June 18, 2024 End: June 18, 2024 Team Status: Inactive Member Role Status Dates Dr. Jocelyne Augustin MD Primary Care Provider Active Start: July 01, 2024 End: July 01, 2024 Dr. Jocelyne Augustin MD Attending Provider Active Start: July 01, 2024 End: July 01, 2024 Team Status: Inactive Member Role Status Dates Dr. Jocelyne Augustin MD Primary Care Provider Active Start: July 29, 2024 End: July 29, 2024 Dr. Jocelyne Augustin MD Attending Provider Active Start: July 29, 2024 End: July 29, 2024 Team Status: Active Member Role/Relationship Status Dates Dr. Jocelyne Augustin MD Primary Care Provider Active Team Status: Inactive Member Role/Relationship Status Dates Dr. Jocelyne Augustin MD Primary Care Provider Active Start: June 18, 2024 End: June 18, 2024 Prince Collins MD Attending Provider Active Star t: June 18, 2024 End: June 18, 2024 Prince Collins MD Emergency Provider Active Star t: June 18, 2024 End: June 18, 2024 Team Status: Inactive Member Role/Relationship Status Dates Dr. Jocelyne Augustin MD Primary Care Provider Active Start: July 01, 2024 End: July 01, 2024 Dr. Jocelyne Augustin MD Attending Provider Active Start: July 01, 2024 End: July 01, 2024 Team Status: Inactive Member Role/Relationship Status Dates Dr. Jocelyne Augustin MD Primary Care Provider Active Start: July 29, 2024 End: July 29, 2024 Dr. Jocelyne Augustin MD Attending Provider Active Start: July 29, 2024 End: July 29, 2024 Team Status: Active Member Role/Relationship Status Dates Dr. Jocelyne Augustin MD Primary Care Provider Active Start: October 04, 2024 Dr. Jocelyne Augustin MD Attending Provider Active Start: October 04, 2024 Dr. Jocelyne Augustin MD Referring Provider Active Start: October 04, 2024 Team Status: Inactive Member Role/Relationship Status Dates Dr. Jocelyne Augustin MD Primary Care Provider Active Start: October 07, 2024 End: October 07, 2024 Dr. Jocelyne Augustin MD Attending Provider Active Start: October 07, 2024 End: October 07, 2024 Team Status: Inactive Member Role/Relationship Status Dates Dr. Jocelyne Augustin MD Primary Care Provider Active Start: October 04, 2024 End: October 04, 2024 Dr. Jocelyne Augustin MD Attending Provider Active Start: October 04, 2024 End: October 04, 2024 Dr. Jocelyne Augustin MD Referring Provider Active Start: October 04, 2024 End: October 04, 2024 Team Status: Active Member Role/Relationship Status Dates Dr. Jocelyne Augustin MD Primary care physician Active Team Status: Inactive Member Role/Relationship Status Dates Dr. Jocelyne Augustin MD Primary care physician Active Start: July 29, 2024 End: July 29, 2024 Dr. Jocelyne Augustin MD Attending physician Active Start: July 29, 2024 End: July 29, 2024 Team Status: Inactive Member Role/Relationship Status Dates Dr. Jocelyne Augustin MD Primary care physician Active Start: October 04, 2024 End: October 04, 2024 Dr. Jocelyne Augustin MD Attending physician Active Start: October 04, 2024 End: October 04, 2024 Dr. Jocelyne Augustin MD Referring Provider Active Start: October 04, 2024 End: October 04, 2024 Team Status: Inactive Member Role/Relationship Status Dates Dr. Jocelyne Augustin MD Primary care physician Active Start: October 07, 2024 End: October 07, 2024 Dr. Jocelyne Augustin MD Attending physician Active Start: October 07, 2024 End: October 07, 2024 Team Status: Inactive Member Role/Relationship Status Dates Dr. Jocelyne Augustin MD Primary care physician Active Start: November 11, 2024 End: November 11, 2024 Dr. Jocelyne Augustin MD Referring Provider Active Start: November 11, 2024 End: November 11, 2024 DELFINO Carbajal Attending physician Active Start: November 11, 2024 End: November 11, 2024 INFORMATION SOURCE (unrecogn ized section and content) DATE CREATED AUTHOR 11/12/2024 [facility] FOR RECORDS PERTAINING TO PATIENTS WHO ARE OR HAVE BEEN ENROLLED IN A CHEMICAL DEPENDENCY/SUBSTANCEABUSE PROGRAM, SOME INFORMATION MAY BE OMITTED. This clinical summary was aggregated from multiple sources. Caution should be exercised in using it in the provision of clinical care. This summary normalizes information from multiple sources, and as a consequence, information in this document may materially change the coding, format and clinical context of patient data. In addition, data may be omitted in some cases. CLINICAL DECISIONS SHOULD BE BASED ON THE PRIMARY CLINICAL RECORDS. [employer] provides no warranty or guarantee of the accuracy or completeness of information in this document.
== END | disposition home or self-care (01) ==
LOC: OPBI 12:12
PROVIDERS: PCP Internal Medicine; Referring Provider Internal Medicine; Visit Provider Internal Medicine
DX: Z12.31 Encounter for screening mammogram for malignant neoplasm of breast (principal)
CPT/HCPCS: 77063; 77067